=== PATIENT | male | born 1965 | race American Indian/Alaskan Native ===

== ENCOUNTER 2018-05-23 12:03 | Emergency (ER) | payer SELFPAY ==
[2018-05-23] MEDS ORDERED: ZOFRAN IV ONE (12:31)
[2018-05-23] MEDS ORDERED: NACL 0.9% 1000 ML 1,000 ML IV ONE ×2 (12:31→15:29)
--- NOTE | 2018-05-23 12:35 | Emergency Department Report ---
ED N/V/D HPI - General Chief complaint: Hyperglycemia Stated complaint: HIGH BLOOD SUGAR Time Seen by Provider: 05/23/18 12:21 Source: patient, EMS Mode of arrival: Stretcher Limitations: No Limitations - History of Present Illness Initial comments: 52-year-old male with history of diabetes presents to ED with complaint of nausea and vomiting 3 days. Patient reports onset of cough, headache, body aches approximately 1 week ago. Patient lives with his brother and sister, states they have all been sick with the same symptoms. Patient denies fever and chills. Denies diarrhea. Patient reports generalized weakness this morning, so decided to come to the ER. He states he is unable to keep anything down. Patient does report that he did receive the flu shot this season. PCP: none complaint: nausea, vomiting -: days(s) (3) Description of Vomiting: food contents, watery Associated Abdominal Pain: No Severity: moderate Consistency: constant Improves with: none Worsens with: eating Context: sick contacts Associated Symptoms: myalgias, cough, headaches, nausea/vomiting, shortness of breath, weakness. denies: chest pain, fever/chills - Related Data Previous Rx's Medication Instructions Recorded Last Taken Type Benzonatate [Tessalon Perles] 100 mg PO Q8HR PRN #20 capsule 05/23/18 Unknown Rx Ondansetron [Zofran Odt] 4 mg PO Q8HR PRN #20 tab.rapdis 05/23/18 Unknown Rx Allergies Allergy/AdvReac Type Severity Reaction Status Date / Time No Known Allergies Allergy Unverified 05/23/18 12:18 ED Review of Systems ROS: Stated complaint: HIGH BLOOD SUGAR Other details as noted in HPI Comment: All other systems reviewed and negative Constitutional: weakness. denies: chills, fever Respiratory: cough, shortness of breath Cardiovascular: denies: chest pain Gastrointestinal: nausea, vomiting. denies: abdominal pain, diarrhea, consti pation Neurological: headache ED Past Medical Hx - Past Medical History Additional medical history: hyperglycemia - Surgical History Past Surgical History?: No - Social History Smoking Status: Current Every Day Smoker Substance Use Type: None - Medications Home Medications: Home Medications Medication Instructions Recorded Confirmed Last Taken Type Benzonatate [Tessalon Perles] 100 mg PO Q8HR PRN #20 capsule 03/28/19 Unknown Rx Ondansetron [Zofran Odt] 4 mg PO Q8HR PRN #20 tab.rapdis 05/23/18 Unknown Rx ED Physical Exam - General Limitations: No Limitations ED Course Vital Signs 05/23/18 05/23/18 05/23/18 12:13 12:18 12:39 Temperature 97.6 F Pulse Rate 100 H 106 H Respiratory 20 15 15 Rate Blood Pressure 118/72 118/70 [Left] O2 Sat by Pulse 98 99 99 Oximetry ED Medical Decision Making - Lab Data Result diagrams: 05/23/18 12:43 05/23/18 12:43 - Radiology Data Radiology results: report reviewed, image reviewed - Medical Decision Making 52-year-old female with likely viral illness contracted from his roommates. Reports URI symptoms 1 week, nausea, vomiting, generalized weakness 3 days, no abdominal pain, no diarrhea. Glucose is initially elevated at 488, however no signs of DKA. Patient had 2 L of fluid and 8 units of insulin with improvement of his glucose to 281 (accucheck results not crossing over into [employer]). Patient feeling much better this time. Return precautions. Patient Follow-Up Advised. Prescriptions Given for Zofran. - Differential Diagnosis hyperglycemia, DKA, viral illness, pneumonia Critical care attestation.: If time is entered above; I have spent that time in minutes in the direct care of this critically ill patient, excluding procedure time. ED Disposition Clinical Impression: Viral illness, Nausea & vomiting, URI (upper respiratory infection), Hyperglycemia Disposition: DC-01 TO HOME OR SELFCARE Is pt being admited?: No Condition: Stable Instructions: Upper Respiratory Infection (ED), Acute Nausea and Vomiting (ED) Prescriptions: Benzonatate [Tessalon Perles] 100 mg PO Q8HR PRN #20 capsule PRN Reason: Cough Ondansetron [Zofran Odt] 4 mg PO Q8HR PRN #20 tab.rapdis PRN Reason: Vomiting Referrals: MILA REILLY MD [Primary Care Provider] - 3-5 Days Time of Disposition: 16:34
[2018-05-23 12:39] VITALS: BP 118/70
[2018-05-23 13:48] LABS: Hematocrit 34.1 % (35.5-45.6); Hemoglobin 11.5 gm/dl (11.8-15.2); Mean Corpuscular HGB Conc 34 % (32-34); Mean Corpuscular Volume 84 fl (84-94); Platelet Count 578 K/mm3 (140-440); Red Blood Count 4.07 M/mm3 (3.65-5.03); Red Cell Distribution Width 12.8 % (13.2-15.2)
[2018-05-23 13:49] LABS: Albumin 3.5 g/dL (3.9-5); Calcium 9.6 mg/dL (8.4-10.2)
[2018-05-23 13:52] LABS: Bilirubin,Urine NEG (Negative); Blood,Urine NEG (Negative); Color,Urine Straw (Yellow); Mucus,Urine FEW /HPF; Protein,Urine <15 mg/dL mg/dL (Negative); Urobilinogen,Urine < 2.0 mg/dL (<2.0); WBC,Urine < 1.0 /HPF (0.0-6.0)
[2018-05-23] MEDS ORDERED: HumuLIN R IV ONE (13:52)
--- NOTE | 2018-05-23 14:02 | XRay Report ---
AP CHEST: HISTORY: Cough AP view of the chest demonstrates a normal mediastinal and cardiac contour with clear lungs and normal bony and soft tissue structures. IMPRESSION: Unremarkable AP chest.
[2018-05-23 15:52] LABS: Band Neutrophils # (Manual) 0.6 K/mm3; Basophils % (Manual) 0 % (0.0-1.8); Eosinophils % (Manual) 0 % (0.0-4.3); Total Cells Counted 100
[2018-05-23 15:53] LABS: Anisocytosis 1+; Platelet Estimate Appears Increased
== END 2018-05-23 16:57 | disposition home or self-care (01) ==
LOC: ED 12:03
DX: J06.9 Acute upper respiratory infection, unspecified (principal); F17.200 Nicotine dependence, unspecified, uncomplicated; E11.65 Type 2 diabetes mellitus with hyperglycemia; B34.9 Viral infection, unspecified
CPT/HCPCS: 36415; 71045; 80053; 81001; 82962; 83690; 85007; 85025; 96361; 96374; 96375; 99284; J2405; J7030; J1815

== ENCOUNTER 2018-09-03 14:54 | Inpatient (IN) | payer OTHER ==
[2018-09-03] MEDS ORDERED: HEPARIN IV ONE (14:58)
[2018-09-03] MEDS ORDERED: NACL 0.9% 1000 ML 1,000 ML IV ONE (14:58)
[2018-09-03] MEDS ORDERED: HEPARIN 10,000 UNITS/10 ML ONE ×2 (15:02→15:06)
[2018-09-03] MEDS ORDERED: HEPARIN/NS 5000 UNIT/500ML(CATH LAB) 1,000 ML IR ONE (15:02)
[2018-09-03] MEDS ORDERED: CALAN ONE (15:03)
[2018-09-03] MEDS ORDERED: XYLOCAINE 2% INFILTRATI ONE (15:03)
[2018-09-03] MEDS ORDERED: NITROGLYCERIN SYRINGE 0 ML ONE (15:03)
[2018-09-03] MEDS ORDERED: NACL 0.9% 1000 ML 0 ML ONE (15:04)
[2018-09-03] MEDS ORDERED: ADRENALIN ONE (15:04)
[2018-09-03] MEDS ORDERED: XYLOCAINE CARDIAC IV ONE ×2 (15:04→17:37)
[2018-09-03] MEDS ORDERED: ATROPINE 0.1% (CARDIAC) ONE (15:05)
--- NOTE | 2018-09-03 15:16 | Consultation ---
History of Present Illness Consult date: 09/03/18 Requesting physician: JONI MOSELEY Consult reason: other (stemi) History of present illness: Pt is a 53 YO male with a past medical history of DM. Pt is lethargic and nonverbal on evaluation and thus HPI is obtained per EMS. Per EMS, pt called EMS with c/o nausea, vomiting and SOB. Upon EMS arrival, pt was alert and oriented. Pt reported to EMS that he recently moved to [place] from [place] and ran out of his insulin and has not had any insulin in about 4 months. Initial BG >500, DKA suspected. While en route to ED, pt's mental status declined. EMS ECG with ST elevations in anterior leads, code STEMI activated, pt taken to cath lab nurse for emergent LHC per STEMI protocol. Past History Past Medical History: diabetes Medications and Allergies Allergies Allergy/AdvReac Type Severity Reaction Status Date / Time No Known Allergies Allergy Unverified 05/23/18 12:18 Home Medications Medication Instructions Recorded Confirmed Last Taken Type Benzonatate [Tessalon Perles] 100 mg PO Q8HR PRN #20 capsule 05/23/18 Unknown Rx Ondansetron [Zofran Odt] 4 mg PO Q8HR PRN #20 tab.rapdis 05/23/18 Unknown Rx Active Meds: Active Medications Heparin Sodium (Porcine) (Heparin) 4,000 unit IV ONCE ONE Stop: 09/03/18 14:59 Last Admin: 09/03/18 15:07 Dose: 4,000 unit Documented by: Sodium Chloride (Nacl 0.9% 1000 Ml) 1,000 mls @ 42 mls/hr IV ONCE ONE Stop: 09/04/18 14:46 Review of Systems ROS unobtainable: due to mental status Physical Examination Vital Signs Pulse Resp BP Pulse Ox 86 12 50/32 93 09/03/18 15:01 09/03/18 15:01 09/03/18 15:01 09/03/18 15:01 General appearance: other (lethargic, nonverbal) HEENT: Positive: PERRL Cardiac: Positive: Reg Rate and Rhythm, S1/S2 Lungs: Positive: Decreased Breath Sounds Neuro: Positive: Other (lethargic, nonverbal) Skin: Negative: Mottled Extremities: Absent: edema Results 09/03/18 15:01 09/03/18 15:01 - Imaging and Cardiology Echo: pending Cardiac cath: pending EKG: report reviewed, image reviewed EKG interpretations - Telemetry EKG Rhythm: Sinus Rhythm - EKG Sinus rhythms and dysrhythmias: sinus rhythm Myocardial infarction: anterior [place] (acute or rec Assessment and Plan Pt s/p LHC which showed normal coronaries and normal LV function. F/u echo. Initiated on vasopressors. To be tx to CCU for further management of multiple co-morbidities. D/w Dr. Clements. Overall guarded prognosis. The patient has been seen in conjunction with Dr. Joe Mark who agrees with the assessment and plan of care. - Patient Problems (1) DKA (diabetic ketoacidoses) Current Visit: Yes Status: Acute (2) Abnormal ECG Current Visit: Yes Status: Acute (3) Hypotension Current Visit: Yes Status: Acute (4) Hyperkalemia Current Visit: Yes Status: Acute (5) Hyponatremia Current Visit: Yes Status: Acute (6) Acute renal failure Current Visit: Yes Status: Acute (7) Thrombocytopenia Current Visit: Yes Status: Acute (8) Acute respiratory failure Current Visit: Yes Status: Acute (9) Altered mental status Current Visit: Yes Status: Acute (10) Leukocytosis Current Visit: Yes Status: Acute
[2018-09-03] MEDS: NEO SYNEPHRINE/NS Syringe(OR USE) IV ONE ×2 (15:18→15:26)
--- NOTE | 2018-09-03 15:18 | Emergency Department Report ---
HPI - General Chief Complaint: Chest Pain Time Seen by Provider: 09/03/18 14:58 - HPI HPI: 53-year-old -Iranian male presents to the emergency department via EMS from home with the original complaint of nausea, vomiting and shortness of breath and hypoglycemia. Apparently the patient was just recently diagnosed with diabetes within the last 6 months or so. He was conversive with EMS but by the time he got to the emergency department he is awake but nonverbal. A 12- lead EKG was sent by EMS that showed some ST elevation to the anterior leads and concern for STEMI so a code STEMI was called. The Accu-Chek showed a critical high blood sugar and route, meaning greater than 500. ED Past Medical Hx - Past Medical History Previous Medical History?: Yes Hx Diabetes: Yes Additional medical history: hyperglycemia - Social History Smoking Status: Unknown if ever smoked - Medications Home Medications: Home Medications Medication Instructions Recorded Confirmed Last Taken Type Benzonatate [Tessalon Perles] 100 mg PO Q8HR PRN #20 capsule 05/23/18 Unknown Rx Ondansetron [Zofran Odt] 4 mg PO Q8HR PRN #20 tab.rapdis 05/23/18 Unknown Rx ED Review of Systems ROS: Stated complaint: STEMI Other details as noted in HPI Comment: Unobtainable due to pts medical conditions Physical Exam - Physical Exam Vital Signs: Vital Signs 09/03/18 15:01 Pulse Rate 86 Respiratory 12 Rate Blood Pressure 50/32 O2 Sat by Pulse 93 Oximetry Physical Exam: GENERAL: Patient is ill-appearing. HENT: Normocephalic. Atraumatic. Patient has moist mucous membranes. EYES: Pupils equal reactive to light bilaterally. NECK: Supple. Trachea is midline. CHEST/LUNGS: Clear to auscultation. No accessory muscle use. Normal respiratory rate but shallow breaths. HEART/CARDIOVASCULAR: Regular. There is no tachycardia. There is no murmur. ABDOMEN: Abdomen is soft, nontender. Patient has normal bowel sounds. There is no abdominal distention. SKIN: Skin is warm and dry. NEURO: The patient has his eyes open but otherwise is non-verbal and not follo wing commands. MUSCULOSKELETAL: There is no obvious deformity. There is no evidence of acute injury. ED Course Vital Signs 09/03/18 15:01 Pulse Rate 86 Respiratory 12 Rate Blood Pressure 50/32 O2 Sat by Pulse 93 Oximetry - Consultations Consultation #1: The initial EMS 12-lead EKG was sent to the training systems officer, Dr. Mark, who agrees to proceed with laborer mine activation. He was made aware of the preceding history, including the critical high hyperglycemia. The patient was seen in the emergency department by the nurse practitioner, Milady Li. 09/03/18 15:16 - ABG Interpretation Ph: 7.020 PCO2: 17 PO2: 139 Bicarbonate: 5 Interpretation: respiratory alkalosis, metabolic acidosis ED Medical Decision Making - Lab Data Result diagrams: 09/03/18 15:01 09/03/18 15:01 Laboratory Results - last 24 hr 09/03/18 09/03/18 09/03/18 15:01 15:01 15:01 WBC 17.4 H RBC 3.84 Hgb 10.6 L Hct 42.7 MCV 111 H MCH 28 MCHC 25 L RDW 16.5 H Plt Count 16 L* PT 17.5 H INR 1.47 H APTT 29.0 POC ABG pH POC ABG pO2 POC ABG HCO3 POC ABG Total CO2 POC ABG O2 Sat POC ABG Base Excess VBG pH FiO2 Chloride 61.0 L BUN 77 H Creatinine 4.3 H Estimated GFR 18 BUN/Creatinine Ratio 18 Calcium 7.3 L Total Creatine Kinase 203 H CK-MB (CK-2) 8.9 H CK-MB (CK-2) Rel Index 4.3 H Troponin T 0.058 H 09/03/18 09/03/18 15:01 15:16 WBC RBC Hgb Hct MCV MCH MCHC RDW Plt Count PT INR APTT POC ABG pH 7.020 L POC ABG pO2 139 H POC ABG HCO3 5.4 POC ABG Total CO2 6 POC ABG O2 Sat 98 POC ABG Base Excess -26 VBG pH 7.049 L* FiO2 21 Chloride BUN Creatinine Estimated GFR BUN/Creatinine Ratio Calcium Total Creatine Kinase CK-MB (CK-2) CK-MB (CK-2) Rel Index Troponin T - EKG Data -: EKG Interpreted by Nc EKG shows normal: sinus rhythm, axis (left axis deviation), intervals (prolonged QTc), QRS complexes (intraventricular conduction delay), ST-T waves (st elevation to the septal leads with some inferior lateral depression) Rate: normal - EKG Data When compared to previous EKG there are: previous EKG unavailable Interpretation: acute OH - Radiology Data Radiology results: image reviewed Chest x-ray does not show any acute process. There are no pleural effusions, obvious pneumonia and there is no pneumothorax. - Medical Decision Making Before the patient even arrived to the emergency department, an EKG was sent by EMS that appeared concerning for a septal/anterior ST elevation OH and a code STEMI was called. Based on the patient's presentation and the fact that he has a history of diabetes with a critical high Accu-Chek done, the concern initially was also that the patient could be in diabetic ketoacidosis with severe hyperkalemia. EKG was sent to the regroover and the patient was seen in the emergency department by the cardiology nurse practitioner, and the decision was made to proceed with laborer mine activation. Prior to going to the Family Preservation Officer, a repeat EKG was done that once again shows concern for acute ST elevation OH. Patient was given a bolus of heparin. ABG was done that shows metabolic acidosi s which once again appears consistent with the suspicion for DKA. Labs were drawn and the patient was sent over to the Family Preservation Officer. Ultimately it does not appear that the patient had any coronary lesions or obstruction. The patient's labs began coming back and appears consistent with severe diabetic ketoacidosis with severe hyperkalemia. His blood sugar was almost 2000 and the potassium was 7.5. Since the patient had a Family Preservation Officer procedure done with arterial cannulation, we were unable to bring him back to the emergency department for further resuscitation here as the ED is not certified to deal with laborer mine patients post-op. However, the admitting hospitalist placed admission orders and orders to begin treatment for DKA and hyperkalemia including insulin gtt. Anesthesia was contacted by the laborer mine for respiratory assessment and intubation if necessary. - Differential Diagnosis DKA, Hyperkalemia, STEMI, Sepsis Critical Care Time: Yes Critical care time in (mins) excluding proc time.: 45 Critical care attestation.: If time is entered above; I have spent that time in minutes in the direct care of this critically ill patient, excluding procedure time. Critical care time was spent on this patient and during his initial evaluation, multiple re- evaluations, ordering an interpretation of labs, discussion with the regroover. Critical Care Time: 45 minutes ED Disposition Clinical Impression: Thrombocytopenia, Abnormal ECG, Hyperkalemia, Hyponatremia Acute renal failure Qualifiers: Acute renal failure type: unspecified Qualified Code(s): N17.9 - Acute kidney failure, unspecified DKA (diabetic ketoacidoses) Qualifiers: Diabetes mellitus type: type 1 Diabetes mellitus complication detail: with coma Qualified Code(s): E10.11 - Type 1 diabetes mellitus with ketoacidosis with coma Hypotension Qualifiers: Hypotension type: unspecified hypotension type Qualified Code(s): I95.9 - Hypotension, unspecified Altered mental status Qualifiers: Altered mental status type: unspecified Qualified Code(s): R41.82 - Altered mental status, unspecified Acute respiratory failure Qualifiers: Respiratory failure complication: unspecified whether with hypoxia or hypercapnia Qualified Code(s): J96.00 - Acute respiratory failure, unspecified whether with hypoxia or hypercapnia Disposition: DC-09 OP ADMIT IP TO THIS HOSP Is pt being admited?: Yes Condition: Critical Time of Disposition: 18:26
[2018-09-03 15:22] LABS: INR 1.47 (0.87-1.13)
[2018-09-03] MEDS ORDERED: INTROPIN DRIP 800 MG/D5W 250 ML 800 MG/250 ML BAG IV ONE (15:22)
[2018-09-03] MEDS ORDERED: CORDARONE IV ONE (15:27)
[2018-09-03] MEDS ORDERED: NACL 0.9% 50 ML ONE (15:27)
[2018-09-03 15:28] LABS: Creatine Kinase MB 8.9 ng/mL (0.0-4.0)
[2018-09-03 15:29] LABS: Calcium 7.3 mg/dL (8.4-10.2); Mean Corpuscular HGB Conc 25 % (32-34); Red Blood Count 3.84 M/mm3 (3.65-5.03); Red Cell Distribution Width 16.5 % (13.2-15.2)
[2018-09-03 15:30] LABS: Hematocrit 42.7 % (35.5-45.6); Hemoglobin 10.6 gm/dl (11.8-15.2); Mean Corpuscular Volume 111 fl (84-94)
[2018-09-03] MEDS ORDERED: NACL 0.9% 250ML 250 ML ONE (15:30)
[2018-09-03] MEDS ORDERED: LEVOPHED IV ONE (15:30)
[2018-09-03 15:33] LABS: Platelet Count 16 K/mm3 (140-440)
--- NOTE | 2018-09-03 15:53 | History and Physical Report ---
History of Present Illness Chief complaint: Unresponsive History of present illness: 53 YO Male with DM presents to ED for evaluation. Pt is lethargic and unable to provide history at time of my exam. Pt history taken from EMS, and ED staff. As per staff, EMS was notified for Nausea, Vomiting, and shortness of breath. Upon arrival the patient was found to be in distress with an elevated blood glucose above 500, and EKG changes. A code STEMI was called and the patient was transported to [facility]. Pt seen and evaluated in ED and was taken urgently to labels molder as per cardiology team. Pt subsequently found to have DKA, Acidosis, Acute Respiratory Failure, Acute Renal Failure, Thrombocytopenia, as well as Sepsis. Pt admitted to ICU and initiated on sepsis protocol as well as DKA Protocol. Pt also intubated and placed on vent support by the Anesthesia service. No further history obtainable. Pulmonary team consulted in ED, Hematology team consulted in ED. No prior admission for review. No medication listed at time of admission for reconciliation. Extra 60 minutes critical care time spent conducting bedside management, and coordination of care. Pt has extremely poor prognosis. Past History Past Medical History: diabetes Past Surgical History: No surgical history, Other (UTO) Social history: single, other (UTO) Family history: no significant family history, other (UTO) Medications and Allergies Allergies Allergy/AdvReac Type Severity Reaction Status Date / Time No Known Allergies Allergy Unverified 05/23/18 12:18 Home Medications Medication Instructions Recorded Confirmed Last Taken Type Benzonatate [Tessalon Perles] 100 mg PO Q8HR PRN #20 capsule 05/23/18 Unknown Rx Ondansetron [Zofran Odt] 4 mg PO Q8HR PRN #20 tab.rapdis 05/23/18 Unknown Rx Active Meds: Active Medications Sodium Chloride (Nacl 0.9% 1000 Ml) 1,000 mls @ 42 mls/hr IV ONCE ONE Stop: 09/04/18 14:46 Review of Systems ROS unobtainable: due to endotracheal tube Exam - Constitutional Vitals: Temp Pulse Resp BP Pulse Ox 78 12 86/37 96 09/03/18 15:05 09/03/18 15:05 09/03/18 15:05 09/03/18 15:05 General appearance: Present: severe distress - EENT Eyes: Present: miosis - Neck Neck: Present: supple, normal ROM - Respiratory Respiratory effort: labored Respiratory: bilateral: diminished, rhonchi - Cardiovascular Rhythm: other (tachycardia) Heart Sounds: Present: S1 & S2. Absent: rub, click - Extremities Extremities: pulses symmetrical, No edema Peripheral Pulses: abnormal (capillary refill greater than 3.5 seconds) - Abdominal General gastrointestinal: Present: soft, non-tender, non-distended, normal bowel sounds Male genitourinary: Present: normal - Integumentary Integumentary: Present: clear, dry, clammy, decreased turgor - Musculoskeletal Musculoskeletal: generalized weakness - Psychiatric Psychiatric: no appropriate mood/affect, no intact judgment & insight, no memory intact - Neurologic Neurologic: CNII-XII intact, no focal deficits, no gait normal Results - Labs CBC & Chem 7: 09/03/18 15:01 09/04/18 02:20 Labs: Abnormal lab results 09/03/18 09/03/18 09/03/18 Range/Units 15:01 15:01 15:01 WBC 17.4 H (4.5-11.0) K/mm3 Hgb 10.6 L (11.8-15.2) gm/dl MCV 111 H (84-94) fl MCHC 25 L (32-34) % RDW 16.5 H (13.2-15.2) % Plt Count 16 L* (140-440) K/mm3 PT 17.5 H (12.2-14.9) Sec. INR 1.47 H (0.87-1.13) POC ABG pH (7.35-7.45) POC ABG pO2 (80-105) VBG pH (7.320-7.420) Chloride 61.0 L (98-107) mmol/L BUN 77 H (9-20) mg/dL Creatinine 4.3 H (0.8-1.5) mg/dL Calcium 7.3 L (8.4-10.2) mg/dL Total Creatine Kinase 203 H (55-170) units/L CK-MB (CK-2) 8.9 H (0.0-4.0) ng/mL CK-MB (CK-2) Rel Index 4.3 H (0-4) Troponin T 0.058 H (0.00-0.029) ng/mL 09/03/18 09/03/18 Range/Units 15:01 15:16 WBC (4.5-11.0) K/mm3 Hgb (11.8-15.2) gm/dl MCV (84-94) fl MCHC (32-34) % RDW (13.2-15.2) % Plt Count (140-440) K/mm3 PT (12.2-14.9) Sec. INR (0.87-1.13) POC ABG pH 7.020 L (7.35-7.45) POC ABG pO2 139 H (80-105) VBG pH 7.049 L* (7.320-7.420) Chloride (98-107) mmol/L BUN (9-20) mg/dL Creatinine (0.8-1.5) mg/dL Calcium (8.4-10.2) mg/dL Total Creatine Kinase (55-170) units/L CK-MB (CK-2) (0.0-4.0) ng/mL CK-MB (CK-2) Rel Index (0-4) Troponin T (0.00-0.029) ng/mL Assessment and Plan - Patient Problems (1) Sepsis Current Visit: Yes Status: Acute Qualifiers: Sepsis type: sepsis due to unspecified organism Qualified Code(s): A41.9 - Sepsis, unspecified organism Plan to address problem: Admit to ICU. Initiated sepsis protocol in ED: IVF resuscitation therapy, monitor uop q shift, blood cultures, chest x ray, urinalysis, IV antibiotic therapy, IV pressor support to maintain MAP greater than 60. The high probability of a clinically significant, sudden or life threatening det erioration of the [cardiac, neuro, renal, respiratory] system(s) required my full and direct attention, intervention and personal management. The aggregate critical care time was [65] minutes. This time is in addition to time spent performing reported procedures but includes the following: [x] Data Review and interpretation [x] Patient assessment and monitoring of vital signs [x] Documentation [x] Medication orders and management (2) Encephalopathy Current Visit: Yes Status: Acute Plan to address problem: CT head, neuro checks, treat sepsis. CT pending at time of admission. (3) Acute renal failure Current Visit: Yes Status: Acute Qualifiers: Acute renal failure type: with acute tubular necrosis Qualified Code(s): N17.0 - Acute kidney failure with tubular necrosis Plan to address problem: IVF resuscitation therapy, urine electrolytes, monitor uop q shift, monitor serum creatnine (4) Acute respiratory failure Current Visit: Yes Status: Acute Qualifiers: Respiratory failure complication: unspecified whether with hypoxia or hyper capnia Qualified Code(s): J96.00 - Acute respiratory failure, unspecified whether with hypoxia or hypercapnia Plan to address problem: Wean vent as tolerated, daily ABG, sedation holiday, pulmonary team consulted in ED, daily SBT, Chest x ray, CT chest pending at time of admission. (5) DKA (diabetic ketoacidoses) Current Visit: Yes Status: Acute Qualifiers: Diabetes mellitus type: type 1 Diabetes mellitus complication detail: with coma Qualified Code(s): E10.11 - Type 1 diabetes mellitus with ketoacidosis with coma Plan to address problem: DKA protocol: Insulin drip, IVF resuscitation therapy, monitor anion gap, serial bmp, supportive care. (6) STEMI (ST elevation myocardial infarction) Current Visit: Yes Status: Suspected Plan to address problem: Cardiology consulted in ED, Pt taken urgently to labels molder, and underwent cardiac cath. (7) Thrombocytopenia Current Visit: Yes Status: Acute Plan to address problem: Platelet pheresis, bed rest, hematology consulted. (8) Hyponatremia syndrome Current Visit: Yes Status: Acute Plan to address problem: Hypertonic saline infusion. Administer 50cc hypertonic saline over 2 hour period then stop. Wait 2 hours, then recheck bmp. If serum sodium less than 117 infuse additional 50cc hypertonic saline. do not transfuse more than 100cc hypertonic saline during 24 hour period. (9) DVT prophylaxis Current Visit: Yes Status: Acute Plan to address problem: SCD to ble while in bed, hold anticoagulation at this time secondary to bleeding risk.
[2018-09-03] MEDS ORDERED: SODIUM CHLORIDE FLUSH SYRINGE 10 ML IV PRN (15:58)
[2018-09-03] MEDS ORDERED: PROVENTIL IH PRN (15:58)
[2018-09-03] MEDS ORDERED: HumuLIN R ONE (16:02)
[2018-09-03] MEDS ORDERED: D50W (25GM) Syringe IV PRN (16:07)
[2018-09-03 16:10] LABS: Chol/HDL Ratio 2.34 %
[2018-09-03] MEDS ORDERED: VANCOMYCIN 1,500 MG in NACL 0.9% 500 ML 500 ML IV ONE (16:12)
[2018-09-03 16:29] LABS: Basophils % (Manual) 0 % (0.0-1.8); Eosinophils % (Manual) 0 % (0.0-4.3); Myelocytes # (Manual) 0.3 K/mm3; Total Cells Counted 100
[2018-09-03 16:30] LABS: Anisocytosis 2+; Platelet Estimate Appears Decreased
[2018-09-03] MEDS ORDERED: VANCOMYCIN PHARMACY TO DOSE IV SCH (17:00)
[2018-09-03] MEDS ORDERED: NACL 0.9% 1000 ML IV ONE (17:12)
[2018-09-03] MEDS ORDERED: NACL 0.9% 500 ML 500 ML IV ONE (17:12)
[2018-09-03] MEDS ORDERED: AMIDATE IV ONE (17:37)
[2018-09-03] MEDS ORDERED: ZEMURON IV ONE (17:37)
[2018-09-03] MEDS ORDERED: DIPRIVAN 10 MG/ML IV ONE ×2 (17:38→19:00)
--- NOTE | 2018-09-03 17:48 | Event Note ---
Date: 09/03/18 (INTUBATION) Called to intubate patient. K > 7 1735 Meds: Etomidate 20mg + Lidocaine 100mg with no effect 1738 Rocuronium 30mg + Propofol 100mg DL X 1 7.5 OETT @ 23cm +BBS/+CO2 VSS Requested to place C-Line. Plt 16k and pt received heparin bolus earlier so advised to start PIV for now
[2018-09-03] MEDS ORDERED: SUBLIMAZE IV PRN (17:54)
[2018-09-03] MEDS ORDERED: VANCOMYCIN 1,250 MG in NACL 0.9% 250ML 250 ML IV SCH (18:00)
[2018-09-03] MEDS ORDERED: CORDARONE 900 MG in D5W 482 ML IV SCH (18:00)
[2018-09-03] MEDS ORDERED: D5W/0.45% NACL/KCL 20 MEQ 20 MEQ/1,000 ML BAG IV SCH (18:00)
[2018-09-03] MEDS ORDERED: HumuLIN R 100 UNITS in NACL 0.9% 99 ML IV SCH (18:00)
[2018-09-03] MEDS: HumuLIN R 100 UNITS in NACL 0.9% 99 ML IV SCH (18:05)
[2018-09-03] MEDS: fentaNYL DRIP Premix 2,000 MCG/100 ML BAG IV SCH (18:06)
[2018-09-03] MEDS: LEVOPHED DRIP 4 MG/NS 250 ML 4 MG/250 ML BAG IV SCH ×2 (18:21→23:04)
[2018-09-03] MEDS ORDERED: LEVOPHED DRIP 4 MG/NS 250 ML 4 MG/250 ML BAG IV ONE (18:22)
[2018-09-03 18:45] LABS: Calcium 6.8 mg/dL (8.4-10.2); Creatine Kinase MB 13.4 ng/mL (0.0-4.0)
[2018-09-03 18:47] LABS: Alanine Aminotransferase 26 units/L (7-56); Albumin 3.2 g/dL (3.9-5)
[2018-09-03 18:54] LABS: Bilirubin,Direct < 0.2 mg/dL (0-0.2)
[2018-09-03] MEDS: DIPRIVAN 10 MG/ML 1,000 MG/100 ML BOTTLE IV SCH (19:35)
--- NOTE | 2018-09-03 20:01 | Cardiac Catherization Report ---
URGENT HEART CATH FOR STEMI PROTOCOL INDICATION FOR PROCEDURE: The patient is a 53-year-old -[place] gentleman who was brought to the Emergency Room, found to have VT, chest pain, anterior ST elevation, also DKA, uncontrolled sugar, has been out of insulin for several months. STEMI protocol initiated admitted by the wax pumper team evaluated by ER team. STEMI protocol initiated. Greater than 30 minutes of critical care time was spent prior to the patient coming to the medical lab specialist due to the patient's VT and overall level of illness. The patient was brought to the [facility] in an urgent fashion, prepped and draped in sterile fashion, 8 mL of 2% lidocaine used to anesthetize the right groin. A standard 6-Gibraltarian sheath used to cannulate the right common femoral artery via modified Seldinger technique. A standard 5-Gibraltarian sheath used to cannulate the right femoral vein via modified Seldinger technique. JR4 catheter used to engage the left main. No dampening or ventricularization. Cineangiography performed in all projections. JR4 catheter was used to cross the aortic valve under fluoroscopic guidance. Left ventriculography performed in 30 MERIDA and 30 [place] projections via hand injections, catheter flushed. Manual pullback performed with continuous pressure monitoring. Catheter used to engage the right coronary. No dampening or ventricularization. Cineangiography performed in all projections. I directly supervised administration of moderate sedation from 3:20 to 3:50 p.m. with fentanyl and Versed. DATA: Aortic pressure initially is in the 50s and 60s. With pressors, aortic pressure evie to 90, diastolic of 50, LV pressure of 90. EDP of 15. It should be noted the patient was markedly hypotensive throughout the case, is on dopamine and Levophed drips. Patient remained in normal sinus rhythm throughout the procedure. I started receiving lab results during the case. Creatinine is markedly elevated at 4, also platelets are noted to be 19,000 and unknown if this platelet clumping. No further heparin was given. RESULTS: Left main without significant disease, bifurcates left anterior descending and left circumflex. LAD is a moderate sized vessel, courses anterior intergroove, wraps around the apex, no significant disease. Left circumflex, moderate sized vessel, courses AV groove. No significant disease. Right coronary is a moderate sized vessel, courses the AV groove, distally bifurcates in the posterior, then posterolateral branches. No significant disease. Left ventriculography reveals normal systolic performance. Estimated ejection fraction of 55-60%. No evidence of aortic stenosis. CORONARY ANATOMY: This is a right dominant system. We watched the patient on the table for some 30 minutes, I did not place an intraaortic balloon pump due to significant thrombocytopenia. Blood pressure on multiple pressors continues to improve. Fluids are wide open. A venous line is provided, we will maintain the femoral arterial line given hypotension for monitoring purposes. The patient's ____ has been in the room the entire time on BiPAP, appears to be adequately aerating and oxygenating. CONCLUSIONS: 1. No angiographic evidence of significant epicardial coronary disease in this right dominant system. 2. Preserved left ventricular systolic performance, estimated ejection fraction of 55-60%. 3. No evidence of aortic stenosis. 4. Marked hypotension/shock on multiple pressors, intra-aortic balloon pump was not placed due to lack of a cardiac etiology and presence of severe thrombocytopenia. The patient is critically ill. Labs continue to return, will be admitted to ICU. Director Personal team need to correct his electrolytes. Will need a Nephrology consultation and DKA control. Bed rest, need to watch his right groin. Discontinue arterial line once his blood pressure is more stable. Results of procedure explained in length to the patient and family. All questions and concerns were addressed. JOB# [id number] KEELY/MINE
[2018-09-03] MEDS ORDERED: NACL 0.9% 1000 ML 2,000 ML IV ONE (20:11)
--- NOTE | 2018-09-03 20:39 | XRay Report ---
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 COMPARISON: 05/23/2018 FINDINGS: SUPPORT DEVICES: Tip of endotracheal tube is positioned approximately 6 cm above the kp. HEART / MEDIASTINUM: No significant abnormality. LUNGS / PLEURA: No significant pulmonary or pleural abnormality.. No pneumothorax. ADDITIONAL FINDINGS: No significant additional findings. IMPRESSION: 1. No acute findings. Signer Name: Hoang Roberts MD Signed: 09/03/2018 8:35 PM Workstation Name: [id number]
[2018-09-03] MEDS ORDERED: NACL 0.9% 1000 ML 3,000 ML IV ONE (20:45)
[2018-09-03] MEDS ORDERED: NACL 3% 500 ML IV ONE (21:01)
[2018-09-03 21:14] LABS: Calcium 6.4 mg/dL (8.4-10.2)
[2018-09-03] MEDS ORDERED: NACL 0.9% 500 ML 500 ML ONE (21:48)
[2018-09-03] MEDS: ROCEPHIN/NS 2 GM/100 ML 2 GM/100 ML BAG IV SCH (22:37)
[2018-09-03 22:54] LABS: Bilirubin,Urine NEG (Negative); Blood,Urine NEG (Negative); Color,Urine Yellow (Yellow); Mucus,Urine FEW /HPF; Protein,Urine <15 mg/dL mg/dL (Negative); RBC,Urine < 1.0 /HPF (0.0-6.0); Urobilinogen,Urine < 2.0 mg/dL (<2.0)
[2018-09-04] MEDS: fentaNYL DRIP Premix 2,000 MCG/100 ML BAG IV SCH ×2 (00:04→16:41)
[2018-09-04] MEDS: LEVOPHED DRIP 4 MG/NS 250 ML 4 MG/250 ML BAG IV SCH ×6 (00:05→21:40)
[2018-09-04] MEDS: SODIUM CHLORIDE FLUSH SYRINGE 10 ML IV SCH ×2 (00:06→21:45)
[2018-09-04 01:23] LABS: Calcium 5.8 mg/dL (8.4-10.2)
[2018-09-04] MEDS ORDERED: CALCIUM GLUCONATE 1,000 MG in NACL 0.9% 100 ML IV ONE (02:07)
[2018-09-04 02:55] LABS: Calcium 6.1 mg/dL (8.4-10.2)
[2018-09-04] MEDS: HumuLIN R 100 UNITS in NACL 0.9% 99 ML IV SCH ×2 (03:42→13:00)
[2018-09-04 07:04] LABS: Calcium 6.6 mg/dL (8.4-10.2)
--- NOTE | 2018-09-04 07:34 | Consultation ---
History of Present Illness Consult date: 09/04/18 Reason for consult: other (DKA, Acute metabolic encephaloapthy, severe sepsis, KYLE, acute hypoxemic respiratory failure) History of present illness: 53 YO Male with DM presents to ED for evaluation. Pt is lethargic and unable to provide history at time of my exam. Pt history taken from EMS, and ED staff. As per staff, EMS was notified for Nausea, Vomiting, and shortness of breath. Upon arrival the patient was found to be in distress with an elevated blood glucose above 500, and EKG changes. A code STEMI was called and the patient was trans ported to [facility]. 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 Pt subsequently found to have DKA, Acidosis, Acute Respiratory Failure, Acute Renal Failure, Thrombocytopenia, as well as Sepsis. Pt admitted to ICU and initiated on sepsis protocol as well as DKA Protocol. Pt also intubated and placed on vent support by the Anesthesia service. No further history obtainable. I have been consulted for critical care management. Patient was managed remotely overnight. Seen and examined. Vitals, labs, medications, chart and imaging reviewed. Remains orally intubated, vasopressor support and unresponsive. Brother at the bedside. Discussed with RT and RN Past History Past Medical History: diabetes Past Surgical History: No surgical history, Other (UTO) Social history: single, other (UTO) Family history: no significant family history, other (UTO) Medications and Allergies Allergies Allergy/AdvReac Type Severity Reaction Status Date / Time No Known Allergies Allergy Unverified 05/23/18 12:18 Home Medications Medication Instructions Recorded Confirmed Last Taken Type No Known Home Medications [No 09/05/18 09/05/18 Unknown History Reported Home Medications] Active Meds: Active Medications Albuterol (Proventil) 2.5 mg IH Q3HRT PRN PRN Reason: Shortness Of Breath Dextrose (D50w (25gm) Syringe) 0 ml IV PRN PRN PRN Reason: Hypoglycemia Fentanyl (Sublimaze) 50 mcg IV Q10MIN PRN PRN Reason: ANALGESIA Insulin Human Regular 100 (units/ Sodium Chloride) 100 mls @ 1 mls/hr IV TITR NANY; Protocol Last Admin: 09/04/18 03:42 Dose: 11 units/hr, 11 mls/hr Documented by: Ceftriaxone Sodium (Rocephin/Ns 2 Gm/100 Ml) 2 gm in 100 mls @ 200 mls/hr IV Q24H NANY; Protocol Last Infusion: 09/03/18 23:06 Dose: Infused Documented by: Vancomycin HCl 1,250 mg/ (Sodium Chloride) 275 mls @ 166.667 mls/hr IV Q48H NANY Last Infusion: 09/04/18 05:02 Dose: Infused Documented by: Amiodarone HCl 900 mg/ (Dextrose) 500 mls @ 33.333 mls/hr IV DIRECT NANY; Protocol Fentanyl Citrate (Fentanyl Drip Premix) 2,000 mcg in 100 mls @ 3.595 mls/hr IV TITR NANY; Protocol Last Admin: 09/04/18 00:04 Dose: 2 mcg/kg/hr, 7.19 mls/hr Documented by: Potassium Chloride/Dextrose/Sod Cl (D5w/0.45% Nacl/Kcl 20 Meq) 20 meq in 1,000 mls @ 125 mls/hr IV DIRECT NANY Norepinephrine (Levophed Drip 4 Mg/Ns 250 Ml) 4 mg in 250 mls @ 7.5 mls/hr IV TITR NANY; Protocol Last Titration: 09/04/18 06:30 Dose: 16 mcg/min, 60 mls/hr Documented by: Propofol (Diprivan 10 Mg/Ml) 1,000 mg in 100 mls @ 2.157 mls/hr IV TITR NANY; Protocol Last Titration: 09/04/18 06:30 Dose: 10 mcg/kg/min, 4.314 mls/hr Documented by: Sodium Chloride (Nacl 3%) 500 mls @ 25 mls/hr IV DIRECT ONE Stop: 09/04/18 17:00 Last Admin: 09/03/18 22:39 Dose: 25 mls/hr Documented by: Sodium Chloride (Sodium Chloride Flush Syringe 10 Ml) 10 ml IV BID NANY Last Admin: 09/04/18 00:06 Dose: 10 ml Documented by: Sodium Chloride (Sodium Chloride Flush Syringe 10 Ml) 10 ml IV PRN PRN PRN Reason: LINE FLUSH Review of Systems ROS unobtainable: due to endotracheal tube, due to mental status Physical Examination Vital signs: Vital Signs Pulse Resp BP Pulse Ox 86 12 50/32 93 09/03/18 15:01 09/03/18 15:01 09/03/18 15:01 09/03/18 15:01 Constitutional: appears uncomfortable, other (middle aged AAM, normocephalic and atraumatic with mildly increased respiratory effort at rest) Eyes: non-icteric ENT: oropharynx moist, other (ETT 24 cm DEJON) Neck: supple, no JVD, other (no thyromegaly) Effort: mildly labored Ascultation: Bilateral: rales Percussion: Bilateral: not dull Cardiovascular: regular rate and rhythm Gastrointestinal: normoactive bowel sounds, soft, non-tender, non-distended Integumentary: normal Extremities: no cyanosis, no edema, pulses normal, no ischemia or petechiae Neurologic: pupils equal and round,unable to assess Psychiatric: other (unable to assess) Results - Laboratory Findings CBC and BMP: 09/07/18 04:20 09/09/18 05:52 ABG POC ABG pH 7.389 (7.35-7.45) 09/04/18 05:25 POC ABG pO2 160 (80-105) H 09/04/18 05:25 POC ABG HCO3 15.1 (22-26 mml/L) 09/04/18 05:25 POC ABG Total CO2 16 (23-27mmol/L) 09/04/18 05:25 POC ABG O2 Sat 99 09/04/18 05:25 PT/INR, D-dimer PT 17.5 Sec. (12.2-14.9) H 09/03/18 15:01 INR 1.47 (0.87-1.13) H 09/03/18 15:01 Abnormal lab findings: Abnormal Labs 09/03/18 09/03/18 09/03/18 02:20 15:01 15:01 WBC 17.4 H Hgb 10.6 L MCV 111 H MCHC 25 L RDW 16.5 H Plt Count 16 L* Seg Neuts % (Manual) 84.0 H Lymphocytes % (Manual) 8.0 L Seg Neutrophils # Man 14.6 H Monocytes # (Manual) 1.0 H PT 17.5 H INR 1.47 H POC ABG pH POC ABG pO2 VBG pH Sodium Potassium Chloride Carbon Dioxide BUN Creatinine Glucose POC Glucose Lactic Acid 5.90 H* Calcium Phosphorus Magnesium AST Alkaline Phosphatase Total Creatine Kinase CK-MB (CK-2) CK-MB (CK-2) Rel Index Troponin T Total Protein Albumin 09/03/18 09/03/18 09/03/18 15:01 15:01 15:16 WBC Hgb MCV MCHC RDW Plt Count Seg Neuts % (Manual) Lymphocytes % (Manual) Seg Neutrophils # Man Monocytes # (Manual) PT INR POC ABG pH 7.020 L POC ABG pO2 139 H VBG pH 7.049 L* Sodium 110 L* Potassium 7.5 H* Chloride 61.0 L Carbon Dioxide 6 L* BUN 77 H Creatinine 4.3 H Glucose 1968 H* POC Glucose Lactic Acid Calcium 7.3 L Phosphorus Magnesium AST Alkaline Phosphatase Total Creatine Kinase 203 H CK-MB (CK-2) 8.9 H CK-MB (CK-2) Rel Index 4.3 H Troponin T 0.058 H Total Protein Albumin 09/03/18 09/03/18 09/03/18 18:10 18:10 18:10 WBC Hgb MCV MCHC RDW Plt Count Seg Neuts % (Manual) Lymphocytes % (Manual) Seg Neutrophils # Man Monocytes # (Manual) PT INR POC ABG pH POC ABG pO2 VBG pH Sodium Potassium Chloride Carbon Dioxide BUN Creatinine Glucose POC Glucose Lactic Acid Calcium Phosphorus 8.80 H Magnesium 2.90 H AST 64 H Alkaline Phosphatase 205 H Total Creatine Kinase 289 H CK-MB (CK-2) 13.4 H CK-MB (CK-2) Rel Index 4.6 H Troponin T 0.142 H* D Total Protein 5.6 L Albumin 3.2 L 09/03/18 09/03/18 09/03/18 18:10 18:33 20:15 WBC Hgb MCV MCHC RDW Plt Count Seg Neuts % (Manual) Lymphocytes % (Manual) Seg Neutrophils # Man Monocytes # (Manual) PT INR POC ABG pH 7.047 L POC ABG pO2 VBG pH Sodium 113 L* Potassium Chloride 70.1 L Carbon Dioxide 8 L* BUN 76 H Creatinine 4.3 H Glucose 1844 H* POC Glucose Lactic Acid Calcium 6.8 L Phosphorus Magnesium AST Alkaline Phosphatase Total Creatine Kinase 293 H CK-MB (CK-2) 13.0 H CK-MB (CK-2) Rel Index 4.4 H Troponin T 0.126 H* Total Protein Albumin 09/03/18 09/03/18 09/03/18 20:15 20:15 20:15 WBC Hgb MCV MCHC RDW Plt Count Seg Neuts % (Manual) Lymphocytes % (Manual) Seg Neutrophils # Man Monocytes # (Manual) PT INR POC ABG pH POC ABG pO2 VBG pH Sodium 116 L* Potassium Chloride 74.3 L Carbon Dioxide 11 L BUN 76 H Creatinine 4.4 H Glucose 1786 H* POC Glucose Lactic Acid 4.10 H* Calcium 6.4 L Phosphorus 9.00 H Magnesium 2.80 H AST Alkaline Phosphatase Total Creatine Kinase CK-MB (CK-2) CK-MB (CK-2) Rel Index Troponin T Total Protein Albumin 09/03/18 09/03/18 09/03/18 20:18 22:00 22:54 WBC Hgb MCV MCHC RDW Plt Count Seg Neuts % (Manual) Lymphocytes % (Manual) Seg Neutrophils # Man Monocytes # (Manual) PT INR POC ABG pH POC ABG pO2 VBG pH Sodium 120 L Potassium Chloride 82.7 L Carbon Dioxide 11 L BUN 74 H Creatinine 4.3 H Glucose 1144 H* POC Glucose > 500 H Lactic Acid 5.00 H* Calcium 6.0 L Phosphorus Magnesium AST Alkaline Phosphatase Total Creatine Kinase CK-MB (CK-2) CK-MB (CK-2) Rel Index Troponin T Total Protein Albumin 09/03/18 09/03/18 09/04/18 23:18 23:47 00:20 WBC Hgb MCV MCHC RDW Plt Count Seg Neuts % (Manual) Lymphocytes % (Manual) Seg Neutrophils # Man Monocytes # (Manual) PT INR POC ABG pH 7.279 L POC ABG pO2 230 H VBG pH Sodium 124 L Potassium Chloride 88.7 L Carbon Dioxide 13 L BUN 70 H Creatinine 4.3 H Glucose 1295 H* POC Glucose > 500 H Lactic Acid Calcium 5.8 L* Phosphorus Magnesium AST Alkaline Phosphatase Total Creatine Kinase CK-MB (CK-2) CK-MB (CK-2) Rel Index Troponin T Total Protein Albumin 09/04/18 09/04/18 09/04/18 01:06 02:20 02:28 WBC Hgb MCV MCHC RDW Plt Count Seg Neuts % (Manual) Lymphocytes % (Manual) Seg Neutrophils # Man Monocytes # (Manual) PT INR POC ABG pH POC ABG pO2 VBG pH Sodium 127 L Potassium Chloride 91.1 L Carbon Dioxide 15 L BUN 72 H Creatinine 4.4 H Glucose 1156 H* POC Glucose > 500 H > 500 H Lactic Acid Calcium 6.1 L Phosphorus Magnesium AST Alkaline Phosphatase Total Creatine Kinase CK-MB (CK-2) CK-MB (CK-2) Rel Index Troponin T Total Protein Albumin 09/04/18 09/04/18 09/04/18 04:35 05:25 06:15 WBC Hgb MCV MCHC RDW Plt Count Seg Neuts % (Manual) Lymphocytes % (Manual) Seg Neutrophils # Man Monocytes # (Manual) PT INR POC ABG pH POC ABG pO2 160 H VBG pH Sodium Potassium Chloride Carbon Dioxide 17 L BUN 67 H Creatinine 4.4 H Glucose POC Glucose > 500 H Lactic Acid Calcium 6.6 L Phosphorus Magnesium AST Alkaline Phosphatase Total Creatine Kinase CK-MB (CK-2) CK-MB (CK-2) Rel Index Troponin T Total Protein Albumin Assessment and Plan Acute hypoxemic respiratory failure on MVS Shock- multifactorial, secondary to hypovolemia, sepsis DKA Pneumonia Acute metabolic encephaloapthy Severe Sepsis (Unspecified) KYLE NSTEMI type 2 Thrombocytopenia Hyponatremia (due to hyperglycemia) -VAP bundle addressed -Fluid resuscitation, base excess >-15 -Empiric antibiotics, de-escalate once cultures are resulted. Adjust for ELIZA and ID/sensitivities -NSTEMI per cardiology -Wean vasopressor support for target MAP > 65 mmHg -Supplemental oxygen as needed to keep O2 sat's > 90% -Bronchodilators with pulmonary hygiene per RT - Lung protective strategies -Accuchecks with glycemic control per SSI for target blood glucose <180mg/dL, DKA protocol -Prevention of delirium, maintenance of sleep-wake cycle -Avoid nephrotoxic agents, adjust all antibiotics and medications for CrCL and GFR -Stress ulcer prophylaxis -SCDs for VTE prophylaxis, patient is thrombocytopenic -Daily assessment for readiness to liberate from mechanical ventilatory support -Nutrition consult, once gap is closed initiate tube feedings per protocol -Hold off on any imaging for now, he is clinically unstable for any tr ansportation to the Radiology department. Suspect his encephalopathy is related to the metabolic derangement. CONDITION: CRITICAL PROGNOSIS: GRAVE to GUARDED CODE STATUS: FULL CODE The high probability of a clinically significant, sudden or life-threatening deterioration of the [respiratory, cardiac and neurologic] system(s) required my full and direct attention, intervention and personal management. The aggregate critical care time was [75] minutes without overlap. Time includes spent on; [x] Data Review and interpretation [x] Patient assessment and monitoring of vital signs [x] Documentation [x] Medication orders and management Extensive discussions at the bedside with the patient's brother. He states that this happened a few months ago, as his brother was unable to get his med ications, as he has no health insurance. Answered all his questions at the bedside. Updated him
[2018-09-04] MEDS ORDERED: NACL 0.9% 1000 ML 1,000 ML IV SCH (09:00)
[2018-09-04 09:30] LABS: Hemoglobin 9.8 gm/dl (11.8-15.2); Mean Corpuscular HGB Conc 33 % (32-34); Mean Corpuscular Volume 82 fl (84-94); Platelet Count 280 K/mm3 (140-440); Red Blood Count 3.68 M/mm3 (3.65-5.03); Red Cell Distribution Width 14.1 % (13.2-15.2)
[2018-09-04] MEDS: PEPCID IV SCH (09:51)
[2018-09-04 09:53] LABS: Calcium 6.4 mg/dL (8.4-10.2)
[2018-09-04] MEDS: DIPRIVAN 10 MG/ML 1,000 MG/100 ML BOTTLE IV SCH ×2 (11:00→22:05)
--- NOTE | 2018-09-04 11:25 | Progress Note ---
Assessment and Plan Pt s/p LHC yesterday which showed normal coronaries and normal LV function. He was intubated overnight and remains intubated and sedated. F/u echo and ECG. Cont supportive management. The patient has been seen in conjunction with Dr. Corrales who agrees with the assessment and plan of care. - Patient Problems (1) DKA (diabetic ketoacidoses) Current Visit: Yes Status: Acute Qualifiers: Diabetes mellitus type: type 1 Diabetes mellitus complication detail: with coma Qualified Code(s): E10.11 - Type 1 diabetes mellitus with ketoacidosis with coma (2) Abnormal ECG Current Visit: Yes Status: Acute (3) Hypotension Current Visit: Yes Status: Acute Qualifiers: Hypotension type: unspecified hypotension type Qualified Code(s): I95.9 - Hypotension, unspecified (4) Hyperkalemia Current Visit: Yes Status: Acute (5) Hyponatremia Current Visit: Yes Status: Acute (6) Acute renal failure Current Visit: Yes Status: Acute Qualifiers: Acute renal failure type: with acute tubular necrosis Qualified Code(s): N17.0 - Acute kidney failure with tubular necrosis (7) Thrombocytopenia Current Visit: Yes Status: Acute (8) Acute respiratory failure Current Visit: Yes Status: Acute Qualifiers: Respiratory failure complication: unspecified whether with hypoxia or hypercapnia Qualified Code(s): J96.00 - Acute respiratory failure, unspecified whether with hypoxia or hypercapnia (9) Altered mental status Current Visit: Yes Status: Acute Qualifiers: Altered mental status type: unspecified Qualified Code(s): R41.82 - Altered mental status, unspecified (10) Leukocytosis Current Visit: Yes Status: Acute (11) Anemia Current Visit: Yes Status: Acute (12) Elevated troponin Current Visit: Yes Status: Acute Subjective Date of service: 09/04/18 Principal diagnosis: DKA Interval history: pt intubated, sedated, on levophed and insulin and amio gtt. no family at bedside.in SR. Objective Last Vital Signs Temp 98.7 F 09/04/18 08:00 Pulse 74 09/04/18 10:10 Resp 30 H 09/04/18 10:10 BP 85/50 09/04/18 10:10 Pulse Ox 100 09/04/18 10:10 - Physical Examination General: Other (intubated, sedated ) Cardiac: Positive: Reg Rate and Rhythm, S1/S2 Lungs: Positive: Decreased Breath Sounds Neuro: Positive: Other (intubated, sedated) Skin: Negative: Mottled Extremities: Absent: edema - Labs and Meds Cardiac Enzymes 09/03/18 09/03/18 09/03/18 Range/Units 15:01 18:10 18:10 AST 64 H (5-40) units/L CK-MB (CK-2) 8.9 H 13.4 H (0.0-4.0) ng/mL 09/03/18 Range/Units 20:15 AST (5-40) units/L CK-MB (CK-2) 13.0 H (0.0-4.0) ng/mL Coagulation 09/03/18 Range/Units 15:01 PT 17.5 H (12.2-14.9) Sec. INR 1.47 H (0.87-1.13) APTT 29.0 (24.2-36.6) Sec. Lipids 09/03/18 Range/Units 15:01 Triglycerides 128 (2-149) mg/dL Cholesterol 117 (50-199) mg/dL HDL Cholesterol 50 (40-59) mg/dL Cholesterol/HDL Ratio 2.34 % CBC 09/03/18 09/04/18 Range/Units 15:01 09:15 WBC 17.4 H 13.1 H (4.5-11.0) K/mm3 RBC 3.84 3.68 (3.65-5.03) M/mm3 Hgb 10.6 L 9.8 L (11.8-15.2) gm/dl Hct 42.7 30.0 L D (35.5-45.6) % Plt Count 16 L* 280 D (140-440) K/mm3 Comprehensive Metabolic Panel 09/03/18 09/03/18 09/03/18 Range/Units 15:01 18:10 18:10 Sodium 110 L* 113 L* (137-145) mmol/L Potassium 7.5 H* 5.0 D (3.6-5.0) mmol/L Chloride 61.0 L 70.1 L (98-107) mmol/L Carbon Dioxide 6 L* 8 L* (22-30) mmol/L BUN 77 H 76 H (9-20) mg/dL Creatinine 4.3 H 4.3 H (0.8-1.5) mg/dL Glucose 1968 H* 1844 H* (75-100) mg/dL Calcium 7.3 L 6.8 L (8.4-10.2) mg/dL Direct Bilirubin < 0.2 (0-0.2) mg/dL Indirect Bilirubin 0.0 mg/dL AST 64 H (5-40) units/L ALT 26 (7-56) units/L Alkaline Phosphatase 205 H (35-129) units/L Total Protein 5.6 L (6.3-8.2) g/dL Albumin 3.2 L (3.9-5) g/dL 09/03/18 09/03/18 09/04/18 Range/Units 20:15 22:00 00:20 Sodium 116 L* 120 L 124 L (137-145) mmol/L Potassium 4.8 4.2 4.2 (3.6-5.0) mmol/L Chloride 74.3 L 82.7 L 88.7 L (98-107) mmol/L Carbon Dioxide 11 L 11 L 13 L (22-30) mmol/L BUN 76 H 74 H 70 H (9-20) mg/dL Creatinine 4.4 H 4.3 H 4.3 H (0.8-1.5) mg/dL Glucose 1786 H* 1144 H* 1295 H* (75-100) mg/dL Calcium 6.4 L 6.0 L 5.8 L* (8.4-10.2) mg/dL Direct Bilirubin (0-0.2) mg/dL Indirect Bilirubin mg/dL AST (5-40) units/L ALT (7-56) units/L Alkaline Phosphatase (35-129) units/L Total Protein (6.3-8.2) g/dL Albumin (3.9-5) g/dL 09/04/18 09/04/18 09/04/18 Range/Units 02:20 06:15 09:15 Sodium 127 L 134 L D 138 (137-145) mmol/L Potassium 4.0 4.0 3.9 (3.6-5.0) mmol/L Chloride 91.1 L 99.5 104.3 (98-107) mmol/L Carbon Dioxide 15 L 17 L 17 L (22-30) mmol/L BUN 72 H 67 H 63 H (9-20) mg/dL Creatinine 4.4 H 4.4 H 4.1 H (0.8-1.5) mg/dL Glucose 1156 H* 871 H* 668 H* (75-100) mg/dL Calcium 6.1 L 6.6 L 6.4 L (8.4-10.2) mg/dL Direct Bilirubin (0-0.2) mg/dL Indirect Bilirubin mg/dL AST (5-40) units/L ALT (7-56) units/L Alkaline Phosphatase (35-129) units/L Total Protein (6.3-8.2) g/dL Albumin (3.9-5) g/dL - Imaging and Cardiology EKG: report reviewed, image reviewed Echo: pending Cardiac cath: report reviewed (normal coronaries, normal EF) - Telemetry EKG Rhythm: Sinus Rhythm - EKG Sinus rhythms and dysrhythmias: sinus rhythm Myocardial infarction: anterior OK (acute or rec
[2018-09-04 13:40] LABS: Calcium 6.7 mg/dL (8.4-10.2)
--- NOTE | 2018-09-04 15:26 | Progress Note ---
Assessment and Plan / Acute hypoxic respiratory failure Wean vent as tolerated, daily ABG, sedation holiday, pulmonary team consulted in ED, daily SBT, daily Chest x ray, CT chest pending . / HHNKS BG was 1968 on admission cont Insulin drip, IVF resuscitation therapy, monitor anion gap, serial bmp, supportive care. / SIRS Admitted to ICU. Initiated sepsis protocol in ED: IVF resuscitation therapy, monitor uop q shift, blood cultures, chest x ray, urinalysis, IV antibiotic therapy, IV pressor support to maintain MAP greater than 60. /hypovolumic shock, likely - pressor support and iv fluid as needed /Acute metabolic Encephalopathy due to severe hyperglycemia CT head ordered, cont neuro checks, supportive care, continue to treat hyperglycemia / Acute renal failure need to r/o CKD, renal US IVF resuscitation therapy, urine electrolytes, monitor uop q shift, monitor serum creatnine /NSTEMI type 2 suspected acute stemi on admission Cardiology consulted in ED, Pt taken urgently to cardiac catheterization technologist, and underwent cardiac cath showed normal coronaries. / Thrombocytopenia, transfused platelets, resolved / Hyponatremia due to hyperglycemia cont NS IV / DVT prophylaxis SCD to ble while in bed, hold anticoagulation at this time secondary to bleeding risk. The high probability of a clinically significant, sudden or life threatening deterioration of the [cardiac, neuro, renal, respiratory] system(s) required my full and direct attention, intervention and personal management. The aggregate critical care time was [65] minutes. This time is in addition to time spent performing reported procedures but includes the following: [x] Data Review and interpretation [x] Patient assessment and monitoring of vital signs [x] Documentation [x] Medication orders and management Hospitalist physical: General appearance: Present: Intubated and sedated - EENT Eyes: Present: miosis - Neck Neck: Present: No JVD - Respiratory Respiratory effort: On mechanical ventilation Respiratory: bilateral: diminished, rhonchi - Cardiovascular Rhythm: other (tachycardia) Heart Sounds: Present: S1 & S2. Absent: rub, click - Extremities Extremities: pulses symmetrical, No edema Peripheral Pulses: abnormal (capillary refill greater than 3.5 seconds) - Abdominal General gastrointestinal: Present: soft, non-tender, non-distended, normal bowel sounds Male genitourinary: Present: normal - Integumentary Integumentary: Present: clear, dry, clammy, decreased turgor - Musculoskeletal Musculoskeletal: No joint swelling - Psychiatric Psychiatric: no appropriate mood/affect, no intact judgment & insight, no memory intact - Neurologic Neurologic: Unable to assess, patient is sedated Subjective Date of service: 09/04/18 Principal diagnosis: DKA Interval history: Patient seen and examined. Medical records and medication list reviewed. No acute event overnight noted by the RN. Patient will remain intubated and sedated Discussed plan of care at bedside with patient's RN, no family noted at the bedside. Objective - Constitutional Vitals: Vital Signs - 12hr 09/04/18 09/04/18 09/04/18 03:30 03:40 03:50 Temperature Pulse Rate 70 70 69 Respiratory 22 31 H 24 Rate Blood Pressure 115/70 115/70 103/69 O2 Sat by Pulse 100 100 100 Oximetry 09/04/18 09/04/18 09/04/18 04:00 04:10 04:20 Temperature 98.5 F Pulse Rate 69 70 68 Respiratory 30 H 24 28 H Rate Blood Pressure 95/67 95/67 103/70 O2 Sat by Pulse 100 100 100 Oximetry 09/04/18 09/04/18 09/04/18 04:30 04:40 04:46 Temperature Pulse Rate 69 68 69 Respiratory 30 H 30 H Rate Blood Pressure 105/68 105/68 107/51 O2 Sat by Pulse 100 100 Oximetry 09/04/18 09/04/18 09/04/18 04:51 05:00 05:11 Temperature Pulse Rate 68 68 68 Respiratory 30 H 30 H 30 H Rate Blood Pressure 107/64 101/64 101/64 O2 Sat by Pulse 100 100 100 Oximetry 09/04/18 09/04/18 09/04/18 05:21 05:30 05:41 Temperature Pulse Rate 68 68 69 Respiratory 27 H 30 H 30 H Rate Blood Pressure 91/58 98/61 98/61 O2 Sat by Pulse 100 100 Oximetry 09/04/18 09/04/18 09/04/18 05:51 06:00 06:11 Temperature Pulse Rate 68 68 68 Respiratory 30 H 30 H 30 H Rate Blood Pressure 92/57 92/58 92/58 O2 Sat by Pulse 100 100 100 Oximetry 09/04/18 09/04/18 09/04/18 06:21 06:30 06:40 Temperature Pulse Rate 69 69 70 Respiratory 30 H 30 H 30 H Rate Blood Pressure 100/62 100/61 100/61 O2 Sat by Pulse 100 100 100 Oximetry 09/04/18 09/04/18 09/04/18 06:50 07:00 07:10 Temperature Pulse Rate 71 71 73 Respiratory 30 H 30 H 22 Rate Blood Pressure 101/60 99/63 100/62 O2 Sat by Pulse 100 100 Oximetry 09/04/18 09/04/18 09/04/18 07:20 07:30 07:40 Temperature Pulse Rate 69 71 72 Respiratory 30 H 30 H 30 H Rate Blood Pressure 99/55 94/57 94/57 O2 Sat by Pulse 100 100 100 Oximetry 09/04/18 09/04/18 09/04/18 07:50 08:00 08:10 Temperature 98.7 F Pulse Rate 72 72 72 Respiratory 30 H 21 30 H Rate Blood Pressure 103/61 101/60 101/60 O2 Sat by Pulse 100 100 100 Oximetry 09/04/18 09/04/18 09/04/18 08:20 08:30 08:40 Temperature Pulse Rate 72 72 72 Respiratory 30 H 30 H 31 H Rate Blood Pressure 94/58 102/58 102/58 O2 Sat by Pulse 100 100 100 Oximetry 09/04/18 09/04/18 09/04/18 08:50 09:00 09:10 Temperature Pulse Rate 74 73 73 Respiratory 30 H 30 H 30 H Rate Blood Pressure 109/69 102/60 116/63 O2 Sat by Pulse 100 100 100 Oximetry 09/04/18 09/04/18 09/04/18 09:20 09:30 09:40 Temperature Pulse Rate 73 76 77 Respiratory 30 H 30 H 30 H Rate Blood Pressure 114/65 114/65 114/65 O2 Sat by Pulse 100 100 100 Oximetry 09/04/18 09/04/18 09/04/18 09:50 10:00 10:10 Temperature Pulse Rate 74 73 74 Respiratory 30 H 30 H 30 H Rate Blood Pressure 117/67 112/66 85/50 O2 Sat by Pulse 100 100 100 Oximetry 09/04/18 09/04/18 09/04/18 10:20 10:30 10:40 Temperature Pulse Rate 74 75 74 Respiratory 30 H 30 H 30 H Rate Blood Pressure 109/69 105/62 112/66 O2 Sat by Pulse 100 100 100 Oximetry 09/04/18 09/04/18 09/04/18 10:50 11:00 11:10 Temperature Pulse Rate 77 74 74 Respiratory 30 H 23 30 H Rate Blood Pressure 97/53 93/54 93/54 O2 Sat by Pulse 100 100 100 Oximetry 09/04/18 09/04/18 09/04/18 11:20 11:30 11:40 Temperature Pulse Rate 74 73 74 Respiratory 26 H 30 H 30 H Rate Blood Pressure 92/55 84/54 93/54 O2 Sat by Pulse 100 100 Oximetry 09/04/18 09/04/18 09/04/18 11:50 11:53 12:00 Temperature 98.0 F Pulse Rate 75 73 Respiratory 30 H 30 H Rate Blood Pressure 93/54 103/59 O2 Sat by Pulse 100 100 Oximetry 09/04/18 09/04/18 09/04/18 12:10 12:20 12:30 Temperature Pulse Rate 72 73 73 Respiratory 30 H 30 H 30 H Rate Blood Pressure 103/59 104/66 109/65 O2 Sat by Pulse 100 100 Oximetry 09/04/18 09/04/18 09/04/18 12:40 12:50 13:00 Temperature Pulse Rate 73 73 74 Respiratory 30 H 30 H 30 H Rate Blood Pressure 109/65 105/66 107/66 O2 Sat by Pulse 100 100 Oximetry 09/04/18 09/04/18 09/04/18 13:10 13:20 13:30 Temperature Pulse Rate 72 73 73 Respiratory 30 H 30 H 30 H Rate Blood Pressure 107/66 96/61 103/65 O2 Sat by Pulse 100 100 Oximetry 09/04/18 09/04/18 09/04/18 13:40 13:50 13:56 Temperature Pulse Rate 72 72 73 Respiratory 30 H 30 H Rate Blood Pressure 103/65 99/63 114/60 O2 Sat by Pulse 100 100 100 Oximetry 09/04/18 09/04/18 09/04/18 14:00 14:11 14:21 Temperature Pulse Rate 73 73 73 Respiratory 30 H 30 H 30 H Rate Blood Pressure 103/63 99/63 99/63 O2 Sat by Pulse 100 100 Oximetry - Labs CBC & Chem 7: 09/05/18 04:30 09/05/18 04:30 Labs: Abnormal lab results 09/03/18 09/03/18 09/03/18 Range/Units 02:20 15:01 15:01 WBC 17.4 H (4.5-11.0) K/mm3 Hgb 10.6 L (11.8-15.2) gm/dl Hct (35.5-45.6) % MCV 111 H (84-94) fl MCH (28-32) pg MCHC 25 L (32-34) % RDW 16.5 H (13.2-15.2) % Plt Count 16 L* (140-440) K/mm3 Seg Neuts % (Manual) 84.0 H (40.0-70.0) % Lymphocytes % (Manual) 8.0 L (13.4-35.0) % Seg Neutrophils # Man 14.6 H (1.8-7.7) K/mm3 Monocytes # (Manual) 1.0 H (0.0-0.8) K/mm3 PT 17.5 H (12.2-14.9) Sec. INR 1.47 H (0.87-1.13) POC ABG pH (7.35-7.45) POC ABG pCO2 (35-45) POC ABG pO2 (80-105) VBG pH (7.320-7.420) Sodium (137-145) mmol/L Potassium (3.6-5.0) mmol/L Chloride (98-107) mmol/L Carbon Dioxide (22-30) mmol/L BUN (9-20) mg/dL Creatinine (0.8-1.5) mg/dL Glucose (75-100) mg/dL POC Glucose (70-105) Lactic Acid 5.90 H* (0.7-2.0) mmol/L Calcium (8.4-10.2) mg/dL Phosphorus (2.5-4.5) mg/dL Magnesium (1.7-2.3) mg/dL AST (5-40) units/L Alkaline Phosphatase (35-129) units/L Total Creatine Kinase (55-170) units/L CK-MB (CK-2) (0.0-4.0) ng/mL CK-MB (CK-2) Rel Index (0-4) Troponin T (0.00-0.029) ng/mL Total Protein (6.3-8.2) g/dL Albumin (3.9-5) g/dL 09/03/18 09/03/18 09/03/18 Range/Units 15:01 15:01 15:16 WBC (4.5-11.0) K/mm3 Hgb (11.8-15.2) gm/dl Hct (35.5-45.6) % MCV (84-94) fl MCH (28-32) pg MCHC (32-34) % RDW (13.2-15.2) % Plt Count (140-440) K/mm3 Seg Neuts % (Manual) (40.0-70.0) % Lymphocytes % (Manual) (13.4-35.0) % Seg Neutrophils # Man (1.8-7.7) K/mm3 Monocytes # (Manual) (0.0-0.8) K/mm3 PT (12.2-14.9) Sec. INR (0.87-1.13) POC ABG pH 7.020 L (7.35-7.45) POC ABG pCO2 < 30 L (35-45) POC ABG pO2 139 H (80-105) VBG pH 7.049 L* (7.320-7.420) Sodium 110 L* (137-145) mmol/L Potassium 7.5 H* (3.6-5.0) mmol/L Chloride 61.0 L (98-107) mmol/L Carbon Dioxide 6 L* (22-30) mmol/L BUN 77 H (9-20) mg/dL Creatinine 4.3 H (0.8-1.5) mg/dL Glucose 1968 H* (75-100) mg/dL POC Glucose (70-105) Lactic Acid (0.7-2.0) mmol/L Calcium 7.3 L (8.4-10.2) mg/dL Phosphorus (2.5-4.5) mg/dL Magnesium (1.7-2.3) mg/dL AST (5-40) units/L Alkaline Phosphatase (35-129) units/L Total Creatine Kinase 203 H (55-170) units/L CK-MB (CK-2) 8.9 H (0.0-4.0) ng/mL CK-MB (CK-2) Rel Index 4.3 H (0-4) Troponin T 0.058 H (0.00-0.029) ng/mL Total Protein (6.3-8.2) g/dL Albumin (3.9-5) g/dL 09/03/18 09/03/18 09/03/18 Range/Units 18:10 18:10 18:10 WBC (4.5-11.0) K/mm3 Hgb (11.8-15.2) gm/dl Hct (35.5-45.6) % MCV (84-94) fl MCH (28-32) pg MCHC (32-34) % RDW (13.2-15.2) % Plt Count (140-440) K/mm3 Seg Neuts % (Manual) (40.0-70.0) % Lymphocytes % (Manual) (13.4-35.0) % Seg Neutrophils # Man (1.8-7.7) K/mm3 Monocytes # (Manual) (0.0-0.8) K/mm3 PT (12.2-14.9) Sec. INR (0.87-1.13) POC ABG pH (7.35-7.45) POC ABG pCO2 (35-45) POC ABG pO2 (80-105) VBG pH (7.320-7.420) Sodium (137-145) mmol/L Potassium (3.6-5.0) mmol/L Chloride (98-107) mmol/L Carbon Dioxide (22-30) mmol/L BUN (9-20) mg/dL Creatinine (0.8-1.5) mg/dL Glucose (75-100) mg/dL POC Glucose (70-105) Lactic Acid (0.7-2.0) mmol/L Calcium (8.4-10.2) mg/dL Phosphorus 8.80 H (2.5-4.5) mg/dL Magnesium 2.90 H (1.7-2.3) mg/dL AST 64 H (5-40) units/L Alkaline Phosphatase 205 H (35-129) units/L Total Creatine Kinase 289 H (55-170) units/L CK-MB (CK-2) 13.4 H (0.0-4.0) ng/mL CK-MB (CK-2) Rel Index 4.6 H (0-4) Troponin T 0.142 H* D (0.00-0.029) ng/mL Total Protein 5.6 L (6.3-8.2) g/dL Albumin 3.2 L (3.9-5) g/dL 09/03/18 09/03/18 09/03/18 Range/Units 18:10 18:33 20:15 WBC (4.5-11.0) K/mm3 Hgb (11.8-15.2) gm/dl Hct (35.5-45.6) % MCV (84-94) fl MCH (28-32) pg MCHC (32-34) % RDW (13.2-15.2) % Plt Count (140-440) K/mm3 Seg Neuts % (Manual) (40.0-70.0) % Lymphocytes % (Manual) (13.4-35.0) % Seg Neutrophils # Man (1.8-7.7) K/mm3 Monocytes # (Manual) (0.0-0.8) K/mm3 PT (12.2-14.9) Sec. INR (0.87-1.13) POC ABG pH 7.047 L (7.35-7.45) POC ABG pCO2 (35-45) POC ABG pO2 (80-105) VBG pH (7.320-7.420) Sodium 113 L* (137-145) mmol/L Potassium (3.6-5.0) mmol/L Chloride 70.1 L (98-107) mmol/L Carbon Dioxide 8 L* (22-30) mmol/L BUN 76 H (9-20) mg/dL Creatinine 4.3 H (0.8-1.5) mg/dL Glucose 1844 H* (75-100) mg/dL POC Glucose (70-105) Lactic Acid (0.7-2.0) mmol/L Calcium 6.8 L (8.4-10.2) mg/dL Phosphorus (2.5-4.5) mg/dL Magnesium (1.7-2.3) mg/dL AST (5-40) units/L Alkaline Phosphatase (35-129) units/L Total Creatine Kinase 293 H (55-170) units/L CK-MB (CK-2) 13.0 H (0.0-4.0) ng/mL CK-MB (CK-2) Rel Index 4.4 H (0-4) Troponin T 0.126 H* (0.00-0.029) ng/mL Total Protein (6.3-8.2) g/dL Albumin (3.9-5) g/dL 09/03/18 09/03/18 09/03/18 Range/Units 20:15 20:15 20:15 WBC (4.5-11.0) K/mm3 Hgb (11.8-15.2) gm/dl Hct (35.5-45.6) % MCV (84-94) fl MCH (28-32) pg MCHC (32-34) % RDW (13.2-15.2) % Plt Count (140-440) K/mm3 Seg Neuts % (Manual) (40.0-70.0) % Lymphocytes % (Manual) (13.4-35.0) % Seg Neutrophils # Man (1.8-7.7) K/mm3 Monocytes # (Manual) (0.0-0.8) K/mm3 PT (12.2-14.9) Sec. INR (0.87-1.13) POC ABG pH (7.35-7.45) POC ABG pCO2 (35-45) POC ABG pO2 (80-105) VBG pH (7.320-7.420) Sodium 116 L* (137-145) mmol/L Potassium (3.6-5.0) mmol/L Chloride 74.3 L (98-107) mmol/L Carbon Dioxide 11 L (22-30) mmol/L BUN 76 H (9-20) mg/dL Creatinine 4.4 H (0.8-1.5) mg/dL Glucose 1786 H* (75-100) mg/dL POC Glucose (70-105) Lactic Acid 4.10 H* (0.7-2.0) mmol/L Calcium 6.4 L (8.4-10.2) mg/dL Phosphorus 9.00 H (2.5-4.5) mg/dL Magnesium 2.80 H (1.7-2.3) mg/dL AST (5-40) units/L Alkaline Phosphatase (35-129) units/L Total Creatine Kinase (55-170) units/L CK-MB (CK-2) (0.0-4.0) ng/mL CK-MB (CK-2) Rel Index (0-4) Troponin T (0.00-0.029) ng/mL Total Protein (6.3-8.2) g/dL Albumin (3.9-5) g/dL 09/03/18 09/03/18 09/03/18 Range/Units 20:18 22:00 22:54 WBC (4.5-11.0) K/mm3 Hgb (11.8-15.2) gm/dl Hct (35.5-45.6) % MCV (84-94) fl MCH (28-32) pg MCHC (32-34) % RDW (13.2-15.2) % Plt Count (140-440) K/mm3 Seg Neuts % (Manual) (40.0-70.0) % Lymphocytes % (Manual) (13.4-35.0) % Seg Neutrophils # Man (1.8-7.7) K/mm3 Monocytes # (Manual) (0.0-0.8) K/mm3 PT (12.2-14.9) Sec. INR (0.87-1.13) POC ABG pH (7.35-7.45) POC ABG pCO2 (35-45) POC ABG pO2 (80-105) VBG pH (7.320-7.420) Sodium 120 L (137-145) mmol/L Potassium (3.6-5.0) mmol/L Chloride 82.7 L (98-107) mmol/L Carbon Dioxide 11 L (22-30) mmol/L BUN 74 H (9-20) mg/dL Creatinine 4.3 H (0.8-1.5) mg/dL Glucose 1144 H* (75-100) mg/dL POC Glucose > 500 H (70-105) Lactic Acid 5.00 H* (0.7-2.0) mmol/L Calcium 6.0 L (8.4-10.2) mg/dL Phosphorus (2.5-4.5) mg/dL Magnesium (1.7-2.3) mg/dL AST (5-40) units/L Alkaline Phosphatase (35-129) units/L Total Creatine Kinase (55-170) units/L CK-MB (CK-2) (0.0-4.0) ng/mL CK-MB (CK-2) Rel Index (0-4) Troponin T (0.00-0.029) ng/mL Total Protein (6.3-8.2) g/dL Albumin (3.9-5) g/dL 09/03/18 09/03/18 09/04/18 Range/Units 23:18 23:47 00:20 WBC (4.5-11.0) K/mm3 Hgb (11.8-15.2) gm/dl Hct (35.5-45.6) % MCV (84-94) fl MCH (28-32) pg MCHC (32-34) % RDW (13.2-15.2) % Plt Count (140-440) K/mm3 Seg Neuts % (Manual) (40.0-70.0) % Lymphocytes % (Manual) (13.4-35.0) % Seg Neutrophils # Man (1.8-7.7) K/mm3 Monocytes # (Manual) (0.0-0.8) K/mm3 PT (12.2-14.9) Sec. INR (0.87-1.13) POC ABG pH 7.279 L (7.35-7.45) POC ABG pCO2 (35-45) POC ABG pO2 230 H (80-105) VBG pH (7.320-7.420) Sodium 124 L (137-145) mmol/L Potassium (3.6-5.0) mmol/L Chloride 88.7 L (98-107) mmol/L Carbon Dioxide 13 L (22-30) mmol/L BUN 70 H (9-20) mg/dL Creatinine 4.3 H (0.8-1.5) mg/dL Glucose 1295 H* (75-100) mg/dL POC Glucose > 500 H (70-105) Lactic Acid (0.7-2.0) mmol/L Calcium 5.8 L* (8.4-10.2) mg/dL Phosphorus (2.5-4.5) mg/dL Magnesium (1.7-2.3) mg/dL AST (5-40) units/L Alkaline Phosphatase (35-129) units/L Total Creatine Kinase (55-170) units/L CK-MB (CK-2) (0.0-4.0) ng/mL CK-MB (CK-2) Rel Index (0-4) Troponin T (0.00-0.029) ng/mL Total Protein (6.3-8.2) g/dL Albumin (3.9-5) g/dL 09/04/18 09/04/18 09/04/18 Range/Units 01:06 02:20 02:28 WBC (4.5-11.0) K/mm3 Hgb (11.8-15.2) gm/dl Hct (35.5-45.6) % MCV (84-94) fl MCH (28-32) pg MCHC (32-34) % RDW (13.2-15.2) % Plt Count (140-440) K/mm3 Seg Neuts % (Manual) (40.0-70.0) % Lymphocytes % (Manual) (13.4-35.0) % Seg Neutrophils # Man (1.8-7.7) K/mm3 Monocytes # (Manual) (0.0-0.8) K/mm3 PT (12.2-14.9) Sec. INR (0.87-1.13) POC ABG pH (7.35-7.45) POC ABG pCO2 (35-45) POC ABG pO2 (80-105) VBG pH (7.320-7.420) Sodium 127 L (137-145) mmol/L Potassium (3.6-5.0) mmol/L Chloride 91.1 L (98-107) mmol/L Carbon Dioxide 15 L (22-30) mmol/L BUN 72 H (9-20) mg/dL Creatinine 4.4 H (0.8-1.5) mg/dL Glucose 1156 H* (75-100) mg/dL POC Glucose > 500 H > 500 H (70-105) Lactic Acid (0.7-2.0) mmol/L Calcium 6.1 L (8.4-10.2) mg/dL Phosphorus (2.5-4.5) mg/dL Magnesium (1.7-2.3) mg/dL AST (5-40) units/L Alkaline Phosphatase (35-129) units/L Total Creatine Kinase (55-170) units/L CK-MB (CK-2) (0.0-4.0) ng/mL CK-MB (CK-2) Rel Index (0-4) Troponin T (0.00-0.029) ng/mL Total Protein (6.3-8.2) g/dL Albumin (3.9-5) g/dL 09/04/18 09/04/18 09/04/18 Range/Units 04:35 05:25 06:15 WBC (4.5-11.0) K/mm3 Hgb (11.8-15.2) gm/dl Hct (35.5-45.6) % MCV (84-94) fl MCH (28-32) pg MCHC (32-34) % RDW (13.2-15.2) % Plt Count (140-440) K/mm3 Seg Neuts % (Manual) (40.0-70.0) % Lymphocytes % (Manual) (13.4-35.0) % Seg Neutrophils # Man (1.8-7.7) K/mm3 Monocytes # (Manual) (0.0-0.8) K/mm3 PT (12.2-14.9) Sec. INR (0.87-1.13) POC ABG pH (7.35-7.45) POC ABG pCO2 (35-45) POC ABG pO2 160 H (80-105) VBG pH (7.320-7.420) Sodium 134 L D (137-145) mmol/L Potassium (3.6-5.0) mmol/L Chloride (98-107) mmol/L Carbon Dioxide 17 L (22-30) mmol/L BUN 67 H (9-20) mg/dL Creatinine 4.4 H (0.8-1.5) mg/dL Glucose 871 H* (75-100) mg/dL POC Glucose > 500 H (70-105) Lactic Acid (0.7-2.0) mmol/L Calcium 6.6 L (8.4-10.2) mg/dL Phosphorus (2.5-4.5) mg/dL Magnesium (1.7-2.3) mg/dL AST (5-40) units/L Alkaline Phosphatase (35-129) units/L Total Creatine Kinase (55-170) units/L CK-MB (CK-2) (0.0-4.0) ng/mL CK-MB (CK-2) Rel Index (0-4) Troponin T (0.00-0.029) ng/mL Total Protein (6.3-8.2) g/dL Albumin (3.9-5) g/dL 09/04/18 09/04/18 09/04/18 Range/Units 09:04 09:15 09:15 WBC 13.1 H (4.5-11.0) K/mm3 Hgb 9.8 L (11.8-15.2) gm/dl Hct 30.0 L D (35.5-45.6) % MCV 82 L (84-94) fl MCH 27 L (28-32) pg MCHC (32-34) % RDW (13.2-15.2) % Plt Count (140-440) K/mm3 Seg Neuts % (Manual) (40.0-70.0) % Lymphocytes % (Manual) (13.4-35.0) % Seg Neutrophils # Man (1.8-7.7) K/mm3 Monocytes # (Manual) (0.0-0.8) K/mm3 PT (12.2-14.9) Sec. INR (0.87-1.13) POC ABG pH (7.35-7.45) POC ABG pCO2 (35-45) POC ABG pO2 (80-105) VBG pH (7.320-7.420) Sodium (137-145) mmol/L Potassium (3.6-5.0) mmol/L Chloride (98-107) mmol/L Carbon Dioxide 17 L (22-30) mmol/L BUN 63 H (9-20) mg/dL Creatinine 4.1 H (0.8-1.5) mg/dL Glucose 668 H* (75-100) mg/dL POC Glucose > 500 H (70-105) Lactic Acid (0.7-2.0) mmol/L Calcium 6.4 L (8.4-10.2) mg/dL Phosphorus (2.5-4.5) mg/dL Magnesium (1.7-2.3) mg/dL AST (5-40) units/L Alkaline Phosphatase (35-129) units/L Total Creatine Kinase (55-170) units/L CK-MB (CK-2) (0.0-4.0) ng/mL CK-MB (CK-2) Rel Index (0-4) Troponin T (0.00-0.029) ng/mL Total Protein (6.3-8.2) g/dL Albumin (3.9-5) g/dL 09/04/18 09/04/18 09/04/18 Range/Units 11:26 11:53 13:44 WBC (4.5-11.0) K/mm3 Hgb (11.8-15.2) gm/dl Hct (35.5-45.6) % MCV (84-94) fl MCH (28-32) pg MCHC (32-34) % RDW (13.2-15.2) % Plt Count (140-440) K/mm3 Seg Neuts % (Manual) (40.0-70.0) % Lymphocytes % (Manual) (13.4-35.0) % Seg Neutrophils # Man (1.8-7.7) K/mm3 Monocytes # (Manual) (0.0-0.8) K/mm3 PT (12.2-14.9) Sec. INR (0.87-1.13) POC ABG pH (7.35-7.45) POC ABG pCO2 (35-45) POC ABG pO2 (80-105) VBG pH (7.320-7.420) Sodium (137-145) mmol/L Potassium (3.6-5.0) mmol/L Chloride (98-107) mmol/L Carbon Dioxide 20 L (22-30) mmol/L BUN 61 H (9-20) mg/dL Creatinine 3.9 H (0.8-1.5) mg/dL Glucose 472 H (75-100) mg/dL POC Glucose > 500 H 354 H (70-105) Lactic Acid (0.7-2.0) mmol/L Calcium 6.7 L (8.4-10.2) mg/dL Phosphorus (2.5-4.5) mg/dL Magnesium (1.7-2.3) mg/dL AST (5-40) units/L Alkaline Phosphatase (35-129) units/L Total Creatine Kinase (55-170) units/L CK-MB (CK-2) (0.0-4.0) ng/mL CK-MB (CK-2) Rel Index (0-4) Troponin T (0.00-0.029) ng/mL Total Protein (6.3-8.2) g/dL Albumin (3.9-5) g/dL
[2018-09-04 17:09] LABS: Calcium 6.8 mg/dL (8.4-10.2)
[2018-09-04] MEDS ORDERED: KCL 10 MEQ in D5NS 1,000 ML IV SCH (18:00)
[2018-09-04] MEDS: ROCEPHIN/NS 2 GM/100 ML 2 GM/100 ML BAG IV SCH (18:15)
[2018-09-04 22:24] LABS: Calcium 6.7 mg/dL (8.4-10.2)
[2018-09-05] MEDS: HumuLIN R SUB-Q SCH ×5 (00:08→08:30)
[2018-09-05] MEDS: D5/0.45NS 1,000 ML IV SCH ×3 (00:12→17:55)
[2018-09-05] MEDS: fentaNYL DRIP Premix 2,000 MCG/100 ML BAG IV SCH ×2 (04:16→17:32)
[2018-09-05] MEDS: LEVOPHED DRIP 4 MG/NS 250 ML 4 MG/250 ML BAG IV SCH ×2 (04:20→12:30)
[2018-09-05 04:53] LABS: Hematocrit 29.2 % (35.5-45.6); Hemoglobin 9.9 gm/dl (11.8-15.2); Mean Corpuscular HGB Conc 34 % (32-34); Mean Corpuscular Volume 81 fl (84-94); Platelet Count 251 K/mm3 (140-440); Red Blood Count 3.59 M/mm3 (3.65-5.03); Red Cell Distribution Width 14.4 % (13.2-15.2)
[2018-09-05 05:16] LABS: Alanine Aminotransferase 33 units/L (7-56); Albumin 2.6 g/dL (3.9-5); BUN/Creatinine Ratio 16; Blood Urea Nitrogen 44 mg/dL (9-20); Hemolysis Index 4
[2018-09-05 05:57] LABS: Bilirubin,Direct < 0.2 mg/dL (0-0.2)
[2018-09-05] MEDS: DIPRIVAN 10 MG/ML 1,000 MG/100 ML BOTTLE IV SCH (06:36)
--- NOTE | 2018-09-05 09:38 | Progress Note ---
Assessment and Plan DKA Pneumonia Acute metabolic encephaloapthy Severe Sepsis (Unspecified) KYLE Acute hypoxemic respiratory failure NSTEMI type 2 Thrombocytopenia Hyponatremia (due to hyperglycemia) (Following commands; non focal exam; will hold on CT brain now till more stable overall) - discontinue bautista catheter - nutrition consult and begin tube feeds - replace phosphorus and magnesium (KPhos 45 mmols) - change SSI to q6h once off IV insulin (target BG 140 - 180 mg/dl) - get CRP & lactate levels to aid clinical decision making - continue Rocephin for pneumonia - NSTEMI per cardiology - continue to wean vasopressors for target MAP > 65 mmHg - continue supplemental oxygen as needed to keep O2 sat's > 90% - reduce set rate to 12/min and get ABG thereafter - continue bronchodilators with pulmonary hygiene per RT - continue lung protective strategies - daily CXR and ABG in short term - VAP bundle addressed - continue accuchecks with glycemic control per SSI for target blood glucose <180mg/dL - Agitation management - Titrate sedation to RASS 0 to -1 - Prevention of delirium, maintenance of sleep-wake cycle - Avoid nephrotoxic agents, adjust all antibiotics and medications for CrCL and GFR - VTE and Stress ulcer prophylaxis CONDITION: CRITICAL PROGNOSIS: GRAVE to GUARDED CODE STATUS: FULL CODE The high probability of a clinically significant, sudden or life-threatening deterioration of the [respiratory, cardiac and neurologic] system(s) required my full and direct attention, intervention and personal management. The aggregate critical care time was [35] minutes without overlap. Time includes spent on; [x] Data Review and interpretation [x] Patient assessment and monitoring of vital signs [x] Documentation [x] Medication orders and management Subjective Date of service: 09/05/18 Principal diagnosis: DKA; Ac. hypoxemic resp failure; severe sepsis; YKLE Interval history: Patient is seen today for: DKA; Acute metabolic encephaloapthy; severe sepsis; KYLE; acute hypoxemic respiratory failure Seen and examined at bedside; 24hour events reviewed; nursing and respiratory care staff consulted; no adverse overnight events reported to me; resting in bed; intermittently agitated but follows commands appropriately and moves all extremities; mother and sister in law visiting; there is a remote h/o EtOH and substance abuse but family states he has been clean for at least a year and deny a h/o DT's Objective Vital Signs - 12hr 09/04/18 09/04/18 09/04/18 21:45 22:00 22:15 Temperature Pulse Rate 73 74 73 Respiratory 26 H 26 H 26 H Rate Blood Pressure 102/68 114/73 108/71 O2 Sat by Pulse 100 100 100 Oximetry 09/04/18 09/04/18 09/04/18 22:30 22:45 22:53 Temperature Pulse Rate 77 74 72 Respiratory 26 H 26 H 26 H Rate Blood Pressure 103/64 107/68 107/68 O2 Sat by Pulse 100 100 100 Oximetry 09/04/18 09/04/18 09/04/18 23:00 23:15 23:30 Temperature Pulse Rate 74 77 74 Respiratory 26 H 17 26 H Rate Blood Pressure 108/67 119/55 114/70 O2 Sat by Pulse 100 100 100 Oximetry 09/04/18 09/05/18 09/05/18 23:45 00:00 00:02 Temperature 97.9 F Pulse Rate 78 74 76 Respiratory 26 H 24 Rate Blood Pressure 103/61 102/63 104/54 O2 Sat by Pulse 100 100 100 Oximetry 09/05/18 09/05/18 09/05/18 00:15 00:30 00:45 Temperature Pulse Rate 75 74 75 Respiratory 24 24 24 Rate Blood Pressure 103/66 106/66 106/67 O2 Sat by Pulse 100 100 100 Oximetry 09/05/18 09/05/18 09/05/18 01:00 01:15 01:30 Temperature Pulse Rate 76 76 76 Respiratory 24 24 24 Rate Blood Pressure 111/74 111/69 107/68 O2 Sat by Pulse 100 100 100 Oximetry 09/05/18 09/05/18 09/05/18 01:45 02:00 02:15 Temperature Pulse Rate 79 74 73 Respiratory 24 24 24 Rate Blood Pressure 105/60 98/62 96/63 O2 Sat by Pulse 100 100 100 Oximetry 09/05/18 09/05/18 09/05/18 02:30 02:45 03:00 Temperature Pulse Rate 73 74 74 Respiratory 24 24 24 Rate Blood Pressure 95/63 98/66 94/65 O2 Sat by Pulse 100 100 100 Oximetry 09/05/18 09/05/18 09/05/18 03:15 03:30 03:45 Temperature Pulse Rate 73 74 72 Respiratory 25 H 24 24 Rate Blood Pressure 100/67 107/71 101/67 O2 Sat by Pulse 100 100 100 Oximetry 09/05/18 09/05/18 09/05/18 04:00 04:15 04:30 Temperature 98 F Pulse Rate 72 72 72 Respiratory 24 24 24 Rate Blood Pressure 100/66 99/63 95/62 O2 Sat by Pulse 100 100 100 Oximetry 09/05/18 09/05/18 09/05/18 04:45 04:48 05:00 Temperature Pulse Rate 73 74 72 Respiratory 24 25 H Rate Blood Pressure 99/63 104/60 102/67 O2 Sat by Pulse 100 100 100 Oximetry 09/05/18 09/05/18 09/05/18 05:15 05:30 05:45 Temperature Pulse Rate 73 71 72 Respiratory 24 24 24 Rate Blood Pressure 85/51 96/63 96/63 O2 Sat by Pulse 100 100 100 Oximetry 09/05/18 09/05/18 09/05/18 06:00 06:15 06:30 Temperature Pulse Rate 73 73 78 Respiratory 24 24 24 Rate Blood Pressure 95/63 99/68 116/83 O2 Sat by Pulse 100 100 100 Oximetry 09/05/18 09/05/18 09/05/18 06:45 07:00 07:15 Temperature Pulse Rate 74 75 75 Respiratory 24 24 24 Rate Blood Pressure 88/57 88/59 90/60 O2 Sat by Pulse 100 100 100 Oximetry 09/05/18 09/05/18 09/05/18 07:28 07:30 07:45 Temperature Pulse Rate 76 75 79 Respiratory 24 25 H Rate Blood Pressure 94/57 94/57 91/59 O2 Sat by Pulse 100 100 98 Oximetry 09/05/18 09/05/18 08:00 08:15 Temperature Pulse Rate 78 75 Respiratory 24 24 Rate Blood Pressure 92/58 84/53 O2 Sat by Pulse 100 100 Oximetry Constitutional: appears uncomfortable, other (middle aged AAM, normocephalic and atraumatic with mildly increased respiratory effort at rest) Eyes: non-icteric ENT: oropharynx moist, other (ETT 24 cm DEJON) Neck: supple, no JVD, other (no thyromegaly) Effort: mildly labored Ascultation: Bilateral: rales Percussion: Bilateral: not dull Cardiovascular: regular rate and rhythm Gastrointestinal: normoactive bowel sounds, soft, non-tender, non-distended Integumentary: normal Extremities: no cyanosis, no edema, pulses normal, no ischemia or petechiae Neurologic: non-focal exam (grossly), pupils equal and round, CN II-XII normal, motor strength normal and Psychiatric: anxious, other (unable to assess) CBC and BMP: 09/05/18 04:30 09/06/18 05:00 ABG, PT/INR, D-dimer: ABG POC ABG pH 7.408 (7.35-7.45) 09/05/18 04:22 POC ABG pO2 133 (80-105) H 09/05/18 04:22 POC ABG HCO3 16.8 (22-26 mml/L) 09/05/18 04:22 POC ABG Total CO2 18 (23-27mmol/L) 09/05/18 04:22 POC ABG O2 Sat 99 09/05/18 04:22 PT/INR, D-dimer PT 17.5 Sec. (12.2-14.9) H 09/03/18 15:01 INR 1.47 (0.87-1.13) H 09/03/18 15:01 Abnormal lab findings: Abnormal Labs 09/03/18 09/03/18 09/03/18 02:20 15:01 15:01 WBC 17.4 H RBC Hgb 10.6 L Hct MCV 111 H MCH MCHC 25 L RDW 16.5 H Plt Count 16 L* Seg Neuts % (Manual) 84.0 H Lymphocytes % (Manual) 8.0 L Seg Neutrophils # Man 14.6 H Monocytes # (Manual) 1.0 H PT 17.5 H INR 1.47 H POC ABG pH POC ABG pCO2 POC ABG pO2 VBG pH Sodium Potassium Chloride Carbon Dioxide BUN Creatinine Glucose POC Glucose Lactic Acid 5.90 H* Calcium Phosphorus Magnesium AST Alkaline Phosphatase Total Creatine Kinase CK-MB (CK-2) CK-MB (CK-2) Rel Index Troponin T Total Protein Albumin 09/03/18 09/03/18 09/03/18 15:01 15:01 15:16 WBC RBC Hgb Hct MCV MCH MCHC RDW Plt Count Seg Neuts % (Manual) Lymphocytes % (Manual) Seg Neutrophils # Man Monocytes # (Manual) PT INR POC ABG pH 7.020 L POC ABG pCO2 < 30 L POC ABG pO2 139 H VBG pH 7.049 L* Sodium 110 L* Potassium 7.5 H* Chloride 61.0 L Carbon Dioxide 6 L* BUN 77 H Creatinine 4.3 H Glucose 1968 H* POC Glucose Lactic Acid Calcium 7.3 L Phosphorus Magnesium AST Alkaline Phosphatase Total Creatine Kinase 203 H CK-MB (CK-2) 8.9 H CK-MB (CK-2) Rel Index 4.3 H Troponin T 0.058 H Total Protein Albumin 09/03/18 09/03/18 09/03/18 18:10 18:10 18:10 WBC RBC Hgb Hct MCV MCH MCHC RDW Plt Count Seg Neuts % (Manual) Lymphocytes % (Manual) Seg Neutrophils # Man Monocytes # (Manual) PT INR POC ABG pH POC ABG pCO2 POC ABG pO2 VBG pH Sodium Potassium Chloride Carbon Dioxide BUN Creatinine Glucose POC Glucose Lactic Acid Calcium Phosphorus 8.80 H Magnesium 2.90 H AST 64 H Alkaline Phosphatase 205 H Total Creatine Kinase 289 H CK-MB (CK-2) 13.4 H CK-MB (CK-2) Rel Index 4.6 H Troponin T 0.142 H* D Total Protein 5.6 L Albumin 3.2 L 09/03/18 09/03/18 09/03/18 18:10 18:33 20:15 WBC RBC Hgb Hct MCV MCH MCHC RDW Plt Count Seg Neuts % (Manual) Lymphocytes % (Manual) Seg Neutrophils # Man Monocytes # (Manual) PT INR POC ABG pH 7.047 L POC ABG pCO2 POC ABG pO2 VBG pH Sodium 113 L* Potassium Chloride 70.1 L Carbon Dioxide 8 L* BUN 76 H Creatinine 4.3 H Glucose 1844 H* POC Glucose Lactic Acid Calcium 6.8 L Phosphorus Magnesium AST Alkaline Phosphatase Total Creatine Kinase 293 H CK-MB (CK-2) 13.0 H CK-MB (CK-2) Rel Index 4.4 H Troponin T 0.126 H* Total Protein Albumin 09/03/18 09/03/18 09/03/18 20:15 20:15 20:15 WBC RBC Hgb Hct MCV MCH MCHC RDW Plt Count Seg Neuts % (Manual) Lymphocytes % (Manual) Seg Neutrophils # Man Monocytes # (Manual) PT INR POC ABG pH POC ABG pCO2 POC ABG pO2 VBG pH Sodium 116 L* Potassium Chloride 74.3 L Carbon Dioxide 11 L BUN 76 H Creatinine 4.4 H Glucose 1786 H* POC Glucose Lactic Acid 4.10 H* Calcium 6.4 L Phosphorus 9.00 H Magnesium 2.80 H AST Alkaline Phosphatase Total Creatine Kinase CK-MB (CK-2) CK-MB (CK-2) Rel Index Troponin T Total Protein Albumin 09/03/18 09/03/18 09/03/18 20:18 22:00 22:54 WBC RBC Hgb Hct MCV MCH MCHC RDW Plt Count Seg Neuts % (Manual) Lymphocytes % (Manual) Seg Neutrophils # Man Monocytes # (Manual) PT INR POC ABG pH POC ABG pCO2 POC ABG pO2 VBG pH Sodium 120 L Potassium Chloride 82.7 L Carbon Dioxide 11 L BUN 74 H Creatinine 4.3 H Glucose 1144 H* POC Glucose > 500 H Lactic Acid 5.00 H* Calcium 6.0 L Phosphorus Magnesium AST Alkaline Phosphatase Total Creatine Kinase CK-MB (CK-2) CK-MB (CK-2) Rel Index Troponin T Total Protein Albumin 09/03/18 09/03/18 09/04/18 23:18 23:47 00:20 WBC RBC Hgb Hct MCV MCH MCHC RDW Plt Count Seg Neuts % (Manual) Lymphocytes % (Manual) Seg Neutrophils # Man Monocytes # (Manual) PT INR POC ABG pH 7.279 L POC ABG pCO2 POC ABG pO2 230 H VBG pH Sodium 124 L Potassium Chloride 88.7 L Carbon Dioxide 13 L BUN 70 H Creatinine 4.3 H Glucose 1295 H* POC Glucose > 500 H Lactic Acid Calcium 5.8 L* Phosphorus Magnesium AST Alkaline Phosphatase Total Creatine Kinase CK-MB (CK-2) CK-MB (CK-2) Rel Index Troponin T Total Protein Albumin 09/04/18 09/04/18 09/04/18 01:06 02:20 02:28 WBC RBC Hgb Hct MCV MCH MCHC RDW Plt Count Seg Neuts % (Manual) Lymphocytes % (Manual) Seg Neutrophils # Man Monocytes # (Manual) PT INR POC ABG pH POC ABG pCO2 POC ABG pO2 VBG pH Sodium 127 L Potassium Chloride 91.1 L Carbon Dioxide 15 L BUN 72 H Creatinine 4.4 H Glucose 1156 H* POC Glucose > 500 H > 500 H Lactic Acid Calcium 6.1 L Phosphorus Magnesium AST Alkaline Phosphatase Total Creatine Kinase CK-MB (CK-2) CK-MB (CK-2) Rel Index Troponin T Total Protein Albumin 09/04/18 09/04/18 09/04/18 04:35 05:25 06:15 WBC RBC Hgb Hct MCV MCH MCHC RDW Plt Count Seg Neuts % (Manual) Lymphocytes % (Manual) Seg Neutrophils # Man Monocytes # (Manual) PT INR POC ABG pH POC ABG pCO2 POC ABG pO2 160 H VBG pH Sodium 134 L D Potassium Chloride Carbon Dioxide 17 L BUN 67 H Creatinine 4.4 H Glucose 871 H* POC Glucose > 500 H Lactic Acid Calcium 6.6 L Phosphorus Magnesium AST Alkaline Phosphatase Total Creatine Kinase CK-MB (CK-2) CK-MB (CK-2) Rel Index Troponin T Total Protein Albumin 09/04/18 09/04/18 09/04/18 09:04 09:15 09:15 WBC 13.1 H RBC Hgb 9.8 L Hct 30.0 L D MCV 82 L MCH 27 L MCHC RDW Plt Count Seg Neuts % (Manual) Lymphocytes % (Manual) Seg Neutrophils # Man Monocytes # (Manual) PT INR POC ABG pH POC ABG pCO2 POC ABG pO2 VBG pH Sodium Potassium Chloride Carbon Dioxide 17 L BUN 63 H Creatinine 4.1 H Glucose 668 H* POC Glucose > 500 H Lactic Acid Calcium 6.4 L Phosphorus Magnesium AST Alkaline Phosphatase Total Creatine Kinase CK-MB (CK-2) CK-MB (CK-2) Rel Index Troponin T Total Protein Albumin 09/04/18 09/04/18 09/04/18 11:26 11:53 13:44 WBC RBC Hgb Hct MCV MCH MCHC RDW Plt Count Seg Neuts % (Manual) Lymphocytes % (Manual) Seg Neutrophils # Man Monocytes # (Manual) PT INR POC ABG pH POC ABG pCO2 POC ABG pO2 VBG pH Sodium Potassium Chloride Carbon Dioxide 20 L BUN 61 H Creatinine 3.9 H Glucose 472 H POC Glucose > 500 H 354 H Lactic Acid Calcium 6.7 L Phosphorus Magnesium AST Alkaline Phosphatase Total Creatine Kinase CK-MB (CK-2) CK-MB (CK-2) Rel Index Troponin T Total Protein Albumin 09/04/18 09/04/18 09/04/18 14:18 15:29 16:10 WBC RBC Hgb Hct MCV MCH MCHC RDW Plt Count Seg Neuts % (Manual) Lymphocytes % (Manual) Seg Neutrophils # Man Monocytes # (Manual) PT INR POC ABG pH POC ABG pCO2 30.2 L POC ABG pO2 145 H VBG pH Sodium Potassium Chloride 113.1 H Carbon Dioxide 19 L BUN 57 H Creatinine 3.3 H Glucose 113 H POC Glucose 299 H Lactic Acid Calcium 6.8 L Phosphorus Magnesium AST Alkaline Phosphatase Total Creatine Kinase CK-MB (CK-2) CK-MB (CK-2) Rel Index Troponin T Total Protein Albumin 09/04/18 09/04/18 09/04/18 17:19 21:55 21:58 WBC RBC Hgb Hct MCV MCH MCHC RDW Plt Count Seg Neuts % (Manual) Lymphocytes % (Manual) Seg Neutrophils # Man Monocytes # (Manual) PT INR POC ABG pH POC ABG pCO2 POC ABG pO2 VBG pH Sodium Potassium Chloride 114.0 H Carbon Dioxide 18 L BUN 52 H Creatinine 3.0 H Glucose 161 H POC Glucose 147 H 159 H Lactic Acid Calcium 6.7 L Phosphorus Magnesium AST Alkaline Phosphatase Total Creatine Kinase CK-MB (CK-2) CK-MB (CK-2) Rel Index Troponin T Total Protein Albumin 09/05/18 09/05/18 09/05/18 00:08 01:44 04:13 WBC RBC Hgb Hct MCV MCH MCHC RDW Plt Count Seg Neuts % (Manual) Lymphocytes % (Manual) Seg Neutrophils # Man Monocytes # (Manual) PT INR POC ABG pH POC ABG pCO2 POC ABG pO2 VBG pH Sodium Potassium Chloride Carbon Dioxide BUN Creatinine Glucose POC Glucose 235 H 224 H 253 H Lactic Acid Calcium Phosphorus Magnesium AST Alkaline Phosphatase Total Creatine Kinase CK-MB (CK-2) CK-MB (CK-2) Rel Index Troponin T Total Protein Albumin 09/05/18 09/05/18 09/05/18 04:22 04:30 04:30 WBC 11.5 H RBC 3.59 L Hgb 9.9 L Hct 29.2 L MCV 81 L MCH MCHC RDW Plt Count Seg Neuts % (Manual) Lymphocytes % (Manual) Seg Neutrophils # Man Monocytes # (Manual) PT INR POC ABG pH POC ABG pCO2 POC ABG pO2 133 H VBG pH Sodium Potassium Chloride 114.0 H Carbon Dioxide 18 L BUN 44 H Creatinine 2.7 H Glucose 235 H POC Glucose Lactic Acid Calcium 7.0 L Phosphorus 1.10 L D Magnesium AST 85 H Alkaline Phosphatase 139 H Total Creatine Kinase CK-MB (CK-2) CK-MB (CK-2) Rel Index Troponin T Total Protein 4.6 L Albumin 2.6 L 09/05/18 05:59 WBC RBC Hgb Hct MCV MCH MCHC RDW Plt Count Seg Neuts % (Manual) Lymphocytes % (Manual) Seg Neutrophils # Man Monocytes # (Manual) PT INR POC ABG pH POC ABG pCO2 POC ABG pO2 VBG pH Sodium Potassium Chloride Carbon Dioxide BUN Creatinine Glucose POC Glucose 243 H Lactic Acid Calcium Phosphorus Magnesium AST Alkaline Phosphatase Total Creatine Kinase CK-MB (CK-2) CK-MB (CK-2) Rel Index Troponin T Total Protein Albumin Chest x-ray: image reviewed (possible small right pleural effusion vs atelectasis; ETT in good position;), other (PICC in good position) Allied health notes reviewed: nursing
[2018-09-05] MEDS: PEPCID IV SCH (09:40)
[2018-09-05] MEDS: ZITHROMAX 500 MG in NACL 0.9% 250ML 250 ML IV SCH (09:41)
[2018-09-05] MEDS ORDERED: SODIUM BICARBONATE FEEDTUBE PRN (10:50)
[2018-09-05] MEDS ORDERED: PANCREAZE DR 10,500 UNIT FEEDTUBE PRN (10:50)
[2018-09-05] MEDS ORDERED: SIMPLE SYRUP FEEDTUBE PRN ×2 (10:50)
[2018-09-05] MEDS ORDERED: MAGNESIUM SULFATE 2GM/50ML 2 GM/50 ML BAG IV ONE (13:00)
[2018-09-05] MEDS ORDERED: KPHOS 45 MMOL in NACL 0.9% 500 ML 500 ML IV ONE (13:00)
--- NOTE | 2018-09-05 13:03 | Progress Note ---
Assessment and Plan F/u echo. Wean vasopressors as tolerated. Cont supportive management. The patient has been seen in conjunction with Dr. Corrales who agrees with the assessment and plan of care. - Patient Problems (1) DKA (diabetic ketoacidoses) Current Visit: Yes Status: Acute Qualifiers: Diabetes mellitus type: type 1 Diabetes mellitus complication detail: with coma Qualified Code(s): E10.11 - Type 1 diabetes mellitus with ketoacidosis with coma (2) Abnormal ECG Current Visit: Yes Status: Acute (3) Hypotension Current Visit: Yes Status: Acute Qualifiers: Hypotension type: unspecified hypotension type Qualified Code(s): I95.9 - Hypotension, unspecified (4) Hyperkalemia Current Visit: Yes Status: Acute (5) Hyponatremia Current Visit: Yes Status: Acute (6) Acute renal failure Current Visit: Yes Status: Acute Qualifiers: Acute renal failure type: with acute tubular necrosis Qualified Code(s): N17.0 - Acute kidney failure with tubular necrosis (7) Thrombocytopenia Current Visit: Yes Status: Acute (8) Acute respiratory failure Current Visit: Yes Status: Acute Qualifiers: Respiratory failure complication: unspecified whether with hypoxia or hype rcapnia Qualified Code(s): J96.00 - Acute respiratory failure, unspecified whether with hypoxia or hypercapnia (9) Altered mental status Current Visit: Yes Status: Acute Qualifiers: Altered mental status type: unspecified Qualified Code(s): R41.82 - Altered mental status, unspecified (10) Leukocytosis Current Visit: Yes Status: Acute (11) Anemia Current Visit: Yes Status: Acute (12) Elevated troponin Current Visit: Yes Status: Acute Subjective Date of service: 09/05/18 Principal diagnosis: DKA; Ac. hypoxemic resp failure; severe sepsis; KYLE Interval history: pt intubated, sedated, on levophed gtt. Objective Last Vital Signs Temp 98 F 09/05/18 04:00 Pulse 80 09/05/18 11:36 Resp 23 09/05/18 10:15 BP 94/62 09/05/18 11:36 Pulse Ox 100 09/05/18 11:36 - Physical Examination General: Other (intubated, sedated ) Cardiac: Positive: Reg Rate and Rhythm, S1/S2 Lungs: Positive: Oxygen, Ventilated Respirations Neuro: Positive: Other (intubated, sedated) Skin: Negative: Mottled Extremities: Absent: edema - Labs and Meds Cardiac Enzymes 09/05/18 Range/Units 04:30 AST 85 H (5-40) units/L CBC 09/05/18 Range/Units 04:30 WBC 11.5 H (4.5-11.0) K/mm3 RBC 3.59 L (3.65-5.03) M/mm3 Hgb 9.9 L (11.8-15.2) gm/dl Hct 29.2 L (35.5-45.6) % Plt Count 251 (140-440) K/mm3 Comprehensive Metabolic Panel 09/04/18 09/04/18 09/04/18 Range/Units 11:53 16:10 21:55 Sodium 140 145 144 (137-145) mmol/L Potassium 3.7 3.6 4.3 (3.6-5.0) mmol/L Chloride 106.9 113.1 H 114.0 H (98-107) mmol/L Carbon Dioxide 20 L 19 L 18 L (22-30) mmol/L BUN 61 H 57 H 52 H (9-20) mg/dL Creatinine 3.9 H 3.3 H 3.0 H (0.8-1.5) mg/dL Glucose 472 H 113 H 161 H (75-100) mg/dL Calcium 6.7 L 6.8 L 6.7 L (8.4-10.2) mg/dL Direct Bilirubin (0-0.2) mg/dL Indirect Bilirubin mg/dL AST (5-40) units/L ALT (7-56) units/L Alkaline Phosphatase (35-129) units/L Total Protein (6.3-8.2) g/dL Albumin (3.9-5) g/dL 09/05/18 Range/Units 04:30 Sodium 143 (137-145) mmol/L Potassium 3.9 (3.6-5.0) mmol/L Chloride 114.0 H (98-107) mmol/L Carbon Dioxide 18 L (22-30) mmol/L BUN 44 H (9-20) mg/dL Creatinine 2.7 H (0.8-1.5) mg/dL Glucose 235 H (75-100) mg/dL Calcium 7.0 L (8.4-10.2) mg/dL Direct Bilirubin < 0.2 (0-0.2) mg/dL Indirect Bilirubin 0.0 mg/dL AST 85 H (5-40) units/L ALT 33 (7-56) units/L Alkaline Phosphatase 139 H (35-129) units/L Total Protein 4.6 L (6.3-8.2) g/dL Albumin 2.6 L (3.9-5) g/dL - Imaging and Cardiology EKG: report reviewed, image reviewed Echo: pending Cardiac cath: report reviewed (normal coronaries, normal EF) - EKG Sinus rhythms and dysrhythmias: sinus rhythm Myocardial infarction: anterior MT (acute or rec
[2018-09-05] MEDS ORDERED: ARTIFICIAL TEARS OPHTH OINT OU PRN (14:55)
[2018-09-05] MEDS ORDERED: VASELINE LIP THERAPY TP PRN (14:55)
--- NOTE | 2018-09-05 15:15 | Ultrasound Report ---
ULTRASOUND RENAL INDICATION / CLINICAL INFORMATION: Chronic kidney disease. COMPARISON: None available. FINDINGS: RIGHT KIDNEY: Length = 11.0 cm. [normal > 9 cm] - Parenchymal Thickness = 1.2 cm. [normal > 1.5 cm] - Echogenicity: Normal. - Hydronephrosis: None. - Cyst or mass: No significant abnormality. - Stones: None seen. LEFT KIDNEY: Length = 11.9 cm. [normal > 9 cm] - Parenchymal Thickness = 1.8 cm. [normal > 1.5 cm] - Echogenicity: Normal. - Hydronephrosis: None. - Cyst or mass: No significant abnormality. - Stones: None seen. URINARY BLADDER: Decompressed by a Mckeon catheter. FREE FLUID: None. ADDITIONAL FINDINGS: None. IMPRESSION: Unremarkable kidneys. The bladder is empty. Signer Name: Ceferino Bronson Jr, MD Signed: 09/05/2018 3:11 PM Workstation Name: [id number]
[2018-09-05] MEDS: D50W (25GM) Syringe IV PRN (16:00)
--- NOTE | 2018-09-05 16:16 | Progress Note ---
Assessment and Plan / Acute hypoxic respiratory failure Wean vent as tolerated, daily ABG, sedation holiday, pulmonary team consulted, daily SBT, daily Chest x ray, CT chest pending . / HHNKS BG was 1968 on admission s/p Insulin drip, cont IVF resuscitation therapy, start on TF as BG <250, place on SSI for now / SIRS Admitted to ICU. Initiated sepsis protocol in ED: negative blood cx in 24h. WBC trending down cont abx till all cx negative /hypovolumic shock, likely - s/p pressor support and cont iv fluid as needed - 2d echo ordered /Acute metabolic Encephalopathy due to severe hyperglycemia CT head ordered -pending, cont neuro checks, supportive care, continue to treat hyperglycemia / Acute renal failure likely vasomotor nephropathy need to r/o CKD, ordered renal US cont IVF, monitor uop q shift, monitor serum creatnine Cr trending down /NSTEMI type 2 suspected acute stemi on admission Cardiology consulted in ED, Pt taken urgently to oil laboratory analyst, and underwent cardiac cath showed normal coronaries. / Thrombocytopenia, transfused platelets, resolved / Hyponatremia due to hyperglycemia, cont IV fluid / DVT prophylaxis SCD to ble while in bed, hold anticoagulation at this time secondary to bleeding risk. The high probability of a clinically significant, sudden or life threatening deterioration of the [cardiac, neuro, renal, respiratory] system(s) required my full and direct attention, intervention and personal management. The aggregate critical care time was [65] minutes. This time is in addition to time spent performing reported procedures but includes the following: [x] Data Review and interpretation [x] Patient assessment and monitoring of vital signs [x] Documentation [x] Medication orders and management Hospitalist physical: General appearance: Present: Intubated and sedated - EENT Eyes: Present: miosis - Neck Neck: Present: No JVD - Respiratory Respiratory effort: On mechanical ventilation Respiratory: bilateral: diminished, rhonchi - Cardiovascular Rhythm: other (tachycardia) Heart Sounds: Present: S1 & S2. Absent: rub, click - Extremities Extremities: pulses symmetrical, No edema Peripheral Pulses: abnormal (capillary refill greater than 3.5 seconds) - Abdominal General gastrointestinal: Present: soft, non-tender, non-distended, normal bowel sounds Male genitourinary: Present: normal - Integumentary Integumentary: Present: clear, dry, clammy, decreased turgor - Musculoskeletal Musculoskeletal: No joint swelling - Psychiatric Psychiatric: no appropriate mood/affect, no intact judgment & insight, no memory intact - Neurologic Neurologic: Unable to assess, patient is sedated Subjective Date of service: 09/05/18 Principal diagnosis: DKA Interval history: Patient seen and examined. Medical records and medication list reviewed. No acute event overnight noted by the RN. Patient intubated and sedated BG much improved, iv fluid changed to D5NS as BG was <250 Discussed plan of care at bedside with patient's RN, no family noted at the bedside. Objective - Constitutional Vitals: Vital Signs - 12hr 09/05/18 09/05/18 09/05/18 04:30 04:45 04:48 Pulse Rate 72 73 74 Respiratory 24 24 Rate Blood Pressure 95/62 99/63 104/60 O2 Sat by Pulse 100 100 100 Oximetry 09/05/18 09/05/18 09/05/18 05:00 05:15 05:30 Pulse Rate 72 73 71 Respiratory 25 H 24 24 Rate Blood Pressure 102/67 85/51 96/63 O2 Sat by Pulse 100 100 100 Oximetry 09/05/18 09/05/18 09/05/18 05:45 06:00 06:15 Pulse Rate 72 73 73 Respiratory 24 24 24 Rate Blood Pressure 96/63 95/63 99/68 O2 Sat by Pulse 100 100 100 Oximetry 09/05/18 09/05/18 09/05/18 06:30 06:45 07:00 Pulse Rate 78 74 75 Respiratory 24 24 24 Rate Blood Pressure 116/83 88/57 88/59 O2 Sat by Pulse 100 100 100 Oximetry 09/05/18 09/05/18 09/05/18 07:15 07:28 07:30 Pulse Rate 75 76 75 Respiratory 24 24 Rate Blood Pressure 90/60 94/57 94/57 O2 Sat by Pulse 100 100 100 Oximetry 09/05/18 09/05/18 09/05/18 07:45 08:00 08:15 Pulse Rate 79 78 75 Respiratory 25 H 24 24 Rate Blood Pressure 91/59 92/58 84/53 O2 Sat by Pulse 98 100 100 Oximetry 09/05/18 09/05/18 09/05/18 08:30 08:45 09:00 Pulse Rate 76 75 75 Respiratory 24 24 24 Rate Blood Pressure 90/56 86/56 88/56 O2 Sat by Pulse 100 100 100 Oximetry 09/05/18 09/05/18 09/05/18 09:15 09:30 09:45 Pulse Rate 75 75 76 Respiratory 24 24 24 Rate Blood Pressure 87/55 104/74 90/59 O2 Sat by Pulse 100 100 100 Oximetry 09/05/18 09/05/18 09/05/18 10:00 10:15 10:30 Pulse Rate 76 80 79 Respiratory 24 23 24 Rate Blood Pressure 84/55 94/62 97/59 O2 Sat by Pulse 100 100 100 Oximetry 09/05/18 09/05/18 09/05/18 10:45 11:00 11:15 Pulse Rate 79 78 77 Respiratory 20 21 22 Rate Blood Pressure 88/58 90/58 86/59 O2 Sat by Pulse 100 100 59 L Oximetry 09/05/18 09/05/18 09/05/18 11:30 11:36 11:45 Pulse Rate 78 80 77 Respiratory 24 23 Rate Blood Pressure 93/60 94/62 90/61 O2 Sat by Pulse 100 100 Oximetry 09/05/18 09/05/18 09/05/18 12:00 12:15 12:30 Pulse Rate 79 78 78 Respiratory 22 18 18 Rate Blood Pressure 97/62 90/63 101/68 O2 Sat by Pulse 100 100 Oximetry 09/05/18 09/05/18 09/05/18 12:45 13:00 13:15 Pulse Rate 83 82 80 Respiratory 22 19 24 Rate Blood Pressure 100/66 116/75 112/67 O2 Sat by Pulse 99 100 Oximetry 09/05/18 09/05/18 09/05/18 13:30 13:45 14:00 Pulse Rate 81 79 80 Respiratory 24 23 17 Rate Blood Pressure 99/65 99/62 87/53 O2 Sat by Pulse 99 100 100 Oximetry 09/05/18 09/05/18 09/05/18 14:15 14:19 14:30 Pulse Rate 82 78 76 Respiratory 24 24 Rate Blood Pressure 88/53 88/56 97/62 O2 Sat by Pulse 99 100 67 L Oximetry 09/05/18 09/05/18 09/05/18 14:45 15:00 15:15 Pulse Rate 78 82 78 Respiratory 24 22 22 Rate Blood Pressure 100/63 98/64 95/62 O2 Sat by Pulse 100 100 100 Oximetry 09/05/18 16:00 Pulse Rate 83 Respiratory Rate Blood Pressure 99/62 O2 Sat by Pulse 99 Oximetry - Labs CBC & Chem 7: 09/05/18 04:30 09/06/18 05:00 Labs: Abnormal lab results 09/04/18 09/04/18 09/04/18 Range/Units 16:10 17:19 21:55 WBC (4.5-11.0) K/mm3 RBC (3.65-5.03) M/mm3 Hgb (11.8-15.2) gm/dl Hct (35.5-45.6) % MCV (84-94) fl POC ABG pO2 (80-105) Chloride 113.1 H 114.0 H (98-107) mmol/L Carbon Dioxide 19 L 18 L (22-30) mmol/L BUN 57 H 52 H (9-20) mg/dL Creatinine 3.3 H 3.0 H (0.8-1.5) mg/dL Glucose 113 H 161 H (75-100) mg/dL POC Glucose 147 H (70-105) Calcium 6.8 L 6.7 L (8.4-10.2) mg/dL Phosphorus (2.5-4.5) mg/dL AST (5-40) units/L Alkaline Phosphatase (35-129) units/L C-Reactive Protein (0.00-1.30) mg/dL Total Protein (6.3-8.2) g/dL Albumin (3.9-5) g/dL 09/04/18 09/05/18 09/05/18 Range/Units 21:58 00:08 01:44 WBC (4.5-11.0) K/mm3 RBC (3.65-5.03) M/mm3 Hgb (11.8-15.2) gm/dl Hct (35.5-45.6) % MCV (84-94) fl POC ABG pO2 (80-105) Chloride (98-107) mmol/L Carbon Dioxide (22-30) mmol/L BUN (9-20) mg/dL Creatinine (0.8-1.5) mg/dL Glucose (75-100) mg/dL POC Glucose 159 H 235 H 224 H (70-105) Calcium (8.4-10.2) mg/dL Phosphorus (2.5-4.5) mg/dL AST (5-40) units/L Alkaline Phosphatase (35-129) units/L C-Reactive Protein (0.00-1.30) mg/dL Total Protein (6.3-8.2) g/dL Albumin (3.9-5) g/dL 09/05/18 09/05/18 09/05/18 Range/Units 04:13 04:22 04:30 WBC 11.5 H (4.5-11.0) K/mm3 RBC 3.59 L (3.65-5.03) M/mm3 Hgb 9.9 L (11.8-15.2) gm/dl Hct 29.2 L (35.5-45.6) % MCV 81 L (84-94) fl POC ABG pO2 133 H (80-105) Chloride (98-107) mmol/L Carbon Dioxide (22-30) mmol/L BUN (9-20) mg/dL Creatinine (0.8-1.5) mg/dL Glucose (75-100) mg/dL POC Glucose 253 H (70-105) Calcium (8.4-10.2) mg/dL Phosphorus (2.5-4.5) mg/dL AST (5-40) units/L Alkaline Phosphatase (35-129) units/L C-Reactive Protein (0.00-1.30) mg/dL Total Protein (6.3-8.2) g/dL Albumin (3.9-5) g/dL 09/05/18 09/05/18 09/05/18 Range/Units 04:30 05:59 08:09 WBC (4.5-11.0) K/mm3 RBC (3.65-5.03) M/mm3 Hgb (11.8-15.2) gm/dl Hct (35.5-45.6) % MCV (84-94) fl POC ABG pO2 (80-105) Chloride 114.0 H (98-107) mmol/L Carbon Dioxide 18 L (22-30) mmol/L BUN 44 H (9-20) mg/dL Creatinine 2.7 H (0.8-1.5) mg/dL Glucose 235 H (75-100) mg/dL POC Glucose 243 H 187 H (70-105) Calcium 7.0 L (8.4-10.2) mg/dL Phosphorus 1.10 L D (2.5-4.5) mg/dL AST 85 H (5-40) units/L Alkaline Phosphatase 139 H (35-129) units/L C-Reactive Protein (0.00-1.30) mg/dL Total Protein 4.6 L (6.3-8.2) g/dL Albumin 2.6 L (3.9-5) g/dL 09/05/18 09/05/18 09/05/18 Range/Units 10:02 12:22 12:24 WBC (4.5-11.0) K/mm3 RBC (3.65-5.03) M/mm3 Hgb (11.8-15.2) gm/dl Hct (35.5-45.6) % MCV (84-94) fl POC ABG pO2 (80-105) Chloride (98-107) mmol/L Carbon Dioxide (22-30) mmol/L BUN (9-20) mg/dL Creatinine (0.8-1.5) mg/dL Glucose (75-100) mg/dL POC Glucose 139 H 52 L 63 L (70-105) Calcium (8.4-10.2) mg/dL Phosphorus (2.5-4.5) mg/dL AST (5-40) units/L Alkaline Phosphatase (35-129) units/L C-Reactive Protein (0.00-1.30) mg/dL Total Protein (6.3-8.2) g/dL Albumin (3.9-5) g/dL 09/05/18 Range/Units 12:30 WBC (4.5-11.0) K/mm3 RBC (3.65-5.03) M/mm3 Hgb (11.8-15.2) gm/dl Hct (35.5-45.6) % MCV (84-94) fl POC ABG pO2 (80-105) Chloride (98-107) mmol/L Carbon Dioxide (22-30) mmol/L BUN (9-20) mg/dL Creatinine (0.8-1.5) mg/dL Glucose (75-100) mg/dL POC Glucose (70-105) Calcium (8.4-10.2) mg/dL Phosphorus (2.5-4.5) mg/dL AST (5-40) units/L Alkaline Phosphatase (35-129) units/L C-Reactive Protein 6.30 H (0.00-1.30) mg/dL Total Protein (6.3-8.2) g/dL Albumin (3.9-5) g/dL
--- NOTE | 2018-09-05 16:42 | XRay Report ---
CHEST 1 VIEW 09/05/2018 4:20 PM INDICATION / CLINICAL INFORMATION: ETT placement. COMPARISON: Chest x-ray on 09/03/2018 FINDINGS: SUPPORT DEVICES: The tip of ET tube is in good position projecting about 4 cm above the kp. NG tu be is seen exam of the diaphragm. Left upper extremity PICC has been placed with the tip projecting o alex the superior cavoatrial junction in good position. HEART / MEDIASTINUM: No significant abnormality. LUNGS / PLEURA: Mild bibasilar subsegmental atelectasis has developed. No pneumothorax. ADDITIONAL FINDINGS: No significant additional findings. IMPRESSION: 1. Left upper extremity PICC tip projecting in good position at the level of the superior cavoatrial junction. ET tube appears good position. Signer Name: Linwood Aragon MD Signed: 09/05/2018 4:38 PM Workstation Name: [id number]
--- NOTE | 2018-09-05 16:43 | XRay Report ---
XR abdomen 1V ap INDICATION: verify gastric tube placement. COMPARISON: None available. FINDINGS: The tip of the gastric tube is in good position projecting over the body of the stomach. There are no dilated loops of small or large bowel. Signer Name: Linwood Aragon MD Signed: 09/05/2018 4:39 PM Workstation Name: [id number]
[2018-09-05] MEDS: ROCEPHIN/NS 2 GM/100 ML 2 GM/100 ML BAG IV SCH (18:10)
[2018-09-05] MEDS: SODIUM CHLORIDE FLUSH SYRINGE 10 ML IV SCH ×3 (20:51→21:03)
[2018-09-05] MEDS: NACL 0.9% 1000 ML 1,000 ML IV SCH (21:03)
[2018-09-05 21:43] LABS: Calcium 7.6 mg/dL (8.4-10.2)
[2018-09-06] MEDS: fentaNYL DRIP Premix 2,000 MCG/100 ML BAG IV SCH (02:39)
--- NOTE | 2018-09-06 02:59 | XRay Report ---
CHEST 1 VIEW INDICATION: follow up respiratory failure. COMPARISON: One day prior. FINDINGS: Support devices: Unchanged. Heart: Stable. Lungs/Pleura: There are patchy right mid to lower lung opacities, these could be atelectatic but are nonspecific. Lungs are otherwise clear. No pleural abnormality. IMPRESSION: 1. Interval patchy right mid to lower lung opacities are nonspecific. Signer Name: Michael Martinez MD Signed: 09/06/2018 2:55 AM Workstation Name: [employer]
[2018-09-06 05:48] LABS: Calcium 7.7 mg/dL (8.4-10.2)
[2018-09-06] MEDS: HumuLIN R SUB-Q SCH ×5 (06:18→18:32)
[2018-09-06] MEDS: NACL 0.9% 1000 ML 1,000 ML IV SCH (08:00)
--- NOTE | 2018-09-06 08:40 | Consultation ---
History of Present Illness - Reason for Consult Consult date: 09/06/18 acute renal failure - History of Present Illness The patient is a 53 YO male with history significant for DM who presented to [facility] ED for evaluation of nausea, vomiting, and shortness of breath. Patient is not able to provide any history at this time as he is lethargic and there was no family member at the bedside. Pt reported to EMS that he recently moved to [place] from [place] and ran out of his insulin. He has not taken any insulin in about 4 months. Initial BG >500. En route to ED, pt's mental status declined. EMS ECG with ST elevations in anterior leads, code STEMI activated, pt taken to earthmoving labourer for emergent LHC, which showed normal coronaries and normal LV function. In the ER his blood sugar was about 2000. He was admitted to ICU for treatment of DKA, Acute Respiratory Failure, Acute kidney injury and Sepsis. Pt self extubated this morning. He had multiple metabolic abnormalities along with KYLE. Nephrology was consulted for treatment of KYLE. Past History Past Medical History: diabetes Past Surgical History: No surgical history, Other (UTO) Social history: single, other (UTO) Family history: no significant family history, other (UTO) Medications and Allergies Allergies Allergy/AdvReac Type Severity Reaction Status Date / Time No Known Allergies Allergy Unverified 05/23/18 12:18 Home Medications Medication Instructions Recorded Confirmed Last Taken Type No Known Home Medications [No 09/05/18 09/05/18 Unknown History Reported Home Medications] Active Meds: Active Medications Albuterol (Proventil) 2.5 mg IH Q3HRT PRN PRN Reason: Shortness Of Breath Lipase/Protease/Amylase (Evelyn Simmons 10,500 Unit) 1 each FEEDTUBE PRN PRN PRN Reason: For Clogged Feeding Tube Dextrose (D50w (25gm) Syringe) 0 ml IV PRN PRN PRN Reason: Hypoglycemia Last Admin: 09/05/18 16:00 Dose: 20 ml Documented by: Famotidine (Pepcid) 20 mg IV DAILY NANY Last Admin: 09/05/18 09:40 Dose: 20 mg Documented by: Fentanyl (Sublimaze) 50 mcg IV Q10MIN PRN PRN Reason: ANALGESIA Hydrophilic Ointment (Vaseline Lip Therapy) 1 applic TP Q2HR PRN PRN Reason: Dry Lips Ceftriaxone Sodium (Rocephin/Ns 2 Gm/100 Ml) 2 gm in 100 mls @ 200 mls/hr IV Q24H NANY; Protocol Last Admin: 09/05/18 18:10 Dose: 200 mls/hr Documented by: Fentanyl Citrate (Fentanyl Drip Premix) 2,000 mcg in 100 mls @ 3.595 mls/hr IV TITR NANY; Protocol Last Titration: 09/06/18 08:29 Dose: 0 mcg/kg/hr, 0 mls/hr Documented by: Norepinephrine (Levophed Drip 4 Mg/Ns 250 Ml) 4 mg in 250 mls @ 7.5 mls/hr IV TITR NANY; Protocol Last Titration: 09/05/18 17:57 Dose: 0 mcg/min, 0 mls/hr Documented by: Propofol (Diprivan 10 Mg/Ml) 1,000 mg in 100 mls @ 2.157 mls/hr IV TITR NANY; Protocol Last Titration: 09/06/18 08:29 Dose: Infused Documented by: Azithromycin 500 mg/ Sodium (Chloride) 250 mls @ 250 mls/hr IV Q24HR NANY Stop: 09/09/18 10:59 Last Admin: 09/05/18 09:41 Dose: 250 mls/hr Documented by: Sodium Chloride (Nacl 0.9% 1000 Ml) 1,000 mls @ 100 mls/hr IV DIRECT NANY Last Admin: 09/06/18 08:00 Dose: 100 mls/hr Documented by: Insulin Glargine (Lantus) 10 units SUB-Q QHS NANY Insulin Human Regular (Humulin R) 0 units SUB-Q Q6HR NANY; Protocol Last Admin: 09/06/18 06:18 Dose: 8 units Documented by: Multi-Ingred Cream/Lotion/Oil/Oint (Artificial Tears Ophth Oint) 1 applic OU Q4HR PRN PRN Reason: Dry Eye(s) Simple Syrup (Simple Syrup) 15 ml FEEDTUBE PRN PRN PRN Reason: Hypoglycemia Simple Syrup (Simple Syrup) 30 ml FEEDTUBE PRN PRN PRN Reason: Hypoglycemia Sodium Bicarbonate (Sodium Bicarbonate) 325 mg FEEDTUBE PRN PRN PRN Reason: For Clogged Feeding Tube Sodium Chloride (Sodium Chloride Flush Syringe 10 Ml) 10 ml IV BID NANY Last Admin: 09/05/18 21:03 Dose: 10 ml Documented by: Sodium Chloride (Sodium Chloride Flush Syringe 10 Ml) 10 ml IV PRN PRN PRN Reason: LINE FLUSH Review of Systems ROS unobtainable: due to mental status Exam - Vital Signs Vital signs: Vital Signs Pulse Resp BP Pulse Ox 86 12 50/32 93 09/03/18 15:01 09/03/18 15:01 09/03/18 15:01 09/03/18 15:01 - General Appearance General appearance: well-developed, well-nourished, appears stated age, other (no distress, on restrains) EENT: ATNC, PERRL, hearing intact, vision intact Neck: Present: neck supple, trachea midline Respiratory: Clear to Ascultation Heart: regular, S1S2, no murmurs Gastrointestinal: Present: normoactive bowel sounds. Absent: tenderness, di stended Integumentary: no rash, warm and dry Neurologic: no focal deficit, confused, disoriented Musculoskeletal: Present: other (no edema) Results - Lab Results 09/07/18 04:20 09/07/18 04:20 Most recent lab results Calcium 7.7 mg/dL (8.4-10.2) L 09/06/18 05:00 Phosphorus 2.60 mg/dL (2.5-4.5) D 09/06/18 05:00 Magnesium 1.80 mg/dL (1.7-2.3) 09/06/18 05:00 - Image Kidney/bladder ultrasound: pending Assessment and Plan 1. Acute kidney injury: Vasomotor / hemodynamic KYLE in the setting of DKA. Renal US was negative for hydro. Renal function is improving. Continue IV fluids. Monitor renal function. Renal function prognosis is guarded. Avoid nephrotoxic agents. Meds dosage based on GFR. 2. FEN: Metabolic acidosis, improving. Monitor lytes. 3. DKA: Was on IV Insulin. Monitor. 4. Respiratory failure: s/p extubated. 5. Septic shock: Was on pressors. BP is better. 6. Systolic CHF. 7. Anemia: POA.
[2018-09-06] MEDS ORDERED: VANCOMYCIN 1,250 MG in NACL 0.9% 250ML 250 ML IV ONE (10:00)
--- NOTE | 2018-09-06 10:14 | Progress Note ---
Assessment and Plan / Acute hypoxic respiratory failure Intubated following admission Pulmonary is following self extubated today during SBT cont nebs, aspiration precaution / HHNKS BG was 1968 on admission s/p Insulin drip, off TF now will start on consistent carb diet if passed swallow eval cont SSI, start on long acting insulin when starts PO diet / Sepsis likely from strep group B PNA, POA Admitted to ICU. Initiated sepsis protocol in ED: negative blood cx in 48h. WBC trending down cont rocephin for now /Septic shock, POA - s/p pressor support and cont iv fluid as needed /Acute CHF with reduced EF 20-25% - monitor ins/os, cardiology following - s/p cardiac cath on admission showed no CAD - likely nonischemic cardiomyopathy /Acute metabolic Encephalopathy, resolved due to severe hyperglycemia CT head ordered -pending, cont neuro checks, supportive care, continue to treat hyperglycemia / Acute renal failure likely vasomotor nephropathy need to r/o CKD, ordered renal US cont IVF, monitor uop q shift, monitor serum creatnine Cr trending down /NSTEMI type 2 suspected acute stemi on admission Cardiology consulted in ED, Pt taken urgently to cath lab nurse, and underwent cardiac cath showed normal coronaries. / Thrombocytopenia, transfused platelets, resolved / Hyponatremia due to hyperglycemia, cont IV fluid / DVT prophylaxis SCD to ble while in bed, Possible transfer to tele if clinically stable Hospitalist physical: General appearance: Present: NAD, on N/C - EENT Eyes: reactive b/l - Neck Neck: Present: No JVD - Respiratory Respiratory effort: On o/c Respiratory: bilateral: diminished, rhonchi - Cardiovascular Rhythm: other (tachycardia) Heart Sounds: Present: S1 & S2. Absent: rub, click - Extremities Extremities: pulses symmetrical, No edema Peripheral Pulses: present - Abdominal General gastrointestinal: Present: soft, non-tender, non-distended, normal bowel sounds Male genitourinary: Present: normal - Integumentary Integumentary: Present: clear, dry, - Musculoskeletal Musculoskeletal: No joint swelling - Psychiatric Psychiatric: appropriate mood/affect, intact judgment & insight, - Neurologic Neurologic: moves all extremities Subjective Date of service: 09/06/18 Principal diagnosis: DKA Interval history: Patient seen and examined. Medical records and medication list reviewed. No acute event overnight noted by the RN. Patient self extubated during SBT, doing well on N/c now plan discussed with patient Objective - Constitutional Vitals: Vital Signs - 12hr 09/05/18 09/05/18 09/05/18 22:15 22:30 22:45 Temperature Pulse Rate 89 90 89 Respiratory 12 12 11 L Rate Blood Pressure 97/55 100/58 101/57 O2 Sat by Pulse 96 98 98 Oximetry 09/05/18 09/05/18 09/05/18 23:00 23:15 23:16 Temperature 97.8 F Pulse Rate 90 89 Respiratory 11 L 12 Rate Blood Pressure 96/58 103/61 O2 Sat by Pulse 98 98 Oximetry 09/05/18 09/05/18 09/05/18 23:30 23:45 23:59 Temperature Pulse Rate 92 H 95 H 94 H Respiratory 12 16 Rate Blood Pressure 107/67 114/60 132/65 O2 Sat by Pulse 91 87 98 Oximetry 09/06/18 09/06/18 09/06/18 00:00 00:15 00:30 Temperature Pulse Rate 94 H 97 H 94 H Respiratory 11 L 13 11 L Rate Blood Pressure 113/65 119/62 103/57 O2 Sat by Pulse 100 96 Oximetry 09/06/18 09/06/18 09/06/18 00:45 01:00 01:15 Temperature Pulse Rate 92 H 93 H 93 H Respiratory 12 12 12 Rate Blood Pressure 107/66 107/66 107/62 O2 Sat by Pulse 98 Oximetry 09/06/18 09/06/18 09/06/18 01:30 01:45 02:00 Temperature Pulse Rate 92 H 93 H 92 H Respiratory 12 14 12 Rate Blood Pressure 107/60 111/60 106/59 O2 Sat by Pulse 96 Oximetry 09/06/18 09/06/18 09/06/18 02:15 02:30 02:45 Temperature Pulse Rate 90 90 91 H Respiratory 11 L 11 L 12 Rate Blood Pressure 104/62 107/60 105/56 O2 Sat by Pulse 98 95 98 Oximetry 09/06/18 09/06/18 09/06/18 03:00 03:10 03:15 Temperature 98.9 F Pulse Rate 89 89 Respiratory 12 13 Rate Blood Pressure 101/57 104/58 O2 Sat by Pulse 85 99 Oximetry 09/06/18 09/06/18 09/06/18 03:30 03:45 04:00 Temperature Pulse Rate 89 91 H 92 H Respiratory 14 12 11 L Rate Blood Pressure 103/60 109/68 102/56 O2 Sat by Pulse 99 98 97 Oximetry 09/06/18 09/06/18 09/06/18 04:15 04:19 04:30 Temperature Pulse Rate 90 89 88 Respiratory 17 12 Rate Blood Pressure 98/59 105/57 97/54 O2 Sat by Pulse 98 Oximetry 09/06/18 09/06/18 09/06/18 04:45 05:00 05:15 Temperature Pulse Rate 88 87 104 H Respiratory 10 L 15 29 H Rate Blood Pressure 106/59 96/61 96/61 O2 Sat by Pulse 98 99 91 Oximetry 09/06/18 09/06/18 09/06/18 05:30 05:45 06:00 Temperature Pulse Rate 92 H 91 H 91 H Respiratory 16 17 12 Rate Blood Pressure 97/70 110/68 112/64 O2 Sat by Pulse 99 100 Oximetry 09/06/18 09/06/18 09/06/18 06:15 06:30 06:45 Temperature Pulse Rate 86 87 90 Respiratory 11 L 11 L 11 L Rate Blood Pressure 100/57 109/60 117/68 O2 Sat by Pulse 97 98 Oximetry 09/06/18 09/06/18 09/06/18 07:00 07:15 07:30 Temperature Pulse Rate 89 88 89 Respiratory 13 13 12 Rate Blood Pressure 113/68 111/68 113/69 O2 Sat by Pulse 94 Oximetry 09/06/18 09/06/18 09/06/18 07:45 07:57 08:00 Temperature 97.8 F Pulse Rate 95 H 88 Respiratory 14 10 L 12 Rate Blood Pressure 117/46 113/62 103/58 O2 Sat by Pulse 98 97 97 Oximetry 09/06/18 09/06/18 09/06/18 08:15 08:30 08:36 Temperature Pulse Rate 88 93 H 93 H Respiratory 13 18 16 Rate Blood Pressure 100/54 93/63 130/65 O2 Sat by Pulse 97 96 100 Oximetry 09/06/18 09/06/18 09/06/18 08:45 09:00 09:15 Temperature Pulse Rate 94 H 106 H 105 H Respiratory 15 17 20 Rate Blood Pressure 100/64 100/64 136/75 O2 Sat by Pulse 98 96 93 Oximetry 09/06/18 09/06/18 09/06/18 09:30 09:45 10:00 Temperature Pulse Rate 103 H 102 H 100 H Respiratory 20 19 16 Rate Blood Pressure 130/77 121/66 122/64 O2 Sat by Pulse 98 92 92 Oximetry - Labs CBC & Chem 7: 09/07/18 04:20 09/07/18 04:20 Labs: Abnormal lab results 09/05/18 09/05/18 09/05/18 Range/Units 08:09 10:02 12:22 POC ABG pH (7.35-7.45) Chloride (98-107) mmol/L Carbon Dioxide (22-30) mmol/L BUN (9-20) mg/dL Creatinine (0.8-1.5) mg/dL Glucose (75-100) mg/dL POC Glucose 187 H 139 H 52 L (70-105) Hemoglobin A1c (4-6) % Calcium (8.4-10.2) mg/dL C-Reactive Protein (0.00-1.30) mg/dL 09/05/18 09/05/18 09/05/18 Range/Units 12:24 12:30 16:02 POC ABG pH (7.35-7.45) Chloride (98-107) mmol/L Carbon Dioxide (22-30) mmol/L BUN (9-20) mg/dL Creatinine (0.8-1.5) mg/dL Glucose (75-100) mg/dL POC Glucose 63 L 55 L (70-105) Hemoglobin A1c (4-6) % Calcium (8.4-10.2) mg/dL C-Reactive Protein 6.30 H (0.00-1.30) mg/dL 09/05/18 09/06/18 09/06/18 Range/Units Unknown 00:06 04:27 POC ABG pH 7.280 L (7.35-7.45) Chloride 112.3 H (98-107) mmol/L Carbon Dioxide 20 L (22-30) mmol/L BUN 30 H (9-20) mg/dL Creatinine 2.0 H (0.8-1.5) mg/dL Glucose 183 H (75-100) mg/dL POC Glucose 218 H (70-105) Hemoglobin A1c (4-6) % Calcium 7.6 L (8.4-10.2) mg/dL C-Reactive Protein (0.00-1.30) mg/dL 09/06/18 09/06/18 09/06/18 Range/Units 04:30 05:00 05:23 POC ABG pH (7.35-7.45) Chloride 111.4 H (98-107) mmol/L Carbon Dioxide 20 L (22-30) mmol/L BUN 27 H (9-20) mg/dL Creatinine 1.9 H (0.8-1.5) mg/dL Glucose 256 H (75-100) mg/dL POC Glucose 308 H (70-105) Hemoglobin A1c 14.6 H (4-6) % Calcium 7.7 L (8.4-10.2) mg/dL C-Reactive Protein (0.00-1.30) mg/dL
[2018-09-06] MEDS: PEPCID IV SCH (10:16)
[2018-09-06] MEDS: ZITHROMAX 500 MG in NACL 0.9% 250ML 250 ML IV SCH (10:17)
[2018-09-06] MEDS: SODIUM CHLORIDE FLUSH SYRINGE 10 ML IV SCH ×2 (10:18→21:53)
--- NOTE | 2018-09-06 10:51 | XRay Report ---
CHEST 1 VIEW INDICATION: Patient self extubated. COMPARISON: 09/06/2018 at 0225 hours FINDINGS: Support devices: The endotracheal tube and nasogastric tube have been removed. The left arm PICC susanna ins in good position. Heart: Within normal limits. Lungs/Pleura: There is poor inspiration. Hazy bibasilar opacities are identified which probably repre sent atelectatic changes. Infiltrates or aspiration could be considered but are thought less likely. The upper lung zones are clear. No significant pleural effusion or pneumothorax. Additional findings: None. IMPRESSION: The endotracheal tube and nasogastric tube have been removed. Bibasilar opacities probably represent ing mild atelectatic changes. Signer Name: Ceferino Bronson Jr, MD Signed: 09/06/2018 10:47 AM Workstation Name: [id number]
--- NOTE | 2018-09-06 12:43 | Progress Note ---
Assessment and Plan DKA Pneumonia Acute metabolic encephaloapthy Severe Sepsis (Unspecified) KYLE Acute hypoxemic respiratory failure NSTEMI type 2 Thrombocytopenia Hyponatremia (due to hyperglycemia) (Following commands; non focal exam; will hold on CT brain now till more stable overall) - watch closely in ICU for now - prn BIPAP - reduce IVF rate re: developing pulmonary edema picture - ST evaluation and advance diet - PO4 & Mag now WNL - change SSI to qac and qhs (target BG 140 - 180 mg/dl) - get CRP & lactate levels noted; no change in AB's therapy and will follow clinically - continue Rocephin for pneumonia X 5 days - NSTEMI per cardiology - prn vasopressors for target MAP > 65 mmHg - continue supplemental oxygen as needed to keep O2 sat's > 90% - continue bronchodilators with pulmonary hygiene per RT - prn CXR and ABG in short term - Agitation management - Prevention of delirium, maintenance of sleep-wake cycle - Avoid nephrotoxic agents, adjust all antibiotics and medications for CrCL and GFR - VTE and Stress ulcer prophylaxis CONDITION: CRITICAL PROGNOSIS: GRAVE to GUARDED CODE STATUS: FULL CODE The high probability of a clinically significant, sudden or life-threatening deterioration of the [respiratory, cardiac and neurologic] system(s) required my full and direct attention, intervention and personal management. The aggregate critical care time was [31] minutes without overlap. Time includes spent on; [x] Data Review and interpretation [x] Patient assessment and monitoring of vital signs [x] Documentation [x] Medication orders and management Subjective Date of service: 09/06/18 Principal diagnosis: DKA; Ac. hypoxemic resp failure; severe sepsis; KYLE Interval history: Patient is seen today for: DKA; Acute metabolic encephaloapthy; severe sepsis; KYLE; acute hypoxemic respiratory failure Seen and examined at bedside; 24hour events reviewed; nursing and respiratory care staff consulted; no adverse overnight events reported to me; resting in bed; making good urine; self extubated earlier today but doing good so far; NO N/V/F/C; denies sore throat, acute chest pains or palpitations Objective Vital Signs - 12hr 09/06/18 09/06/18 09/06/18 00:45 01:00 01:15 Temperature Pulse Rate 92 H 93 H 93 H Respiratory 12 12 12 Rate Blood Pressure 107/66 107/66 107/62 O2 Sat by Pulse 98 Oximetry 09/06/18 09/06/18 09/06/18 01:30 01:45 02:00 Temperature Pulse Rate 92 H 93 H 92 H Respiratory 12 14 12 Rate Blood Pressure 107/60 111/60 106/59 O2 Sat by Pulse 96 Oximetry 09/06/18 09/06/18 09/06/18 02:15 02:30 02:45 Temperature Pulse Rate 90 90 91 H Respiratory 11 L 11 L 12 Rate Blood Pressure 104/62 107/60 105/56 O2 Sat by Pulse 98 95 98 Oximetry 09/06/18 09/06/18 09/06/18 03:00 03:10 03:15 Temperature 98.9 F Pulse Rate 89 89 Respiratory 12 13 Rate Blood Pressure 101/57 104/58 O2 Sat by Pulse 85 99 Oximetry 09/06/18 09/06/18 09/06/18 03:30 03:45 04:00 Temperature Pulse Rate 89 91 H 92 H Respiratory 14 12 11 L Rate Blood Pressure 103/60 109/68 102/56 O2 Sat by Pulse 99 98 97 Oximetry 09/06/18 09/06/18 09/06/18 04:15 04:19 04:30 Temperature Pulse Rate 90 89 88 Respiratory 17 12 Rate Blood Pressure 98/59 105/57 97/54 O2 Sat by Pulse 98 Oximetry 09/06/18 09/06/18 09/06/18 04:45 05:00 05:15 Temperature Pulse Rate 88 87 104 H Respiratory 10 L 15 29 H Rate Blood Pressure 106/59 96/61 96/61 O2 Sat by Pulse 98 99 91 Oximetry 09/06/18 09/06/18 09/06/18 05:30 05:45 06:00 Temperature Pulse Rate 92 H 91 H 91 H Respiratory 16 17 12 Rate Blood Pressure 97/70 110/68 112/64 O2 Sat by Pulse 99 100 Oximetry 09/06/18 09/06/18 09/06/18 06:15 06:30 06:45 Temperature Pulse Rate 86 87 90 Respiratory 11 L 11 L 11 L Rate Blood Pressure 100/57 109/60 117/68 O2 Sat by Pulse 97 98 Oximetry 09/06/18 09/06/18 09/06/18 07:00 07:15 07:30 Temperature Pulse Rate 89 88 89 Respiratory 13 13 12 Rate Blood Pressure 113/68 111/68 113/69 O2 Sat by Pulse 94 Oximetry 09/06/18 09/06/18 09/06/18 07:45 07:57 08:00 Temperature 97.8 F Pulse Rate 95 H 88 Respiratory 14 10 L 12 Rate Blood Pressure 117/46 113/62 103/58 O2 Sat by Pulse 98 97 97 Oximetry 09/06/18 09/06/18 09/06/18 08:15 08:30 08:36 Temperature Pulse Rate 88 93 H 93 H Respiratory 13 18 16 Rate Blood Pressure 100/54 93/63 130/65 O2 Sat by Pulse 97 96 100 Oximetry 09/06/18 09/06/18 09/06/18 08:45 09:00 09:15 Temperature Pulse Rate 94 H 106 H 105 H Respiratory 15 17 20 Rate Blood Pressure 100/64 100/64 136/75 O2 Sat by Pulse 98 96 93 Oximetry 09/06/18 09/06/18 09/06/18 09:30 09:45 10:00 Temperature Pulse Rate 103 H 102 H 100 H Respiratory 20 19 16 Rate Blood Pressure 130/77 121/66 122/64 O2 Sat by Pulse 98 92 92 Oximetry 09/06/18 09/06/18 09/06/18 10:15 10:30 10:45 Temperature Pulse Rate 99 H 104 H 103 H Respiratory 16 19 16 Rate Blood Pressure 110/61 123/67 127/69 O2 Sat by Pulse 94 96 94 Oximetry 09/06/18 09/06/18 09/06/18 11:00 11:15 11:30 Temperature Pulse Rate 99 H 99 H 97 H Respiratory 13 15 16 Rate Blood Pressure 121/66 109/64 112/63 O2 Sat by Pulse 99 98 98 Oximetry 09/06/18 09/06/18 09/06/18 11:45 12:00 12:15 Temperature Pulse Rate 95 H 95 H 95 H Respiratory 16 17 18 Rate Blood Pressure 107/65 116/70 117/68 O2 Sat by Pulse 97 Oximetry Constitutional: no acute distress, other (middle aged AAM, normocephalic and atraumatic with mildly increased respiratory effort at rest) Eyes: non-icteric ENT: oropharynx moist, other (extubated) Neck: supple, no JVD, other (no thyromegaly) Effort: mildly labored Ascultation: Bilateral: rales (scant RLL) Percussion: Bilateral: not dull Cardiovascular: regular rate and rhythm, other (No R/M) Gastrointestinal: normoactive bowel sounds, soft, non-tender, non-distended Integumentary: normal Extremities: no cyanosis, no edema, pulses normal, no ischemia or petechiae Neurologic: non-focal exam (grossly), pupils equal and round, CN II-XII normal, motor strength normal and Psychiatric: mood appropriate, affect normal, other (?? mild cognitive d ysfunction clinically) CBC and BMP: 09/05/18 04:30 09/06/18 05:00 ABG, PT/INR, D-dimer: ABG POC ABG pH 7.388 (7.35-7.45) 09/06/18 10:58 POC ABG pCO2 31.7 (35-45) L 09/06/18 10:58 POC ABG pO2 60 (80-105) L 09/06/18 10:58 POC ABG HCO3 19.1 (22-26 mml/L) 09/06/18 10:58 POC ABG Total CO2 20 (23-27mmol/L) 09/06/18 10:58 POC ABG O2 Sat 91 09/06/18 10:58 PT/INR, D-dimer PT 17.5 Sec. (12.2-14.9) H 09/03/18 15:01 INR 1.47 (0.87-1.13) H 09/03/18 15:01 Abnormal lab findings: Abnormal Labs 09/03/18 09/03/18 09/03/18 02:20 15:01 15:01 WBC 17.4 H RBC Hgb 10.6 L Hct MCV 111 H MCH MCHC 25 L RDW 16.5 H Plt Count 16 L* Seg Neuts % (Manual) 84.0 H Lymphocytes % (Manual) 8.0 L Seg Neutrophils # Man 14.6 H Monocytes # (Manual) 1.0 H PT 17.5 H INR 1.47 H POC ABG pH POC ABG pCO2 POC ABG pO2 VBG pH Sodium Potassium Chloride Carbon Dioxide BUN Creatinine Glucose POC Glucose Hemoglobin A1c Lactic Acid 5.90 H* Calcium Phosphorus Magnesium AST Alkaline Phosphatase Total Creatine Kinase CK-MB (CK-2) CK-MB (CK-2) Rel Index Troponin T C-Reactive Protein Total Protein Albumin 09/03/18 09/03/18 09/03/18 15:01 15:01 15:16 WBC RBC Hgb Hct MCV MCH MCHC RDW Plt Count Seg Neuts % (Manual) Lymphocytes % (Manual) Seg Neutrophils # Man Monocytes # (Manual) PT INR POC ABG pH 7.020 L POC ABG pCO2 < 30 L POC ABG pO2 139 H VBG pH 7.049 L* Sodium 110 L* Potassium 7.5 H* Chloride 61.0 L Carbon Dioxide 6 L* BUN 77 H Creatinine 4.3 H Glucose 1968 H* POC Glucose Hemoglobin A1c Lactic Acid Calcium 7.3 L Phosphorus Magnesium AST Alkaline Phosphatase Total Creatine Kinase 203 H CK-MB (CK-2) 8.9 H CK-MB (CK-2) Rel Index 4.3 H Troponin T 0.058 H C-Reactive Protein Total Protein Albumin 09/03/18 09/03/18 09/03/18 18:10 18:10 18:10 WBC RBC Hgb Hct MCV MCH MCHC RDW Plt Count Seg Neuts % (Manual) Lymphocytes % (Manual) Seg Neutrophils # Man Monocytes # (Manual) PT INR POC ABG pH POC ABG pCO2 POC ABG pO2 VBG pH Sodium Potassium Chloride Carbon Dioxide BUN Creatinine Glucose POC Glucose Hemoglobin A1c Lactic Acid Calcium Phosphorus 8.80 H Magnesium 2.90 H AST 64 H Alkaline Phosphatase 205 H Total Creatine Kinase 289 H CK-MB (CK-2) 13.4 H CK-MB (CK-2) Rel Index 4.6 H Troponin T 0.142 H* D C-Reactive Protein Total Protein 5.6 L Albumin 3.2 L 09/03/18 09/03/18 09/03/18 18:10 18:33 20:15 WBC RBC Hgb Hct MCV MCH MCHC RDW Plt Count Seg Neuts % (Manual) Lymphocytes % (Manual) Seg Neutrophils # Man Monocytes # (Manual) PT INR POC ABG pH 7.047 L POC ABG pCO2 POC ABG pO2 VBG pH Sodium 113 L* Potassium Chloride 70.1 L Carbon Dioxide 8 L* BUN 76 H Creatinine 4.3 H Glucose 1844 H* POC Glucose Hemoglobin A1c Lactic Acid Calcium 6.8 L Phosphorus Magnesium AST Alkaline Phosphatase Total Creatine Kinase 293 H CK-MB (CK-2) 13.0 H CK-MB (CK-2) Rel Index 4.4 H Troponin T 0.126 H* C-Reactive Protein Total Protein Albumin 09/03/18 09/03/18 09/03/18 20:15 20:15 20:15 WBC RBC Hgb Hct MCV MCH MCHC RDW Plt Count Seg Neuts % (Manual) Lymphocytes % (Manual) Seg Neutrophils # Man Monocytes # (Manual) PT INR POC ABG pH POC ABG pCO2 POC ABG pO2 VBG pH Sodium 116 L* Potassium Chloride 74.3 L Carbon Dioxide 11 L BUN 76 H Creatinine 4.4 H Glucose 1786 H* POC Glucose Hemoglobin A1c Lactic Acid 4.10 H* Calcium 6.4 L Phosphorus 9.00 H Magnesium 2.80 H AST Alkaline Phosphatase Total Creatine Kinase CK-MB (CK-2) CK-MB (CK-2) Rel Index Troponin T C-Reactive Protein Total Protein Albumin 09/03/18 09/03/18 09/03/18 20:18 22:00 22:54 WBC RBC Hgb Hct MCV MCH MCHC RDW Plt Count Seg Neuts % (Manual) Lymphocytes % (Manual) Seg Neutrophils # Man Monocytes # (Manual) PT INR POC ABG pH POC ABG pCO2 POC ABG pO2 VBG pH Sodium 120 L Potassium Chloride 82.7 L Carbon Dioxide 11 L BUN 74 H Creatinine 4.3 H Glucose 1144 H* POC Glucose > 500 H Hemoglobin A1c Lactic Acid 5.00 H* Calcium 6.0 L Phosphorus Magnesium AST Alkaline Phosphatase Total Creatine Kinase CK-MB (CK-2) CK-MB (CK-2) Rel Index Troponin T C-Reactive Protein Total Protein Albumin 09/03/18 09/03/18 09/04/18 23:18 23:47 00:20 WBC RBC Hgb Hct MCV MCH MCHC RDW Plt Count Seg Neuts % (Manual) Lymphocytes % (Manual) Seg Neutrophils # Man Monocytes # (Manual) PT INR POC ABG pH 7.279 L POC ABG pCO2 POC ABG pO2 230 H VBG pH Sodium 124 L Potassium Chloride 88.7 L Carbon Dioxide 13 L BUN 70 H Creatinine 4.3 H Glucose 1295 H* POC Glucose > 500 H Hemoglobin A1c Lactic Acid Calcium 5.8 L* Phosphorus Magnesium AST Alkaline Phosphatase Total Creatine Kinase CK-MB (CK-2) CK-MB (CK-2) Rel Index Troponin T C-Reactive Protein Total Protein Albumin 09/04/18 09/04/18 09/04/18 01:06 02:20 02:28 WBC RBC Hgb Hct MCV MCH MCHC RDW Plt Count Seg Neuts % (Manual) Lymphocytes % (Manual) Seg Neutrophils # Man Monocytes # (Manual) PT INR POC ABG pH POC ABG pCO2 POC ABG pO2 VBG pH Sodium 127 L Potassium Chloride 91.1 L Carbon Dioxide 15 L BUN 72 H Creatinine 4.4 H Glucose 1156 H* POC Glucose > 500 H > 500 H Hemoglobin A1c Lactic Acid Calcium 6.1 L Phosphorus Magnesium AST Alkaline Phosphatase Total Creatine Kinase CK-MB (CK-2) CK-MB (CK-2) Rel Index Troponin T C-Reactive Protein Total Protein Albumin 09/04/18 09/04/18 09/04/18 04:35 05:25 06:15 WBC RBC Hgb Hct MCV MCH MCHC RDW Plt Count Seg Neuts % (Manual) Lymphocytes % (Manual) Seg Neutrophils # Man Monocytes # (Manual) PT INR POC ABG pH POC ABG pCO2 POC ABG pO2 160 H VBG pH Sodium 134 L D Potassium Chloride Carbon Dioxide 17 L BUN 67 H Creatinine 4.4 H Glucose 871 H* POC Glucose > 500 H Hemoglobin A1c Lactic Acid Calcium 6.6 L Phosphorus Magnesium AST Alkaline Phosphatase Total Creatine Kinase CK-MB (CK-2) CK-MB (CK-2) Rel Index Troponin T C-Reactive Protein Total Protein Albumin 09/04/18 09/04/18 09/04/18 09:04 09:15 09:15 WBC 13.1 H RBC Hgb 9.8 L Hct 30.0 L D MCV 82 L MCH 27 L MCHC RDW Plt Count Seg Neuts % (Manual) Lymphocytes % (Manual) Seg Neutrophils # Man Monocytes # (Manual) PT INR POC ABG pH POC ABG pCO2 POC ABG pO2 VBG pH Sodium Potassium Chloride Carbon Dioxide 17 L BUN 63 H Creatinine 4.1 H Glucose 668 H* POC Glucose > 500 H Hemoglobin A1c Lactic Acid Calcium 6.4 L Phosphorus Magnesium AST Alkaline Phosphatase Total Creatine Kinase CK-MB (CK-2) CK-MB (CK-2) Rel Index Troponin T C-Reactive Protein Total Protein Albumin 09/04/18 09/04/18 09/04/18 11:26 11:53 13:44 WBC RBC Hgb Hct MCV MCH MCHC RDW Plt Count Seg Neuts % (Manual) Lymphocytes % (Manual) Seg Neutrophils # Man Monocytes # (Manual) PT INR POC ABG pH POC ABG pCO2 POC ABG pO2 VBG pH Sodium Potassium Chloride Carbon Dioxide 20 L BUN 61 H Creatinine 3.9 H Glucose 472 H POC Glucose > 500 H 354 H Hemoglobin A1c Lactic Acid Calcium 6.7 L Phosphorus Magnesium AST Alkaline Phosphatase Total Creatine Kinase CK-MB (CK-2) CK-MB (CK-2) Rel Index Troponin T C-Reactive Protein Total Protein Albumin 09/04/18 09/04/18 09/04/18 14:18 15:29 16:10 WBC RBC Hgb Hct MCV MCH MCHC RDW Plt Count Seg Neuts % (Manual) Lymphocytes % (Manual) Seg Neutrophils # Man Monocytes # (Manual) PT INR POC ABG pH POC ABG pCO2 30.2 L POC ABG pO2 145 H VBG pH Sodium Potassium Chloride 113.1 H Carbon Dioxide 19 L BUN 57 H Creatinine 3.3 H Glucose 113 H POC Glucose 299 H Hemoglobin A1c Lactic Acid Calcium 6.8 L Phosphorus Magnesium AST Alkaline Phosphatase Total Creatine Kinase CK-MB (CK-2) CK-MB (CK-2) Rel Index Troponin T C-Reactive Protein Total Protein Albumin 09/04/18 09/04/18 09/04/18 17:19 21:55 21:58 WBC RBC Hgb Hct MCV MCH MCHC RDW Plt Count Seg Neuts % (Manual) Lymphocytes % (Manual) Seg Neutrophils # Man Monocytes # (Manual) PT INR POC ABG pH POC ABG pCO2 POC ABG pO2 VBG pH Sodium Potassium Chloride 114.0 H Carbon Dioxide 18 L BUN 52 H Creatinine 3.0 H Glucose 161 H POC Glucose 147 H 159 H Hemoglobin A1c Lactic Acid Calcium 6.7 L Phosphorus Magnesium AST Alkaline Phosphatase Total Creatine Kinase CK-MB (CK-2) CK-MB (CK-2) Rel Index Troponin T C-Reactive Protein Total Protein Albumin 09/05/18 09/05/18 09/05/18 00:08 01:44 04:13 WBC RBC Hgb Hct MCV MCH MCHC RDW Plt Count Seg Neuts % (Manual) Lymphocytes % (Manual) Seg Neutrophils # Man Monocytes # (Manual) PT INR POC ABG pH POC ABG pCO2 POC ABG pO2 VBG pH Sodium Potassium Chloride Carbon Dioxide BUN Creatinine Glucose POC Glucose 235 H 224 H 253 H Hemoglobin A1c Lactic Acid Calcium Phosphorus Magnesium AST Alkaline Phosphatase Total Creatine Kinase CK-MB (CK-2) CK-MB (CK-2) Rel Index Troponin T C-Reactive Protein Total Protein Albumin 09/05/18 09/05/18 09/05/18 04:22 04:30 04:30 WBC 11.5 H RBC 3.59 L Hgb 9.9 L Hct 29.2 L MCV 81 L MCH MCHC RDW Plt Count Seg Neuts % (Manual) Lymphocytes % (Manual) Seg Neutrophils # Man Monocytes # (Manual) PT INR POC ABG pH POC ABG pCO2 POC ABG pO2 133 H VBG pH Sodium Potassium Chloride 114.0 H Carbon Dioxide 18 L BUN 44 H Creatinine 2.7 H Glucose 235 H POC Glucose Hemoglobin A1c Lactic Acid Calcium 7.0 L Phosphorus 1.10 L D Magnesium AST 85 H Alkaline Phosphatase 139 H Total Creatine Kinase CK-MB (CK-2) CK-MB (CK-2) Rel Index Troponin T C-Reactive Protein Total Protein 4.6 L Albumin 2.6 L 09/05/18 09/05/18 09/05/18 05:59 08:09 10:02 WBC RBC Hgb Hct MCV MCH MCHC RDW Plt Count Seg Neuts % (Manual) Lymphocytes % (Manual) Seg Neutrophils # Man Monocytes # (Manual) PT INR POC ABG pH POC ABG pCO2 POC ABG pO2 VBG pH Sodium Potassium Chloride Carbon Dioxide BUN Creatinine Glucose POC Glucose 243 H 187 H 139 H Hemoglobin A1c Lactic Acid Calcium Phosphorus Magnesium AST Alkaline Phosphatase Total Creatine Kinase CK-MB (CK-2) CK-MB (CK-2) Rel Index Troponin T C-Reactive Protein Total Protein Albumin 09/05/18 09/05/18 09/05/18 12:22 12:24 12:30 WBC RBC Hgb Hct MCV MCH MCHC RDW Plt Count Seg Neuts % (Manual) Lymphocytes % (Manual) Seg Neutrophils # Man Monocytes # (Manual) PT INR POC ABG pH POC ABG pCO2 POC ABG pO2 VBG pH Sodium Potassium Chloride Carbon Dioxide BUN Creatinine Glucose POC Glucose 52 L 63 L Hemoglobin A1c Lactic Acid Calcium Phosphorus Magnesium AST Alkaline Phosphatase Total Creatine Kinase CK-MB (CK-2) CK-MB (CK-2) Rel Index Troponin T C-Reactive Protein 6.30 H Total Protein Albumin 09/05/18 09/05/18 09/06/18 16:02 Unknown 00:06 WBC RBC Hgb Hct MCV MCH MCHC RDW Plt Count Seg Neuts % (Manual) Lymphocytes % (Manual) Seg Neutrophils # Man Monocytes # (Manual) PT INR POC ABG pH POC ABG pCO2 POC ABG pO2 VBG pH Sodium Potassium Chloride 112.3 H Carbon Dioxide 20 L BUN 30 H Creatinine 2.0 H Glucose 183 H POC Glucose 55 L 218 H Hemoglobin A1c Lactic Acid Calcium 7.6 L Phosphorus Magnesium AST Alkaline Phosphatase Total Creatine Kinase CK-MB (CK-2) CK-MB (CK-2) Rel Index Troponin T C-Reactive Protein Total Protein Albumin 09/06/18 09/06/18 09/06/18 04:27 04:30 05:00 WBC RBC Hgb Hct MCV MCH MCHC RDW Plt Count Seg Neuts % (Manual) Lymphocytes % (Manual) Seg Neutrophils # Man Monocytes # (Manual) PT INR POC ABG pH 7.280 L POC ABG pCO2 POC ABG pO2 VBG pH Sodium Potassium Chloride 111.4 H Carbon Dioxide 20 L BUN 27 H Creatinine 1.9 H Glucose 256 H POC Glucose Hemoglobin A1c 14.6 H Lactic Acid Calcium 7.7 L Phosphorus Magnesium AST Alkaline Phosphatase Total Creatine Kinase CK-MB (CK-2) CK-MB (CK-2) Rel Index Troponin T C-Reactive Protein Total Protein Albumin 09/06/18 09/06/18 09/06/18 05:23 10:58 12:17 WBC RBC Hgb Hct MCV MCH MCHC RDW Plt Count Seg Neuts % (Manual) Lymphocytes % (Manual) Seg Neutrophils # Man Monocytes # (Manual) PT INR POC ABG pH POC ABG pCO2 31.7 L POC ABG pO2 60 L VBG pH Sodium Potassium Chloride Carbon Dioxide BUN Creatinine Glucose POC Glucose 308 H 214 H Hemoglobin A1c Lactic Acid Calcium Phosphorus Magnesium AST Alkaline Phosphatase Total Creatine Kinase CK-MB (CK-2) CK-MB (CK-2) Rel Index Troponin T C-Reactive Protein Total Protein Albumin Chest x-ray: image reviewed (bibasilar R>L infiltrate + small right pleural effusion) Allied health notes reviewed: nursing
--- NOTE | 2018-09-06 14:43 | Progress Note ---
Assessment and Plan Echo reviewed - EF 20-25%, posterior wall hypertrophy, mild TR. S/p [facility] 09/03/2018 which showed normal coronaries and normal LV function. No current clinical evidence of acute heart failure. Initiate coreg in setting of CMP now that pt is weaned off vasopressors. NO ACEI/ARB at this time in setting of renal insufficiency. The patient has been seen in conjunction with Dr. Corrales who agrees with the assessment and plan of care. - Patient Problems (1) DKA (diabetic ketoacidoses) Current Visit: Yes Status: Acute Qualifiers: Diabetes mellitus type: type 1 Diabetes mellitus complication detail: with coma Qualified Code(s): E10.11 - Type 1 diabetes mellitus with ketoacidosis with coma (2) Abnormal ECG Current Visit: Yes Status: Acute (3) Hypotension Current Visit: Yes Status: Acute Qualifiers: Hypotension type: unspecified hypotension type Qualified Code(s): I95.9 - Hypotension, unspecified (4) Hyperkalemia Current Visit: Yes Status: Acute (5) Hyponatremia Current Visit: Yes Status: Acute (6) Acute renal failure Current Visit: Yes Status: Acute Qualifiers: Acute renal failure type: with acute tubular necrosis Qualified Code(s): N17.0 - Acute kidney failure with tubular necrosis (7) Acute respiratory failure Current Visit: Yes Status: Acute Qualifiers: Respiratory failure complication: unspecified whether with hypoxia or hypercapnia Qualified Code(s): J96.00 - Acute respiratory failure, unspecified whether with hypoxia or hypercapnia (8) Altered mental status Current Visit: Yes Status: Acute Qualifiers: Altered mental status type: unspecified Qualified Code(s): R41.82 - Altered mental status, unspecified (9) Leukocytosis Current Visit: Yes Status: Acute (10) Anemia Current Visit: Yes Status: Acute (11) Elevated troponin Current Visit: Yes Status: Acute (12) Cardiomyopathy Current Visit: Yes Status: Chronic (13) Normal coronary arteries Current Visit: Yes Status: Chronic Subjective Date of service: 09/06/18 Principal diagnosis: DKA; Ac. hypoxemic resp failure; severe sepsis; KYLE Interval history: pt self extubated this morning, alert, confused. Objective Last Vital Signs Temp 99.8 F H 09/06/18 12:00 Pulse 98 H 09/06/18 13:15 Resp 16 09/06/18 13:15 BP 131/76 09/06/18 13:15 Pulse Ox 98 09/06/18 13:15 - Physical Examination General: Other (confused) HEENT: Positive: PERRL Neck: Positive: neck supple, trachea midline Cardiac: Positive: Reg Rate and Rhythm, S1/S2 Lungs: Positive: Decreased Breath Sounds Neuro: Positive: Other (confused) Skin: Negative: Mottled Extremities: Absent: edema - Labs and Meds Comprehensive Metabolic Panel 09/05/18 09/06/18 Range/Units Unknown 05:00 Sodium 143 142 (137-145) mmol/L Potassium 4.5 4.4 (3.6-5.0) mmol/L Chloride 112.3 H 111.4 H (98-107) mmol/L Carbon Dioxide 20 L 20 L (22-30) mmol/L BUN 30 H 27 H (9-20) mg/dL Creatinine 2.0 H 1.9 H (0.8-1.5) mg/dL Glucose 183 H 256 H (75-100) mg/dL Calcium 7.6 L 7.7 L (8.4-10.2) mg/dL - Imaging and Cardiology EKG: report reviewed, image reviewed Echo: report reviewed Cardiac cath: report reviewed (normal coronaries, normal EF) - Telemetry EKG Rhythm: Sinus Rhythm - EKG Sinus rhythms and dysrhythmias: sinus rhythm Myocardial infarction: anterior NC (acute or rec - Allied health notes Allied health notes reviewed: nursing
[2018-09-06] MEDS: ROCEPHIN/NS 2 GM/100 ML 2 GM/100 ML BAG IV SCH (18:33)
[2018-09-06] MEDS: COREG PO SCH (21:51)
[2018-09-06] MEDS: LANTUS SUB-Q SCH (21:53)
[2018-09-07] MEDS ORDERED: VITAMIN B-1 100 MG, FOLVITE 1 MG, INFUVITE 10 ML in NACL 0.9% 1000 ML 1,000 ML IV ONE (03:17)
[2018-09-07] MEDS: ATIVAN IV PRN ×2 (03:39→03:40)
[2018-09-07] MEDS ORDERED: ATIVAN IV PRN ×2 (03:40)
[2018-09-07] MEDS ORDERED: HALDOL IV PRN (03:40)
[2018-09-07] MEDS ORDERED: 1: FOLVITE 1 MG, INFUVITE 10 ML, VITAMIN B-1 100 MG in NACL 0.9% 1000 ML 988.8 ML 2: NA IV SCH (04:00)
[2018-09-07 04:46] LABS: Basophils % (Auto) 0.3 % (0.0-1.8); Eosinophils # (Auto) 0.1 K/mm3 (0.0-0.4); Eosinophils % (Auto) 0.9 % (0.0-4.3); Hematocrit 27.8 % (35.5-45.6); Hemoglobin 9.2 gm/dl (11.8-15.2); Lymphocytes # (Auto) 0.5 K/mm3 (1.2-5.4); Lymphocytes % (Auto) 5.1 % (13.4-35.0); Mean Corpuscular HGB Conc 33 % (32-34); Mean Corpuscular Volume 83 fl (84-94); Monocytes # (Auto) 0.7 K/mm3 (0.0-0.8); Monocytes % (Auto) 6.7 % (0.0-7.3); Platelet Count 161 K/mm3 (140-440); Red Blood Count 3.36 M/mm3 (3.65-5.03)
[2018-09-07 05:08] LABS: BUN/Creatinine Ratio 11; Blood Urea Nitrogen 15 mg/dL (9-20); Hemolysis Index 3
[2018-09-07] MEDS: HumuLIN R SUB-Q SCH ×4 (06:04→17:39)
--- NOTE | 2018-09-07 06:52 | Progress Note ---
Assessment and Plan DKA Pneumonia Acute metabolic encephaloapthy Severe Sepsis (Unspecified) KYLE Acute hypoxemic respiratory failure NSTEMI type 2 Thrombocytopenia Hyponatremia (due to hyperglycemia) - replace phosphorus and magnesium (KPhos 45 mmols) - change SSI to q6h once off IV insulin (target BG 140 - 180 mg/dl) -complete antibiotics -aspiration precautions - continue supplemental oxygen as needed to keep O2 sat's > 90% - continue bronchodilators with pulmonary hygiene per RT - continue accuchecks with glycemic control per SSI for target blood glucose <180mg/dL - Prevention of delirium, maintenance of sleep-wake cycle - Avoid nephrotoxic agents, adjust all antibiotics and medications for CrCL and GFR - VTE and Stress ulcer prophylaxis Suspect there is an element of ICU pyschosis . PT/OT to evaluate and treat OK to transfer to telemetry floor Subjective Date of service: 09/07/18 Principal diagnosis: DKA; Ac. hypoxemic resp failure; severe sepsis; KYLE Interval history: Patient is seen today for: DKA; Acute metabolic encephaloapthy; severe sepsis; KYLE; acute hypoxemic respiratory failure Seen and examined at bedside; 24hour events reviewed; nursing and respiratory care staff consulted; no adverse overnight events reported to me; resting in bed; making good urine; NO N/V/F/C; denies sore throat, acute chest pains or palpitations Some agitation over night, required lorazepam per CIWA protocol. No fevers, no nausea or vomiting, no diarrhea, denies any chest pain or shortness of breath Objective Vital Signs - 12hr 09/06/18 09/06/18 09/06/18 19:00 19:15 19:30 Temperature Pulse Rate 102 H 103 H 108 H Respiratory 29 H 19 21 Rate Blood Pressure 128/64 128/64 122/70 O2 Sat by Pulse 91 98 94 Oximetry 09/06/18 09/06/18 09/06/18 19:45 20:00 20:15 Temperature 99.1 F Pulse Rate 108 H 103 H 107 H Respiratory 17 22 14 Rate Blood Pressure 131/66 129/64 126/66 O2 Sat by Pulse 92 94 93 Oximetry 09/06/18 09/06/18 09/06/18 20:30 20:45 21:00 Temperature Pulse Rate 104 H 103 H 102 H Respiratory 18 20 23 Rate Blood Pressure 125/67 111/58 131/62 O2 Sat by Pulse 94 92 91 Oximetry 09/06/18 09/06/18 09/06/18 21:14 21:15 21:16 Temperature Pulse Rate 99 H 99 H 99 H Respiratory 25 H 24 24 Rate Blood Pressure 125/67 118/63 131/62 O2 Sat by Pulse 94 94 94 Oximetry 09/06/18 09/06/18 09/06/18 21:30 21:34 21:45 Temperature Pulse Rate 104 H Respiratory 20 Rate Blood Pressure 127/62 118/63 128/71 O2 Sat by Pulse 93 92 Oximetry 09/06/18 09/06/18 09/06/18 21:47 21:51 22:01 Temperature Pulse Rate 108 H 106 H 112 H Respiratory 16 25 H Rate Blood Pressure 128/71 128/71 126/61 O2 Sat by Pulse Oximetry 09/06/18 09/06/18 09/06/18 22:15 22:17 22:30 Temperature Pulse Rate 109 H 107 H 100 H Respiratory 22 21 30 H Rate Blood Pressure 121/73 121/73 128/55 O2 Sat by Pulse 94 92 95 Oximetry 09/06/18 09/06/18 09/06/18 22:45 23:00 23:09 Temperature 100.2 F H Pulse Rate 101 H 104 H Respiratory 22 26 H Rate Blood Pressure 133/52 130/68 O2 Sat by Pulse 95 Oximetry 09/06/18 09/06/18 09/06/18 23:15 23:30 23:45 Temperature Pulse Rate 102 H 102 H 101 H Respiratory 20 15 29 H Rate Blood Pressure 127/70 129/69 124/68 O2 Sat by Pulse 96 93 96 Oximetry 09/07/18 09/07/18 09/07/18 00:00 00:15 00:30 Temperature Pulse Rate 100 H 100 H 101 H Respiratory 30 H 28 H 17 Rate Blood Pressure 121/67 119/65 118/58 O2 Sat by Pulse 100 96 94 Oximetry 09/07/18 09/07/18 09/07/18 00:45 01:00 01:15 Temperature Pulse Rate 98 H 98 H 97 H Respiratory 29 H 29 H 26 H Rate Blood Pressure 113/65 113/65 116/66 O2 Sat by Pulse 95 97 97 Oximetry 09/07/18 09/07/18 09/07/18 01:30 01:45 02:00 Temperature Pulse Rate 99 H 97 H 97 H Respiratory 27 H 29 H 17 Rate Blood Pressure 109/61 119/67 123/72 O2 Sat by Pulse 97 Oximetry 09/07/18 09/07/18 09/07/18 02:15 02:30 02:45 Temperature Pulse Rate 97 H 100 H 99 H Respiratory 21 28 H 17 Rate Blood Pressure 119/70 121/77 131/71 O2 Sat by Pulse 93 90 Oximetry 09/07/18 09/07/18 09/07/18 03:00 03:05 03:15 Temperature 98.9 F Pulse Rate 100 H 98 H Respiratory 19 30 H Rate Blood Pressure 125/68 125/67 O2 Sat by Pulse 90 Oximetry 09/07/18 09/07/18 09/07/18 03:30 03:45 04:00 Temperature Pulse Rate 99 H 98 H 97 H Respiratory 29 H 31 H 26 H Rate Blood Pressure 133/73 125/66 114/63 O2 Sat by Pulse 94 93 Oximetry 09/07/18 09/07/18 09/07/18 04:15 04:30 04:45 Temperature Pulse Rate 96 H 89 90 Respiratory 27 H 29 H 28 H Rate Blood Pressure 109/60 110/60 106/59 O2 Sat by Pulse 95 95 96 Oximetry 09/07/18 09/07/18 09/07/18 05:00 05:15 05:30 Temperature Pulse Rate 90 92 H 88 Respiratory 29 H 27 H 27 H Rate Blood Pressure 109/64 102/70 112/68 O2 Sat by Pulse 95 94 91 Oximetry 09/07/18 09/07/18 05:45 06:00 Temperature Pulse Rate 87 69 Respiratory 33 H 28 H Rate Blood Pressure 108/67 88/60 O2 Sat by Pulse 92 93 Oximetry Constitutional: no acute distress, other (middle aged AAM, normocephalic and atraumatic with mildly increased respiratory effort at rest) Eyes: non-icteric ENT: oropharynx moist, other (extubated) Neck: supple, no JVD, other (no thyromegaly) Effort: mildly labored Ascultation: Bilateral: rales (scant RLL) Percussion: Bilateral: not dull Cardiovascular: regular rate and rhythm, other (No R/M) Gastrointestinal: normoactive bowel sounds, soft, non-tender, non-distended Integumentary: normal Extremities: no cyanosis, no edema, pulses normal, no ischemia or petechiae Neurologic: non-focal exam (grossly), pupils equal and round, other (agitated) Psychiatric: other (?? mild cognitive dysfunction clinically) CBC and BMP: 09/07/18 04:20 09/09/18 05:52 ABG, PT/INR, D-dimer: ABG POC ABG pH 7.388 (7.35-7.45) 09/06/18 10:58 POC ABG pCO2 31.7 (35-45) L 09/06/18 10:58 POC ABG pO2 60 (80-105) L 09/06/18 10:58 POC ABG HCO3 19.1 (22-26 mml/L) 09/06/18 10:58 POC ABG Total CO2 20 (23-27mmol/L) 09/06/18 10:58 POC ABG O2 Sat 91 09/06/18 10:58 PT/INR, D-dimer PT 17.5 Sec. (12.2-14.9) H 09/03/18 15:01 INR 1.47 (0.87-1.13) H 09/03/18 15:01 Abnormal lab findings: Abnormal Labs 09/03/18 09/03/18 09/03/18 02:20 15:01 15:01 WBC 17.4 H RBC Hgb 10.6 L Hct MCV 111 H MCH MCHC 25 L RDW 16.5 H Plt Count 16 L* Lymph % (Auto) Lymph # Seg Neutrophils % Seg Neuts % (Manual) 84.0 H Lymphocytes % (Manual) 8.0 L Seg Neutrophils # Seg Neutrophils # Man 14.6 H Monocytes # (Manual) 1.0 H PT 17.5 H INR 1.47 H POC ABG pH POC ABG pCO2 POC ABG pO2 VBG pH Sodium Potassium Chloride Carbon Dioxide BUN Creatinine Glucose POC Glucose Hemoglobin A1c Lactic Acid 5.90 H* Calcium Phosphorus Magnesium AST Alkaline Phosphatase Total Creatine Kinase CK-MB (CK-2) CK-MB (CK-2) Rel Index Troponin T C-Reactive Protein Total Protein Albumin 09/03/18 09/03/18 09/03/18 15:01 15:01 15:16 WBC RBC Hgb Hct MCV MCH MCHC RDW Plt Count Lymph % (Auto) Lymph # Seg Neutrophils % Seg Neuts % (Manual) Lymphocytes % (Manual) Seg Neutrophils # Seg Neutrophils # Man Monocytes # (Manual) PT INR POC ABG pH 7.020 L POC ABG pCO2 < 30 L POC ABG pO2 139 H VBG pH 7.049 L* Sodium 110 L* Potassium 7.5 H* Chloride 61.0 L Carbon Dioxide 6 L* BUN 77 H Creatinine 4.3 H Glucose 1968 H* POC Glucose Hemoglobin A1c Lactic Acid Calcium 7.3 L Phosphorus Magnesium AST Alkaline Phosphatase Total Creatine Kinase 203 H CK-MB (CK-2) 8.9 H CK-MB (CK-2) Rel Index 4.3 H Troponin T 0.058 H C-Reactive Protein Total Protein Albumin 09/03/18 09/03/18 09/03/18 18:10 18:10 18:10 WBC RBC Hgb Hct MCV MCH MCHC RDW Plt Count Lymph % (Auto) Lymph # Seg Neutrophils % Seg Neuts % (Manual) Lymphocytes % (Manual) Seg Neutrophils # Seg Neutrophils # Man Monocytes # (Manual) PT INR POC ABG pH POC ABG pCO2 POC ABG pO2 VBG pH Sodium Potassium Chloride Carbon Dioxide BUN Creatinine Glucose POC Glucose Hemoglobin A1c Lactic Acid Calcium Phosphorus 8.80 H Magnesium 2.90 H AST 64 H Alkaline Phosphatase 205 H Total Creatine Kinase 289 H CK-MB (CK-2) 13.4 H CK-MB (CK-2) Rel Index 4.6 H Troponin T 0.142 H* D C-Reactive Protein Total Protein 5.6 L Albumin 3.2 L 09/03/18 09/03/18 09/03/18 18:10 18:33 20:15 WBC RBC Hgb Hct MCV MCH MCHC RDW Plt Count Lymph % (Auto) Lymph # Seg Neutrophils % Seg Neuts % (Manual) Lymphocytes % (Manual) Seg Neutrophils # Seg Neutrophils # Man Monocytes # (Manual) PT INR POC ABG pH 7.047 L POC ABG pCO2 POC ABG pO2 VBG pH Sodium 113 L* Potassium Chloride 70.1 L Carbon Dioxide 8 L* BUN 76 H Creatinine 4.3 H Glucose 1844 H* POC Glucose Hemoglobin A1c Lactic Acid Calcium 6.8 L Phosphorus Magnesium AST Alkaline Phosphatase Total Creatine Kinase 293 H CK-MB (CK-2) 13.0 H CK-MB (CK-2) Rel Index 4.4 H Troponin T 0.126 H* C-Reactive Protein Total Protein Albumin 09/03/18 09/03/18 09/03/18 20:15 20:15 20:15 WBC RBC Hgb Hct MCV MCH MCHC RDW Plt Count Lymph % (Auto) Lymph # Seg Neutrophils % Seg Neuts % (Manual) Lymphocytes % (Manual) Seg Neutrophils # Seg Neutrophils # Man Monocytes # (Manual) PT INR POC ABG pH POC ABG pCO2 POC ABG pO2 VBG pH Sodium 116 L* Potassium Chloride 74.3 L Carbon Dioxide 11 L BUN 76 H Creatinine 4.4 H Glucose 1786 H* POC Glucose Hemoglobin A1c Lactic Acid 4.10 H* Calcium 6.4 L Phosphorus 9.00 H Magnesium 2.80 H AST Alkaline Phosphatase Total Creatine Kinase CK-MB (CK-2) CK-MB (CK-2) Rel Index Troponin T C-Reactive Protein Total Protein Albumin 09/03/18 09/03/18 09/03/18 20:18 22:00 22:54 WBC RBC Hgb Hct MCV MCH MCHC RDW Plt Count Lymph % (Auto) Lymph # Seg Neutrophils % Seg Neuts % (Manual) Lymphocytes % (Manual) Seg Neutrophils # Seg Neutrophils # Man Monocytes # (Manual) PT INR POC ABG pH POC ABG pCO2 POC ABG pO2 VBG pH Sodium 120 L Potassium Chloride 82.7 L Carbon Dioxide 11 L BUN 74 H Creatinine 4.3 H Glucose 1144 H* POC Glucose > 500 H Hemoglobin A1c Lactic Acid 5.00 H* Calcium 6.0 L Phosphorus Magnesium AST Alkaline Phosphatase Total Creatine Kinase CK-MB (CK-2) CK-MB (CK-2) Rel Index Troponin T C-Reactive Protein Total Protein Albumin 09/03/18 09/03/18 09/04/18 23:18 23:47 00:20 WBC RBC Hgb Hct MCV MCH MCHC RDW Plt Count Lymph % (Auto) Lymph # Seg Neutrophils % Seg Neuts % (Manual) Lymphocytes % (Manual) Seg Neutrophils # Seg Neutrophils # Man Monocytes # (Manual) PT INR POC ABG pH 7.279 L POC ABG pCO2 POC ABG pO2 230 H VBG pH Sodium 124 L Potassium Chloride 88.7 L Carbon Dioxide 13 L BUN 70 H Creatinine 4.3 H Glucose 1295 H* POC Glucose > 500 H Hemoglobin A1c Lactic Acid Calcium 5.8 L* Phosphorus Magnesium AST Alkaline Phosphatase Total Creatine Kinase CK-MB (CK-2) CK-MB (CK-2) Rel Index Troponin T C-Reactive Protein Total Protein Albumin 09/04/18 09/04/18 09/04/18 01:06 02:20 02:28 WBC RBC Hgb Hct MCV MCH MCHC RDW Plt Count Lymph % (Auto) Lymph # Seg Neutrophils % Seg Neuts % (Manual) Lymphocytes % (Manual) Seg Neutrophils # Seg Neutrophils # Man Monocytes # (Manual) PT INR POC ABG pH POC ABG pCO2 POC ABG pO2 VBG pH Sodium 127 L Potassium Chloride 91.1 L Carbon Dioxide 15 L BUN 72 H Creatinine 4.4 H Glucose 1156 H* POC Glucose > 500 H > 500 H Hemoglobin A1c Lactic Acid Calcium 6.1 L Phosphorus Magnesium AST Alkaline Phosphatase Total Creatine Kinase CK-MB (CK-2) CK-MB (CK-2) Rel Index Troponin T C-Reactive Protein Total Protein Albumin 09/04/18 09/04/18 09/04/18 04:35 05:25 06:15 WBC RBC Hgb Hct MCV MCH MCHC RDW Plt Count Lymph % (Auto) Lymph # Seg Neutrophils % Seg Neuts % (Manual) Lymphocytes % (Manual) Seg Neutrophils # Seg Neutrophils # Man Monocytes # (Manual) PT INR POC ABG pH POC ABG pCO2 POC ABG pO2 160 H VBG pH Sodium 134 L D Potassium Chloride Carbon Dioxide 17 L BUN 67 H Creatinine 4.4 H Glucose 871 H* POC Glucose > 500 H Hemoglobin A1c Lactic Acid Calcium 6.6 L Phosphorus Magnesium AST Alkaline Phosphatase Total Creatine Kinase CK-MB (CK-2) CK-MB (CK-2) Rel Index Troponin T C-Reactive Protein Total Protein Albumin 09/04/18 09/04/18 09/04/18 09:04 09:15 09:15 WBC 13.1 H RBC Hgb 9.8 L Hct 30.0 L D MCV 82 L MCH 27 L MCHC RDW Plt Count Lymph % (Auto) Lymph # Seg Neutrophils % Seg Neuts % (Manual) Lymphocytes % (Manual) Seg Neutrophils # Seg Neutrophils # Man Monocytes # (Manual) PT INR POC ABG pH POC ABG pCO2 POC ABG pO2 VBG pH Sodium Potassium Chloride Carbon Dioxide 17 L BUN 63 H Creatinine 4.1 H Glucose 668 H* POC Glucose > 500 H Hemoglobin A1c Lactic Acid Calcium 6.4 L Phosphorus Magnesium AST Alkaline Phosphatase Total Creatine Kinase CK-MB (CK-2) CK-MB (CK-2) Rel Index Troponin T C-Reactive Protein Total Protein Albumin 09/04/18 09/04/18 09/04/18 11:26 11:53 13:44 WBC RBC Hgb Hct MCV MCH MCHC RDW Plt Count Lymph % (Auto) Lymph # Seg Neutrophils % Seg Neuts % (Manual) Lymphocytes % (Manual) Seg Neutrophils # Seg Neutrophils # Man Monocytes # (Manual) PT INR POC ABG pH POC ABG pCO2 POC ABG pO2 VBG pH Sodium Potassium Chloride Carbon Dioxide 20 L BUN 61 H Creatinine 3.9 H Glucose 472 H POC Glucose > 500 H 354 H Hemoglobin A1c Lactic Acid Calcium 6.7 L Phosphorus Magnesium AST Alkaline Phosphatase Total Creatine Kinase CK-MB (CK-2) CK-MB (CK-2) Rel Index Troponin T C-Reactive Protein Total Protein Albumin 09/04/18 09/04/18 09/04/18 14:18 15:29 16:10 WBC RBC Hgb Hct MCV MCH MCHC RDW Plt Count Lymph % (Auto) Lymph # Seg Neutrophils % Seg Neuts % (Manual) Lymphocytes % (Manual) Seg Neutrophils # Seg Neutrophils # Man Monocytes # (Manual) PT INR POC ABG pH POC ABG pCO2 30.2 L POC ABG pO2 145 H VBG pH Sodium Potassium Chloride 113.1 H Carbon Dioxide 19 L BUN 57 H Creatinine 3.3 H Glucose 113 H POC Glucose 299 H Hemoglobin A1c Lactic Acid Calcium 6.8 L Phosphorus Magnesium AST Alkaline Phosphatase Total Creatine Kinase CK-MB (CK-2) CK-MB (CK-2) Rel Index Troponin T C-Reactive Protein Total Protein Albumin 09/04/18 09/04/18 09/04/18 17:19 21:55 21:58 WBC RBC Hgb Hct MCV MCH MCHC RDW Plt Count Lymph % (Auto) Lymph # Seg Neutrophils % Seg Neuts % (Manual) Lymphocytes % (Manual) Seg Neutrophils # Seg Neutrophils # Man Monocytes # (Manual) PT INR POC ABG pH POC ABG pCO2 POC ABG pO2 VBG pH Sodium Potassium Chloride 114.0 H Carbon Dioxide 18 L BUN 52 H Creatinine 3.0 H Glucose 161 H POC Glucose 147 H 159 H Hemoglobin A1c Lactic Acid Calcium 6.7 L Phosphorus Magnesium AST Alkaline Phosphatase Total Creatine Kinase CK-MB (CK-2) CK-MB (CK-2) Rel Index Troponin T C-Reactive Protein Total Protein Albumin 09/05/18 09/05/18 09/05/18 00:08 01:44 04:13 WBC RBC Hgb Hct MCV MCH MCHC RDW Plt Count Lymph % (Auto) Lymph # Seg Neutrophils % Seg Neuts % (Manual) Lymphocytes % (Manual) Seg Neutrophils # Seg Neutrophils # Man Monocytes # (Manual) PT INR POC ABG pH POC ABG pCO2 POC ABG pO2 VBG pH Sodium Potassium Chloride Carbon Dioxide BUN Creatinine Glucose POC Glucose 235 H 224 H 253 H Hemoglobin A1c Lactic Acid Calcium Phosphorus Magnesium AST Alkaline Phosphatase Total Creatine Kinase CK-MB (CK-2) CK-MB (CK-2) Rel Index Troponin T C-Reactive Protein Total Protein Albumin 09/05/18 09/05/18 09/05/18 04:22 04:30 04:30 WBC 11.5 H RBC 3.59 L Hgb 9.9 L Hct 29.2 L MCV 81 L MCH MCHC RDW Plt Count Lymph % (Auto) Lymph # Seg Neutrophils % Seg Neuts % (Manual) Lymphocytes % (Manual) Seg Neutrophils # Seg Neutrophils # Man Monocytes # (Manual) PT INR POC ABG pH POC ABG pCO2 POC ABG pO2 133 H VBG pH Sodium Potassium Chloride 114.0 H Carbon Dioxide 18 L BUN 44 H Creatinine 2.7 H Glucose 235 H POC Glucose Hemoglobin A1c Lactic Acid Calcium 7.0 L Phosphorus 1.10 L D Magnesium AST 85 H Alkaline Phosphatase 139 H Total Creatine Kinase CK-MB (CK-2) CK-MB (CK-2) Rel Index Troponin T C-Reactive Protein Total Protein 4.6 L Albumin 2.6 L 09/05/18 09/05/18 09/05/18 05:59 08:09 10:02 WBC RBC Hgb Hct MCV MCH MCHC RDW Plt Count Lymph % (Auto) Lymph # Seg Neutrophils % Seg Neuts % (Manual) Lymphocytes % (Manual) Seg Neutrophils # Seg Neutrophils # Man Monocytes # (Manual) PT INR POC ABG pH POC ABG pCO2 POC ABG pO2 VBG pH Sodium Potassium Chloride Carbon Dioxide BUN Creatinine Glucose POC Glucose 243 H 187 H 139 H Hemoglobin A1c Lactic Acid Calcium Phosphorus Magnesium AST Alkaline Phosphatase Total Creatine Kinase CK-MB (CK-2) CK-MB (CK-2) Rel Index Troponin T C-Reactive Protein Total Protein Albumin 09/05/18 09/05/18 09/05/18 12:22 12:24 12:30 WBC RBC Hgb Hct MCV MCH MCHC RDW Plt Count Lymph % (Auto) Lymph # Seg Neutrophils % Seg Neuts % (Manual) Lymphocytes % (Manual) Seg Neutrophils # Seg Neutrophils # Man Monocytes # (Manual) PT INR POC ABG pH POC ABG pCO2 POC ABG pO2 VBG pH Sodium Potassium Chloride Carbon Dioxide BUN Creatinine Glucose POC Glucose 52 L 63 L Hemoglobin A1c Lactic Acid Calcium Phosphorus Magnesium AST Alkaline Phosphatase Total Creatine Kinase CK-MB (CK-2) CK-MB (CK-2) Rel Index Troponin T C-Reactive Protein 6.30 H Total Protein Albumin 09/05/18 09/05/18 09/06/18 16:02 Unknown 00:06 WBC RBC Hgb Hct MCV MCH MCHC RDW Plt Count Lymph % (Auto) Lymph # Seg Neutrophils % Seg Neuts % (Manual) Lymphocytes % (Manual) Seg Neutrophils # Seg Neutrophils # Man Monocytes # (Manual) PT INR POC ABG pH POC ABG pCO2 POC ABG pO2 VBG pH Sodium Potassium Chloride 112.3 H Carbon Dioxide 20 L BUN 30 H Creatinine 2.0 H Glucose 183 H POC Glucose 55 L 218 H Hemoglobin A1c Lactic Acid Calcium 7.6 L Phosphorus Magnesium AST Alkaline Phosphatase Total Creatine Kinase CK-MB (CK-2) CK-MB (CK-2) Rel Index Troponin T C-Reactive Protein Total Protein Albumin 09/06/18 09/06/18 09/06/18 04:27 04:30 05:00 WBC RBC Hgb Hct MCV MCH MCHC RDW Plt Count Lymph % (Auto) Lymph # Seg Neutrophils % Seg Neuts % (Manual) Lymphocytes % (Manual) Seg Neutrophils # Seg Neutrophils # Man Monocytes # (Manual) PT INR POC ABG pH 7.280 L POC ABG pCO2 POC ABG pO2 VBG pH Sodium Potassium Chloride 111.4 H Carbon Dioxide 20 L BUN 27 H Creatinine 1.9 H Glucose 256 H POC Glucose Hemoglobin A1c 14.6 H Lactic Acid Calcium 7.7 L Phosphorus Magnesium AST Alkaline Phosphatase Total Creatine Kinase CK-MB (CK-2) CK-MB (CK-2) Rel Index Troponin T C-Reactive Protein Total Protein Albumin 09/06/18 09/06/18 09/06/18 05:23 10:58 12:17 WBC RBC Hgb Hct MCV MCH MCHC RDW Plt Count Lymph % (Auto) Lymph # Seg Neutrophils % Seg Neuts % (Manual) Lymphocytes % (Manual) Seg Neutrophils # Seg Neutrophils # Man Monocytes # (Manual) PT INR POC ABG pH POC ABG pCO2 31.7 L POC ABG pO2 60 L VBG pH Sodium Potassium Chloride Carbon Dioxide BUN Creatinine Glucose POC Glucose 308 H 214 H Hemoglobin A1c Lactic Acid Calcium Phosphorus Magnesium AST Alkaline Phosphatase Total Creatine Kinase CK-MB (CK-2) CK-MB (CK-2) Rel Index Troponin T C-Reactive Protein Total Protein Albumin 09/06/18 09/06/18 09/06/18 18:25 21:58 23:42 WBC RBC Hgb Hct MCV MCH MCHC RDW Plt Count Lymph % (Auto) Lymph # Seg Neutrophils % Seg Neuts % (Manual) Lymphocytes % (Manual) Seg Neutrophils # Seg Neutrophils # Man Monocytes # (Manual) PT INR POC ABG pH POC ABG pCO2 POC ABG pO2 VBG pH Sodium Potassium Chloride Carbon Dioxide BUN Creatinine Glucose POC Glucose 183 H 136 H 169 H Hemoglobin A1c Lactic Acid Calcium Phosphorus Magnesium AST Alkaline Phosphatase Total Creatine Kinase CK-MB (CK-2) CK-MB (CK-2) Rel Index Troponin T C-Reactive Protein Total Protein Albumin 09/07/18 09/07/18 09/07/18 04:20 04:20 05:19 WBC RBC 3.36 L Hgb 9.2 L Hct 27.8 L MCV 83 L MCH 27 L MCHC RDW Plt Count Lymph % (Auto) 5.1 L Lymph # 0.5 L Seg Neutrophils % 87.0 H Seg Neuts % (Manual) Lymphocytes % (Manual) Seg Neutrophils # 8.5 H Seg Neutrophils # Man Monocytes # (Manual) PT INR POC ABG pH POC ABG pCO2 POC ABG pO2 VBG pH Sodium Potassium Chloride 112.3 H Carbon Dioxide BUN Creatinine Glucose 200 H POC Glucose 177 H Hemoglobin A1c Lactic Acid Calcium 8.0 L Phosphorus Magnesium AST Alkaline Phosphatase Total Creatine Kinase CK-MB (CK-2) CK-MB (CK-2) Rel Index Troponin T C-Reactive Protein Total Protein Albumin Chest x-ray: image reviewed Allied health notes reviewed: nursing
--- NOTE | 2018-09-07 10:50 | Progress Note ---
Assessment and Plan / Acute hypoxic respiratory failure Intubated following admission Pulmonary is following self extubated during SBT on 09/06/18 cont nebs, aspiration precaution / HHNKS BG was 1968 on admission, a1c 14.6 s/p Insulin drip, off TF now on consistent carb diet cont SSI, adjust long acting insulin dose as needed / Sepsis likely from strep group B PNA, POA Admitted to ICU. Initiated sepsis protocol in ED: negative blood cx in 48h. WBC trending down cont rocephin for now /Septic shock, POA - s/p pressor support and cont iv fluid as needed /Acute CHF with reduced EF 20-25% - monitor ins/os, cardiology following - s/p cardiac cath on admission showed no CAD - likely nonischemic cardiomyopathy /Acute metabolic Encephalopathy, resolved due to severe hyperglycemia CT head ordered -but not done yet, cont neuro checks, supportive care, continue to treat hyperglycemia / Acute renal failure likely vasomotor nephropathy renal US showed no hydronephrosis cont IVF, monitor uop q shift, monitor serum creatnine Cr trending down /NSTEMI type 2 suspected acute stemi on admission Cardiology consulted in ED, 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 / Thrombocytopenia, transfused platelets, resolved / Hyponatremia due to hyperglycemia, cont IV fluid / DVT prophylaxis SCD to ble while in bed, Disposition: Ordered PT evaluation. Possible discharge in 1-2 days if clears by PT considering blood glucose and renal function stable Hospitalist physical: General appearance: Present: NAD, on N/C - EENT Eyes: reactive b/l - Neck Neck: Present: No JVD - Respiratory Respiratory effort: On o/c Respiratory: bilateral: diminished, rhonchi - Cardiovascular Rhythm: other (tachycardia) Heart Sounds: Present: S1 & S2. Absent: rub, click - Extremities Extremities: pulses symmetrical, No edema Peripheral Pulses: present - Abdominal General gastrointestinal: Present: soft, non-tender, non-distended, normal bowel sounds Male genitourinary: Present: normal - Integumentary Integumentary: Present: clear, dry, - Musculoskeletal Musculoskeletal: No joint swelling - Psychiatric Psychiatric: appropriate mood/affect, intact judgment & insight, - Neurologic Neurologic: moves all extremities Subjective Date of service: 09/07/18 Principal diagnosis: DKA Interval history: Patient seen and examined. Medical records and medication list reviewed. No acute event overnight noted by the RN. Patient doing well on N/c now plan discussed with patient, ordered PT eval Objective - Constitutional Vitals: Vital Signs - 12hr 09/06/18 09/06/18 09/06/18 23:00 23:09 23:15 Temperature 100.2 F H Pulse Rate 104 H 102 H Respiratory 26 H 20 Rate Blood Pressure 130/68 127/70 O2 Sat by Pulse 96 Oximetry 09/06/18 09/06/18 09/07/18 23:30 23:45 00:00 Temperature Pulse Rate 102 H 101 H 100 H Respiratory 15 29 H 30 H Rate Blood Pressure 129/69 124/68 121/67 O2 Sat by Pulse 93 96 100 Oximetry 09/07/18 09/07/18 09/07/18 00:15 00:30 00:45 Temperature Pulse Rate 100 H 101 H 98 H Respiratory 28 H 17 29 H Rate Blood Pressure 119/65 118/58 113/65 O2 Sat by Pulse 96 94 95 Oximetry 09/07/18 09/07/18 09/07/18 01:00 01:15 01:30 Temperature Pulse Rate 98 H 97 H 99 H Respiratory 29 H 26 H 27 H Rate Blood Pressure 113/65 116/66 109/61 O2 Sat by Pulse 97 97 97 Oximetry 09/07/18 09/07/18 09/07/18 01:45 02:00 02:15 Temperature Pulse Rate 97 H 97 H 97 H Respiratory 29 H 17 21 Rate Blood Pressure 119/67 123/72 119/70 O2 Sat by Pulse Oximetry 09/07/18 09/07/18 09/07/18 02:30 02:45 03:00 Temperature Pulse Rate 100 H 99 H 100 H Respiratory 28 H 17 19 Rate Blood Pressure 121/77 131/71 125/68 O2 Sat by Pulse 93 90 90 Oximetry 09/07/18 09/07/18 09/07/18 03:05 03:15 03:30 Temperature 98.9 F Pulse Rate 98 H 99 H Respiratory 30 H 29 H Rate Blood Pressure 125/67 133/73 O2 Sat by Pulse Oximetry 09/07/18 09/07/18 09/07/18 03:45 04:00 04:15 Temperature Pulse Rate 98 H 97 H 96 H Respiratory 31 H 26 H 27 H Rate Blood Pressure 125/66 114/63 109/60 O2 Sat by Pulse 94 93 95 Oximetry 09/07/18 09/07/18 09/07/18 04:30 04:45 05:00 Temperature Pulse Rate 89 90 90 Respiratory 29 H 28 H 29 H Rate Blood Pressure 110/60 106/59 109/64 O2 Sat by Pulse 95 96 95 Oximetry 09/07/18 09/07/18 09/07/18 05:15 05:30 05:45 Temperature Pulse Rate 92 H 88 87 Respiratory 27 H 27 H 33 H Rate Blood Pressure 102/70 112/68 108/67 O2 Sat by Pulse 94 91 92 Oximetry 09/07/18 09/07/18 09/07/18 06:00 06:15 06:30 Temperature Pulse Rate 69 90 88 Respiratory 28 H 21 22 Rate Blood Pressure 88/60 94/67 109/56 O2 Sat by Pulse 93 89 Oximetry 09/07/18 09/07/18 09/07/18 06:45 07:00 07:15 Temperature Pulse Rate 90 98 H 93 H Respiratory 23 29 H 29 H Rate Blood Pressure 103/54 119/68 127/73 O2 Sat by Pulse 90 90 93 Oximetry 09/07/18 09/07/18 09/07/18 07:30 07:45 07:51 Temperature Pulse Rate 91 H 91 H Respiratory 24 23 Rate Blood Pressure 112/65 110/61 O2 Sat by Pulse 96 94 95 Oximetry 09/07/18 09/07/18 09/07/18 08:00 08:15 08:31 Temperature 98.2 F Pulse Rate 90 91 H 98 H Respiratory 25 H 22 27 H Rate Blood Pressure 123/71 125/74 120/66 O2 Sat by Pulse 95 94 90 Oximetry 09/07/18 09/07/18 09/07/18 08:45 09:00 09:15 Temperature Pulse Rate 92 H 97 H 95 H Respiratory 27 H 19 22 Rate Blood Pressure 126/77 131/70 125/74 O2 Sat by Pulse 92 93 Oximetry 09/07/18 09/07/18 09/07/18 09:30 09:45 10:00 Temperature Pulse Rate 100 H 95 H 100 H Respiratory 24 27 H 22 Rate Blood Pressure 131/74 132/73 117/56 O2 Sat by Pulse 93 96 96 Oximetry - Labs CBC & Chem 7: 09/07/18 04:20 09/08/18 06:15 Labs: Abnormal lab results 09/06/18 09/06/18 09/06/18 Range/Units 10:58 12:17 18:25 RBC (3.65-5.03) M/mm3 Hgb (11.8-15.2) gm/dl Hct (35.5-45.6) % MCV (84-94) fl MCH (28-32) pg Lymph % (Auto) (13.4-35.0) % Lymph # (1.2-5.4) K/mm3 Seg Neutrophils % (40.0-70.0) % Seg Neutrophils # (1.8-7.7) K/mm3 POC ABG pCO2 31.7 L (35-45) POC ABG pO2 60 L (80-105) Chloride (98-107) mmol/L Glucose (75-100) mg/dL POC Glucose 214 H 183 H (70-105) Calcium (8.4-10.2) mg/dL 09/06/18 09/06/18 09/07/18 Range/Units 21:58 23:42 04:20 RBC 3.36 L (3.65-5.03) M/mm3 Hgb 9.2 L (11.8-15.2) gm/dl Hct 27.8 L (35.5-45.6) % MCV 83 L (84-94) fl MCH 27 L (28-32) pg Lymph % (Auto) 5.1 L (13.4-35.0) % Lymph # 0.5 L (1.2-5.4) K/mm3 Seg Neutrophils % 87.0 H (40.0-70.0) % Seg Neutrophils # 8.5 H (1.8-7.7) K/mm3 POC ABG pCO2 (35-45) POC ABG pO2 (80-105) Chloride (98-107) mmol/L Glucose (75-100) mg/dL POC Glucose 136 H 169 H (70-105) Calcium (8.4-10.2) mg/dL 09/07/18 09/07/18 Range/Units 04:20 05:19 RBC (3.65-5.03) M/mm3 Hgb (11.8-15.2) gm/dl Hct (35.5-45.6) % MCV (84-94) fl MCH (28-32) pg Lymph % (Auto) (13.4-35.0) % Lymph # (1.2-5.4) K/mm3 Seg Neutrophils % (40.0-70.0) % Seg Neutrophils # (1.8-7.7) K/mm3 POC ABG pCO2 (35-45) POC ABG pO2 (80-105) Chloride 112.3 H (98-107) mmol/L Glucose 200 H (75-100) mg/dL POC Glucose 177 H (70-105) Calcium 8.0 L (8.4-10.2) mg/dL
[2018-09-07] MEDS: COREG PO SCH ×2 (11:05→21:48)
[2018-09-07] MEDS: ZITHROMAX 500 MG in NACL 0.9% 250ML 250 ML IV SCH (11:05)
[2018-09-07] MEDS: SODIUM CHLORIDE FLUSH SYRINGE 10 ML IV SCH ×2 (11:06→23:41)
[2018-09-07] MEDS: PEPCID IV SCH ×2 (11:06→21:48)
--- NOTE | 2018-09-07 12:47 | Progress Note ---
Assessment and Plan 1. Acute kidney injury: Vasomotor / hemodynamic KYLE in the setting of DKA. Renal US was negative for hydro. Renal function is improving. Continue IV fluids. Monitor renal function. Avoid nephrotoxic agents. Meds dosage based on GFR. 2. FEN: Metabolic acidosis, improved. Replete K. Monitor lytes. 3. DKA: Was on IV Insulin. Monitor. 4. Respiratory failure: S/p extubated. 5. Septic shock: Was on pressors. BP is better. 6. Systolic CHF. 7. Anemia: POA. Subjective Date of service: 09/07/18 Principal diagnosis: DKA Interval history: Patient was seen and examined at the bedside. Moved to floor. Objective - Vital Signs Vital signs: Vital Signs - 12hr 09/07/18 09/07/18 09/07/18 01:00 01:15 01:30 Temperature Pulse Rate 98 H 97 H 99 H Respiratory 29 H 26 H 27 H Rate Blood Pressure 113/65 116/66 109/61 O2 Sat by Pulse 97 97 97 Oximetry 09/07/18 09/07/18 09/07/18 01:45 02:00 02:15 Temperature Pulse Rate 97 H 97 H 97 H Respiratory 29 H 17 21 Rate Blood Pressure 119/67 123/72 119/70 O2 Sat by Pulse Oximetry 09/07/18 09/07/18 09/07/18 02:30 02:45 03:00 Temperature Pulse Rate 100 H 99 H 100 H Respiratory 28 H 17 19 Rate Blood Pressure 121/77 131/71 125/68 O2 Sat by Pulse 93 90 90 Oximetry 09/07/18 09/07/18 09/07/18 03:05 03:15 03:30 Temperature 98.9 F Pulse Rate 98 H 99 H Respiratory 30 H 29 H Rate Blood Pressure 125/67 133/73 O2 Sat by Pulse Oximetry 09/07/18 09/07/18 09/07/18 03:45 04:00 04:15 Temperature Pulse Rate 98 H 97 H 96 H Respiratory 31 H 26 H 27 H Rate Blood Pressure 125/66 114/63 109/60 O2 Sat by Pulse 94 93 95 Oximetry 09/07/18 09/07/18 09/07/18 04:30 04:45 05:00 Temperature Pulse Rate 89 90 90 Respiratory 29 H 28 H 29 H Rate Blood Pressure 110/60 106/59 109/64 O2 Sat by Pulse 95 96 95 Oximetry 09/07/18 09/07/18 09/07/18 05:15 05:30 05:45 Temperature Pulse Rate 92 H 88 87 Respiratory 27 H 27 H 33 H Rate Blood Pressure 102/70 112/68 108/67 O2 Sat by Pulse 94 91 92 Oximetry 09/07/18 09/07/18 09/07/18 06:00 06:15 06:30 Temperature Pulse Rate 69 90 88 Respiratory 28 H 21 22 Rate Blood Pressure 88/60 94/67 109/56 O2 Sat by Pulse 93 89 Oximetry 09/07/18 09/07/18 09/07/18 06:45 07:00 07:15 Temperature Pulse Rate 90 98 H 93 H Respiratory 23 29 H 29 H Rate Blood Pressure 103/54 119/68 127/73 O2 Sat by Pulse 90 90 93 Oximetry 09/07/18 09/07/18 09/07/18 07:30 07:45 07:51 Temperature Pulse Rate 91 H 91 H Respiratory 24 23 Rate Blood Pressure 112/65 110/61 O2 Sat by Pulse 96 94 95 Oximetry 09/07/18 09/07/18 09/07/18 08:00 08:15 08:31 Temperature 98.2 F Pulse Rate 90 91 H 98 H Respiratory 30 H 22 27 H Rate Blood Pressure 123/71 125/74 120/66 O2 Sat by Pulse 91 94 90 Oximetry 09/07/18 09/07/18 09/07/18 08:45 09:00 09:15 Temperature Pulse Rate 92 H 97 H 95 H Respiratory 27 H 19 22 Rate Blood Pressure 126/77 131/70 125/74 O2 Sat by Pulse 92 93 Oximetry 09/07/18 09/07/18 09/07/18 09:30 09:45 10:00 Temperature Pulse Rate 100 H 95 H 100 H Respiratory 24 27 H 22 Rate Blood Pressure 131/74 132/73 117/56 O2 Sat by Pulse 93 96 96 Oximetry 09/07/18 09/07/18 09/07/18 10:15 10:31 10:45 Temperature Pulse Rate 100 H 93 H 94 H Respiratory 24 29 H 33 H Rate Blood Pressure 132/66 123/61 117/63 O2 Sat by Pulse 95 Oximetry 09/07/18 09/07/18 09/07/18 11:00 11:05 11:15 Temperature Pulse Rate 95 H 91 H 93 H Respiratory 23 25 H Rate Blood Pressure 120/69 120/69 123/69 O2 Sat by Pulse 100 98 Oximetry - General Appearance General appearance: well-developed, well-nourished, appears stated age, other (no distress) EENT: ATNC, PERRL Neck: supple Respiratory: Present: Clear to Ascultation Cardiology: regular, S1S2 Gastrointestinal: normoactive bowel sounds, no tenderness, no distended Integumentary: no rash, warm and dry Neurologic: other (barely able to follow any command, lethargic) Musculoskeletal: other (no edema) - Lab 09/07/18 04:20 09/07/18 04:20 Most recent lab results Calcium 8.0 mg/dL (8.4-10.2) L 09/07/18 04:20 Phosphorus 2.60 mg/dL (2.5-4.5) D 09/06/18 05:00 Magnesium 1.80 mg/dL (1.7-2.3) 09/06/18 05:00 Medications & Allergies - Medications Allergies/Adverse Reactions: Allergies No Known Allergies Allergy (Unverified 05/23/18 12:18) Home Medications: Home Medications Medication Instructions Recorded Confirmed Last Taken Type No Known Home Medications [No 09/05/18 09/05/18 Unknown History Reported Home Medications] Active Medications: Generic Name Dose Route Start Last Admin Trade Name Freq PRN Reason Stop Dose Admin Albuterol 2.5 mg 09/03/18 15:58 Proventil IH Q3HRT PRN Shortness Of Breath Lipase/Protease/Amylase 1 each 09/05/18 10:50 Pancresheridan Simmons 10,500 Unit FEEDTUBE PRN PRN For Clogged Feeding Tube Carvedilol 3.125 mg 09/06/18 22:00 09/07/18 11:05 Coreg PO 3.125 mg BID NANY Administration Dextrose 0 ml 09/03/18 17:55 09/05/18 16:00 D50w (25gm) Syringe IV 20 ml PRN PRN Administration Hypoglycemia Famotidine 20 mg 09/07/18 10:00 09/07/18 11:06 Pepcid IV 20 mg BID NANY Administration Fentanyl 50 mcg 09/03/18 17:54 Sublimaze IV Q10MIN PRN ANALGESIA Haloperidol Lactate 5 mg 09/07/18 03:40 Haldol IV Q1H PRN Unrespon. to mult. doses BZD's Hydrophilic Ointment 1 applic 09/05/18 14:55 Vaseline Lip Therapy TP Q2HR PRN Dry Lips Ceftriaxone Sodium 2 gm in 100 mls @ 200 mls/hr 09/03/18 18:00 09/06/18 18:33 Rocephin/Ns 2 Gm/100 Ml IV 200 mls/hr Q24H NANY Administration Protocol Fentanyl Citrate 2,000 mcg in 100 mls @ 3.595 mls/hr 09/03/18 18:00 09/06/18 08:29 Fentanyl Drip Premix IV 0 mcg/kg/hr TITR NANY 0 mls/hr Titration Protocol 1 MCG/KG/HR Norepinephrine 4 mg in 250 mls @ 7.5 mls/hr 09/03/18 19:00 09/05/18 17:57 Levophed Drip 4 Mg/Ns 250 Ml IV 0 mcg/min TITR NANY 0 mls/hr Titration Protocol 2 MCG/MIN Propofol 1,000 mg in 100 mls @ 2.157 mls/hr 09/03/18 20:00 09/06/18 08:29 Diprivan 10 Mg/Ml IV Infused TITR NANY Titration Protocol 5 MCG/KG/MIN Azithromycin 500 mg/ Sodium 250 mls @ 250 mls/hr 09/05/18 10:00 09/07/18 11:05 Chloride IV 09/09/18 10:59 250 mls/hr Q24HR NANY Administration Sodium Chloride 1,000 mls @ 125 mls/hr 09/07/18 08:00 Nacl 0.9% 1000 Ml IV DIRECT NANY Multivitamins/Minerals 10 ml/ 1,011.2 mls @ 125 mls/hr 09/07/18 22:00 Thiamine HCl 100 mg/ Folic IV Acid 1 mg/ Sodium Chloride Q24H NANY Insulin Glargine 10 units 09/06/18 22:00 09/06/18 21:53 Lantus SUB-Q 10 units QHS NANY Administration Insulin Human Regular 0 units 09/05/18 18:00 09/07/18 11:47 Humulin R SUB-Q Not Given Q6HR NANY Protocol Lorazepam 2 mg 09/07/18 03:15 09/07/18 03:40 Ativan IV 2 mg Q1H PRN Administration CIWA-Ar 8-15 Lorazepam 4 mg 09/07/18 03:40 Ativan IV Q15MIN PRN CIWA-Ar >25 Lorazepam 4 mg 09/07/18 03:40 Ativan IV Q1H PRN CIWA-Ar 16-25 Multi-Ingred Cream/Lotion/Oil/Oint 1 applic 09/05/18 14:55 Artificial Tears Ophth Oint OU Q4HR PRN Dry Eye(s) Simple Syrup 15 ml 09/05/18 10:50 Simple Syrup FEEDTUBE PRN PRN Hypoglycemia Simple Syrup 30 ml 09/05/18 10:50 Simple Syrup FEEDTUBE PRN PRN Hypoglycemia Sodium Bicarbonate 325 mg 09/05/18 10:50 Sodium Bicarbonate FEEDTUBE PRN PRN For Clogged Feeding Tube Sodium Chloride 10 ml 09/03/18 22:00 09/07/18 11:06 Sodium Chloride Flush Syringe 10 Ml IV 10 ml BID NANY Administration Sodium Chloride 10 ml 09/03/18 15:58 Sodium Chloride Flush Syringe 10 Ml IV PRN PRN LINE FLUSH
[2018-09-07] MEDS: NACL 0.9% 1000 ML 1,000 ML IV SCH (13:08)
[2018-09-07] MEDS ORDERED: K-DUR PO ONE (14:00)
[2018-09-07] MEDS: ROCEPHIN/NS 2 GM/100 ML 2 GM/100 ML BAG IV SCH (17:41)
[2018-09-07] MEDS: NACL 0.9% IV SCH (22:52)
[2018-09-07] MEDS: VITAMIN B1 IV SCH (22:52)
[2018-09-07] MEDS: FOLVITE IV SCH (22:52)
[2018-09-07] MEDS: INFUVITE IV SCH (22:52)
[2018-09-07] MEDS: LANTUS SUB-Q SCH (23:10)
[2018-09-08] MEDS: HumuLIN R SUB-Q SCH ×4 (00:43→17:59)
[2018-09-08 06:52] LABS: BUN/Creatinine Ratio 9; Blood Urea Nitrogen 11 mg/dL (9-20); Hemolysis Index 3
[2018-09-08] MEDS: NACL 0.9% 1000 ML 1,000 ML IV SCH (07:19)
[2018-09-08] MEDS: ZITHROMAX 500 MG in NACL 0.9% 250ML 250 ML IV SCH (12:47)
[2018-09-08] MEDS: COREG PO SCH (12:50)
[2018-09-08] MEDS: PEPCID IV SCH ×2 (12:50→22:08)
[2018-09-08] MEDS: SODIUM CHLORIDE FLUSH SYRINGE 10 ML IV SCH ×2 (12:50→22:08)
--- NOTE | 2018-09-08 13:11 | Progress Note ---
Assessment and Plan / Acute hypoxic respiratory failure Intubated following admission Pulmonary is following self extubated during SBT on 09/06/18 cont nebs, aspiration precaution / HHNKS BG was 1968 on admission, a1c 14.6 s/p Insulin drip, off TF now on consistent carb diet cont SSI, adjust long acting insulin dose as needed / Sepsis likely from strep group B PNA, POA Admitted to ICU. Initiated sepsis protocol in ED: negative blood cx in 48h. WBC trending down cont rocephin for now for one week /Septic shock, POA - s/p pressor support and cont iv fluid as needed /Acute CHF with reduced EF 20-25% - monitor ins/os, cardiology following - s/p cardiac cath on admission showed no CAD - likely nonischemic cardiomyopathy /Acute metabolic Encephalopathy, resolved due to severe hyperglycemia CT head ordered -but not done yet, cont neuro checks, supportive care, continue to treat hyperglycemia / Acute renal failure likely vasomotor nephropathy renal US showed no hydronephrosis cont IVF, monitor uop q shift, monitor serum creatnine Cr trending down /NSTEMI type 2 suspected acute stemi on admission Cardiology consulted in ED, 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 / Thrombocytopenia, transfused platelets, resolved / Hyponatremia due to hyperglycemia, cont IV fluid /h/o tobacco abuse, counselled for cessation /H/o alcohol abuse, watch for withdrawal, placed on CIWa protocol, counselled for cessation /Possible aspiration risk - repeat speech eval pending / DVT prophylaxis SCD to ble while in bed, Disposition: Possible in 1-2 days if clinically stable and clears by PT Brief history; 53 YO Male with DM presents to ED with lethargy by EMS. As per staff, EMS was notified for Nausea, Vomiting, and shortness of breath. Upon arrival the patient was found to be in distress with an elevated blood glucose of 1968, and EKG changes. A code STEMI was called and the patient was transported to [facility]. Pt seen and evaluated in ED and was taken urgently to clinical laboratory manager as per cardiology team and found normal coronaries. Pt subsequently found to have HHNKS, Acute Respiratory Failure, Acute Renal Failure, Thrombocytopenia, as well as Sepsis with PNA. Pt admitted to ICU and initiated on sepsis protocol as well as Insulin drip. Pt decompensated and eventually intubated in the ICU and placed on vent support by the Anesthesia service. He self extubated during SBT on 09/06/18, off insulin drip now. getting treated for PNA. c/o cough with meal, repeat speech ev al and PT eval pending Hospitalist physical: General appearance: Present: NAD, on N/C - EENT Eyes: reactive b/l - Neck Neck: Present: No JVD - Respiratory Respiratory effort: On o/c Respiratory: bilateral: diminished, rhonchi - Cardiovascular Rhythm: other (tachycardia) Heart Sounds: Present: S1 & S2. Absent: rub, click - Extremities Extremities: pulses symmetrical, No edema Peripheral Pulses: present - Abdominal General gastrointestinal: Present: soft, non-tender, non-distended, normal bowel sounds Male genitourinary: Present: normal - Integumentary Integumentary: Present: clear, dry, - Musculoskeletal Musculoskeletal: No joint swelling - Psychiatric Psychiatric: appropriate mood/affect, intact judgment & insight, - Neurologic Neurologic: moves all extremities Subjective Date of service: 09/08/18 Principal diagnosis: DKA Interval history: Patient seen and examined. Medical records and medication list reviewed. No acute event overnight noted by the RN. Patient doing well on N/c now plan discussed with patient, c/o generalized weakness -ordered PT eval RN reports cough during meal, need repeat ST eval Objective - Constitutional Vitals: Vital Signs - 12hr 09/08/18 09/08/18 09/08/18 04:00 05:09 11:35 Temperature 97.7 F 98.7 F Pulse Rate 87 84 Respiratory 24 16 22 Rate Blood Pressure 112/70 125/76 O2 Sat by Pulse 91 95 98 Oximetry - Labs CBC & Chem 7: 09/07/18 04:20 09/09/18 05:52 Labs: Abnormal lab results 09/07/18 09/07/18 09/07/18 Range/Units 11:49 17:23 17:41 Sodium (137-145) mmol/L Chloride (98-107) mmol/L Glucose (75-100) mg/dL POC Glucose 120 H 224 H 227 H (70-105) Calcium (8.4-10.2) mg/dL 09/07/18 09/08/18 09/08/18 Range/Units 23:11 06:15 07:13 Sodium 146 H (137-145) mmol/L Chloride 112.9 H (98-107) mmol/L Glucose 117 H (75-100) mg/dL POC Glucose 156 H 128 H (70-105) Calcium 8.0 L (8.4-10.2) mg/dL 09/08/18 Range/Units 11:42 Sodium (137-145) mmol/L Chloride (98-107) mmol/L Glucose (75-100) mg/dL POC Glucose 128 H (70-105) Calcium (8.4-10.2) mg/dL
[2018-09-08] MEDS: VANCOMYCIN/NS 1 GM/250 ML 1 GM/250 ML BAG IV SCH ×2 (14:28→23:52)
--- NOTE | 2018-09-08 15:06 | Progress Note ---
Assessment and Plan Patient awake. Resting on 3 litres O2. O2 saturation 98%. Complaining non productive cough. No acute respiratory distress. Patient has history of smoking. Still smoking before admitted to the hospital. Counselled to stop smoking. Chest xray bibasilar infiltrates, pneumonia vs Atelectasis. - Patient Problems (1) DKA (diabetic ketoacidoses) Current Visit: Yes Status: Acute Qualifiers: Diabetes mellitus type: type 1 Diabetes mellitus complication detail: with coma Qualified Code(s): E10.11 - Type 1 diabetes mellitus with ketoacidosis with coma Plan to address problem: Management as per primary care. (2) Acute renal failure Current Visit: Yes Status: Acute Qualifiers: Acute renal failure type: with acute tubular necrosis Qualified Code(s): N17.0 - Acute kidney failure with tubular necrosis Plan to address problem: Management as per nephrology. (3) Tobacco use disorder Current Visit: Yes Status: Acute Plan to address problem: Counselled to stop smoking. PFTs as out patient. Albuterol/atrovent aerosol treatments q 6 hours. (4) Encephalopathy Current Visit: Yes Status: Acute Plan to address problem: Management as per primary care. (5) Bilateral pulmonary infiltrates on chest x-ray Current Visit: Yes Status: Acute Plan to address problem: Patient is on ceftrioxone and Zithromax. Subjective Date of service: 09/08/18 Principal diagnosis: DKA Interval history: Patient awake. Resting on 3 litres O2. O2 saturation 98%. Complaining non productive cough. No acute respiratory distress. Patient has history of smoking. Still smoking before admitted to the hospital. Counselled to stop smoking. Chest xray bibasilar infiltrates, pneumonia vs Atelectasis. Objective Vital Signs - 12hr 09/08/18 09/08/18 09/08/18 04:00 05:09 11:35 Temperature 97.7 F 98.7 F Pulse Rate 87 84 Respiratory 24 16 22 Rate Blood Pressure 112/70 125/76 O2 Sat by Pulse 91 95 98 Oximetry Constitutional: no acute distress, other (middle aged AAM, normocephalic and atraumatic with mildly increased respiratory effort at rest) Eyes: non-icteric ENT: oropharynx moist, other (extubated) Neck: supple, no JVD, other (no thyromegaly) Effort: mildly labored Ascultation: Bilateral: rales (scant RLL) Percussion: Bilateral: not dull Cardiovascular: regular rate and rhythm, other (No R/M) Gastrointestinal: normoactive bowel sounds, soft, non-tender, non-distended Integumentary: normal Extremities: no cyanosis, no edema, pulses normal, no ischemia or petechiae Neurologic: non-focal exam (grossly), pupils equal and round, CN II-XII normal, motor strength normal and Psychiatric: mood appropriate, affect normal, other (?? mild cognitive dysfunction clinically) CBC and BMP: 09/07/18 04:20 09/08/18 06:15 ABG, PT/INR, D-dimer: ABG POC ABG pH 7.388 (7.35-7.45) 09/06/18 10:58 POC ABG pCO2 31.7 (35-45) L 09/06/18 10:58 POC ABG pO2 60 (80-105) L 09/06/18 10:58 POC ABG HCO3 19.1 (22-26 mml/L) 09/06/18 10:58 POC ABG Total CO2 20 (23-27mmol/L) 09/06/18 10:58 POC ABG O2 Sat 91 09/06/18 10:58 PT/INR, D-dimer PT 17.5 Sec. (12.2-14.9) H 09/03/18 15:01 INR 1.47 (0.87-1.13) H 09/03/18 15:01 Abnormal lab findings: Abnormal Labs 09/03/18 09/03/18 09/03/18 02:20 15:01 15:01 WBC 17.4 H RBC Hgb 10.6 L Hct MCV 111 H MCH MCHC 25 L RDW 16.5 H Plt Count 16 L* Lymph % (Auto) Lymph # Seg Neutrophils % Seg Neuts % (Manual) 84.0 H Lymphocytes % (Manual) 8.0 L Seg Neutrophils # Seg Neutrophils # Man 14.6 H Monocytes # (Manual) 1.0 H PT 17.5 H INR 1.47 H POC ABG pH POC ABG pCO2 POC ABG pO2 VBG pH Sodium Potassium Chloride Carbon Dioxide BUN Creatinine Glucose POC Glucose Hemoglobin A1c Lactic Acid 5.90 H* Calcium Phosphorus Magnesium AST Alkaline Phosphatase Total Creatine Kinase CK-MB (CK-2) CK-MB (CK-2) Rel Index Troponin T C-Reactive Protein Total Protein Albumin 09/03/18 09/03/18 09/03/18 15:01 15:01 15:16 WBC RBC Hgb Hct MCV MCH MCHC RDW Plt Count Lymph % (Auto) Lymph # Seg Neutrophils % Seg Neuts % (Manual) Lymphocytes % (Manual) Seg Neutrophils # Seg Neutrophils # Man Monocytes # (Manual) PT INR POC ABG pH 7.020 L POC ABG pCO2 < 30 L POC ABG pO2 139 H VBG pH 7.049 L* Sodium 110 L* Potassium 7.5 H* Chloride 61.0 L Carbon Dioxide 6 L* BUN 77 H Creatinine 4.3 H Glucose 1968 H* POC Glucose Hemoglobin A1c Lactic Acid Calcium 7.3 L Phosphorus Magnesium AST Alkaline Phosphatase Total Creatine Kinase 203 H CK-MB (CK-2) 8.9 H CK-MB (CK-2) Rel Index 4.3 H Troponin T 0.058 H C-Reactive Protein Total Protein Albumin 09/03/18 09/03/18 09/03/18 18:10 18:10 18:10 WBC RBC Hgb Hct MCV MCH MCHC RDW Plt Count Lymph % (Auto) Lymph # Seg Neutrophils % Seg Neuts % (Manual) Lymphocytes % (Manual) Seg Neutrophils # Seg Neutrophils # Man Monocytes # (Manual) PT INR POC ABG pH POC ABG pCO2 POC ABG pO2 VBG pH Sodium Potassium Chloride Carbon Dioxide BUN Creatinine Glucose POC Glucose Hemoglobin A1c Lactic Acid Calcium Phosphorus 8.80 H Magnesium 2.90 H AST 64 H Alkaline Phosphatase 205 H Total Creatine Kinase 289 H CK-MB (CK-2) 13.4 H CK-MB (CK-2) Rel Index 4.6 H Troponin T 0.142 H* D C-Reactive Protein Total Protein 5.6 L Albumin 3.2 L 09/03/18 09/03/18 09/03/18 18:10 18:33 20:15 WBC RBC Hgb Hct MCV MCH MCHC RDW Plt Count Lymph % (Auto) Lymph # Seg Neutrophils % Seg Neuts % (Manual) Lymphocytes % (Manual) Seg Neutrophils # Seg Neutrophils # Man Monocytes # (Manual) PT INR POC ABG pH 7.047 L POC ABG pCO2 POC ABG pO2 VBG pH Sodium 113 L* Potassium Chloride 70.1 L Carbon Dioxide 8 L* BUN 76 H Creatinine 4.3 H Glucose 1844 H* POC Glucose Hemoglobin A1c Lactic Acid Calcium 6.8 L Phosphorus Magnesium AST Alkaline Phosphatase Total Creatine Kinase 293 H CK-MB (CK-2) 13.0 H CK-MB (CK-2) Rel Index 4.4 H Troponin T 0.126 H* C-Reactive Protein Total Protein Albumin 09/03/18 09/03/18 09/03/18 20:15 20:15 20:15 WBC RBC Hgb Hct MCV MCH MCHC RDW Plt Count Lymph % (Auto) Lymph # Seg Neutrophils % Seg Neuts % (Manual) Lymphocytes % (Manual) Seg Neutrophils # Seg Neutrophils # Man Monocytes # (Manual) PT INR POC ABG pH POC ABG pCO2 POC ABG pO2 VBG pH Sodium 116 L* Potassium Chloride 74.3 L Carbon Dioxide 11 L BUN 76 H Creatinine 4.4 H Glucose 1786 H* POC Glucose Hemoglobin A1c Lactic Acid 4.10 H* Calcium 6.4 L Phosphorus 9.00 H Magnesium 2.80 H AST Alkaline Phosphatase Total Creatine Kinase CK-MB (CK-2) CK-MB (CK-2) Rel Index Troponin T C-Reactive Protein Total Protein Albumin 09/03/18 09/03/18 09/03/18 20:18 22:00 22:54 WBC RBC Hgb Hct MCV MCH MCHC RDW Plt Count Lymph % (Auto) Lymph # Seg Neutrophils % Seg Neuts % (Manual) Lymphocytes % (Manual) Seg Neutrophils # Seg Neutrophils # Man Monocytes # (Manual) PT INR POC ABG pH POC ABG pCO2 POC ABG pO2 VBG pH Sodium 120 L Potassium Chloride 82.7 L Carbon Dioxide 11 L BUN 74 H Creatinine 4.3 H Glucose 1144 H* POC Glucose > 500 H Hemoglobin A1c Lactic Acid 5.00 H* Calcium 6.0 L Phosphorus Magnesium AST Alkaline Phosphatase Total Creatine Kinase CK-MB (CK-2) CK-MB (CK-2) Rel Index Troponin T C-Reactive Protein Total Protein Albumin 09/03/18 09/03/18 09/04/18 23:18 23:47 00:20 WBC RBC Hgb Hct MCV MCH MCHC RDW Plt Count Lymph % (Auto) Lymph # Seg Neutrophils % Seg Neuts % (Manual) Lymphocytes % (Manual) Seg Neutrophils # Seg Neutrophils # Man Monocytes # (Manual) PT INR POC ABG pH 7.279 L POC ABG pCO2 POC ABG pO2 230 H VBG pH Sodium 124 L Potassium Chloride 88.7 L Carbon Dioxide 13 L BUN 70 H Creatinine 4.3 H Glucose 1295 H* POC Glucose > 500 H Hemoglobin A1c Lactic Acid Calcium 5.8 L* Phosphorus Magnesium AST Alkaline Phosphatase Total Creatine Kinase CK-MB (CK-2) CK-MB (CK-2) Rel Index Troponin T C-Reactive Protein Total Protein Albumin 09/04/18 09/04/18 09/04/18 01:06 02:20 02:28 WBC RBC Hgb Hct MCV MCH MCHC RDW Plt Count Lymph % (Auto) Lymph # Seg Neutrophils % Seg Neuts % (Manual) Lymphocytes % (Manual) Seg Neutrophils # Seg Neutrophils # Man Monocytes # (Manual) PT INR POC ABG pH POC ABG pCO2 POC ABG pO2 VBG pH Sodium 127 L Potassium Chloride 91.1 L Carbon Dioxide 15 L BUN 72 H Creatinine 4.4 H Glucose 1156 H* POC Glucose > 500 H > 500 H Hemoglobin A1c Lactic Acid Calcium 6.1 L Phosphorus Magnesium AST Alkaline Phosphatase Total Creatine Kinase CK-MB (CK-2) CK-MB (CK-2) Rel Index Troponin T C-Reactive Protein Total Protein Albumin 09/04/18 09/04/18 09/04/18 04:35 05:25 06:15 WBC RBC Hgb Hct MCV MCH MCHC RDW Plt Count Lymph % (Auto) Lymph # Seg Neutrophils % Seg Neuts % (Manual) Lymphocytes % (Manual) Seg Neutrophils # Seg Neutrophils # Man Monocytes # (Manual) PT INR POC ABG pH POC ABG pCO2 POC ABG pO2 160 H VBG pH Sodium 134 L D Potassium Chloride Carbon Dioxide 17 L BUN 67 H Creatinine 4.4 H Glucose 871 H* POC Glucose > 500 H Hemoglobin A1c Lactic Acid Calcium 6.6 L Phosphorus Magnesium AST Alkaline Phosphatase Total Creatine Kinase CK-MB (CK-2) CK-MB (CK-2) Rel Index Troponin T C-Reactive Protein Total Protein Albumin 09/04/18 09/04/18 09/04/18 09:04 09:15 09:15 WBC 13.1 H RBC Hgb 9.8 L Hct 30.0 L D MCV 82 L MCH 27 L MCHC RDW Plt Count Lymph % (Auto) Lymph # Seg Neutrophils % Seg Neuts % (Manual) Lymphocytes % (Manual) Seg Neutrophils # Seg Neutrophils # Man Monocytes # (Manual) PT INR POC ABG pH POC ABG pCO2 POC ABG pO2 VBG pH Sodium Potassium Chloride Carbon Dioxide 17 L BUN 63 H Creatinine 4.1 H Glucose 668 H* POC Glucose > 500 H Hemoglobin A1c Lactic Acid Calcium 6.4 L Phosphorus Magnesium AST Alkaline Phosphatase Total Creatine Kinase CK-MB (CK-2) CK-MB (CK-2) Rel Index Troponin T C-Reactive Protein Total Protein Albumin 09/04/18 09/04/18 09/04/18 11:26 11:53 13:44 WBC RBC Hgb Hct MCV MCH MCHC RDW Plt Count Lymph % (Auto) Lymph # Seg Neutrophils % Seg Neuts % (Manual) Lymphocytes % (Manual) Seg Neutrophils # Seg Neutrophils # Man Monocytes # (Manual) PT INR POC ABG pH POC ABG pCO2 POC ABG pO2 VBG pH Sodium Potassium Chloride Carbon Dioxide 20 L BUN 61 H Creatinine 3.9 H Glucose 472 H POC Glucose > 500 H 354 H Hemoglobin A1c Lactic Acid Calcium 6.7 L Phosphorus Magnesium AST Alkaline Phosphatase Total Creatine Kinase CK-MB (CK-2) CK-MB (CK-2) Rel Index Troponin T C-Reactive Protein Total Protein Albumin 09/04/18 09/04/18 09/04/18 14:18 15:29 16:10 WBC RBC Hgb Hct MCV MCH MCHC RDW Plt Count Lymph % (Auto) Lymph # Seg Neutrophils % Seg Neuts % (Manual) Lymphocytes % (Manual) Seg Neutrophils # Seg Neutrophils # Man Monocytes # (Manual) PT INR POC ABG pH POC ABG pCO2 30.2 L POC ABG pO2 145 H VBG pH Sodium Potassium Chloride 113.1 H Carbon Dioxide 19 L BUN 57 H Creatinine 3.3 H Glucose 113 H POC Glucose 299 H Hemoglobin A1c Lactic Acid Calcium 6.8 L Phosphorus Magnesium AST Alkaline Phosphatase Total Creatine Kinase CK-MB (CK-2) CK-MB (CK-2) Rel Index Troponin T C-Reactive Protein Total Protein Albumin 09/04/18 09/04/18 09/04/18 17:19 21:55 21:58 WBC RBC Hgb Hct MCV MCH MCHC RDW Plt Count Lymph % (Auto) Lymph # Seg Neutrophils % Seg Neuts % (Manual) Lymphocytes % (Manual) Seg Neutrophils # Seg Neutrophils # Man Monocytes # (Manual) PT INR POC ABG pH POC ABG pCO2 POC ABG pO2 VBG pH Sodium Potassium Chloride 114.0 H Carbon Dioxide 18 L BUN 52 H Creatinine 3.0 H Glucose 161 H POC Glucose 147 H 159 H Hemoglobin A1c Lactic Acid Calcium 6.7 L Phosphorus Magnesium AST Alkaline Phosphatase Total Creatine Kinase CK-MB (CK-2) CK-MB (CK-2) Rel Index Troponin T C-Reactive Protein Total Protein Albumin 09/05/18 09/05/18 09/05/18 00:08 01:44 04:13 WBC RBC Hgb Hct MCV MCH MCHC RDW Plt Count Lymph % (Auto) Lymph # Seg Neutrophils % Seg Neuts % (Manual) Lymphocytes % (Manual) Seg Neutrophils # Seg Neutrophils # Man Monocytes # (Manual) PT INR POC ABG pH POC ABG pCO2 POC ABG pO2 VBG pH Sodium Potassium Chloride Carbon Dioxide BUN Creatinine Glucose POC Glucose 235 H 224 H 253 H Hemoglobin A1c Lactic Acid Calcium Phosphorus Magnesium AST Alkaline Phosphatase Total Creatine Kinase CK-MB (CK-2) CK-MB (CK-2) Rel Index Troponin T C-Reactive Protein Total Protein Albumin 09/05/18 09/05/18 09/05/18 04:22 04:30 04:30 WBC 11.5 H RBC 3.59 L Hgb 9.9 L Hct 29.2 L MCV 81 L MCH MCHC RDW Plt Count Lymph % (Auto) Lymph # Seg Neutrophils % Seg Neuts % (Manual) Lymphocytes % (Manual) Seg Neutrophils # Seg Neutrophils # Man Monocytes # (Manual) PT INR POC ABG pH POC ABG pCO2 POC ABG pO2 133 H VBG pH Sodium Potassium Chloride 114.0 H Carbon Dioxide 18 L BUN 44 H Creatinine 2.7 H Glucose 235 H POC Glucose Hemoglobin A1c Lactic Acid Calcium 7.0 L Phosphorus 1.10 L D Magnesium AST 85 H Alkaline Phosphatase 139 H Total Creatine Kinase CK-MB (CK-2) CK-MB (CK-2) Rel Index Troponin T C-Reactive Protein Total Protein 4.6 L Albumin 2.6 L 09/05/18 09/05/18 09/05/18 05:59 08:09 10:02 WBC RBC Hgb Hct MCV MCH MCHC RDW Plt Count Lymph % (Auto) Lymph # Seg Neutrophils % Seg Neuts % (Manual) Lymphocytes % (Manual) Seg Neutrophils # Seg Neutrophils # Man Monocytes # (Manual) PT INR POC ABG pH POC ABG pCO2 POC ABG pO2 VBG pH Sodium Potassium Chloride Carbon Dioxide BUN Creatinine Glucose POC Glucose 243 H 187 H 139 H Hemoglobin A1c Lactic Acid Calcium Phosphorus Magnesium AST Alkaline Phosphatase Total Creatine Kinase CK-MB (CK-2) CK-MB (CK-2) Rel Index Troponin T C-Reactive Protein Total Protein Albumin 09/05/18 09/05/18 09/05/18 12:22 12:24 12:30 WBC RBC Hgb Hct MCV MCH MCHC RDW Plt Count Lymph % (Auto) Lymph # Seg Neutrophils % Seg Neuts % (Manual) Lymphocytes % (Manual) Seg Neutrophils # Seg Neutrophils # Man Monocytes # (Manual) PT INR POC ABG pH POC ABG pCO2 POC ABG pO2 VBG pH Sodium Potassium Chloride Carbon Dioxide BUN Creatinine Glucose POC Glucose 52 L 63 L Hemoglobin A1c Lactic Acid Calcium Phosphorus Magnesium AST Alkaline Phosphatase Total Creatine Kinase CK-MB (CK-2) CK-MB (CK-2) Rel Index Troponin T C-Reactive Protein 6.30 H Total Protein Albumin 09/05/18 09/05/18 09/06/18 16:02 Unknown 00:06 WBC RBC Hgb Hct MCV MCH MCHC RDW Plt Count Lymph % (Auto) Lymph # Seg Neutrophils % Seg Neuts % (Manual) Lymphocytes % (Manual) Seg Neutrophils # Seg Neutrophils # Man Monocytes # (Manual) PT INR POC ABG pH POC ABG pCO2 POC ABG pO2 VBG pH Sodium Potassium Chloride 112.3 H Carbon Dioxide 20 L BUN 30 H Creatinine 2.0 H Glucose 183 H POC Glucose 55 L 218 H Hemoglobin A1c Lactic Acid Calcium 7.6 L Phosphorus Magnesium AST Alkaline Phosphatase Total Creatine Kinase CK-MB (CK-2) CK-MB (CK-2) Rel Index Troponin T C-Reactive Protein Total Protein Albumin 09/06/18 09/06/18 09/06/18 04:27 04:30 05:00 WBC RBC Hgb Hct MCV MCH MCHC RDW Plt Count Lymph % (Auto) Lymph # Seg Neutrophils % Seg Neuts % (Manual) Lymphocytes % (Manual) Seg Neutrophils # Seg Neutrophils # Man Monocytes # (Manual) PT INR POC ABG pH 7.280 L POC ABG pCO2 POC ABG pO2 VBG pH Sodium Potassium Chloride 111.4 H Carbon Dioxide 20 L BUN 27 H Creatinine 1.9 H Glucose 256 H POC Glucose Hemoglobin A1c 14.6 H Lactic Acid Calcium 7.7 L Phosphorus Magnesium AST Alkaline Phosphatase Total Creatine Kinase CK-MB (CK-2) CK-MB (CK-2) Rel Index Troponin T C-Reactive Protein Total Protein Albumin 09/06/18 09/06/18 09/06/18 05:23 10:58 12:17 WBC RBC Hgb Hct MCV MCH MCHC RDW Plt Count Lymph % (Auto) Lymph # Seg Neutrophils % Seg Neuts % (Manual) Lymphocytes % (Manual) Seg Neutrophils # Seg Neutrophils # Man Monocytes # (Manual) PT INR POC ABG pH POC ABG pCO2 31.7 L POC ABG pO2 60 L VBG pH Sodium Potassium Chloride Carbon Dioxide BUN Creatinine Glucose POC Glucose 308 H 214 H Hemoglobin A1c Lactic Acid Calcium Phosphorus Magnesium AST Alkaline Phosphatase Total Creatine Kinase CK-MB (CK-2) CK-MB (CK-2) Rel Index Troponin T C-Reactive Protein Total Protein Albumin 09/06/18 09/06/18 09/06/18 18:25 21:58 23:42 WBC RBC Hgb Hct MCV MCH MCHC RDW Plt Count Lymph % (Auto) Lymph # Seg Neutrophils % Seg Neuts % (Manual) Lymphocytes % (Manual) Seg Neutrophils # Seg Neutrophils # Man Monocytes # (Manual) PT INR POC ABG pH POC ABG pCO2 POC ABG pO2 VBG pH Sodium Potassium Chloride Carbon Dioxide BUN Creatinine Glucose POC Glucose 183 H 136 H 169 H Hemoglobin A1c Lactic Acid Calcium Phosphorus Magnesium AST Alkaline Phosphatase Total Creatine Kinase CK-MB (CK-2) CK-MB (CK-2) Rel Index Troponin T C-Reactive Protein Total Protein Albumin 09/07/18 09/07/18 09/07/18 04:20 04:20 05:19 WBC RBC 3.36 L Hgb 9.2 L Hct 27.8 L MCV 83 L MCH 27 L MCHC RDW Plt Count Lymph % (Auto) 5.1 L Lymph # 0.5 L Seg Neutrophils % 87.0 H Seg Neuts % (Manual) Lymphocytes % (Manual) Seg Neutrophils # 8.5 H Seg Neutrophils # Man Monocytes # (Manual) PT INR POC ABG pH POC ABG pCO2 POC ABG pO2 VBG pH Sodium Potassium Chloride 112.3 H Carbon Dioxide BUN Creatinine Glucose 200 H POC Glucose 177 H Hemoglobin A1c Lactic Acid Calcium 8.0 L Phosphorus Magnesium AST Alkaline Phosphatase Total Creatine Kinase CK-MB (CK-2) CK-MB (CK-2) Rel Index Troponin T C-Reactive Protein Total Protein Albumin 09/07/18 09/07/18 09/07/18 11:49 17:23 17:41 WBC RBC Hgb Hct MCV MCH MCHC RDW Plt Count Lymph % (Auto) Lymph # Seg Neutrophils % Seg Neuts % (Manual) Lymphocytes % (Manual) Seg Neutrophils # Seg Neutrophils # Man Monocytes # (Manual) PT INR POC ABG pH POC ABG pCO2 POC ABG pO2 VBG pH Sodium Potassium Chloride Carbon Dioxide BUN Creatinine Glucose POC Glucose 120 H 224 H 227 H Hemoglobin A1c Lactic Acid Calcium Phosphorus Magnesium AST Alkaline Phosphatase Total Creatine Kinase CK-MB (CK-2) CK-MB (CK-2) Rel Index Troponin T C-Reactive Protein Total Protein Albumin 09/07/18 09/08/18 09/08/18 23:11 06:15 07:13 WBC RBC Hgb Hct MCV MCH MCHC RDW Plt Count Lymph % (Auto) Lymph # Seg Neutrophils % Seg Neuts % (Manual) Lymphocytes % (Manual) Seg Neutrophils # Seg Neutrophils # Man Monocytes # (Manual) PT INR POC ABG pH POC ABG pCO2 POC ABG pO2 VBG pH Sodium 146 H Potassium Chloride 112.9 H Carbon Dioxide BUN Creatinine Glucose 117 H POC Glucose 156 H 128 H Hemoglobin A1c Lactic Acid Calcium 8.0 L Phosphorus Magnesium AST Alkaline Phosphatase Total Creatine Kinase CK-MB (CK-2) CK-MB (CK-2) Rel Index Troponin T C-Reactive Protein Total Protein Albumin 09/08/18 11:42 WBC RBC Hgb Hct MCV MCH MCHC RDW Plt Count Lymph % (Auto) Lymph # Seg Neutrophils % Seg Neuts % (Manual) Lymphocytes % (Manual) Seg Neutrophils # Seg Neutrophils # Man Monocytes # (Manual) PT INR POC ABG pH POC ABG pCO2 POC ABG pO2 VBG pH Sodium Potassium Chloride Carbon Dioxide BUN Creatinine Glucose POC Glucose 128 H Hemoglobin A1c Lactic Acid Calcium Phosphorus Magnesium AST Alkaline Phosphatase Total Creatine Kinase CK-MB (CK-2) CK-MB (CK-2) Rel Index Troponin T C-Reactive Protein Total Protein Albumin Chest x-ray: report reviewed (Bibasilar infiltrates.), image reviewed Allied health notes reviewed: nursing
[2018-09-08] MEDS ORDERED: COMPAZINE PO PRN (17:42)
[2018-09-08] MEDS: ROCEPHIN/NS 2 GM/100 ML 2 GM/100 ML BAG IV SCH (17:46)
[2018-09-08] MEDS: LOVENOX SUB-Q SCH (22:08)
[2018-09-08] MEDS: LANTUS SUB-Q SCH (22:57)
[2018-09-08] MEDS: FOLVITE IV SCH (23:32)
[2018-09-08] MEDS: NACL 0.9% IV SCH (23:32)
[2018-09-08] MEDS: INFUVITE IV SCH (23:32)
[2018-09-08] MEDS: VITAMIN B1 IV SCH (23:32)
[2018-09-09] MEDS: COREG PO SCH ×3 (00:50→21:48)
[2018-09-09] MEDS: HumuLIN R SUB-Q SCH ×4 (00:50→17:51)
[2018-09-09 06:38] LABS: BUN/Creatinine Ratio 9; Blood Urea Nitrogen 11 mg/dL (9-20); Calcium 7.9 mg/dL (8.4-10.2); Hemolysis Index 4
--- NOTE | 2018-09-09 09:10 | Progress Note ---
Assessment and Plan 1. Acute kidney injury: Vasomotor / hemodynamic KYLE in the setting of DKA. Renal US was negative for hydro. Renal function is better and stable. Encouraged PO fluids. Monitor renal function. Avoid nephrotoxic agents. Meds dosage based on GFR. 2. FEN: Metabolic acidosis, improved. Replete K and Phos. Monitor lytes. 3. DKA: Improved. Was on IV Insulin. Monitor. 4. Respiratory failure: S/p extubated. 5. Septic shock: Was on pressors. BP is better. 6. Systolic CHF. 7. Anemia: POA. Will sign off. Please call with any questions. Subjective Date of service: 09/09/18 Principal diagnosis: DKA Interval history: Patient was seen and examined at the bedside. Doing ok. Objective - Vital Signs Vital signs: Vital Signs - 12hr 09/08/18 09/09/18 09/09/18 23:36 00:00 00:50 Temperature 97.0 F L Pulse Rate 87 87 Respiratory 18 22 Rate Blood Pressure 110/65 110/65 O2 Sat by Pulse 95 Oximetry 09/09/18 09/09/18 05:33 08:53 Temperature 97.7 F Pulse Rate 90 Respiratory 16 16 Rate Blood Pressure 112/54 O2 Sat by Pulse 93 Oximetry - General Appearance General appearance: well-developed, well-nourished, appears stated age, other (no distress) EENT: ATNC, PERRL, mucous membranes moist, hearing intact, vision intact Neck: supple Respiratory: Present: Clear to Ascultation Cardiology: regular, S1S2, no murmurs Gastrointestinal: normoactive bowel sounds, no tenderness, no distended Integumentary: no rash, warm and dry Neurologic: no focal deficit, no asterixis, disoriented, other (MS is improving) Musculoskeletal: other (no edema) - Lab 09/07/18 04:20 09/09/18 05:52 Most recent lab results Calcium 7.9 mg/dL (8.4-10.2) L 09/09/18 05:52 Phosphorus 2.30 mg/dL (2.5-4.5) L 09/09/18 05:52 Magnesium 1.70 mg/dL (1.7-2.3) 09/09/18 05:52 Medications & Allergies - Medications Allergies/Adverse Reactions: Allergies No Known Allergies Allergy (Unverified 05/23/18 12:18) Home Medications: Home Medications Medication Instructions Recorded Confirmed Last Taken Type No Known Home Medications [No 09/05/18 09/05/18 Unknown History Reported Home Medications] Active Medications: Generic Name Dose Route Start Last Admin Trade Name Freq PRN Reason Stop Dose Admin Albuterol 2.5 mg 09/03/18 15:58 Proventil IH Q3HRT PRN Shortness Of Breath Lipase/Protease/Amylase 1 each 09/05/18 10:50 Pancreaze 10,500 Unit FEEDTUBE PRN PRN For Clogged Feeding Tube Carvedilol 3.125 mg 09/06/18 22:00 09/09/18 00:50 Coreg PO 3.125 mg BID NANY Administration Dextrose 0 ml 09/03/18 17:55 09/05/18 16:00 D50w (25gm) Syringe IV 20 ml PRN PRN Administration Hypoglycemia Enoxaparin Sodium 40 mg 09/08/18 22:00 09/08/18 22:08 Lovenox SUB-Q 40 mg QDAY@2200 NANY Administration Famotidine 20 mg 09/07/18 10:00 09/08/18 22:08 Pepcid IV 20 mg BID NANY Administration Folic Acid 1 mg 09/09/18 10:00 Folvite PO DAILY [facility] Haloperidol Lactate 5 mg 09/07/18 03:40 Haldol IV Q1H PRN Unrespon. to mult. doses BZD's Hydrophilic Ointment 1 applic 09/05/18 14:55 Vaseline Lip Therapy TP Q2HR PRN Dry Lips Ceftriaxone Sodium 2 gm in 100 mls @ 200 mls/hr 09/03/18 18:00 09/08/18 17:46 Rocephin/Ns 2 Gm/100 Ml IV 200 mls/hr Q24H NANY Administration Protocol Azithromycin 500 mg/ Sodium 250 mls @ 250 mls/hr 09/05/18 10:00 09/08/18 12 :47 Chloride IV 09/09/18 10:59 250 mls/hr Q24HR NANY Administration Vancomycin HCl 1 gm in 250 mls @ 166.667 mls/hr 09/08/18 10:00 09/08/18 23:52 Vancomycin/Ns 1 Gm/250 Ml IV 166.667 mls/hr Q12HR NANY Administration Insulin Glargine 10 units 09/06/18 22:00 09/08/18 22:57 Lantus SUB-Q 10 units QHS NANY Administration Insulin Human Regular 0 units 09/05/18 18:00 09/09/18 07:03 Humulin R SUB-Q Not Given Q6HR [facility] Protocol Lorazepam 2 mg 09/07/18 03:15 09/07/18 03:40 Ativan IV 2 mg Q1H PRN Administration CIWA-Ar 8-15 Lorazepam 4 mg 09/07/18 03:40 Ativan IV Q15MIN PRN CIWA-Ar >25 Lorazepam 4 mg 09/07/18 03:40 Ativan IV Q1H PRN CIWA-Ar 16-25 Multi-Ingred Cream/Lotion/Oil/Oint 1 applic 09/05/18 14:55 Artificial Tears Ophth Oint OU Q4HR PRN Dry Eye(s) Multivitamins 1 each 09/09/18 10:00 Theragran Tab PO DAILY [facility] Prochlorperazine Maleate 10 mg 09/08/18 17:42 Compazine PO Q6H PRN Hiccups Simple Syrup 15 ml 09/05/18 10:50 Simple Syrup FEEDTUBE PRN PRN Hypoglycemia Simple Syrup 30 ml 09/05/18 10:50 Simple Syrup FEEDTUBE PRN PRN Hypoglycemia Sodium Bicarbonate 325 mg 09/05/18 10:50 Sodium Bicarbonate FEEDTUBE PRN PRN For Clogged Feeding Tube Sodium Chloride 10 ml 09/03/18 22:00 09/08/18 22:08 Sodium Chloride Flush Syringe 10 Ml IV 10 ml BID NANY Administration Sodium Chloride 10 ml 09/03/18 15:58 Sodium Chloride Flush Syringe 10 Ml IV PRN PRN LINE FLUSH Thiamine HCl 100 mg 09/09/18 10:00 Vitamin B-1 PO QDAY NANY
[2018-09-09] MEDS: VITAMIN B-1 PO SCH (09:38)
[2018-09-09] MEDS: PEPCID IV SCH ×2 (09:38→21:49)
[2018-09-09] MEDS: THERAGRAN Tab PO SCH (09:38)
[2018-09-09] MEDS: FOLVITE PO SCH (09:38)
[2018-09-09] MEDS: SODIUM CHLORIDE FLUSH SYRINGE 10 ML IV SCH ×2 (09:39→21:49)
[2018-09-09] MEDS ORDERED: KPHOS 40 MMOL in NACL 0.9% 500 ML 500 ML IV ONE (10:00)
[2018-09-09] MEDS: ZITHROMAX 500 MG in NACL 0.9% 250ML 250 ML IV SCH (10:15)
[2018-09-09] MEDS: VANCOMYCIN/NS 1 GM/250 ML 1 GM/250 ML BAG IV SCH ×2 (11:41→21:48)
[2018-09-09] MEDS: MUCINEX ER PO SCH ×2 (11:44→21:49)
--- NOTE | 2018-09-09 13:33 | Progress Note ---
Assessment and Plan Stable cardiac status. Continue current management. - Patient Problems (1) DKA (diabetic ketoacidoses) Current Visit: Yes Status: Resolved Qualifiers: Diabetes mellitus type: type 1 Diabetes mellitus complication detail: with coma Qualified Code(s): E10.11 - Type 1 diabetes mellitus with ketoacidosis with coma (2) Acute respiratory failure Current Visit: Yes Status: Resolved Qualifiers: Respiratory failure complication: hypoxia Qualified Code(s): J96.01 - Acute respiratory failure with hypoxia (3) Non-STEMI (non-ST elevated myocardial infarction) Current Visit: Yes Status: Resolved (4) Nonischemic cardiomyopathy Current Visit: Yes Status: Acute (5) KYLE (acute kidney injury) Current Visit: Yes Status: Resolved (6) Elevated troponin Current Visit: Yes Status: Acute (7) Encephalopathy Current Visit: Yes Status: Resolved (8) Sepsis Current Visit: Yes Status: Resolved Qualifiers: Sepsis type: sepsis due to unspecified organism Qualified Code(s): A41.9 - Sepsis, unspecified organism (9) Normal coronary arteries Current Visit: Yes Status: Chronic Subjective Date of service: 09/09/18 Principal diagnosis: DKA, Sepsis, Acute resp failure, KYLE, NICMP Interval history: No complaint. Objective Vital Signs Temp Pulse Resp BP Pulse Ox 09/09/18 12:13 97.9 F 86 18 123/67 94 09/09/18 10:37 88 144/71 09/09/18 10:00 95 09/09/18 08:53 16 09/09/18 05:33 97.7 F 90 16 112/54 93 09/09/18 00:50 87 110/65 09/09/18 00:00 22 09/08/18 23:36 97.0 F L 87 18 110/65 95 09/08/18 17:25 99.2 F 83 22 130/78 97 - Physical Examination General: No Apparent Distress HEENT: Positive: EOMI, Normocephaly, Mucus Membranes Moist Neck: Positive: neck supple, trachea midline Cardiac: Positive: Reg Rate and Rhythm, S1/S2 Lungs: Positive: clear to auscultation Neuro: Positive: Grossly Intact Abdomen: Positive: Soft, Active Bowel Sounds. Negative: Tender Skin: Positive: Clear. Negative: Rash Musculoskeletal: Normal Range of Motion Extremities: Present: edema (trace pitting bilateral leg edema) - Labs and Meds Comprehensive Metabolic Panel 09/09/18 Range/Units 05:52 Sodium 143 (137-145) mmol/L Potassium 3.4 L (3.6-5.0) mmol/L Chloride 108.8 H (98-107) mmol/L Carbon Dioxide 27 (22-30) mmol/L BUN 11 (9-20) mg/dL Creatinine 1.2 (0.8-1.5) mg/dL Glucose 116 H (75-100) mg/dL Calcium 7.9 L (8.4-10.2) mg/dL - Imaging and Cardiology Cardiac cath: report reviewed (normal coronaries, normal EF) - EKG Sinus rhythms and dysrhythmias: sinus rhythm Myocardial infarction: anterior PR (acute or rec - Allied health notes Allied health notes reviewed: nursing
--- NOTE | 2018-09-09 13:46 | Progress Note ---
Assessment and Plan / Acute hypoxic respiratory failure Intubated following admission Pulmonary is following self extubated during SBT on 09/06/18 cont nebs, aspiration precaution / HHNKS BG was 1968 on admission, a1c 14.6 s/p Insulin drip, off TF now on consistent carb diet cont SSI, adjust long acting insulin dose as needed / Sepsis likely from strep group B PNA, POA Admitted to ICU. Initiated sepsis protocol in ED: negative blood cx in 48h. WBC trending down cont rocephin for now for one week /Septic shock, POA - s/p pressor support and cont iv fluid as needed /Acute CHF with reduced EF 20-25% - monitor ins/os, cardiology following - s/p cardiac cath on admission showed no CAD - likely nonischemic cardiomyopathy /Acute metabolic Encephalopathy, resolved due to severe hyperglycemia CT head ordered -but not done yet, cont neuro checks, supportive care, continue to treat hyperglycemia / Acute renal failure likely vasomotor nephropathy renal US showed no hydronephrosis cont IVF, monitor uop q shift, monitor serum creatnine Cr trending down /NSTEMI type 2 suspected acute stemi on admission Cardiology consulted in ED, 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 / Thrombocytopenia, transfused platelets, resolved / Hyponatremia due to hyperglycemia, cont IV fluid /h/o tobacco abuse, counselled for cessation /H/o alcohol abuse, s/p CIWa protocol, counselled for cessation /Possible aspiration risk - speech recommended barium swallow study / DVT prophylaxis SCD to ble while in bed, Disposition: Possible in the am after barium study - if normal Brief history; 53 YO Male with DM presents to ED with lethargy by EMS. As per staff, EMS was notified for Nausea, Vomiting, and shortness of breath. Upon arrival the patient was found to be in distress with an elevated blood glucose of 1968, and EKG changes. A code STEMI was called and the patient was transported to [facility]. Pt seen and evaluated in ED and was taken urgently to laborer driver as per cardiology team and found normal coronaries. Pt subsequently found to have HHNKS, Acute Respiratory Failure, Acute Renal Failure, Thrombocytopenia, as well as Sepsis with PNA. Pt admitted to ICU and initiated on sepsis protocol as well as Insulin drip. Pt decompensated and eventually intubated in the ICU and placed on vent support by the Anesthesia service. He self extubated during SBT on 09/06/18, off insulin drip now. getting treated for PNA. c/o cough with meal, repeat speech eval suggested barium swallow eval. did not get CT head when presented to hospital as CT scaner was broken for ~ 2 days, then the order dropped off. reorder CT head today. 2d echo showed Ef 20-25%, medical Mx. Hospitalist physical: General appearance: Present: NAD, on N/C - EENT Eyes: reactive b/l - Neck Neck: Present: No JVD - Respiratory Respiratory effort: On o/c Respiratory: bilateral: diminished, rhonchi - Cardiovascular Rhythm: other (tachycardia) Heart Sounds: Present: S1 & S2. Absent: rub, click - Extremities Extremities: pulses symmetrical, No edema Peripheral Pulses: present - Abdominal General gastrointestinal: Present: soft, non-tender, non-distended, normal bowel sounds Male genitourinary: Present: normal - Integumentary Integumentary: Present: clear, dry, - Musculoskeletal Musculoskeletal: No joint swelling - Psychiatric Psychiatric: appropriate mood/affect, intact judgment & insight, - Neurologic Neurologic: moves all extremities Subjective Date of service: 09/09/18 Principal diagnosis: DKA Interval history: Patient seen and examined. Medical records and medication list reviewed. No acute event overnight noted by the RN. Patient doing well on N/c now plan discussed with patient, still coughing with meal Objective - Constitutional Vitals: Vital Signs - 12hr 09/09/18 09/09/18 09/09/18 05:33 08:53 10:00 Temperature 97.7 F Pulse Rate 90 Respiratory 16 16 Rate Blood Pressure 112/54 O2 Sat by Pulse 93 95 Oximetry 09/09/18 09/09/18 10:37 12:13 Temperature 97.9 F Pulse Rate 88 86 Respiratory 18 Rate Blood Pressure 144/71 123/67 O2 Sat by Pulse 94 Oximetry - Labs CBC & Chem 7: 09/07/18 04:20 09/09/18 05:52 Labs: Abnormal lab results 09/08/18 09/08/18 09/09/18 Range/Units 23:03 23:43 05:44 Potassium (3.6-5.0) mmol/L Chloride (98-107) mmol/L Glucose (75-100) mg/dL POC Glucose 172 H 188 H 112 H (70-105) Calcium (8.4-10.2) mg/dL Phosphorus (2.5-4.5) mg/dL 09/09/18 09/09/18 Range/Units 05:52 11:24 Potassium 3.4 L (3.6-5.0) mmol/L Chloride 108.8 H (98-107) mmol/L Glucose 116 H (75-100) mg/dL POC Glucose 257 H (70-105) Calcium 7.9 L (8.4-10.2) mg/dL Phosphorus 2.30 L (2.5-4.5) mg/dL
--- NOTE | 2018-09-09 16:19 | Progress Note ---
Assessment and Plan Patient awake and resting on room air. O2 saturation 94%. Patient is suppose to use 2 L O2. Patient is not using oxygen as recommended. Patient complaining non productive cough. No acute respiratory distress. Patient has history of smoking. Still smoking before admitted to the hospital. Counselled to stop smoking. Patient is afebrile. No leukocytosis. Chest xray bibasilar infiltrates, pneumonia vs Atelectasis. Patient is on ceftriaxone and vancomycin. - Patient Problems (1) DKA (diabetic ketoacidoses) Current Visit: Yes Status: Resolved Qualifiers: Diabetes mellitus type: type 1 Diabetes mellitus complication detail: with coma Qualified Code(s): E10.11 - Type 1 diabetes mellitus with ketoacidosis with coma Plan to address problem: Management as per primary care. (2) Acute renal failure Current Visit: Yes Status: Acute Qualifiers: Acute renal failure type: with acute tubular necrosis Qualified Code(s): N17.0 - Acute kidney failure with tubular necrosis Plan to address problem: Management as per nephrology. (3) Tobacco use disorder Current Visit: Yes Status: Acute Plan to address problem: Counselled to stop smoking. PFTs as out patient. Albuterol/atrovent aerosol treatments q 6 hours. (4) Encephalopathy Current Visit: Yes Status: Resolved Plan to address problem: Management as per primary care. (5) Bilateral pulmonary infiltrates on chest x-ray Current Visit: Yes Status: Acute Plan to address problem: Patient is on ceftriaxone and vancomycin Subjective Date of service: 09/09/18 Principal diagnosis: DKA Interval history: Patient awake and resting on room air. O2 saturation 94%. Patient is suppose to use 2 L O2. Patient is not using oxygen as recommended. Patient complaining non productive cough. No acute respiratory distress. Patient has history of smoking. Still smoking before admitted to the hospital. Counselled to stop smoking. Patient is afebrile. No leukocytosis. Chest xray bibasilar infiltrates, pneumonia vs Atelectasis. Patient is on ceftriaxone and vancomycin. Objective Vital Signs - 12hr 09/09/18 09/09/18 09/09/18 05:33 08:53 10:00 Temperature 97.7 F Pulse Rate 90 Respiratory 16 16 Rate Blood Pressure 112/54 O2 Sat by Pulse 93 95 Oximetry 09/09/18 09/09/18 10:37 12:13 Temperature 97.9 F Pulse Rate 88 86 Respiratory 18 Rate Blood Pressure 144/71 123/67 O2 Sat by Pulse 94 Oximetry Constitutional: no acute distress, other (middle aged AAM, normocephalic and atraumatic with mildly increased respiratory effort at rest) Eyes: non-icteric ENT: oropharynx moist, other (extubated) Neck: supple, no JVD, other (no thyromegaly) Effort: mildly labored Ascultation: Bilateral: rales (scant RLL) Percussion: Bilateral: not dull Cardiovascular: regular rate and rhythm, other (No R/M) Gastrointestinal: normoactive bowel sounds, soft, non-tender, non-distended Integumentary: normal Extremities: no cyanosis, no edema, pulses normal, no ischemia or petechiae Neurologic: non-focal exam (grossly), pupils equal and round, other (agitated) Psychiatric: other (?? mild cognitive dysfunction clinically) CBC and BMP: 09/07/18 04:20 09/09/18 05:52 ABG, PT/INR, D-dimer: ABG POC ABG pH 7.388 (7.35-7.45) 09/06/18 10:58 POC ABG pCO2 31.7 (35-45) L 09/06/18 10:58 POC ABG pO2 60 (80-105) L 09/06/18 10:58 POC ABG HCO3 19.1 (22-26 mml/L) 09/06/18 10:58 POC ABG Total CO2 20 (23-27mmol/L) 09/06/18 10:58 POC ABG O2 Sat 91 09/06/18 10:58 PT/INR, D-dimer PT 17.5 Sec. (12.2-14.9) H 09/03/18 15:01 INR 1.47 (0.87-1.13) H 09/03/18 15:01 Abnormal lab findings: Abnormal Labs 09/03/18 09/03/18 09/03/18 02:20 15:01 15:01 WBC 17.4 H RBC Hgb 10.6 L Hct MCV 111 H MCH MCHC 25 L RDW 16.5 H Plt Count 16 L* Lymph % (Auto) Lymph # Seg Neutrophils % Seg Neuts % (Manual) 84.0 H Lymphocytes % (Manual) 8.0 L Seg Neutrophils # Seg Neutrophils # Man 14.6 H Monocytes # (Manual) 1.0 H PT 17.5 H INR 1.47 H POC ABG pH POC ABG pCO2 POC ABG pO2 VBG pH Sodium Potassium Chloride Carbon Dioxide BUN Creatinine Glucose POC Glucose Hemoglobin A1c Lactic Acid 5.90 H* Calcium Phosphorus Magnesium AST Alkaline Phosphatase Total Creatine Kinase CK-MB (CK-2) CK-MB (CK-2) Rel Index Troponin T C-Reactive Protein Total Protein Albumin 09/03/18 09/03/18 09/03/18 15:01 15:01 15:16 WBC RBC Hgb Hct MCV MCH MCHC RDW Plt Count Lymph % (Auto) Lymph # Seg Neutrophils % Seg Neuts % (Manual) Lymphocytes % (Manual) Seg Neutrophils # Seg Neutrophils # Man Monocytes # (Manual) PT INR POC ABG pH 7.020 L POC ABG pCO2 < 30 L POC ABG pO2 139 H VBG pH 7.049 L* Sodium 110 L* Potassium 7.5 H* Chloride 61.0 L Carbon Dioxide 6 L* BUN 77 H Creatinine 4.3 H Glucose 1968 H* POC Glucose Hemoglobin A1c Lactic Acid Calcium 7.3 L Phosphorus Magnesium AST Alkaline Phosphatase Total Creatine Kinase 203 H CK-MB (CK-2) 8.9 H CK-MB (CK-2) Rel Index 4.3 H Troponin T 0.058 H C-Reactive Protein Total Protein Albumin 09/03/18 09/03/18 09/03/18 18:10 18:10 18:10 WBC RBC Hgb Hct MCV MCH MCHC RDW Plt Count Lymph % (Auto) Lymph # Seg Neutrophils % Seg Neuts % (Manual) Lymphocytes % (Manual) Seg Neutrophils # Seg Neutrophils # Man Monocytes # (Manual) PT INR POC ABG pH POC ABG pCO2 POC ABG pO2 VBG pH Sodium Potassium Chloride Carbon Dioxide BUN Creatinine Glucose POC Glucose Hemoglobin A1c Lactic Acid Calcium Phosphorus 8.80 H Magnesium 2.90 H AST 64 H Alkaline Phosphatase 205 H Total Creatine Kinase 289 H CK-MB (CK-2) 13.4 H CK-MB (CK-2) Rel Index 4.6 H Troponin T 0.142 H* D C-Reactive Protein Total Protein 5.6 L Albumin 3.2 L 09/03/18 09/03/18 09/03/18 18:10 18:33 20:15 WBC RBC Hgb Hct MCV MCH MCHC RDW Plt Count Lymph % (Auto) Lymph # Seg Neutrophils % Seg Neuts % (Manual) Lymphocytes % (Manual) Seg Neutrophils # Seg Neutrophils # Man Monocytes # (Manual) PT INR POC ABG pH 7.047 L POC ABG pCO2 POC ABG pO2 VBG pH Sodium 113 L* Potassium Chloride 70.1 L Carbon Dioxide 8 L* BUN 76 H Creatinine 4.3 H Glucose 1844 H* POC Glucose Hemoglobin A1c Lactic Acid Calcium 6.8 L Phosphorus Magnesium AST Alkaline Phosphatase Total Creatine Kinase 293 H CK-MB (CK-2) 13.0 H CK-MB (CK-2) Rel Index 4.4 H Troponin T 0.126 H* C-Reactive Protein Total Protein Albumin 09/03/18 09/03/18 09/03/18 20:15 20:15 20:15 WBC RBC Hgb Hct MCV MCH MCHC RDW Plt Count Lymph % (Auto) Lymph # Seg Neutrophils % Seg Neuts % (Manual) Lymphocytes % (Manual) Seg Neutrophils # Seg Neutrophils # Man Monocytes # (Manual) PT INR POC ABG pH POC ABG pCO2 POC ABG pO2 VBG pH Sodium 116 L* Potassium Chloride 74.3 L Carbon Dioxide 11 L BUN 76 H Creatinine 4.4 H Glucose 1786 H* POC Glucose Hemoglobin A1c Lactic Acid 4.10 H* Calcium 6.4 L Phosphorus 9.00 H Magnesium 2.80 H AST Alkaline Phosphatase Total Creatine Kinase CK-MB (CK-2) CK-MB (CK-2) Rel Index Troponin T C-Reactive Protein Total Protein Albumin 09/03/18 09/03/18 09/03/18 20:18 22:00 22:54 WBC RBC Hgb Hct MCV MCH MCHC RDW Plt Count Lymph % (Auto) Lymph # Seg Neutrophils % Seg Neuts % (Manual) Lymphocytes % (Manual) Seg Neutrophils # Seg Neutrophils # Man Monocytes # (Manual) PT INR POC ABG pH POC ABG pCO2 POC ABG pO2 VBG pH Sodium 120 L Potassium Chloride 82.7 L Carbon Dioxide 11 L BUN 74 H Creatinine 4.3 H Glucose 1144 H* POC Glucose > 500 H Hemoglobin A1c Lactic Acid 5.00 H* Calcium 6.0 L Phosphorus Magnesium AST Alkaline Phosphatase Total Creatine Kinase CK-MB (CK-2) CK-MB (CK-2) Rel Index Troponin T C-Reactive Protein Total Protein Albumin 0709/03/18 09/04/18 23:18 23:47 00:20 WBC RBC Hgb Hct MCV MCH MCHC RDW Plt Count Lymph % (Auto) Lymph # Seg Neutrophils % Seg Neuts % (Manual) Lymphocytes % (Manual) Seg Neutrophils # Seg Neutrophils # Man Monocytes # (Manual) PT INR POC ABG pH 7.279 L POC ABG pCO2 POC ABG pO2 230 H VBG pH Sodium 124 L Potassium Chloride 88.7 L Carbon Dioxide 13 L BUN 70 H Creatinine 4.3 H Glucose 1295 H* POC Glucose > 500 H Hemoglobin A1c Lactic Acid Calcium 5.8 L* Phosphorus Magnesium AST Alkaline Phosphatase Total Creatine Kinase CK-MB (CK-2) CK-MB (CK-2) Rel Index Troponin T C-Reactive Protein Total Protein Albumin 09/04/18 09/04/18 09/04/18 01:06 02:20 02:28 WBC RBC Hgb Hct MCV MCH MCHC RDW Plt Count Lymph % (Auto) Lymph # Seg Neutrophils % Seg Neuts % (Manual) Lymphocytes % (Manual) Seg Neutrophils # Seg Neutrophils # Man Monocytes # (Manual) PT INR POC ABG pH POC ABG pCO2 POC ABG pO2 VBG pH Sodium 127 L Potassium Chloride 91.1 L Carbon Dioxide 15 L BUN 72 H Creatinine 4.4 H Glucose 1156 H* POC Glucose > 500 H > 500 H Hemoglobin A1c Lactic Acid Calcium 6.1 L Phosphorus Magnesium AST Alkaline Phosphatase Total Creatine Kinase CK-MB (CK-2) CK-MB (CK-2) Rel Index Troponin T C-Reactive Protein Total Protein Albumin 09/04/18 09/04/18 09/04/18 04:35 05:25 06:15 WBC RBC Hgb Hct MCV MCH MCHC RDW Plt Count Lymph % (Auto) Lymph # Seg Neutrophils % Seg Neuts % (Manual) Lymphocytes % (Manual) Seg Neutrophils # Seg Neutrophils # Man Monocytes # (Manual) PT INR POC ABG pH POC ABG pCO2 POC ABG pO2 160 H VBG pH Sodium 134 L D Potassium Chloride Carbon Dioxide 17 L BUN 67 H Creatinine 4.4 H Glucose 871 H* POC Glucose > 500 H Hemoglobin A1c Lactic Acid Calcium 6.6 L Phosphorus Magnesium AST Alkaline Phosphatase Total Creatine Kinase CK-MB (CK-2) CK-MB (CK-2) Rel Index Troponin T C-Reactive Protein Total Protein Albumin 09/04/18 09/04/1809/04/19 09:04 09:15 09:15 WBC 13.1 H RBC Hgb 9.8 L Hct 30.0 L D MCV 82 L MCH 27 L MCHC RDW Plt Count Lymph % (Auto) Lymph # Seg Neutrophils % Seg Neuts % (Manual) Lymphocytes % (Manual) Seg Neutrophils # Seg Neutrophils # Man Monocytes # (Manual) PT INR POC ABG pH POC ABG pCO2 POC ABG pO2 VBG pH Sodium Potassium Chloride Carbon Dioxide 17 L BUN 63 H Creatinine 4.1 H Glucose 668 H* POC Glucose > 500 H Hemoglobin A1c Lactic Acid Calcium 6.4 L Phosphorus Magnesium AST Alkaline Phosphatase Total Creatine Kinase CK-MB (CK-2) CK-MB (CK-2) Rel Index Troponin T C-Reactive Protein Total Protein Albumin 09/04/18 09/04/18 09/04/18 11:26 11:53 13:44 WBC RBC Hgb Hct MCV MCH MCHC RDW Plt Count Lymph % (Auto) Lymph # Seg Neutrophils % Seg Neuts % (Manual) Lymphocytes % (Manual) Seg Neutrophils # Seg Neutrophils # Man Monocytes # (Manual) PT INR POC ABG pH POC ABG pCO2 POC ABG pO2 VBG pH Sodium Potassium Chloride Carbon Dioxide 20 L BUN 61 H Creatinine 3.9 H Glucose 472 H POC Glucose > 500 H 354 H Hemoglobin A1c Lactic Acid Calcium 6.7 L Phosphorus Magnesium AST Alkaline Phosphatase Total Creatine Kinase CK-MB (CK-2) CK-MB (CK-2) Rel Index Troponin T C-Reactive Protein Total Protein Albumin 09/04/18 09/04/18 09/04/18 14:18 15:29 16:10 WBC RBC Hgb Hct MCV MCH MCHC RDW Plt Count Lymph % (Auto) Lymph # Seg Neutrophils % Seg Neuts % (Manual) Lymphocytes % (Manual) Seg Neutrophils # Seg Neutrophils # Man Monocytes # (Manual) PT INR POC ABG pH POC ABG pCO2 30.2 L POC ABG pO2 145 H VBG pH Sodium Potassium Chloride 113.1 H Carbon Dioxide 19 L BUN 57 H Creatinine 3.3 H Glucose 113 H POC Glucose 299 H Hemoglobin A1c Lactic Acid Calcium 6.8 L Phosphorus Magnesium AST Alkaline Phosphatase Total Creatine Kinase CK-MB (CK-2) CK-MB (CK-2) Rel Index Troponin T C-Reactive Protein Total Protein Albumin 09/04/18 09/04/18 09/04/18 17:19 21:55 21:58 WBC RBC Hgb Hct MCV MCH MCHC RDW Plt Count Lymph % (Auto) Lymph # Seg Neutrophils % Seg Neuts % (Manual) Lymphocytes % (Manual) Seg Neutrophils # Seg Neutrophils # Man Monocytes # (Manual) PT INR POC ABG pH POC ABG pCO2 POC ABG pO2 VBG pH Sodium Potassium Chloride 114.0 H Carbon Dioxide 18 L BUN 52 H Creatinine 3.0 H Glucose 161 H POC Glucose 147 H 159 H Hemoglobin A1c Lactic Acid Calcium 6.7 L Phosphorus Magnesium AST Alkaline Phosphatase Total Creatine Kinase CK-MB (CK-2) CK-MB (CK-2) Rel Index Troponin T C-Reactive Protein Total Protein Albumin 09/05/18 09/05/18 09/05/18 00:08 01:44 04:13 WBC RBC Hgb Hct MCV MCH MCHC RDW Plt Count Lymph % (Auto) Lymph # Seg Neutrophils % Seg Neuts % (Manual) Lymphocytes % (Manual) Seg Neutrophils # Seg Neutrophils # Man Monocytes # (Manual) PT INR POC ABG pH POC ABG pCO2 POC ABG pO2 VBG pH Sodium Potassium Chloride Carbon Dioxide BUN Creatinine Glucose POC Glucose 235 H 224 H 253 H Hemoglobin A1c Lactic Acid Calcium Phosphorus Magnesium AST Alkaline Phosphatase Total Creatine Kinase CK-MB (CK-2) CK-MB (CK-2) Rel Index Troponin T C-Reactive Protein Total Protein Albumin 09/05/18 09/05/18 09/05/18 04:22 04:30 04:30 WBC 11.5 H RBC 3.59 L Hgb 9.9 L Hct 29.2 L MCV 81 L MCH MCHC RDW Plt Count Lymph % (Auto) Lymph # Seg Neutrophils % Seg Neuts % (Manual) Lymphocytes % (Manual) Seg Neutrophils # Seg Neutrophils # Man Monocytes # (Manual) PT INR POC ABG pH POC ABG pCO2 POC ABG pO2 133 H VBG pH Sodium Potassium Chloride 114.0 H Carbon Dioxide 18 L BUN 44 H Creatinine 2.7 H Glucose 235 H POC Glucose Hemoglobin A1c Lactic Acid Calcium 7.0 L Phosphorus 1.10 L D Magnesium AST 85 H Alkaline Phosphatase 139 H Total Creatine Kinase CK-MB (CK-2) CK-MB (CK-2) Rel Index Troponin T C-Reactive Protein Total Protein 4.6 L Albumin 2.6 L 09/05/18 09/05/18 09/05/18 05:59 08:09 10:02 WBC RBC Hgb Hct MCV MCH MCHC RDW Plt Count Lymph % (Auto) Lymph # Seg Neutrophils % Seg Neuts % (Manual) Lymphocytes % (Manual) Seg Neutrophils # Seg Neutrophils # Man Monocytes # (Manual) PT INR POC ABG pH POC ABG pCO2 POC ABG pO2 VBG pH Sodium Potassium Chloride Carbon Dioxide BUN Creatinine Glucose POC Glucose 243 H 187 H 139 H Hemoglobin A1c Lactic Acid Calcium Phosphorus Magnesium AST Alkaline Phosphatase Total Creatine Kinase CK-MB (CK-2) CK-MB (CK-2) Rel Index Troponin T C-Reactive Protein Total Protein Albumin 09/05/18 09/05/18 09/05/18 12:22 12:24 12:30 WBC RBC Hgb Hct MCV MCH MCHC RDW Plt Count Lymph % (Auto) Lymph # Seg Neutrophils % Seg Neuts % (Manual) Lymphocytes % (Manual) Seg Neutrophils # Seg Neutrophils # Man Monocytes # (Manual) PT INR POC ABG pH POC ABG pCO2 POC ABG pO2 VBG pH Sodium Potassium Chloride Carbon Dioxide BUN Creatinine Glucose POC Glucose 52 L 63 L Hemoglobin A1c Lactic Acid Calcium Phosphorus Magnesium AST Alkaline Phosphatase Total Creatine Kinase CK-MB (CK-2) CK-MB (CK-2) Rel Index Troponin T C-Reactive Protein 6.30 H Total Protein Albumin 09/05/18 09/05/18 09/06/18 16:02 Unknown 00:06 WBC RBC Hgb Hct MCV MCH MCHC RDW Plt Count Lymph % (Auto) Lymph # Seg Neutrophils % Seg Neuts % (Manual) Lymphocytes % (Manual) Seg Neutrophils # Seg Neutrophils # Man Monocytes # (Manual) PT INR POC ABG pH POC ABG pCO2 POC ABG pO2 VBG pH Sodium Potassium Chloride 112.3 H Carbon Dioxide 20 L BUN 30 H Creatinine 2.0 H Glucose 183 H POC Glucose 55 L 218 H Hemoglobin A1c Lactic Acid Calcium 7.6 L Phosphorus Magnesium AST Alkaline Phosphatase Total Creatine Kinase CK-MB (CK-2) CK-MB (CK-2) Rel Index Troponin T C-Reactive Protein Total Protein Albumin 09/06/18 09/06/18 09/06/18 04:27 04:30 05:00 WBC RBC Hgb Hct MCV MCH MCHC RDW Plt Count Lymph % (Auto) Lymph # Seg Neutrophils % Seg Neuts % (Manual) Lymphocytes % (Manual) Seg Neutrophils # Seg Neutrophils # Man Monocytes # (Manual) PT INR POC ABG pH 7.280 L POC ABG pCO2 POC ABG pO2 VBG pH Sodium Potassium Chloride 111.4 H Carbon Dioxide 20 L BUN 27 H Creatinine 1.9 H Glucose 256 H POC Glucose Hemoglobin A1c 14.6 H Lactic Acid Calcium 7.7 L Phosphorus Magnesium AST Alkaline Phosphatase Total Creatine Kinase CK-MB (CK-2) CK-MB (CK-2) Rel Index Troponin T C-Reactive Protein Total Protein Albumin 09/06/18 09/06/18 09/06/18 05:23 10:58 12:17 WBC RBC Hgb Hct MCV MCH MCHC RDW Plt Count Lymph % (Auto) Lymph # Seg Neutrophils % Seg Neuts % (Manual) Lymphocytes % (Manual) Seg Neutrophils # Seg Neutrophils # Man Monocytes # (Manual) PT INR POC ABG pH POC ABG pCO2 31.7 L POC ABG pO2 60 L VBG pH Sodium Potassium Chloride Carbon Dioxide BUN Creatinine Glucose POC Glucose 308 H 214 H Hemoglobin A1c Lactic Acid Calcium Phosphorus Magnesium AST Alkaline Phosphatase Total Creatine Kinase CK-MB (CK-2) CK-MB (CK-2) Rel Index Troponin T C-Reactive Protein Total Protein Albumin 09/06/18 09/06/18 09/06/18 18:25 21:58 23:42 WBC RBC Hgb Hct MCV MCH MCHC RDW Plt Count Lymph % (Auto) Lymph # Seg Neutrophils % Seg Neuts % (Manual) Lymphocytes % (Manual) Seg Neutrophils # Seg Neutrophils # Man Monocytes # (Manual) PT INR POC ABG pH POC ABG pCO2 POC ABG pO2 VBG pH Sodium Potassium Chloride Carbon Dioxide BUN Creatinine Glucose POC Glucose 183 H 136 H 169 H Hemoglobin A1c Lactic Acid Calcium Phosphorus Magnesium AST Alkaline Phosphatase Total Creatine Kinase CK-MB (CK-2) CK-MB (CK-2) Rel Index Troponin T C-Reactive Protein Total Protein Albumin 09/07/18 09/07/18 09/07/18 04:20 04:20 05:19 WBC RBC 3.36 L Hgb 9.2 L Hct 27.8 L MCV 83 L MCH 27 L MCHC RDW Plt Count Lymph % (Auto) 5.1 L Lymph # 0.5 L Seg Neutrophils % 87.0 H Seg Neuts % (Manual) Lymphocytes % (Manual) Seg Neutrophils # 8.5 H Seg Neutrophils # Man Monocytes # (Manual) PT INR POC ABG pH POC ABG pCO2 POC ABG pO2 VBG pH Sodium Potassium Chloride 112.3 H Carbon Dioxide BUN Creatinine Glucose 200 H POC Glucose 177 H Hemoglobin A1c Lactic Acid Calcium 8.0 L Phosphorus Magnesium AST Alkaline Phosphatase Total Creatine Kinase CK-MB (CK-2) CK-MB (CK-2) Rel Index Troponin T C-Reactive Protein Total Protein Albumin 09/07/18 09/07/18 09/07/18 11:49 17:23 17:41 WBC RBC Hgb Hct MCV MCH MCHC RDW Plt Count Lymph % (Auto) Lymph # Seg Neutrophils % Seg Neuts % (Manual) Lymphocytes % (Manual) Seg Neutrophils # Seg Neutrophils # Man Monocytes # (Manual) PT INR POC ABG pH POC ABG pCO2 POC ABG pO2 VBG pH Sodium Potassium Chloride Carbon Dioxide BUN Creatinine Glucose POC Glucose 120 H 224 H 227 H Hemoglobin A1c Lactic Acid Calcium Phosphorus Magnesium AST Alkaline Phosphatase Total Creatine Kinase CK-MB (CK-2) CK-MB (CK-2) Rel Index Troponin T C-Reactive Protein Total Protein Albumin 09/07/18 09/08/18 09/08/18 23:11 06:15 07:13 WBC RBC Hgb Hct MCV MCH MCHC RDW Plt Count Lymph % (Auto) Lymph # Seg Neutrophils % Seg Neuts % (Manual) Lymphocytes % (Manual) Seg Neutrophils # Seg Neutrophils # Man Monocytes # (Manual) PT INR POC ABG pH POC ABG pCO2 POC ABG pO2 VBG pH Sodium 146 H Potassium Chloride 112.9 H Carbon Dioxide BUN Creatinine Glucose 117 H POC Glucose 156 H 128 H Hemoglobin A1c Lactic Acid Calcium 8.0 L Phosphorus Magnesium AST Alkaline Phosphatase Total Creatine Kinase CK-MB (CK-2) CK-MB (CK-2) Rel Index Troponin T C-Reactive Protein Total Protein Albumin 09/08/18 09/08/18 09/08/18 11:42 23:03 23:43 WBC RBC Hgb Hct MCV MCH MCHC RDW Plt Count Lymph % (Auto) Lymph # Seg Neutrophils % Seg Neuts % (Manual) Lymphocytes % (Manual) Seg Neutrophils # Seg Neutrophils # Man Monocytes # (Manual) PT INR POC ABG pH POC ABG pCO2 POC ABG pO2 VBG pH Sodium Potassium Chloride Carbon Dioxide BUN Creatinine Glucose POC Glucose 128 H 172 H 188 H Hemoglobin A1c Lactic Acid Calcium Phosphorus Magnesium AST Alkaline Phosphatase Total Creatine Kinase CK-MB (CK-2) CK-MB (CK-2) Rel Index Troponin T C-Reactive Protein Total Protein Albumin 09/09/18 09/09/18 09/09/18 05:44 05:52 11:24 WBC RBC Hgb Hct MCV MCH MCHC RDW Plt Count Lymph % (Auto) Lymph # Seg Neutrophils % Seg Neuts % (Manual) Lymphocytes % (Manual) Seg Neutrophils # Seg Neutrophils # Man Monocytes # (Manual) PT INR POC ABG pH POC ABG pCO2 POC ABG pO2 VBG pH Sodium Potassium 3.4 L Chloride 108.8 H Carbon Dioxide BUN Creatinine Glucose 116 H POC Glucose 112 H 257 H Hemoglobin A1c Lactic Acid Calcium 7.9 L Phosphorus 2.30 L Magnesium AST Alkaline Phosphatase Total Creatine Kinase CK-MB (CK-2) CK-MB (CK-2) Rel Index Troponin T C-Reactive Protein Total Protein Albumin Allied health notes reviewed: nursing
[2018-09-09] MEDS: ROCEPHIN/NS 2 GM/100 ML 2 GM/100 ML BAG IV SCH (17:56)
[2018-09-09] MEDS: LOVENOX SUB-Q SCH (21:48)
[2018-09-09] MEDS: LANTUS SUB-Q SCH (21:52)
[2018-09-10 02:28] LABS: BUN/Creatinine Ratio 9; Blood Urea Nitrogen 9 mg/dL (9-20); Calcium 7.6 mg/dL (8.4-10.2); Hemolysis Index 7
[2018-09-10] MEDS: HumuLIN R SUB-Q SCH ×4 (06:46→17:52)
--- NOTE | 2018-09-10 09:28 | Cat Scan Report ---
CT HEAD WITHOUT CONTRAST INDICATION : Altered mental status. Headache and dizziness for 3 days TECHNIQUE: Axial imaging performed from the skull apex through the skull base without the use of con trast. All CT scans at this location are performed using CT dose reduction for ALARA by means of aut omated exposure control. COMPARISON: None FINDINGS: Parenchyma: No acute intracranial hemorrhage or parenchymal abnormality. Ventricles: Ventricles are normal in size and appear symmetric. Soft tissues: Soft tissues including the orbits appear normal. Bones: No acute osseous abnormality. Sinuses: Mild mucosal thickening is identified in the visualized maxillary, sphenoid and ethmoid sin uses. There is moderate fluid within the ethmoid sinuses as well. The mastoid air cells are well-aera chula. IMPRESSION: Unremarkable CT brain. Mild to moderate sinus disease as described. Correlate for ethmoid sinusitis. Signer Name: Ceferino Bronson Jr, MD Signed: 09/10/2018 9:24 AM Workstation Name: [id number]
[2018-09-10] MEDS: FOLVITE PO SCH (10:10)
[2018-09-10] MEDS: COREG PO SCH ×2 (10:10→22:07)
[2018-09-10] MEDS: VITAMIN B-1 PO SCH (10:10)
[2018-09-10] MEDS: THERAGRAN Tab PO SCH (10:10)
[2018-09-10] MEDS: MUCINEX ER PO SCH ×2 (10:10→22:07)
[2018-09-10] MEDS: PEPCID IV SCH ×2 (10:11→22:07)
--- NOTE | 2018-09-10 11:31 | Progress Note ---
Assessment and Plan Stable cardiac status. We'll sign off and see PRN. He may follow-up at our office in a couple of weeks. - Patient Problems (1) DKA (diabetic ketoacidoses) Current Visit: Yes Status: Resolved Qualifiers: Diabetes mellitus type: type 1 Diabetes mellitus complication detail: with coma Qualified Code(s): E10.11 - Type 1 diabetes mellitus with ketoacidosis with coma (2) Acute respiratory failure Current Visit: Yes Status: Resolved Qualifiers: Respiratory failure complication: hypoxia Qualified Code(s): J96.01 - Acute respiratory failure with hypoxia (3) Non-STEMI (non-ST elevated myocardial infarction) Current Visit: Yes Status: Resolved (4) Nonischemic cardiomyopathy Current Visit: Yes Status: Acute (5) KYLE (acute kidney injury) Current Visit: Yes Status: Resolved (6) Elevated troponin Current Visit: Yes Status: Acute (7) Encephalopathy Current Visit: Yes Status: Resolved (8) Sepsis Current Visit: Yes Status: Resolved Qualifiers: Sepsis type: sepsis due to unspecified organism Qualified Code(s): A41.9 - Sepsis, unspecified organism (9) Normal coronary arteries Current Visit: Yes Status: Chronic Subjective Date of service: 09/10/18 Principal diagnosis: DKA, Acute resp failure, NSTEMI, NICMP, KYLE, Sepsis Interval history: No complaint. Objective Vital Signs Temp Pulse Resp BP Pulse Ox 09/10/18 10:10 85 135/76 09/10/18 09:08 97 09/10/18 07:39 16 09/10/18 06:28 99.2 F 96 H 18 122/65 94 09/10/18 00:23 98.4 F 93 H 18 124/67 92 09/09/18 22:41 94 09/09/18 21:45 99.3 F 90 18 134/69 94 09/09/18 18:20 94 09/09/18 17:37 98.0 F 88 16 118/40 90 09/09/18 16:14 86 09/09/18 12:13 97.9 F 86 18 123/67 94 - Physical Examination General: No Apparent Distress HEENT: Positive: EOMI, Normocephaly, Mucus Membranes Moist Neck: Positive: neck supple, trachea midline Cardiac: Positive: Reg Rate and Rhythm, S1/S2 Lungs: Positive: clear to auscultation Neuro: Positive: Grossly Intact Abdomen: Positive: Soft, Active Bowel Sounds. Negative: Tender Skin: Positive: Clear. Negative: Rash Musculoskeletal: Normal Range of Motion Extremities: Present: edema (trace pitting bilateral leg edema) - Labs and Meds Comprehensive Metabolic Panel 09/09/18 09/09/18 Range/Units 01:30 05:52 Sodium 141 143 (137-145) mmol/L Potassium 3.5 L 3.4 L (3.6-5.0) mmol/L Chloride 107.2 H 108.8 H (98-107) mmol/L Carbon Dioxide 26 27 (22-30) mmol/L BUN 9 11 (9-20) mg/dL Creatinine 1.0 1.2 (0.8-1.5) mg/dL Glucose 128 H 116 H (75-100) mg/dL Calcium 7.6 L 7.9 L (8.4-10.2) mg/dL - Imaging and Cardiology Cardiac cath: report reviewed (normal coronaries, normal EF) - EKG Sinus rhythms and dysrhythmias: sinus rhythm Myocardial infarction: anterior KS (acute or rec - Allied health notes Allied health notes reviewed: nursing
[2018-09-10] MEDS: VANCOMYCIN/NS 1 GM/250 ML 1 GM/250 ML BAG IV SCH ×2 (11:35→22:07)
[2018-09-10] MEDS: SODIUM CHLORIDE FLUSH SYRINGE 10 ML IV SCH ×2 (11:36→22:07)
--- NOTE | 2018-09-10 16:46 | Progress Note ---
Assessment and Plan Patient sleeping on 2 L O2 and O2 saturation 96%. Patient complaining non productive cough. No acute respiratory distress. Patient has history of smoking. Still smoking before admitted to the hospital. Counselled to stop smoking. Patient is afebrile. No leukocytosis. Chest xray bibasilar infiltrates, pneumonia vs Atelectasis. Patient is on ceftriaxone and vancomycin. Repeat CXR PA and lateral tomorrow. - Patient Problems (1) DKA (diabetic ketoacidoses) Current Visit: Yes Status: Resolved Qualifiers: Diabetes mellitus type: type 1 Diabetes mellitus complication detail: with coma Qualified Code(s): E10.11 - Type 1 diabetes mellitus with ketoacidosis with coma Plan to address problem: Management as per primary care. (2) Acute renal failure Current Visit: Yes Status: Acute Qualifiers: Acute renal failure type: with acute tubular necrosis Qualified Code(s): N17.0 - Acute kidney failure with tubular necrosis Plan to address problem: Management as per nephrology. (3) Tobacco use disorder Current Visit: Yes Status: Acute Plan to address problem: Counselled to stop smoking. PFTs as out patient. Albuterol/atrovent aerosol treatments q 6 hours. (4) Encephalopathy Current Visit: Yes Status: Resolved Plan to address problem: Management as per primary care. (5) Bilateral pulmonary infiltrates on chest x-ray Current Visit: Yes Status: Acute Plan to address problem: Patient is on ceftriaxone and vancomycin Repeat CXR PA and lateral tomorrow. Subjective Date of service: 09/10/18 Principal diagnosis: DKA, Acute resp failure, NSTEMI, NICMP, KYLE, Sepsis Interval history: Patient sleeping on 2 L O2 and O2 saturation 96%. Patient complaining non productive cough. No acute respiratory distress. Patient has history of smoking. Still smoking before admitted to the hospital. Counselled to stop smoking. Patient is afebrile. No leukocytosis. Chest xray bibasilar infiltrates, pneumonia vs Atelectasis. Patient is on ceftriaxone and vancomycin. Repeat CXR PA and lateral tomorrow. Objective Vital Signs - 12hr 09/10/18 09/10/18 09/10/18 06:28 07:39 09:08 Temperature 99.2 F Pulse Rate 96 H Respiratory 18 16 Rate Blood Pressure 122/65 O2 Sat by Pulse 94 97 Oximetry 09/10/18 09/10/18 09/10/18 10:08 10:10 11:43 Temperature 98.6 F Pulse Rate 85 85 Respiratory 18 Rate Blood Pressure 135/76 135/76 133/85 O2 Sat by Pulse 96 Oximetry Constitutional: no acute distress, other (middle aged AAM, normocephalic and atraumatic with mildly increased respiratory effort at rest) Eyes: non-icteric ENT: oropharynx moist, other (extubated) Neck: supple, no JVD, other (no thyromegaly) Effort: mildly labored Ascultation: Bilateral: rales (scant RLL) Percussion: Bilateral: not dull Cardiovascular: regular rate and rhythm, other (No R/M) Gastrointestinal: normoactive bowel sounds, soft, non-tender, non-distended Integumentary: normal Extremities: no cyanosis, no edema, pulses normal, no ischemia or petechiae Neurologic: non-focal exam (grossly), pupils equal and round, other (agitated) Psychiatric: other (?? mild cognitive dysfunction clinically) CBC and BMP: 09/07/18 04:20 09/09/18 05:52 ABG, PT/INR, D-dimer: ABG POC ABG pH 7.388 (7.35-7.45) 09/06/18 10:58 POC ABG pCO2 31.7 (35-45) L 09/06/18 10:58 POC ABG pO2 60 (80-105) L 09/06/18 10:58 POC ABG HCO3 19.1 (22-26 mml/L) 09/06/18 10:58 POC ABG Total CO2 20 (23-27mmol/L) 09/06/18 10:58 POC ABG O2 Sat 91 09/06/18 10:58 PT/INR, D-dimer PT 17.5 Sec. (12.2-14.9) H 09/03/18 15:01 INR 1.47 (0.87-1.13) H 09/03/18 15:01 Abnormal lab findings: Abnormal Labs 09/03/18 09/03/18 09/03/18 02:20 15:01 15:01 WBC 17.4 H RBC Hgb 10.6 L Hct MCV 111 H MCH MCHC 25 L RDW 16.5 H Plt Count 16 L* Lymph % (Auto) Lymph # Seg Neutrophils % Seg Neuts % (Manual) 84.0 H Lymphocytes % (Manual) 8.0 L Seg Neutrophils # Seg Neutrophils # Man 14.6 H Monocytes # (Manual) 1.0 H PT 17.5 H INR 1.47 H POC ABG pH POC ABG pCO2 POC ABG pO2 VBG pH Sodium Potassium Chloride Carbon Dioxide BUN Creatinine Glucose POC Glucose Hemoglobin A1c Lactic Acid 5.90 H* Calcium Phosphorus Magnesium AST Alkaline Phosphatase Total Creatine Kinase CK-MB (CK-2) CK-MB (CK-2) Rel Index Troponin T C-Reactive Protein Total Protein Albumin 09/03/18 09/03/18 09/03/18 15:01 15:01 15:03 WBC RBC Hgb Hct MCV MCH MCHC RDW Plt Count Lymph % (Auto) Lymph # Seg Neutrophils % Seg Neuts % (Manual) Lymphocytes % (Manual) Seg Neutrophils # Seg Neutrophils # Man Monocytes # (Manual) PT INR POC ABG pH POC ABG pCO2 POC ABG pO2 VBG pH 7.049 L* Sodium 110 L* Potassium 7.5 H* Chloride 61.0 L Carbon Dioxide 6 L* BUN 77 H Creatinine 4.3 H Glucose 1968 H* POC Glucose > 500 H Hemoglobin A1c Lactic Acid Calcium 7.3 L Phosphorus Magnesium AST Alkaline Phosphatase Total Creatine Kinase 203 H CK-MB (CK-2) 8.9 H CK-MB (CK-2) Rel Index 4.3 H Troponin T 0.058 H C-Reactive Protein Total Protein Albumin 09/03/18 09/03/18 09/03/18 15:16 18:10 18:10 WBC RBC Hgb Hct MCV MCH MCHC RDW Plt Count Lymph % (Auto) Lymph # Seg Neutrophils % Seg Neuts % (Manual) Lymphocytes % (Manual) Seg Neutrophils # Seg Neutrophils # Man Monocytes # (Manual) PT INR POC ABG pH 7.020 L POC ABG pCO2 < 30 L POC ABG pO2 139 H VBG pH Sodium Potassium Chloride Carbon Dioxide BUN Creatinine Glucose POC Glucose Hemoglobin A1c Lactic Acid Calcium Phosphorus Magnesium AST 64 H Alkaline Phosphatase 205 H Total Creatine Kinase 289 H CK-MB (CK-2) 13.4 H CK-MB (CK-2) Rel Index 4.6 H Troponin T 0.142 H* D C-Reactive Protein Total Protein 5.6 L Albumin 3.2 L 09/03/18 09/03/18 09/03/18 18:10 18:10 18:33 WBC RBC Hgb Hct MCV MCH MCHC RDW Plt Count Lymph % (Auto) Lymph # Seg Neutrophils % Seg Neuts % (Manual) Lymphocytes % (Manual) Seg Neutrophils # Seg Neutrophils # Man Monocytes # (Manual) PT INR POC ABG pH 7.047 L POC ABG pCO2 POC ABG pO2 VBG pH Sodium 113 L* Potassium Chloride 70.1 L Carbon Dioxide 8 L* BUN 76 H Creatinine 4.3 H Glucose 1844 H* POC Glucose Hemoglobin A1c Lactic Acid Calcium 6.8 L Phosphorus 8.80 H Magnesium 2.90 H AST Alkaline Phosphatase Total Creatine Kinase CK-MB (CK-2) CK-MB (CK-2) Rel Index Troponin T C-Reactive Protein Total Protein Albumin 09/03/18 09/03/18 09/03/18 20:15 20:15 20:15 WBC RBC Hgb Hct MCV MCH MCHC RDW Plt Count Lymph % (Auto) Lymph # Seg Neutrophils % Seg Neuts % (Manual) Lymphocytes % (Manual) Seg Neutrophils # Seg Neutrophils # Man Monocytes # (Manual) PT INR POC ABG pH POC ABG pCO2 POC ABG pO2 VBG pH Sodium Potassium Chloride Carbon Dioxide BUN Creatinine Glucose POC Glucose Hemoglobin A1c Lactic Acid 4.10 H* Calcium Phosphorus 9.00 H Magnesium 2.80 H AST Alkaline Phosphatase Total Creatine Kinase 293 H CK-MB (CK-2) 13.0 H CK-MB (CK-2) Rel Index 4.4 H Troponin T 0.126 H* C-Reactive Protein Total Protein Albumin 09/03/18 09/03/18 09/03/18 20:15 20:18 22:00 WBC RBC Hgb Hct MCV MCH MCHC RDW Plt Count Lymph % (Auto) Lymph # Seg Neutrophils % Seg Neuts % (Manual) Lymphocytes % (Manual) Seg Neutrophils # Seg Neutrophils # Man Monocytes # (Manual) PT INR POC ABG pH POC ABG pCO2 POC ABG pO2 VBG pH Sodium 116 L* 120 L Potassium Chloride 74.3 L 82.7 L Carbon Dioxide 11 L 11 L BUN 76 H 74 H Creatinine 4.4 H 4.3 H Glucose 1786 H* 1144 H* POC Glucose > 500 H Hemoglobin A1c Lactic Acid Calcium 6.4 L 6.0 L Phosphorus Magnesium AST Alkaline Phosphatase Total Creatine Kinase CK-MB (CK-2) CK-MB (CK-2) Rel Index Troponin T C-Reactive Protein Total Protein Albumin 09/03/18 09/03/18 09/03/18 22:54 23:18 23:47 WBC RBC Hgb Hct MCV MCH MCHC RDW Plt Count Lymph % (Auto) Lymph # Seg Neutrophils % Seg Neuts % (Manual) Lymphocytes % (Manual) Seg Neutrophils # Seg Neutrophils # Man Monocytes # (Manual) PT INR POC ABG pH 7.279 L POC ABG pCO2 POC ABG pO2 230 H VBG pH Sodium Potassium Chloride Carbon Dioxide BUN Creatinine Glucose POC Glucose > 500 H Hemoglobin A1c Lactic Acid 5.00 H* Calcium Phosphorus Magnesium AST Alkaline Phosphatase Total Creatine Kinase CK-MB (CK-2) CK-MB (CK-2) Rel Index Troponin T C-Reactive Protein Total Protein Albumin 09/04/18 09/04/18 09/04/18 00:20 01:06 02:20 WBC RBC Hgb Hct MCV MCH MCHC RDW Plt Count Lymph % (Auto) Lymph # Seg Neutrophils % Seg Neuts % (Manual) Lymphocytes % (Manual) Seg Neutrophils # Seg Neutrophils # Man Monocytes # (Manual) PT INR POC ABG pH POC ABG pCO2 POC ABG pO2 VBG pH Sodium 124 L 127 L Potassium Chloride 88.7 L 91.1 L Carbon Dioxide 13 L 15 L BUN 70 H 72 H Creatinine 4.3 H 4.4 H Glucose 1295 H* 1156 H* POC Glucose > 500 H Hemoglobin A1c Lactic Acid Calcium 5.8 L* 6.1 L Phosphorus Magnesium AST Alkaline Phosphatase Total Creatine Kinase CK-MB (CK-2) CK-MB (CK-2) Rel Index Troponin T C-Reactive Protein Total Protein Albumin 09/04/18 09/04/18 09/04/18 02:28 04:35 05:25 WBC RBC Hgb Hct MCV MCH MCHC RDW Plt Count Lymph % (Auto) Lymph # Seg Neutrophils % Seg Neuts % (Manual) Lymphocytes % (Manual) Seg Neutrophils # Seg Neutrophils # Man Monocytes # (Manual) PT INR POC ABG pH POC ABG pCO2 POC ABG pO2 160 H VBG pH Sodium Potassium Chloride Carbon Dioxide BUN Creatinine Glucose POC Glucose > 500 H > 500 H Hemoglobin A1c Lactic Acid Calcium Phosphorus Magnesium AST Alkaline Phosphatase Total Creatine Kinase CK-MB (CK-2) CK-MB (CK-2) Rel Index Troponin T C-Reactive Protein Total Protein Albumin 09/04/18 09/04/18 09/04/18 06:15 09:04 09:15 WBC RBC Hgb Hct MCV MCH MCHC RDW Plt Count Lymph % (Auto) Lymph # Seg Neutrophils % Seg Neuts % (Manual) Lymphocytes % (Manual) Seg Neutrophils # Seg Neutrophils # Man Monocytes # (Manual) PT INR POC ABG pH POC ABG pCO2 POC ABG pO2 VBG pH Sodium 134 L D Potassium Chloride Carbon Dioxide 17 L 17 L BUN 67 H 63 H Creatinine 4.4 H 4.1 H Glucose 871 H* 668 H* POC Glucose > 500 H Hemoglobin A1c Lactic Acid Calcium 6.6 L 6.4 L Phosphorus Magnesium AST Alkaline Phosphatase Total Creatine Kinase CK-MB (CK-2) CK-MB (CK-2) Rel Index Troponin T C-Reactive Protein Total Protein Albumin 09/04/18 09/04/18 09/04/18 09:15 11:26 11:53 WBC 13.1 H RBC Hgb 9.8 L Hct 30.0 L D MCV 82 L MCH 27 L MCHC RDW Plt Count Lymph % (Auto) Lymph # Seg Neutrophils % Seg Neuts % (Manual) Lymphocytes % (Manual) Seg Neutrophils # Seg Neutrophils # Man Monocytes # (Manual) PT INR POC ABG pH POC ABG pCO2 POC ABG pO2 VBG pH Sodium Potassium Chloride Carbon Dioxide 20 L BUN 61 H Creatinine 3.9 H Glucose 472 H POC Glucose > 500 H Hemoglobin A1c Lactic Acid Calcium 6.7 L Phosphorus Magnesium AST Alkaline Phosphatase Total Creatine Kinase CK-MB (CK-2) CK-MB (CK-2) Rel Index Troponin T C-Reactive Protein Total Protein Albumin 09/04/18 09/04/18 09/04/18 13:44 14:18 15:29 WBC RBC Hgb Hct MCV MCH MCHC RDW Plt Count Lymph % (Auto) Lymph # Seg Neutrophils % Seg Neuts % (Manual) Lymphocytes % (Manual) Seg Neutrophils # Seg Neutrophils # Man Monocytes # (Manual) PT INR POC ABG pH POC ABG pCO2 30.2 L POC ABG pO2 145 H VBG pH Sodium Potassium Chloride Carbon Dioxide BUN Creatinine Glucose POC Glucose 354 H 299 H Hemoglobin A1c Lactic Acid Calcium Phosphorus Magnesium AST Alkaline Phosphatase Total Creatine Kinase CK-MB (CK-2) CK-MB (CK-2) Rel Index Troponin T C-Reactive Protein Total Protein Albumin 0709/04/18 09/04/18 16:10 17:19 21:55 WBC RBC Hgb Hct MCV MCH MCHC RDW Plt Count Lymph % (Auto) Lymph # Seg Neutrophils % Seg Neuts % (Manual) Lymphocytes % (Manual) Seg Neutrophils # Seg Neutrophils # Man Monocytes # (Manual) PT INR POC ABG pH POC ABG pCO2 POC ABG pO2 VBG pH Sodium Potassium Chloride 113.1 H 114.0 H Carbon Dioxide 19 L 18 L BUN 57 H 52 H Creatinine 3.3 H 3.0 H Glucose 113 H 161 H POC Glucose 147 H Hemoglobin A1c Lactic Acid Calcium 6.8 L 6.7 L Phosphorus Magnesium AST Alkaline Phosphatase Total Creatine Kinase CK-MB (CK-2) CK-MB (CK-2) Rel Index Troponin T C-Reactive Protein Total Protein Albumin 09/04/18 09/05/18 09/05/18 21:58 00:08 01:44 WBC RBC Hgb Hct MCV MCH MCHC RDW Plt Count Lymph % (Auto) Lymph # Seg Neutrophils % Seg Neuts % (Manual) Lymphocytes % (Manual) Seg Neutrophils # Seg Neutrophils # Man Monocytes # (Manual) PT INR POC ABG pH POC ABG pCO2 POC ABG pO2 VBG pH Sodium Potassium Chloride Carbon Dioxide BUN Creatinine Glucose POC Glucose 159 H 235 H 224 H Hemoglobin A1c Lactic Acid Calcium Phosphorus Magnesium AST Alkaline Phosphatase Total Creatine Kinase CK-MB (CK-2) CK-MB (CK-2) Rel Index Troponin T C-Reactive Protein Total Protein Albumin 09/05/18 09/05/18 09/05/18 04:13 04:22 04:30 WBC 11.5 H RBC 3.59 L Hgb 9.9 L Hct 29.2 L MCV 81 L MCH MCHC RDW Plt Count Lymph % (Auto) Lymph # Seg Neutrophils % Seg Neuts % (Manual) Lymphocytes % (Manual) Seg Neutrophils # Seg Neutrophils # Man Monocytes # (Manual) PT INR POC ABG pH POC ABG pCO2 < 30 L POC ABG pO2 133 H VBG pH Sodium Potassium Chloride Carbon Dioxide BUN Creatinine Glucose POC Glucose 253 H Hemoglobin A1c Lactic Acid Calcium Phosphorus Magnesium AST Alkaline Phosphatase Total Creatine Kinase CK-MB (CK-2) CK-MB (CK-2) Rel Index Troponin T C-Reactive Protein Total Protein Albumin 09/05/18 09/05/18 09/05/18 04:30 05:59 08:09 WBC RBC Hgb Hct MCV MCH MCHC RDW Plt Count Lymph % (Auto) Lymph # Seg Neutrophils % Seg Neuts % (Manual) Lymphocytes % (Manual) Seg Neutrophils # Seg Neutrophils # Man Monocytes # (Manual) PT INR POC ABG pH POC ABG pCO2 POC ABG pO2 VBG pH Sodium Potassium Chloride 114.0 H Carbon Dioxide 18 L BUN 44 H Creatinine 2.7 H Glucose 235 H POC Glucose 243 H 187 H Hemoglobin A1c Lactic Acid Calcium 7.0 L Phosphorus 1.10 L D Magnesium AST 85 H Alkaline Phosphatase 139 H Total Creatine Kinase CK-MB (CK-2) CK-MB (CK-2) Rel Index Troponin T C-Reactive Protein Total Protein 4.6 L Albumin 2.6 L 09/05/18 09/05/18 09/05/18 10:02 12:22 12:24 WBC RBC Hgb Hct MCV MCH MCHC RDW Plt Count Lymph % (Auto) Lymph # Seg Neutrophils % Seg Neuts % (Manual) Lymphocytes % (Manual) Seg Neutrophils # Seg Neutrophils # Man Monocytes # (Manual) PT INR POC ABG pH POC ABG pCO2 POC ABG pO2 VBG pH Sodium Potassium Chloride Carbon Dioxide BUN Creatinine Glucose POC Glucose 139 H 52 L 63 L Hemoglobin A1c Lactic Acid Calcium Phosphorus Magnesium AST Alkaline Phosphatase Total Creatine Kinase CK-MB (CK-2) CK-MB (CK-2) Rel Index Troponin T C-Reactive Protein Total Protein Albumin 09/05/18 09/05/18 09/05/18 12:30 16:02 Unknown WBC RBC Hgb Hct MCV MCH MCHC RDW Plt Count Lymph % (Auto) Lymph # Seg Neutrophils % Seg Neuts % (Manual) Lymphocytes % (Manual) Seg Neutrophils # Seg Neutrophils # Man Monocytes # (Manual) PT INR POC ABG pH POC ABG pCO2 POC ABG pO2 VBG pH Sodium Potassium Chloride 112.3 H Carbon Dioxide 20 L BUN 30 H Creatinine 2.0 H Glucose 183 H POC Glucose 55 L Hemoglobin A1c Lactic Acid Calcium 7.6 L Phosphorus Magnesium AST Alkaline Phosphatase Total Creatine Kinase CK-MB (CK-2) CK-MB (CK-2) Rel Index Troponin T C-Reactive Protein 6.30 H Total Protein Albumin 09/06/18 09/06/18 09/06/18 00:06 04:27 04:30 WBC RBC Hgb Hct MCV MCH MCHC RDW Plt Count Lymph % (Auto) Lymph # Seg Neutrophils % Seg Neuts % (Manual) Lymphocytes % (Manual) Seg Neutrophils # Seg Neutrophils # Man Monocytes # (Manual) PT INR POC ABG pH 7.280 L POC ABG pCO2 POC ABG pO2 VBG pH Sodium Potassium Chloride Carbon Dioxide BUN Creatinine Glucose POC Glucose 218 H Hemoglobin A1c 14.6 H Lactic Acid Calcium Phosphorus Magnesium AST Alkaline Phosphatase Total Creatine Kinase CK-MB (CK-2) CK-MB (CK-2) Rel Index Troponin T C-Reactive Protein Total Protein Albumin 09/06/18 09/06/18 09/06/18 05:00 05:23 10:58 WBC RBC Hgb Hct MCV MCH MCHC RDW Plt Count Lymph % (Auto) Lymph # Seg Neutrophils % Seg Neuts % (Manual) Lymphocytes % (Manual) Seg Neutrophils # Seg Neutrophils # Man Monocytes # (Manual) PT INR POC ABG pH POC ABG pCO2 31.7 L POC ABG pO2 60 L VBG pH Sodium Potassium Chloride 111.4 H Carbon Dioxide 20 L BUN 27 H Creatinine 1.9 H Glucose 256 H POC Glucose 308 H Hemoglobin A1c Lactic Acid Calcium 7.7 L Phosphorus Magnesium AST Alkaline Phosphatase Total Creatine Kinase CK-MB (CK-2) CK-MB (CK-2) Rel Index Troponin T C-Reactive Protein Total Protein Albumin 09/06/18 09/06/18 09/06/18 12:17 18:25 21:58 WBC RBC Hgb Hct MCV MCH MCHC RDW Plt Count Lymph % (Auto) Lymph # Seg Neutrophils % Seg Neuts % (Manual) Lymphocytes % (Manual) Seg Neutrophils # Seg Neutrophils # Man Monocytes # (Manual) PT INR POC ABG pH POC ABG pCO2 POC ABG pO2 VBG pH Sodium Potassium Chloride Carbon Dioxide BUN Creatinine Glucose POC Glucose 214 H 183 H 136 H Hemoglobin A1c Lactic Acid Calcium Phosphorus Magnesium AST Alkaline Phosphatase Total Creatine Kinase CK-MB (CK-2) CK-MB (CK-2) Rel Index Troponin T C-Reactive Protein Total Protein Albumin 09/06/18 09/07/18 09/07/18 23:42 04:20 04:20 WBC RBC 3.36 L Hgb 9.2 L Hct 27.8 L MCV 83 L MCH 27 L MCHC RDW Plt Count Lymph % (Auto) 5.1 L Lymph # 0.5 L Seg Neutrophils % 87.0 H Seg Neuts % (Manual) Lymphocytes % (Manual) Seg Neutrophils # 8.5 H Seg Neutrophils # Man Monocytes # (Manual) PT INR POC ABG pH POC ABG pCO2 POC ABG pO2 VBG pH Sodium Potassium Chloride 112.3 H Carbon Dioxide BUN Creatinine Glucose 200 H POC Glucose 169 H Hemoglobin A1c Lactic Acid Calcium 8.0 L Phosphorus Magnesium AST Alkaline Phosphatase Total Creatine Kinase CK-MB (CK-2) CK-MB (CK-2) Rel Index Troponin T C-Reactive Protein Total Protein Albumin 09/07/18 09/07/18 09/07/18 05:19 11:49 17:23 WBC RBC Hgb Hct MCV MCH MCHC RDW Plt Count Lymph % (Auto) Lymph # Seg Neutrophils % Seg Neuts % (Manual) Lymphocytes % (Manual) Seg Neutrophils # Seg Neutrophils # Man Monocytes # (Manual) PT INR POC ABG pH POC ABG pCO2 POC ABG pO2 VBG pH Sodium Potassium Chloride Carbon Dioxide BUN Creatinine Glucose POC Glucose 177 H 120 H 224 H Hemoglobin A1c Lactic Acid Calcium Phosphorus Magnesium AST Alkaline Phosphatase Total Creatine Kinase CK-MB (CK-2) CK-MB (CK-2) Rel Index Troponin T C-Reactive Protein Total Protein Albumin 09/07/18 09/07/18 09/08/18 17:41 23:11 06:15 WBC RBC Hgb Hct MCV MCH MCHC RDW Plt Count Lymph % (Auto) Lymph # Seg Neutrophils % Seg Neuts % (Manual) Lymphocytes % (Manual) Seg Neutrophils # Seg Neutrophils # Man Monocytes # (Manual) PT INR POC ABG pH POC ABG pCO2 POC ABG pO2 VBG pH Sodium 146 H Potassium Chloride 112.9 H Carbon Dioxide BUN Creatinine Glucose 117 H POC Glucose 227 H 156 H Hemoglobin A1c Lactic Acid Calcium 8.0 L Phosphorus Magnesium AST Alkaline Phosphatase Total Creatine Kinase CK-MB (CK-2) CK-MB (CK-2) Rel Index Troponin T C-Reactive Protein Total Protein Albumin 09/08/18 09/08/18 09/08/18 07:13 11:42 23:03 WBC RBC Hgb Hct MCV MCH MCHC RDW Plt Count Lymph % (Auto) Lymph # Seg Neutrophils % Seg Neuts % (Manual) Lymphocytes % (Manual) Seg Neutrophils # Seg Neutrophils # Man Monocytes # (Manual) PT INR POC ABG pH POC ABG pCO2 POC ABG pO2 VBG pH Sodium Potassium Chloride Carbon Dioxide BUN Creatinine Glucose POC Glucose 128 H 128 H 172 H Hemoglobin A1c Lactic Acid Calcium Phosphorus Magnesium AST Alkaline Phosphatase Total Creatine Kinase CK-MB (CK-2) CK-MB (CK-2) Rel Index Troponin T C-Reactive Protein Total Protein Albumin 09/08/18 09/09/18 09/09/18 23:43 01:30 05:44 WBC RBC Hgb Hct MCV MCH MCHC RDW Plt Count Lymph % (Auto) Lymph # Seg Neutrophils % Seg Neuts % (Manual) Lymphocytes % (Manual) Seg Neutrophils # Seg Neutrophils # Man Monocytes # (Manual) PT INR POC ABG pH POC ABG pCO2 POC ABG pO2 VBG pH Sodium Potassium 3.5 L Chloride 107.2 H Carbon Dioxide BUN Creatinine Glucose 128 H POC Glucose 188 H 112 H Hemoglobin A1c Lactic Acid Calcium 7.6 L Phosphorus Magnesium AST Alkaline Phosphatase Total Creatine Kinase CK-MB (CK-2) CK-MB (CK-2) Rel Index Troponin T C-Reactive Protein Total Protein Albumin 09/09/18 09/09/18 09/09/18 05:52 11:24 21:58 WBC RBC Hgb Hct MCV MCH MCHC RDW Plt Count Lymph % (Auto) Lymph # Seg Neutrophils % Seg Neuts % (Manual) Lymphocytes % (Manual) Seg Neutrophils # Seg Neutrophils # Man Monocytes # (Manual) PT INR POC ABG pH POC ABG pCO2 POC ABG pO2 VBG pH Sodium Potassium 3.4 L Chloride 108.8 H Carbon Dioxide BUN Creatinine Glucose 116 H POC Glucose 257 H 141 H Hemoglobin A1c Lactic Acid Calcium 7.9 L Phosphorus 2.30 L Magnesium AST Alkaline Phosphatase Total Creatine Kinase CK-MB (CK-2) CK-MB (CK-2) Rel Index Troponin T C-Reactive Protein Total Protein Albumin 09/10/18 09/10/18 09/10/18 00:08 05:58 11:13 WBC RBC Hgb Hct MCV MCH MCHC RDW Plt Count Lymph % (Auto) Lymph # Seg Neutrophils % Seg Neuts % (Manual) Lymphocytes % (Manual) Seg Neutrophils # Seg Neutrophils # Man Monocytes # (Manual) PT INR POC ABG pH POC ABG pCO2 POC ABG pO2 VBG pH Sodium Potassium Chloride Carbon Dioxide BUN Creatinine Glucose POC Glucose 121 H 122 H 207 H Hemoglobin A1c Lactic Acid Calcium Phosphorus Magnesium AST Alkaline Phosphatase Total Creatine Kinase CK-MB (CK-2) CK-MB (CK-2) Rel Index Troponin T C-Reactive Protein Total Protein Albumin Allied health notes reviewed: nursing
--- NOTE | 2018-09-10 16:58 | Progress Note ---
Assessment and Plan Assessment and plan: Patient is a 53 yo man with a history of DM type 2 on Insulin who presented to [facility] ED with AMS/lethargy, Nausea, Vomiting, and shortness of breath. Upon arrival the patient was found to be in distress with an elevated blood glucose of 1968, and EKG changes. A code STEMI was called and the patient was tr ansported to [facility]. 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 Pt subsequently found to have HHNKS, Acute Respiratory Failure, Acute Renal Failure, Thrombocytopenia, as well as Sepsis with PNA. Pt admitted to ICU and initiated on sepsis protocol as well as Insulin drip. Pt decompensated and eventually intubated in the ICU and placed on vent support by the Anesthesia service. He self extubated during SBT on 09/06/18, off insulin drip now. getting treated for PNA. c/o cough with meal, repeat speech eval suggested barium swallow eval. did not get CT head when presented to hospital as CT scaner was broken for ~ 2 days, then the order dropped off. reorder CT head today. 2d echo showed Ef 20-25%, medical Mx. patient admits to missing his insulin / Acute hypoxic respiratory failure Intubated following admission Pulmonary is following self extubated during SBT on 09/06/18 cont nebs, aspiration precaution / HHNKS BG was 1968 on admission, a1c 14.6 s/p Insulin drip, off TF now on consistent carb diet cont SSI, adjust long acting insulin dose as needed / Sepsis likely from strep group B PNA, POA Admitted to ICU. Initiated sepsis protocol in ED: negative blood cx in 48h. WBC trending down cont rocephin for now for one week /Septic shock, POA - s/p pressor support and cont iv fluid as needed /Acute CHF with reduced EF 20-25% - monitor ins/os, cardiology following - s/p cardiac cath on admission showed no CAD - likely nonischemic cardiomyopathy - careful with IVFs /Acute metabolic Encephalopathy, resolved due to severe hyperglycemia CT head ordered -but not done yet, cont neuro checks, supportive care, continue to treat hyperglycemia / Acute renal failure likely vasomotor nephropathy renal US showed no hydronephrosis cont IVF, monitor uop q shift, monitor serum creatnine Cr trending down /NSTEMI type 2 suspected acute stemi on admission Cardiology consulted in ED, Pt taken urgently to 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 / Thrombocytopenia, transfused platelets, resolved / Hyponatremia due to hyperglycemia, cont IV fluid /h/o tobacco abuse, counselled for cessation /H/o alcohol abuse, s/p CIWa protocol, counselled for cessation /Possible aspiration risk- speech recommended barium swallow study / DVT prophylaxis SCD to ble while in bed, Disposition: continue inpatient care, I ordered Modified Barium study today try to wean off O2 today MBS pending Dyspepsia with hiccups, get ABX and consult GI History Interval history: Patient was seen and examined. Follow-up on current diagnosis N/V still presents. No overnight events reported to me. Patient denies any severe headaches. Imaging, nursing note, chart, labs and old chart reviewed. Discussed with patient. Hospitalist Physical - Physical exam Narrative exam: Gen: WDWN, NAD, Awake, Alert, Orientated HEENT: NCAT, EOMI, PERRL, OP Clear Neck: supple, no adenopathy, no thyromegaly, no JVD CVS/Heart: RRR, normal S1S2, pulses present bilaterally Chest/Lungs: CTA B, Symmetrical chest expansion, good air entry bilaterally GI/Abdomen: soft, mild epigastric tenderness, NTND, good bowel sounds, no guarding or rebound /Bladder: no suprapubic tenderness, no CVA or paraspinal tenderness Extermity/Skin: no c/c/e, no obvious rash MSK: FROM x 4 Neuro: CN 2-12 grossly intact, no new focal deficits Psych: calm - Constitutional Vitals: Temp Pulse Resp BP Pulse Ox 98.6 F 85 18 133/85 96 09/10/18 11:43 09/10/18 11:43 09/10/18 11:43 09/10/18 11:43 09/10/18 11:43 General appearance: Absent: severe distress Results - Labs CBC & Chem 7: 09/07/18 04:20 09/09/18 05:52 Labs: Laboratory Last Values WBC 9.7 K/mm3 (4.5-11.0) 09/07/18 04:20 RBC 3.36 M/mm3 (3.65-5.03) L 09/07/18 04:20 Hgb 9.2 gm/dl (11.8-15.2) L 09/07/18 04:20 Hct 27.8 % (35.5-45.6) L 09/07/18 04:20 MCV 83 fl (84-94) L 09/07/18 04:20 MCH 27 pg (28-32) L 09/07/18 04:20 MCHC 33 % (32-34) 09/07/18 04:20 RDW 15.0 % (13.2-15.2) 09/07/18 04:20 Plt Count 161 K/mm3 (140-440) 09/07/18 04:20 Lymph % (Auto) 5.1 % (13.4-35.0) L 09/07/18 04:20 Cross % (Auto) 6.7 % (0.0-7.3) 09/07/18 04:20 Eos % (Auto) 0.9 % (0.0-4.3) 09/07/18 04:20 Baso % (Auto) 0.3 % (0.0-1.8) 09/07/18 04:20 Lymph # 0.5 K/mm3 (1.2-5.4) L 09/07/18 04:20 Cross # 0.7 K/mm3 (0.0-0.8) 09/07/18 04:20 Eos # 0.1 K/mm3 (0.0-0.4) 09/07/18 04:20 Baso # 0.0 K/mm3 (0.0-0.1) 09/07/18 04:20 Add Manual Diff Complete 09/03/18 15:01 Total Counted 100 09/03/18 15:01 Seg Neutrophils % 87.0 % (40.0-70.0) H 09/07/18 04:20 Seg Neuts % (Manual) 84.0 % (40.0-70.0) H 09/03/18 15:01 0 % 09/03/18 15:01 8.0 % (13.4-35.0) L 09/03/18 15:01 Reactive Lymphs % (Man) 0 % 09/03/18 15:01 6.0 % (0.0-7.3) 09/03/18 15:01 0 % (0.0-4.3) 09/03/18 15:01 0 % (0.0-1.8) 09/03/18 15:01 0 % 09/03/18 15:01 2.0 % 09/03/18 15:01 0 % 09/03/18 15:01 0 % 09/03/18 15:01 Nucleated RBC % Not Reportable 09/03/18 15:01 Seg Neutrophils # 8.5 K/mm3 (1.8-7.7) H 09/07/18 04:20 Seg Neutrophils # Man 14.6 K/mm3 (1.8-7.7) H 09/03/18 15:01 Band Neutrophils # 0.0 K/mm3 09/03/18 15:01 1.4 K/mm3 (1.2-5.4) 09/03/18 15:01 Abs React Lymphs (Man) 0.0 K/mm3 09/03/18 15:01 1.0 K/mm3 (0.0-0.8) H 09/03/18 15:01 0.0 K/mm3 (0.0-0.4) 09/03/18 15:01 0.0 K/mm3 (0.0-0.1) 09/03/18 15:01 0.0 K/mm3 09/03/18 15:01 0.3 K/mm3 09/03/18 15:01 0.0 K/mm3 09/03/18 15:01 Blast Cells # 0.0 K/mm3 09/03/18 15:01 WBC Morphology Not Reportable 09/03/18 15:01 Hypersegmented Neuts Not Reportable 09/03/18 15:01 Hyposegmented Neuts Not Reportable 09/03/18 15:01 Hypogranular Neuts Not Reportable 09/03/18 15:01 Not Reportable 09/03/18 15:01 Not Reportable 09/03/18 15:01 Not Reportable 09/03/18 15:01 Not Reportable 09/03/18 15:01 Not Reportable 09/03/18 15:01 Not Reportable 09/03/18 15:01 Appears decreased 09/03/18 15:01 Not Reportable 09/03/18 15:01 Plt Clumps, EDTA Not Reportable 09/03/18 15:01 Not Reportable 09/03/18 15:01 Not Reportable 09/03/18 15:01 Not Reportable 09/03/18 15:01 Plt Morphology Comment Not Reportable 09/03/18 15:01 RBC Morphology Not Reportable 09/03/18 15:01 Dimorphic RBCs Not Reportable 09/03/18 15:01 Not Reportable 09/03/18 15:01 Not Reportable 09/03/18 15:01 Not Reportable 09/03/18 15:01 2+ 09/03/18 15:01 Not Reportable 09/03/18 15:01 Not Reportable 09/03/18 15:01 Not Reportable 09/03/18 15:01 Not Reportable 09/03/18 15:01 Not Reportable 09/03/18 15:01 Not Reportable 09/03/18 15:01 Not Reportable 09/03/18 15:01 Not Reportable 09/03/18 15:01 Not Reportable 09/03/18 15:01 Not Reportable 09/03/18 15:01 Not Reportable 09/03/18 15:01 Not Reportable 09/03/18 15:01 Not Reportable 09/03/18 15:01 Not Reportable 09/03/18 15:01 Not Reportable 09/03/18 15:01 Acanthocytes (Spur) Not Reportable 09/03/18 15:01 Rouleaux Not Reportable 09/03/18 15:01 Not Reportable 09/03/18 15:01 Not Reportable 09/03/18 15:01 Not Reportable 09/03/18 15:01 Not Reportable 09/03/18 15:01 Hem Pathologist Commnt No 09/03/18 15:01 PT 17.5 Sec. (12.2-14.9) H 09/03/18 15:01 INR 1.47 (0.87-1.13) H 09/03/18 15:01 APTT 29.0 Sec. (24.2-36.6) 09/03/18 15:01 POC ABG pH 7.388 (7.35-7.45) 09/06/18 10:58 POC ABG pCO2 31.7 (35-45) L 09/06/18 10:58 POC ABG pO2 60 (80-105) L 09/06/18 10:58 POC ABG HCO3 19.1 (22-26 mml/L) 09/06/18 10:58 POC ABG Total CO2 20 (23-27mmol/L) 09/06/18 10:58 POC ABG O2 Sat 91 09/06/18 10:58 POC ABG Base Excess -6 ((-2) - (+3)mmol/L) 09/06/18 10:58 VBG pH 7.049 (7.320-7.420) L* 09/03/18 15:01 21 % 09/06/18 10:58 Sodium 143 mmol/L (137-145) 09/09/18 05:52 Potassium 3.4 mmol/L (3.6-5.0) L 09/09/18 05:52 Chloride 108.8 mmol/L (98-107) H 09/09/18 05:52 Carbon Dioxide 27 mmol/L (22-30) 09/09/18 05:52 11 mmol/L 09/09/18 05:52 BUN 11 mg/dL (9-20) 09/09/18 05:52 1.2 mg/dL (0.8-1.5) 09/09/18 05:52 Estimated GFR > 60 ml/min 09/09/18 05:52 9 % 09/09/18 05:52 Glucose 116 mg/dL (75-100) H 09/09/18 05:52 POC Glucose 207 (70-105) H 09/10/18 11:13 14.6 % (4-6) H 09/06/18 04:30 Lactic Acid 1.90 mmol/L (0.7-2.0) 09/05/18 12:30 Calcium 7.9 mg/dL (8.4-10.2) L 09/09/18 05:52 Phosphorus 2.30 mg/dL (2.5-4.5) L 09/09/18 05:52 Magnesium 1.70 mg/dL (1.7-2.3) 09/09/18 05:52 0.20 mg/dL (0.1-1.2) 09/05/18 04:30 < 0.2 mg/dL (0-0.2) 09/05/18 04:30 0.0 mg/dL 09/05/18 04:30 AST 85 units/L (5-40) H 09/05/18 04:30 ALT 33 units/L (7-56) 09/05/18 04:30 139 units/L (35-129) H 09/05/18 04:30 293 units/L (55-170) H 09/03/18 20:15 CK-MB (CK-2) 13.0 ng/mL (0.0-4.0) H 09/03/18 20:15 CK-MB (CK-2) Rel Index 4.4 (0-4) H 09/03/18 20:15 0.126 ng/mL (0.00-0.029) H* 09/03/18 20:15 6.30 mg/dL (0.00-1.30) H 09/05/18 12:30 4.6 g/dL (6.3-8.2) L 09/05/18 04:30 2.6 g/dL (3.9-5) L 09/05/18 04:30 1.3 % 09/05/18 04:30 Triglycerides 128 mg/dL (2-149) 09/03/18 15:01 Cholesterol 117 mg/dL (50-199) 09/03/18 15:01 69 mg/dL (50-130) 09/03/18 15:01 50 mg/dL (40-59) 09/03/18 15:01 2.34 % 09/03/18 15:01 Yellow (Yellow) 09/03/18 22:00 Cloudy (Clear) 09/03/18 22:00 5.0 (5.0-7.0) 09/03/18 22:00 Ur Specific [place] 1.018 (1.003-1.030) 09/03/18 22:00 <15 mg/dl mg/dL (Negative) 09/03/18 22:00 >=500 mg/dL (Negative) 09/03/18 22:00 Tr mg/dL (Negative) 09/03/18 22:00 Neg (Negative) 09/03/18 22:00 Neg (Negative) 09/03/18 22:00 Neg (Negative) 09/03/18 22:00 < 2.0 mg/dL (<2.0) 09/03/18 22:00 Ur Leukocyte Esterase Neg (Negative) 09/03/18 22:00 3.0 /HPF (0.0-6.0) 09/03/18 22:00 < 1.0 /HPF (0.0-6.0) 09/03/18 22:00 U Epithel Cells (Auto) < 1.0 /HPF (0-13.0) 09/03/18 22:00 Few /HPF 09/03/18 22:00 Random Vancomycin < 4 ug/mL (0-40.0) 09/08/18 06:15 HIV 1&2 Antibody Rapid Non react (Non React) 09/03/18 20:15 Non react (Non React) 09/03/18 20:15 Blood Type B NEGATIVE 09/03/18 15:00 Antibody Screen Negative 09/03/18 15:00 Active Medications - Current Medications Current Medications: Generic Name Dose Route Start Last Admin Trade Name Freq PRN Reason Stop Dose Admin Albuterol 2.5 mg 09/03/18 15:58 Proventil IH Q3HRT PRN Shortness Of Breath Lipase/Protease/Amylase 1 each 09/05/18 10:[address] 10,500 Unit FEEDTUBE PRN PRN For Clogged Feeding Tube Carvedilol 3.125 mg 09/06/18 22:00 09/10/18 10:10 Coreg PO 3.125 mg BID NANY Administration Dextrose 0 ml 09/03/18 17:55 09/05/18 16:00 D50w (25gm) Syringe IV 20 ml PRN PRN Administration Hypoglycemia Enoxaparin Sodium 40 mg 09/08/18 22:00 09/09/18 21:48 Lovenox SUB-Q 40 mg QDAY@2200 NANY Administration Famotidine 20 mg 09/07/18 10:00 09/10/18 10:11 Pepcid IV 20 mg BID NANY Administration Folic Acid 1 mg 09/09/18 10:00 09/10/18 10:10 Folvite PO 1 mg DAILY NANY Administration Guaifenesin 600 mg 09/09/18 11:30 09/10/18 10:10 Mucinex Er PO 600 mg BID NANY Administration Hydrophilic Ointment 1 applic 09/05/18 14:55 Vaseline Lip Therapy TP Q2HR PRN Dry Lips Ceftriaxone Sodium 2 gm in 100 mls @ 200 mls/hr 09/03/18 18:00 09/09/18 17:56 Rocephin/Ns 2 Gm/100 Ml IV 200 mls/hr Q24H NANY Administration Protocol Vancomycin HCl 1 gm in 250 mls @ 166.667 mls/hr 09/08/18 10:00 09/10/18 11:35 Vancomycin/Ns 1 Gm/250 Ml IV 166.667 mls/hr Q12HR NANY Administration Insulin Glargine 10 units 09/06/18 22:00 09/09/18 21:52 Lantus SUB-Q 10 units QHS NANY Administration Insulin Human Regular 0 units 09/05/18 18:00 09/10/18 12:25 Humulin R SUB-Q 3 units Q6HR NANY Administration Protocol Lorazepam 2 mg 09/07/18 03:15 09/07/18 03:40 Ativan IV 2 mg Q1H PRN Administration MOO-Jason 8-15 Multi-Ingred Cream/Lotion/Oil/Oint 1 applic 09/05/18 14:55 Artificial Tears Ophth Oint OU Q4HR PRN Dry Eye(s) Multivitamins 1 each 09/09/18 10:00 09/10/18 10:10 Theragran Tab PO 1 each DAILY NANY Administration Prochlorperazine Maleate 10 mg 09/08/18 17:42 09/09/18 12:21 Compazine PO 10 mg Q6H PRN Administration Hiccups Simple Syrup 15 ml 09/05/18 10:50 Simple Syrup FEEDTUBE PRN PRN Hypoglycemia Simple Syrup 30 ml 09/05/18 10:50 Simple Syrup FEEDTUBE PRN PRN Hypoglycemia Sodium Bicarbonate 325 mg 09/05/18 10:50 Sodium Bicarbonate FEEDTUBE PRN PRN For Clogged Feeding Tube Sodium Chloride 10 ml 09/03/18 22:00 09/10/18 11:36 Sodium Chloride Flush Syringe 10 Ml IV 10 ml BID NANY Administration Sodium Chloride 10 ml 09/03/18 15:58 Sodium Chloride Flush Syringe 10 Ml IV PRN PRN LINE FLUSH Thiamine HCl 100 mg 09/09/18 10:00 09/10/18 10:10 Vitamin B-1 PO 100 mg QDAY NANY Administration Nutrition/Malnutrition Assess - Dietary Evaluation Nutrition/Malnutrition Findings: Nutrition Notes Start: 09/04/18 14:11 Freq: Status: Active Protocol: Document 09/09/18 16:23 RM (Rec: 09/09/18 16:36 RM [id number]) Nutrition Notes Initial or Follow up Reassessment Current Diagnosis Acute Kidney Injury,Heart Failure,Respiratory Failure Other Pertinent Diagnosis DKA, Acute respiratory failure Current Diet Pureed w/Glucerna TID Labs/Tests A1c 14.6 Pertinent Medications Reviewed Height 6 ft Weight 71.9 kg [place] Body Weight (kg) 80.90 BMI 21.4 Subjective/Other Information Pt moved to 3A. Diet advanced to pureed. Pt stated that his appetite is poor. Stated that he eats bites of his meals and drinks the Glucerna. Noted 1 unopened Glucerna at bedside. Pt stated that he had not gotten around to drinking it yet. Per ST progress note MBS recommended. Pt stated that he had been previously educated but could not recall what he learned. Reviewed DM diet education. Gave handout. Percent of energy/protein needs met: 23%/28% Burn Absent Trauma Absent #2 Nutrition Diagnosis Food and nutrition-related knowledge deficit Etiology inability to recall previous education As Evidenced by Signs and Symptoms pt desire for education #1 Nutrition Diagnosis Inadequate oral intake As Evidenced by Signs and Symptoms pt meeting 23% of calorie and 28% of protein needs Diagnosis Progress(for reassessment Improved documentation) Is patient on ventilator? No Is Patient Ambulatory and/or Out of Bed No REE-([facility]-confined to bed) [phone] Calculation Used for Recommendations [facility] Additional Notes Protein Needs: 72-93g (1-1.3g/ kg) Fluid Needs: 1 ml/kcal Nutrition Intervention Change Diet Order: Per ST Add Supplement/Snack (indicate name/kcal Continue Glucerna TID /protein ) Provides kCal: 660 Provides Protein (gm) 30 Teaching Recipient Patient Learning Readiness Good Teaching Methods Discussion,Handout Response to Teaching Verbalize understanding Education Handouts Provided Carbohydrate counting for people with diabetes Barriers to Learning No Barriers RD phone number provided Yes Patient aware of follow up options Yes Goal #1 MBS Goal #2 Meet at least 75% of kcal and protein needs Anticipated Discharge Needs: Unable to determine at this time Follow-Up By: 09/11/18 Additional Comments Follow for MBS results, PO and ONS intakes
--- NOTE | 2018-09-10 17:46 | XRay Report ---
ABDOMEN 2 VIEWS INDICATION / CLINICAL INFORMATION: abd pains, intractable hiccups. COMPARISON: 09/05/18 FINDINGS: TUBES / LINES: Esophagogastric tube is no longer present. BOWEL GAS PATTERN: No significant abnormality. FREE AIR / EXTRALUMINAL GAS: None seen. ADDITIONAL FINDINGS: No significant additional findings. LUNGS: Visualized lungs show no significant abnormality. IMPRESSION: 1. No acute findings. Signer Name: Aaron Bledsoe MD Signed: 09/10/2018 5:42 PM Workstation Name: [id number]
[2018-09-10] MEDS: ROCEPHIN/NS 2 GM/100 ML 2 GM/100 ML BAG IV SCH (18:02)
[2018-09-10] MEDS: LANTUS SUB-Q SCH (22:05)
[2018-09-10] MEDS: LOVENOX SUB-Q SCH (22:06)
[2018-09-11] MEDS: HumuLIN R SUB-Q SCH ×5 (00:34→23:01)
[2018-09-11 06:45] LABS: Hemoglobin 9.5 gm/dl (11.8-15.2); Mean Corpuscular HGB Conc 33 % (32-34); Mean Corpuscular Volume 82 fl (84-94); Platelet Count 299 K/mm3 (140-440); Red Blood Count 3.53 M/mm3 (3.65-5.03); Red Cell Distribution Width 14.6 % (13.2-15.2)
[2018-09-11 07:03] LABS: Alanine Aminotransferase 22 units/L (7-56); Albumin 1.8 g/dL (3.9-5); BUN/Creatinine Ratio 6; Blood Urea Nitrogen 7 mg/dL (9-20); Calcium 7.9 mg/dL (8.4-10.2); Hemolysis Index 1
--- NOTE | 2018-09-11 09:55 | XRay Report ---
CHEST 2 VIEWS INDICATION: Follow-up bilateral pulmonary infiltrates. COMPARISON: 09/06/2018 FINDINGS: Support devices: Left arm PICC remains in good position Heart: Bilateral pulmonary infiltrates or pulmonary edema have not significantly changed given differ ences in the level of inspiration. A small to medium pleural effusion is identified on the lateral vi ew, side indeterminant. No new consolidation or pneumothorax. Lungs/pleura: No acute air space or interstitial disease. No pneumothorax. Additional findings: None. IMPRESSION: No significant change in the bilateral infiltrates or pulmonary edema. Small to medium pleural effusi on. Signer Name: Ceferino Bronson Jr, MD Signed: 09/11/2018 9:51 AM Workstation Name: [id number]
--- NOTE | 2018-09-11 10:02 | Fluoroscopy Report ---
MODIFIED BARIUM SWALLOW INDICATION: for swallow evaluation TECHNIQUE: Swallowing was evaluated in the lateral position under direct fluoroscopy. FINDINGS: The patient was evaluated with thin, puree, semisolid and solid consistencies.. Premature spillage was noted with all consistencies. Minimal penetration was noted with thin liquids. Remaining consistencies were within normal limits. No aspiration was witnessed. Please correlate wit h the formal report from speech pathology. IMPRESSION: Premature spillage with all consistencies. Trace penetration with thin liquids. Fluoroscopic time: 2.2 minutes Number of fluoroscopic images: 1 Signer Name: Ceferino Bronson Jr, MD Signed: 09/11/2018 9:57 AM Workstation Name: [id number]
--- NOTE | 2018-09-11 10:56 | Gastroenterology Consultation ---
History of Present Illness - Reason for Consult Consult date: 09/11/18 dyspepsia Requesting physician: ARLETTE GARCIA - History of Present Illness Patient is a 53 y/o male with PMH of DM who was brought to ED due to AMS/lethargy, N/V, and SOB. Upon admission, patient was found to have an elevated blood glucose of 1968 and EKG changes. A code STEMI was called and jo ann ent was taken urgently to lab pack chemist by cardiology team and found to have normal coronaries. He was also subsequently found to have and admitted for acute hypoxic respiratory failure, acute metabolic encephalopathy, HHNKS, KYLE, sepsis 2/2 pneumonia, and CHF. HE is now extubated and off insulin drip with a MBS pending today due to coughing with meals. GI has been consulted for dyspepsia. This morning patient was resting in bed w/o acute distress and family at bedside. He reports continued N/V this am after eating eggs for breakfast. Previously had hiccups that have now resolved. Admits to associated recent wt loss with current symptoms and feeling full easily with eating but denies current abd pain, CP, SOB, dysphagia, odynophagia, signs of bleeding such as hematemesis, melena, hematochezia, or LGI symptoms such as diarrhea or constipation. Takes Ibuprofen occasionally at home but has no hx of PUD. No previous EGD. Past History Past Medical History: diabetes Past Surgical History: No surgical history Social history: single, smoking, other (alcohol) Family history: no significant family history Medications and Allergies Allergies Allergy/AdvReac Type Severity Reaction Status Date / Time No Known Allergies Allergy Unverified 05/23/18 12:18 Home Medications Medication Instructions Recorded Confirmed Last Taken Type No Known Home Medications [No 09/05/18 09/05/18 Unknown History Reported Home Medications] Active Meds: Active Medications Albuterol (Proventil) 2.5 mg IH Q3HRT PRN PRN Reason: Shortness Of Breath Lipase/Protease/Amylase (Evelyn Simmons 10,500 Unit) 1 each FEEDTUBE PRN PRN PRN Reason: For Clogged Feeding Tube Carvedilol (Coreg) 3.125 mg PO BID NANY Last Admin: 09/10/18 22:07 Dose: 3.125 mg Documented by: Dextrose (D50w (25gm) Syringe) 0 ml IV PRN PRN PRN Reason: Hypoglycemia Last Admin: 09/05/18 16:00 Dose: 20 ml Documented by: Enoxaparin Sodium (Lovenox) 40 mg SUB-Q QDAY@2200 [facility] Last Admin: 09/10/18 22:06 Dose: 40 mg Documented by: Folic Acid (Folvite) 1 mg PO DAILY [facility] Last Admin: 09/10/18 10:10 Dose: 1 mg Documented by: Guaifenesin (Mucinex Er) 600 mg PO BID [facility] Last Admin: 09/10/18 22:07 Dose: 600 mg Documented by: Hydrophilic Ointment (Vaseline Lip Therapy) 1 applic TP Q2HR PRN PRN Reason: Dry Lips Ceftriaxone Sodium (Rocephin/Ns 2 Gm/100 Ml) 2 gm in 100 mls @ 200 mls/hr IV Q 24H [facility]; Protocol Last Admin: 09/10/18 18:02 Dose: 200 mls/hr Documented by: Vancomycin HCl (Vancomycin/Ns 1 Gm/250 Ml) 1 gm in 250 mls @ 166.667 mls/hr IV Q12HR [facility] Last Admin: 09/10/18 22:07 Dose: 166.667 mls/hr Documented by: Insulin Glargine (Lantus) 10 units SUB-Q QHS [facility] Last Admin: 09/10/18 22:05 Dose: 10 units Documented by: Insulin Human Regular (Humulin R) 0 units SUB-Q Q6HR [facility]; Protocol Last Admin: 09/11/18 06:10 Dose: 3 units Documented by: Lorazepam (Ativan) 2 mg IV Q1H PRN PRN Reason: CIWA-Ar 8-15 Last Admin: 09/07/18 03:40 Dose: 2 mg Documented by: Multi-Ingred Cream/Lotion/Oil/Oint (Artificial Tears Ophth Oint) 1 applic OU Q4HR PRN PRN Reason: Dry Eye(s) Multivitamins (Theragran Tab) 1 each PO DAILY [facility] Last Admin: 09/10/18 10:10 Dose: 1 each Documented by: Pantoprazole Sodium (Protonix) 40 mg PO QDAY [facility] Prochlorperazine Maleate (Compazine) 10 mg PO Q6H PRN PRN Reason: Hiccups Last Admin: 09/09/18 12:21 Dose: 10 mg Documented by: Simple Syrup (Simple Syrup) 15 ml FEEDTUBE PRN PRN PRN Reason: Hypoglycemia Simple Syrup (Simple Syrup) 30 ml FEEDTUBE PRN PRN PRN Reason: Hypoglycemia Sodium Bicarbonate (Sodium Bicarbonate) 325 mg FEEDTUBE PRN PRN PRN Reason: For Clogged Feeding Tube Sodium Chloride (Sodium Chloride Flush Syringe 10 Ml) 10 ml IV BID [facility] Last Admin: 09/10/18 22:07 Dose: 10 ml Documented by: Sodium Chloride (Sodium Chloride Flush Syringe 10 Ml) 10 ml IV PRN PRN PRN Reason: LINE FLUSH Thiamine HCl (Vitamin B-1) 100 mg PO QDAY [facility] Last Admin: 09/10/18 10:10 Dose: 100 mg Documented by: medications reviewed/updated as required Review of Systems - Review of Systems All systems: negative Gastrointestinal: nausea, vomiting, early satiety Exam - Constitutional Vital Signs: Temp Pulse Resp BP Pulse Ox 99.7 F H 97 H 22 87/54 94 09/11/18 05:14 09/11/18 05:14 09/11/18 05:14 09/11/18 05:14 09/11/18 10:00 General appearance: no acute distress - Respiratory Respiratory effort: normal Respiratory: bilateral: diminished - Cardiovascular Rhythm: regular - Gastrointestinal General gastrointestinal: Present: soft, non-tender, non-distended, normal bowel sounds - Neurologic Neurological: alert and oriented x3 - Labs CBC & Chem 7: 09/11/18 06:00 09/11/18 06:00 Lab Results: Laboratory Results - last 24 hr 09/03/18 09/05/18 09/10/18 15:03 04:22 11:13 WBC RBC Hgb Hct MCV MCH MCHC RDW Plt Count POC ABG pCO2 < 30 L Sodium Potassium Chloride Carbon Dioxide Anion Gap BUN Creatinine Estimated GFR BUN/Creatinine Ratio Glucose POC Glucose > 500 H 207 H Calcium Total Bilirubin AST ALT Alkaline Phosphatase Total Protein Albumin Albumin/Globulin Ratio 09/10/18 09/11/18 09/11/18 17:40 00:31 03:05 WBC RBC Hgb Hct MCV MCH MCHC RDW Plt Count POC ABG pCO2 Sodium Potassium Chloride Carbon Dioxide Anion Gap BUN Creatinine Estimated GFR BUN/Creatinine Ratio Glucose POC Glucose 218 H 226 H 142 H Calcium Total Bilirubin AST ALT Alkaline Phosphatase Total Protein Albumin Albumin/Globulin Ratio 09/11/18 09/11/18 09/11/18 05:32 06:00 06:00 WBC 11.5 H RBC 3.53 L Hgb 9.5 L Hct 29.0 L MCV 82 L MCH 27 L MCHC 33 RDW 14.6 Plt Count 299 POC ABG pCO2 Sodium 140 Potassium 3.5 L Chloride 104.2 Carbon Dioxide 27 Anion Gap 12 BUN 7 L Creatinine 1.1 Estimated GFR > 60 BUN/Creatinine Ratio 6 Glucose 153 H POC Glucose 153 H Calcium 7.9 L Total Bilirubin 0.20 AST 25 ALT 22 Alkaline Phosphatase 110 Total Protein 4.9 L Albumin 1.8 L Albumin/Globulin Ratio 0.6 Assessment and Plan 1.N/V 2.dyspepsia 3.H/o DM (uncontrolled) -WBC 11.5 -9.5/29.0-no active signs of bleeding -LFTs WNL -abd x-ray unremarkable -MBS-premature spillage; no aspiration -etiology-likely 2/2 uncontrolled DM (gastroparesis?) vs other -will schedule for EGD tomorrow for further evaluation to r/o GI pathology (ulcer/GOO) -NPO after MN -abd U/S -continue PPI and antiemetics -optimize glycemic control -limit narcotics for this may exacerbate symptoms -continue supportive care -will follow 4.acute hypoxic respiratory failure -now extubated; stable on O2 via NC- pulmonary following 5.HHNKS 6.sepsis 2/2 PNA 7.CHF 8.acute metabolic encephalopathy-resolved 9.GERALDO 10.NSTEMI type 2 -s/p cath with normal coronaries -cardiac status stable per cardiology
[2018-09-11] MEDS: THERAGRAN Tab PO SCH (11:07)
[2018-09-11] MEDS: VANCOMYCIN/NS 1 GM/250 ML 1 GM/250 ML BAG IV SCH ×2 (11:07→22:02)
[2018-09-11] MEDS: MUCINEX ER PO SCH ×2 (11:07→22:03)
[2018-09-11] MEDS: VITAMIN B-1 PO SCH (11:07)
[2018-09-11] MEDS: FOLVITE PO SCH (11:07)
[2018-09-11] MEDS: SODIUM CHLORIDE FLUSH SYRINGE 10 ML IV SCH ×2 (11:08→22:03)
[2018-09-11] MEDS: COREG PO SCH ×2 (11:17→22:07)
[2018-09-11] MEDS: PROTONIX PO SCH (11:18)
[2018-09-11] MEDS: PEPCID IV SCH (12:48)
--- NOTE | 2018-09-11 13:21 | Progress Note ---
Assessment and Plan Assessment and plan: Patient is a 53 yo man with a history of DM type 2 on Insulin who presented to [facility] ED with AMS/lethargy, Nausea, Vomiting, and shortness of breath. Upon arrival the patient was found to be in distress with an elevated blood glucose of 1968, and EKG changes. A code STEMI was called and the patient was tr ansported to [facility]. Pt seen and evaluated in ED and was taken urgently to labeler as per cardiology team and found normal coronaries. Pt subsequently found to have HHNKS, Acute Respiratory Failure, Acute Renal Failure, Thrombocytopenia, as well as Sepsis with PNA. Pt admitted to ICU and initiated on sepsis protocol as well as Insulin drip. Pt decompensated and eventually intubated in the ICU and placed on vent support by the Anesthesia service. He self extubated during SBT on 09/06/18, off insulin drip now. getting treated for PNA. c/o cough with meal, repeat speech eval suggested barium swallow eval. He did not get CT head when presented to hospital as CT scaner was broken for ~ 2 days, then the order dropped off. reorder CT head today. 2d echo showed Ef 20-25%, medical Mx. patient admits to missing his insulin / Acute hypoxic respiratory failure Intubated following admission Pulmonary is following self extubated during SBT on 09/06/18 cont nebs, aspiration precaution / HHNKS BG was 1968 on admission, a1c 14.6 s/p Insulin drip, off TF now on consistent carb diet cont SSI, adjust long acting insulin dose as needed / Sepsis likely from strep group B PNA, POA Admitted to ICU. Initiated sepsis protocol in ED: negative blood cx in 48h. WBC trending down cont rocephin for now for one week /Septic shock, POA - resolved /Acute systolic heart failure, est EF 20-25% - monitor ins/os, cardiology following - s/p cardiac cath on admission showed no CAD - likely nonischemic cardiomyopathy - careful with IVFs /Acute metabolic Encephalopathy, resolved due to severe hyperglycemia CT head ordered -but not done yet, cont neuro checks, supportive care, continue to treat hyperglycemia /Acute renal failure due to ATN +vasomotor nephropathy, poa renal US showed no hydronephrosis cont IVF, monitor uop q shift, monitor serum creatnine Cr trending down /NSTEMI type 2 Cardiology consulted in ED, Pt taken urgently to labeler, and underwent cardiac cath showed normal coronaries. / Thrombocytopenia, transfused platelets, resolved / Hyponatremia due to hyperglycemia, cont IV fluid /h/o tobacco abuse, counselled for cessation /H/o alcohol abuse, s/p CIWa protocol, counselled for cessation /Possible aspiration risk- speech recommended barium swallow study / DVT prophylaxis SCD to ble while in bed, Disposition: continue inpatient care, EGD tomorrow, O2 setup difficult without insurance MBS==>premature spillage on all consistencies with one episode of laryngeal penetration with thins. No evidence of aspiration noted. Dyspepsia with hiccups, get KUB-->negative and consulted GI, input noted, EGD in AM patient FIo2 dropped to 84% on RA, ABG ordered==>still with hypoxemia, placed back on O2 History Interval history: Patient was seen and examined. Follow-up on current diagnosis N/V still presents. No overnight events reported to me. Patient denies any severe headaches. Imaging, nursing note, chart, labs and old chart reviewed. Discussed with patient. Hospitalist Physical - Physical exam Narrative exam: Gen: WDWN, NAD, Awake, Alert, Orientated HEENT: NCAT, EOMI, PERRL, OP Clear Neck: supple, no adenopathy, no thyromegaly, no JVD CVS/Heart: RRR, normal S1S2, pulses present bilaterally Chest/Lungs: CTA B, Symmetrical chest expansion, good air entry bilaterally GI/Abdomen: soft, mild epigastric tenderness, NTND, good bowel sounds, no guarding or rebound /Bladder: no suprapubic tenderness, no CVA or paraspinal tenderness Extermity/Skin: no c/c/e, no obvious rash MSK: FROM x 4 Neuro: CN 2-12 grossly intact, no new focal deficits Psych: calm - Constitutional Vitals: Temp Pulse Resp BP Pulse Ox 99.0 F 81 18 125/72 94 09/11/18 11:18 09/11/18 11:17 09/11/18 11:18 09/11/18 11:18 09/11/18 10:00 General appearance: Absent: severe distress Results - Labs CBC & Chem 7: 09/11/18 06:00 09/11/18 06:00 Labs: Laboratory Last Values WBC 11.5 K/mm3 (4.5-11.0) H 09/11/18 06:00 RBC 3.53 M/mm3 (3.65-5.03) L 09/11/18 06:00 Hgb 9.5 gm/dl (11.8-15.2) L 09/11/18 06:00 Hct 29.0 % (35.5-45.6) L 09/11/18 06:00 MCV 82 fl (84-94) L 09/11/18 06:00 MCH 27 pg (28-32) L 09/11/18 06:00 MCHC 33 % (32-34) 09/11/18 06:00 RDW 14.6 % (13.2-15.2) 09/11/18 06:00 Plt Count 299 K/mm3 (140-440) 09/11/18 06:00 Lymph % (Auto) 5.1 % (13.4-35.0) L 09/07/18 04:20 [place] % (Auto) 6.7 % (0.0-7.3) 09/07/18 04:20 Eos % (Auto) 0.9 % (0.0-4.3) 09/07/18 04:20 Baso % (Auto) 0.3 % (0.0-1.8) 09/07/18 04:20 Lymph # 0.5 K/mm3 (1.2-5.4) L 09/07/18 04:20 Eagle # 0.7 K/mm3 (0.0-0.8) 09/07/18 04:20 Eos # 0.1 K/mm3 (0.0-0.4) 09/07/18 04:20 Baso # 0.0 K/mm3 (0.0-0.1) 09/07/18 04:20 Add Manual Diff Complete 09/03/18 15:01 Total Counted 100 09/03/18 15:01 Seg Neutrophils % 87.0 % (40.0-70.0) H 09/07/18 04:20 Seg Neuts % (Manual) 84.0 % (40.0-70.0) H 09/03/18 15:01 0 % 09/03/18 15:01 8.0 % (13.4-35.0) L 09/03/18 15:01 Reactive Lymphs % (Man) 0 % 09/03/18 15:01 6.0 % (0.0-7.3) 09/03/18 15:01 0 % (0.0-4.3) 09/03/18 15:01 0 % (0.0-1.8) 09/03/18 15:01 0 % 09/03/18 15:01 2.0 % 09/03/18 15:01 0 % 09/03/18 15:01 0 % 09/03/18 15:01 Nucleated RBC % Not Reportable 09/03/18 15:01 Seg Neutrophils # 8.5 K/mm3 (1.8-7.7) H 09/07/18 04:20 Seg Neutrophils # Man 14.6 K/mm3 (1.8-7.7) H 09/03/18 15:01 Band Neutrophils # 0.0 K/mm3 09/03/18 15:01 1.4 K/mm3 (1.2-5.4) 09/03/18 15:01 Abs React Lymphs (Man) 0.0 K/mm3 09/03/18 15:01 1.0 K/mm3 (0.0-0.8) H 09/03/18 15:01 0.0 K/mm3 (0.0-0.4) 09/03/18 15:01 0.0 K/mm3 (0.0-0.1) 09/03/18 15:01 0.0 K/mm3 09/03/18 15:01 0.3 K/mm3 09/03/18 15:01 0.0 K/mm3 09/03/18 15:01 Blast Cells # 0.0 K/mm3 09/03/18 15:01 WBC Morphology Not Reportable 09/03/18 15:01 Hypersegmented Neuts Not Reportable 09/03/18 15:01 Hyposegmented Neuts Not Reportable 09/03/18 15:01 Hypogranular Neuts Not Reportable 09/03/18 15:01 Not Reportable 09/03/18 15:01 Not Reportable 09/03/18 15:01 Not Reportable 09/03/18 15:01 Not Reportable 09/03/18 15:01 Not Reportable 09/03/18 15:01 Not Reportable 09/03/18 15:01 Appears decreased 09/03/18 15:01 Not Reportable 09/03/18 15:01 Plt Clumps, EDTA Not Reportable 09/03/18 15:01 Not Reportable 09/03/18 15:01 Not Reportable 09/03/18 15:01 Not Reportable 09/03/18 15:01 Plt Morphology Comment Not Reportable 09/03/18 15:01 RBC Morphology Not Reportable 09/03/18 15:01 Dimorphic RBCs Not Reportable 09/03/18 15:01 Not Reportable 09/03/18 15:01 Not Reportable 09/03/18 15:01 Not Reportable 09/03/18 15:01 2+ 09/03/18 15:01 Not Reportable 09/03/18 15:01 Not Reportable 09/03/18 15:01 Not Reportable 09/03/18 15:01 Not Reportable 09/03/18 15:01 Not Reportable 09/03/18 15:01 Not Reportable 09/03/18 15:01 Not Reportable 09/03/18 15:01 Not Reportable 09/03/18 15:01 Not Reportable 09/03/18 15:01 Not Reportable 09/03/18 15:01 Not Reportable 09/03/18 15:01 Not Reportable 09/03/18 15:01 Not Reportable 09/03/18 15:01 Not Reportable 09/03/18 15:01 Not Reportable 09/03/18 15:01 Acanthocytes (Spur) Not Reportable 09/03/18 15:01 Rouleaux Not Reportable 09/03/18 15:01 Not Reportable 09/03/18 15:01 Not Reportable 09/03/18 15:01 Not Reportable 09/03/18 15:01 Not Reportable 09/03/18 15:01 Hem Pathologist Commnt No 09/03/18 15:01 PT 17.5 Sec. (12.2-14.9) H 09/03/18 15:01 INR 1.47 (0.87-1.13) H 09/03/18 15:01 APTT 29.0 Sec. (24.2-36.6) 09/03/18 15:01 POC ABG pH 7.428 (7.35-7.45) 09/11/18 11:39 POC ABG pCO2 39.2 (35-45) 09/11/18 11:39 POC ABG pO2 69 (80-105) L 09/11/18 11:39 POC ABG HCO3 25.9 (22-26 mml/L) 09/11/18 11:39 POC ABG Total CO2 27 (23-27mmol/L) 09/11/18 11:39 POC ABG O2 Sat 94 09/11/18 11:39 POC ABG Base Excess 2 ((-2) - (+3)mmol/L) 09/11/18 11:39 VBG pH 7.049 (7.320-7.420) L* 09/03/18 15:01 32 % 09/11/18 11:39 Sodium 140 mmol/L (137-145) 09/11/18 06:00 Potassium 3.5 mmol/L (3.6-5.0) L 09/11/18 06:00 Chloride 104.2 mmol/L (98-107) 09/11/18 06:00 Carbon Dioxide 27 mmol/L (22-30) 09/11/18 06:00 12 mmol/L 09/11/18 06:00 BUN 7 mg/dL (9-20) L 09/11/18 06:00 1.1 mg/dL (0.8-1.5) 09/11/18 06:00 Estimated GFR > 60 ml/min 09/11/18 06:00 6 % 09/11/18 06:00 Glucose 153 mg/dL (75-100) H 09/11/18 06:00 POC Glucose 219 (70-105) H 09/11/18 12:38 14.6 % (4-6) H 09/06/18 04:30 Lactic Acid 1.90 mmol/L (0.7-2.0) 09/05/18 12:30 Calcium 7.9 mg/dL (8.4-10.2) L 09/11/18 06:00 Phosphorus 2.30 mg/dL (2.5-4.5) L 09/09/18 05:52 Magnesium 1.70 mg/dL (1.7-2.3) 09/09/18 05:52 0.20 mg/dL (0.1-1.2) 09/11/18 06:00 < 0.2 mg/dL (0-0.2) 09/05/18 04:30 0.0 mg/dL 09/05/18 04:30 AST 25 units/L (5-40) 09/11/18 06:00 ALT 22 units/L (7-56) 09/11/18 06:00 110 units/L (35-129) 09/11/18 06:00 293 units/L (55-170) H 09/03/18 20:15 CK-MB (CK-2) 13.0 ng/mL (0.0-4.0) H 09/03/18 20:15 CK-MB (CK-2) Rel Index 4.4 (0-4) H 09/03/18 20:15 0.126 ng/mL (0.00-0.029) H* 09/03/18 20:15 6.30 mg/dL (0.00-1.30) H 09/05/18 12:30 4.9 g/dL (6.3-8.2) L 09/11/18 06:00 1.8 g/dL (3.9-5) L 09/11/18 06:00 0.6 % 09/11/18 06:00 Triglycerides 128 mg/dL (2-149) 09/03/18 15:01 Cholesterol 117 mg/dL (50-199) 09/03/18 15:01 69 mg/dL (50-130) 09/03/18 15:01 50 mg/dL (40-59) 09/03/18 15:01 2.34 % 09/03/18 15:01 Yellow (Yellow) 09/03/18 22:00 Cloudy (Clear) 09/03/18 22:00 5.0 (5.0-7.0) 09/03/18 22:00 Ur Specific [place] 1.018 (1.003-1.030) 09/03/18 22:00 <15 mg/dl mg/dL (Negative) 09/03/18 22:00 >=500 mg/dL (Negative) 09/03/18 22:00 Tr mg/dL (Negative) 09/03/18 22:00 Neg (Negative) 09/03/18 22:00 Neg (Negative) 09/03/18 22:00 Neg (Negative) 09/03/18 22:00 < 2.0 mg/dL (<2.0) 09/03/18 22:00 Ur Leukocyte Esterase Neg (Negative) 09/03/18 22:00 3.0 /HPF (0.0-6.0) 09/03/18 22:00 < 1.0 /HPF (0.0-6.0) 09/03/18 22:00 U Epithel Cells (Auto) < 1.0 /HPF (0-13.0) 09/03/18 22:00 Few /HPF 09/03/18 22:00 Random Vancomycin < 4 ug/mL (0-40.0) 09/08/18 06:15 HIV 1&2 Antibody Rapid Non react (Non React) 09/03/18 20:15 Non react (Non React) 09/03/18 20:15 Blood Type B NEGATIVE 09/03/18 15:00 Antibody Screen Negative 09/03/18 15:00 Active Medications - Current Medications Current Medications: Generic Name Dose Route Start Last Admin Trade Name Freq PRN Reason Stop Dose Admin Albuterol 2.5 mg 09/03/18 15:58 Proventil IH Q3HRT PRN Shortness Of Breath Lipase/Protease/Amylase 1 each 09/05/18 10:50 Pancreaze 10,500 Unit FEEDTUBE PRN PRN For Clogged Feeding Tube Carvedilol 3.125 mg 09/06/18 22:00 09/11/18 11:17 Coreg PO 3.125 mg BID NANY Administration Dextrose 0 ml 09/03/18 17:55 09/05/18 16:00 D50w (25gm) Syringe IV 20 ml PRN PRN Administration Hypoglycemia Enoxaparin Sodium 40 mg 09/08/18 22:00 09/10/18 22:06 Lovenox SUB-Q 40 mg QDAY@2200 NANY Administration Folic Acid 1 mg 09/09/18 10:00 09/11/18 11:07 Folvite PO 1 mg DAILY NANY Administration Guaifenesin 600 mg 09/09/18 11:30 09/11/18 11:07 Mucinex Er PO 600 mg BID NANY Administration Hydrophilic Ointment 1 applic 09/05/18 14:55 Vaseline Lip Therapy TP Q2HR PRN Dry Lips Ceftriaxone Sodium 2 gm in 100 mls @ 200 mls/hr 09/03/18 18:00 09/10/18 18:02 Rocephin/Ns 2 Gm/100 Ml IV 200 mls/hr Q24H NANY Administration Protocol Vancomycin HCl 1 gm in 250 mls @ 166.667 mls/hr 09/08/18 10:00 09/11/18 11:07 Vancomycin/Ns 1 Gm/250 Ml IV 166.667 mls/hr Q12HR NANY Administration Insulin Glargine 10 units 09/06/18 22:00 09/10/18 22:05 Lantus SUB-Q 10 units QHS NANY Administration Insulin Human Regular 0 units 09/05/18 18:00 09/11/18 12:44 Humulin R SUB-Q 4 units Q6HR NANY Administration Protocol Lorazepam 2 mg 09/07/18 03:15 09/07/18 03:40 Ativan IV 2 mg Q1H PRN Administration MOO-Jason 8-15 Multi-Ingred Cream/Lotion/Oil/Oint 1 applic 09/05/18 14:55 Artificial Tears Ophth Oint OU Q4HR PRN Dry Eye(s) Multivitamins 1 each 09/09/18 10:00 09/11/18 11:07 Theragran Tab PO 1 each DAILY NANY Administration Pantoprazole Sodium 40 mg 09/11/18 11:00 09/11/18 11:18 Protonix PO 40 mg QDAY NANY Administration Prochlorperazine Maleate 10 mg 09/08/18 17:42 09/09/18 12:21 Compazine PO 10 mg Q6H PRN Administration Hiccups Simple Syrup 15 ml 09/05/18 10:50 Simple Syrup FEEDTUBE PRN PRN Hypoglycemia Simple Syrup 30 ml 09/05/18 10:50 Simple Syrup FEEDTUBE PRN PRN Hypoglycemia Sodium Bicarbonate 325 mg 09/05/18 10:50 Sodium Bicarbonate FEEDTUBE PRN PRN For Clogged Feeding Tube Sodium Chloride 10 ml 09/03/18 22:00 09/11/18 11:08 Sodium Chloride Flush Syringe 10 Ml IV 10 ml BID NANY Administration Sodium Chloride 10 ml 09/03/18 15:58 Sodium Chloride Flush Syringe 10 Ml IV PRN PRN LINE FLUSH Thiamine HCl 100 mg 09/09/18 10:00 09/11/18 11:07 Vitamin B-1 PO 100 mg QDAY NANY Administration Nutrition/Malnutrition Assess - Dietary Evaluation Nutrition/Malnutrition Findings: Nutrition Notes Start: 09/04/18 14:11 Freq: Status: Active Protocol: Document 09/09/18 16:23 RM (Rec: 09/09/18 16:36 RM [id number]) Nutrition Notes Initial or Follow up Reassessment Current Diagnosis Acute Kidney Injury,Heart Failure,Respiratory Failure Other Pertinent Diagnosis DKA, Acute respiratory failure Current Diet Pureed w/Glucerna TID Labs/Tests A1c 14.6 Pertinent Medications Reviewed Height 6 ft Weight 71.9 kg [place] Body Weight (kg) 80.90 BMI 21.4 Subjective/Other Information Pt moved to . Diet advanced to pureed. Pt stated that his appetite is poor. Stated that he eats bites of his meals and drinks the Glucerna. Noted 1 unopened Glucerna at bedside. Pt stated that he had not gotten around to drinking it yet. Per ST progress note MBS recommended. Pt stated that he had been previously educated but could not recall what he learned. Reviewed DM diet education. Gave handout. Percent of energy/protein needs met: 23%/28% Burn Absent Trauma Absent #2 Nutrition Diagnosis Food and nutrition-related knowledge deficit Etiology inability to recall previous education As Evidenced by Signs and Symptoms pt desire for education #1 Nutrition Diagnosis Inadequate oral intake As Evidenced by Signs and Symptoms pt meeting 23% of calorie and 28% of protein needs Diagnosis Progress(for reassessment Improved documentation) Is patient on ventilator? No Is Patient Ambulatory and/or Out of Bed No REE-([facility]-confined to bed) [phone] Calculation Used for Recommendations [facility] Additional Notes Protein Needs: 72-93g (1-1.3g/ kg) Fluid Needs: 1 ml/kcal Nutrition Intervention Change Diet Order: Per ST Add Supplement/Snack (indicate name/kcal Continue Glucerna TID /protein ) Provides kCal: 660 Provides Protein (gm) 30 Teaching Recipient Patient Learning Readiness Good Teaching Methods Discussion,Handout Response to Teaching Verbalize understanding Education Handouts Provided Carbohydrate counting for people with diabetes Barriers to Learning No Barriers RD phone number provided Yes Patient aware of follow up options Yes Goal #1 MBS Goal #2 Meet at least 75% of kcal and protein needs Anticipated Discharge Needs: Unable to determine at this time Follow-Up By: 09/11/18 Additional Comments Follow for MBS results, PO and ONS intakes
--- NOTE | 2018-09-11 16:01 | Progress Note ---
Assessment and Plan Patient is alert and awake. He is on 3 L O2. O2 saturation of 94%. ABGs obtained on 3 L O2. Reported PO2 of 69. Patient complaining non productive cough. No acute respiratory distress. Patient has history of smoking. Still smoking before admitted to the hospital. Counselled to stop smoking. Patient has a low grade fever with mild leukocytosis. Chest xray bibasilar infiltrates, pneumonia vs Atelectasis. Patient is on ceftriaxone and vancomycin. - Patient Problems (1) DKA (diabetic ketoacidoses) Current Visit: Yes Status: Resolved Qualifiers: Diabetes mellitus type: type 1 Diabetes mellitus complication detail: with coma Qualified Code(s): E10.11 - Type 1 diabetes mellitus with ketoacidosis with coma Plan to address problem: Management as per primary care. (2) Acute renal failure Current Visit: Yes Status: Acute Qualifiers: Acute renal failure type: with acute tubular necrosis Qualified Code(s): N17.0 - Acute kidney failure with tubular necrosis Plan to address problem: Management as per nephrology. (3) Tobacco use disorder Current Visit: Yes Status: Acute Plan to address problem: Counselled to stop smoking. PFTs as out patient. Albuterol/atrovent aerosol treatments q 6 hours. (4) Encephalopathy Current Visit: Yes Status: Resolved Plan to address problem: Management as per primary care. (5) Bilateral pulmonary infiltrates on chest x-ray Current Visit: Yes Status: Acute Plan to address problem: Patient is on ceftriaxone and vancomycin Subjective Date of service: 09/11/18 Principal diagnosis: DKA, Acute resp failure, NSTEMI, NICMP, KYLE, Sepsis Interval history: Patient is alert and awake. He is on 3 L O2. O2 saturation of 94%. ABGs obtained on 3 L O2. Reported PO2 of 69. Patient complaining non productive cough. No acute respiratory distress. Patient has history of smoking. Still smoking before admitted to the hospital. Counselled to stop smoking. Patient has a low grade fever with mild leukocytosis. Chest xray bibasilar infiltrates, pneumonia vs Atelectasis. Patient is on ceftriaxone and vancomycin. Objective Vital Signs - 12hr 09/11/18 09/11/18 09/11/18 05:00 05:14 10:00 Temperature 99.7 F H Pulse Rate 97 H 97 H Respiratory 22 Rate Blood Pressure 87/54 O2 Sat by Pulse 92 94 Oximetry 09/11/18 09/11/18 11:17 11:18 Temperature 99.0 F Pulse Rate 81 Respiratory 18 Rate Blood Pressure 125/72 125/72 O2 Sat by Pulse Oximetry Constitutional: no acute distress, other (middle aged AAM, normocephalic and atraumatic with mildly increased respiratory effort at rest) Eyes: non-icteric ENT: oropharynx moist, other (extubated) Neck: supple, no JVD, other (no thyromegaly) Effort: mildly labored Ascultation: Bilateral: rales (scant RLL) Percussion: Bilateral: not dull Cardiovascular: regular rate and rhythm, other (No R/M) Gastrointestinal: normoactive bowel sounds, soft, non-tender, non-distended Integumentary: normal Extremities: no cyanosis, no edema, pulses normal, no ischemia or petechiae Neurologic: non-focal exam (grossly), pupils equal and round, other (agitated) Psychiatric: other (?? mild cognitive dysfunction clinically) CBC and BMP: 09/11/18 06:00 09/11/18 06:00 ABG, PT/INR, D-dimer: ABG POC ABG pH 7.428 (7.35-7.45) 09/11/18 11:39 POC ABG pCO2 39.2 (35-45) 09/11/18 11:39 POC ABG pO2 69 (80-105) L 09/11/18 11:39 POC ABG HCO3 25.9 (22-26 mml/L) 09/11/18 11:39 POC ABG Total CO2 27 (23-27mmol/L) 09/11/18 11:39 POC ABG O2 Sat 94 09/11/18 11:39 PT/INR, D-dimer PT 17.5 Sec. (12.2-14.9) H 09/03/18 15:01 INR 1.47 (0.87-1.13) H 09/03/18 15:01 Abnormal lab findings: Abnormal Labs 09/03/18 09/03/18 09/03/18 02:20 15:01 15:01 WBC 17.4 H RBC Hgb 10.6 L Hct MCV 111 H MCH MCHC 25 L RDW 16.5 H Plt Count 16 L* Lymph % (Auto) Lymph # Seg Neutrophils % Seg Neuts % (Manual) 84.0 H Lymphocytes % (Manual) 8.0 L Seg Neutrophils # Seg Neutrophils # Man 14.6 H Monocytes # (Manual) 1.0 H PT 17.5 H INR 1.47 H POC ABG pH POC ABG pCO2 POC ABG pO2 VBG pH Sodium Potassium Chloride Carbon Dioxide BUN Creatinine Glucose POC Glucose Hemoglobin A1c Lactic Acid 5.90 H* Calcium Phosphorus Magnesium AST Alkaline Phosphatase Total Creatine Kinase CK-MB (CK-2) CK-MB (CK-2) Rel Index Troponin T C-Reactive Protein Total Protein Albumin 09/03/18 09/03/18 09/03/18 15:01 15:01 15:03 WBC RBC Hgb Hct MCV MCH MCHC RDW Plt Count Lymph % (Auto) Lymph # Seg Neutrophils % Seg Neuts % (Manual) Lymphocytes % (Manual) Seg Neutrophils # Seg Neutrophils # Man Monocytes # (Manual) PT INR POC ABG pH POC ABG pCO2 POC ABG pO2 VBG pH 7.049 L* Sodium 110 L* Potassium 7.5 H* Chloride 61.0 L Carbon Dioxide 6 L* BUN 77 H Creatinine 4.3 H Glucose 1968 H* POC Glucose > 500 H Hemoglobin A1c Lactic Acid Calcium 7.3 L Phosphorus Magnesium AST Alkaline Phosphatase Total Creatine Kinase 203 H CK-MB (CK-2) 8.9 H CK-MB (CK-2) Rel Index 4.3 H Troponin T 0.058 H C-Reactive Protein Total Protein Albumin 09/03/18 09/03/18 09/03/18 15:16 18:10 18:10 WBC RBC Hgb Hct MCV MCH MCHC RDW Plt Count Lymph % (Auto) Lymph # Seg Neutrophils % Seg Neuts % (Manual) Lymphocytes % (Manual) Seg Neutrophils # Seg Neutrophils # Man Monocytes # (Manual) PT INR POC ABG pH 7.020 L POC ABG pCO2 < 30 L POC ABG pO2 139 H VBG pH Sodium Potassium Chloride Carbon Dioxide BUN Creatinine Glucose POC Glucose Hemoglobin A1c Lactic Acid Calcium Phosphorus Magnesium AST 64 H Alkaline Phosphatase 205 H Total Creatine Kinase 289 H CK-MB (CK-2) 13.4 H CK-MB (CK-2) Rel Index 4.6 H Troponin T 0.142 H* D C-Reactive Protein Total Protein 5.6 L Albumin 3.2 L 09/03/18 09/03/18 09/03/18 18:10 18:10 18:33 WBC RBC Hgb Hct MCV MCH MCHC RDW Plt Count Lymph % (Auto) Lymph # Seg Neutrophils % Seg Neuts % (Manual) Lymphocytes % (Manual) Seg Neutrophils # Seg Neutrophils # Man Monocytes # (Manual) PT INR POC ABG pH 7.047 L POC ABG pCO2 POC ABG pO2 VBG pH Sodium 113 L* Potassium Chloride 70.1 L Carbon Dioxide 8 L* BUN 76 H Creatinine 4.3 H Glucose 1844 H* POC Glucose Hemoglobin A1c Lactic Acid Calcium 6.8 L Phosphorus 8.80 H Magnesium 2.90 H AST Alkaline Phosphatase Total Creatine Kinase CK-MB (CK-2) CK-MB (CK-2) Rel Index Troponin T C-Reactive Protein Total Protein Albumin 09/03/18 09/03/18 09/03/18 20:15 20:15 20:15 WBC RBC Hgb Hct MCV MCH MCHC RDW Plt Count Lymph % (Auto) Lymph # Seg Neutrophils % Seg Neuts % (Manual) Lymphocytes % (Manual) Seg Neutrophils # Seg Neutrophils # Man Monocytes # (Manual) PT INR POC ABG pH POC ABG pCO2 POC ABG pO2 VBG pH Sodium Potassium Chloride Carbon Dioxide BUN Creatinine Glucose POC Glucose Hemoglobin A1c Lactic Acid 4.10 H* Calcium Phosphorus 9.00 H Magnesium 2.80 H AST Alkaline Phosphatase Total Creatine Kinase 293 H CK-MB (CK-2) 13.0 H CK-MB (CK-2) Rel Index 4.4 H Troponin T 0.126 H* C-Reactive Protein Total Protein Albumin 09/03/18 09/03/18 09/03/18 20:15 20:18 22:00 WBC RBC Hgb Hct MCV MCH MCHC RDW Plt Count Lymph % (Auto) Lymph # Seg Neutrophils % Seg Neuts % (Manual) Lymphocytes % (Manual) Seg Neutrophils # Seg Neutrophils # Man Monocytes # (Manual) PT INR POC ABG pH POC ABG pCO2 POC ABG pO2 VBG pH Sodium 116 L* 120 L Potassium Chloride 74.3 L 82.7 L Carbon Dioxide 11 L 11 L BUN 76 H 74 H Creatinine 4.4 H 4.3 H Glucose 1786 H* 1144 H* POC Glucose > 500 H Hemoglobin A1c Lactic Acid Calcium 6.4 L 6.0 L Phosphorus Magnesium AST Alkaline Phosphatase Total Creatine Kinase CK-MB (CK-2) CK-MB (CK-2) Rel Index Troponin T C-Reactive Protein Total Protein Albumin 09/03/18 09/03/18 09/03/18 22:54 23:18 23:47 WBC RBC Hgb Hct MCV MCH MCHC RDW Plt Count Lymph % (Auto) Lymph # Seg Neutrophils % Seg Neuts % (Manual) Lymphocytes % (Manual) Seg Neutrophils # Seg Neutrophils # Man Monocytes # (Manual) PT INR POC ABG pH 7.279 L POC ABG pCO2 POC ABG pO2 230 H VBG pH Sodium Potassium Chloride Carbon Dioxide BUN Creatinine Glucose POC Glucose > 500 H Hemoglobin A1c Lactic Acid 5.00 H* Calcium Phosphorus Magnesium AST Alkaline Phosphatase Total Creatine Kinase CK-MB (CK-2) CK-MB (CK-2) Rel Index Troponin T C-Reactive Protein Total Protein Albumin 09/04/18 09/04/18 09/04/18 00:20 01:06 02:20 WBC RBC Hgb Hct MCV MCH MCHC RDW Plt Count Lymph % (Auto) Lymph # Seg Neutrophils % Seg Neuts % (Manual) Lymphocytes % (Manual) Seg Neutrophils # Seg Neutrophils # Man Monocytes # (Manual) PT INR POC ABG pH POC ABG pCO2 POC ABG pO2 VBG pH Sodium 124 L 127 L Potassium Chloride 88.7 L 91.1 L Carbon Dioxide 13 L 15 L BUN 70 H 72 H Creatinine 4.3 H 4.4 H Glucose 1295 H* 1156 H* POC Glucose > 500 H Hemoglobin A1c Lactic Acid Calcium 5.8 L* 6.1 L Phosphorus Magnesium AST Alkaline Phosphatase Total Creatine Kinase CK-MB (CK-2) CK-MB (CK-2) Rel Index Troponin T C-Reactive Protein Total Protein Albumin 09/04/18 09/04/18 09/04/18 02:28 04:35 05:25 WBC RBC Hgb Hct MCV MCH MCHC RDW Plt Count Lymph % (Auto) Lymph # Seg Neutrophils % Seg Neuts % (Manual) Lymphocytes % (Manual) Seg Neutrophils # Seg Neutrophils # Man Monocytes # (Manual) PT INR POC ABG pH POC ABG pCO2 POC ABG pO2 160 H VBG pH Sodium Potassium Chloride Carbon Dioxide BUN Creatinine Glucose POC Glucose > 500 H > 500 H Hemoglobin A1c Lactic Acid Calcium Phosphorus Magnesium AST Alkaline Phosphatase Total Creatine Kinase CK-MB (CK-2) CK-MB (CK-2) Rel Index Troponin T C-Reactive Protein Total Protein Albumin 09/04/18 09/04/18 09/04/18 06:15 09:04 09:15 WBC RBC Hgb Hct MCV MCH MCHC RDW Plt Count Lymph % (Auto) Lymph # Seg Neutrophils % Seg Neuts % (Manual) Lymphocytes % (Manual) Seg Neutrophils # Seg Neutrophils # Man Monocytes # (Manual) PT INR POC ABG pH POC ABG pCO2 POC ABG pO2 VBG pH Sodium 134 L D Potassium Chloride Carbon Dioxide 17 L 17 L BUN 67 H 63 H Creatinine 4.4 H 4.1 H Glucose 871 H* 668 H* POC Glucose > 500 H Hemoglobin A1c Lactic Acid Calcium 6.6 L 6.4 L Phosphorus Magnesium AST Alkaline Phosphatase Total Creatine Kinase CK-MB (CK-2) CK-MB (CK-2) Rel Index Troponin T C-Reactive Protein Total Protein Albumin 09/04/18 09/04/18 09/04/18 09:15 11:26 11:53 WBC 13.1 H RBC Hgb 9.8 L Hct 30.0 L D MCV 82 L MCH 27 L MCHC RDW Plt Count Lymph % (Auto) Lymph # Seg Neutrophils % Seg Neuts % (Manual) Lymphocytes % (Manual) Seg Neutrophils # Seg Neutrophils # Man Monocytes # (Manual) PT INR POC ABG pH POC ABG pCO2 POC ABG pO2 VBG pH Sodium Potassium Chloride Carbon Dioxide 20 L BUN 61 H Creatinine 3.9 H Glucose 472 H POC Glucose > 500 H Hemoglobin A1c Lactic Acid Calcium 6.7 L Phosphorus Magnesium AST Alkaline Phosphatase Total Creatine Kinase CK-MB (CK-2) CK-MB (CK-2) Rel Index Troponin T C-Reactive Protein Total Protein Albumin 09/04/18 09/04/18 09/04/18 13:44 14:18 15:29 WBC RBC Hgb Hct MCV MCH MCHC RDW Plt Count Lymph % (Auto) Lymph # Seg Neutrophils % Seg Neuts % (Manual) Lymphocytes % (Manual) Seg Neutrophils # Seg Neutrophils # Man Monocytes # (Manual) PT INR POC ABG pH POC ABG pCO2 30.2 L POC ABG pO2 145 H VBG pH Sodium Potassium Chloride Carbon Dioxide BUN Creatinine Glucose POC Glucose 354 H 299 H Hemoglobin A1c Lactic Acid Calcium Phosphorus Magnesium AST Alkaline Phosphatase Total Creatine Kinase CK-MB (CK-2) CK-MB (CK-2) Rel Index Troponin T C-Reactive Protein Total Protein Albumin 09/04/18 09/04/1809/04/19 16:10 17:19 21:55 WBC RBC Hgb Hct MCV MCH MCHC RDW Plt Count Lymph % (Auto) Lymph # Seg Neutrophils % Seg Neuts % (Manual) Lymphocytes % (Manual) Seg Neutrophils # Seg Neutrophils # Man Monocytes # (Manual) PT INR POC ABG pH POC ABG pCO2 POC ABG pO2 VBG pH Sodium Potassium Chloride 113.1 H 114.0 H Carbon Dioxide 19 L 18 L BUN 57 H 52 H Creatinine 3.3 H 3.0 H Glucose 113 H 161 H POC Glucose 147 H Hemoglobin A1c Lactic Acid Calcium 6.8 L 6.7 L Phosphorus Magnesium AST Alkaline Phosphatase Total Creatine Kinase CK-MB (CK-2) CK-MB (CK-2) Rel Index Troponin T C-Reactive Protein Total Protein Albumin 09/04/18 09/05/18 09/05/18 21:58 00:08 01:44 WBC RBC Hgb Hct MCV MCH MCHC RDW Plt Count Lymph % (Auto) Lymph # Seg Neutrophils % Seg Neuts % (Manual) Lymphocytes % (Manual) Seg Neutrophils # Seg Neutrophils # Man Monocytes # (Manual) PT INR POC ABG pH POC ABG pCO2 POC ABG pO2 VBG pH Sodium Potassium Chloride Carbon Dioxide BUN Creatinine Glucose POC Glucose 159 H 235 H 224 H Hemoglobin A1c Lactic Acid Calcium Phosphorus Magnesium AST Alkaline Phosphatase Total Creatine Kinase CK-MB (CK-2) CK-MB (CK-2) Rel Index Troponin T C-Reactive Protein Total Protein Albumin 09/05/18 09/05/18 09/05/18 04:13 04:22 04:30 WBC 11.5 H RBC 3.59 L Hgb 9.9 L Hct 29.2 L MCV 81 L MCH MCHC RDW Plt Count Lymph % (Auto) Lymph # Seg Neutrophils % Seg Neuts % (Manual) Lymphocytes % (Manual) Seg Neutrophils # Seg Neutrophils # Man Monocytes # (Manual) PT INR POC ABG pH POC ABG pCO2 < 30 L POC ABG pO2 133 H VBG pH Sodium Potassium Chloride Carbon Dioxide BUN Creatinine Glucose POC Glucose 253 H Hemoglobin A1c Lactic Acid Calcium Phosphorus Magnesium AST Alkaline Phosphatase Total Creatine Kinase CK-MB (CK-2) CK-MB (CK-2) Rel Index Troponin T C-Reactive Protein Total Protein Albumin 09/05/18 09/05/18 09/05/18 04:30 05:59 08:09 WBC RBC Hgb Hct MCV MCH MCHC RDW Plt Count Lymph % (Auto) Lymph # Seg Neutrophils % Seg Neuts % (Manual) Lymphocytes % (Manual) Seg Neutrophils # Seg Neutrophils # Man Monocytes # (Manual) PT INR POC ABG pH POC ABG pCO2 POC ABG pO2 VBG pH Sodium Potassium Chloride 114.0 H Carbon Dioxide 18 L BUN 44 H Creatinine 2.7 H Glucose 235 H POC Glucose 243 H 187 H Hemoglobin A1c Lactic Acid Calcium 7.0 L Phosphorus 1.10 L D Magnesium AST 85 H Alkaline Phosphatase 139 H Total Creatine Kinase CK-MB (CK-2) CK-MB (CK-2) Rel Index Troponin T C-Reactive Protein Total Protein 4.6 L Albumin 2.6 L 09/05/18 09/05/18 09/05/18 10:02 12:22 12:24 WBC RBC Hgb Hct MCV MCH MCHC RDW Plt Count Lymph % (Auto) Lymph # Seg Neutrophils % Seg Neuts % (Manual) Lymphocytes % (Manual) Seg Neutrophils # Seg Neutrophils # Man Monocytes # (Manual) PT INR POC ABG pH POC ABG pCO2 POC ABG pO2 VBG pH Sodium Potassium Chloride Carbon Dioxide BUN Creatinine Glucose POC Glucose 139 H 52 L 63 L Hemoglobin A1c Lactic Acid Calcium Phosphorus Magnesium AST Alkaline Phosphatase Total Creatine Kinase CK-MB (CK-2) CK-MB (CK-2) Rel Index Troponin T C-Reactive Protein Total Protein Albumin 09/05/18 09/05/18 09/05/18 12:30 16:02 Unknown WBC RBC Hgb Hct MCV MCH MCHC RDW Plt Count Lymph % (Auto) Lymph # Seg Neutrophils % Seg Neuts % (Manual) Lymphocytes % (Manual) Seg Neutrophils # Seg Neutrophils # Man Monocytes # (Manual) PT INR POC ABG pH POC ABG pCO2 POC ABG pO2 VBG pH Sodium Potassium Chloride 112.3 H Carbon Dioxide 20 L BUN 30 H Creatinine 2.0 H Glucose 183 H POC Glucose 55 L Hemoglobin A1c Lactic Acid Calcium 7.6 L Phosphorus Magnesium AST Alkaline Phosphatase Total Creatine Kinase CK-MB (CK-2) CK-MB (CK-2) Rel Index Troponin T C-Reactive Protein 6.30 H Total Protein Albumin 09/06/18 09/06/18 09/06/18 00:06 04:27 04:30 WBC RBC Hgb Hct MCV MCH MCHC RDW Plt Count Lymph % (Auto) Lymph # Seg Neutrophils % Seg Neuts % (Manual) Lymphocytes % (Manual) Seg Neutrophils # Seg Neutrophils # Man Monocytes # (Manual) PT INR POC ABG pH 7.280 L POC ABG pCO2 POC ABG pO2 VBG pH Sodium Potassium Chloride Carbon Dioxide BUN Creatinine Glucose POC Glucose 218 H Hemoglobin A1c 14.6 H Lactic Acid Calcium Phosphorus Magnesium AST Alkaline Phosphatase Total Creatine Kinase CK-MB (CK-2) CK-MB (CK-2) Rel Index Troponin T C-Reactive Protein Total Protein Albumin 09/06/18 09/06/18 09/06/18 05:00 05:23 10:58 WBC RBC Hgb Hct MCV MCH MCHC RDW Plt Count Lymph % (Auto) Lymph # Seg Neutrophils % Seg Neuts % (Manual) Lymphocytes % (Manual) Seg Neutrophils # Seg Neutrophils # Man Monocytes # (Manual) PT INR POC ABG pH POC ABG pCO2 31.7 L POC ABG pO2 60 L VBG pH Sodium Potassium Chloride 111.4 H Carbon Dioxide 20 L BUN 27 H Creatinine 1.9 H Glucose 256 H POC Glucose 308 H Hemoglobin A1c Lactic Acid Calcium 7.7 L Phosphorus Magnesium AST Alkaline Phosphatase Total Creatine Kinase CK-MB (CK-2) CK-MB (CK-2) Rel Index Troponin T C-Reactive Protein Total Protein Albumin 09/06/18 09/06/18 09/06/18 12:17 18:25 21:58 WBC RBC Hgb Hct MCV MCH MCHC RDW Plt Count Lymph % (Auto) Lymph # Seg Neutrophils % Seg Neuts % (Manual) Lymphocytes % (Manual) Seg Neutrophils # Seg Neutrophils # Man Monocytes # (Manual) PT INR POC ABG pH POC ABG pCO2 POC ABG pO2 VBG pH Sodium Potassium Chloride Carbon Dioxide BUN Creatinine Glucose POC Glucose 214 H 183 H 136 H Hemoglobin A1c Lactic Acid Calcium Phosphorus Magnesium AST Alkaline Phosphatase Total Creatine Kinase CK-MB (CK-2) CK-MB (CK-2) Rel Index Troponin T C-Reactive Protein Total Protein Albumin 09/06/18 09/07/18 09/07/18 23:42 04:20 04:20 WBC RBC 3.36 L Hgb 9.2 L Hct 27.8 L MCV 83 L MCH 27 L MCHC RDW Plt Count Lymph % (Auto) 5.1 L Lymph # 0.5 L Seg Neutrophils % 87.0 H Seg Neuts % (Manual) Lymphocytes % (Manual) Seg Neutrophils # 8.5 H Seg Neutrophils # Man Monocytes # (Manual) PT INR POC ABG pH POC ABG pCO2 POC ABG pO2 VBG pH Sodium Potassium Chloride 112.3 H Carbon Dioxide BUN Creatinine Glucose 200 H POC Glucose 169 H Hemoglobin A1c Lactic Acid Calcium 8.0 L Phosphorus Magnesium AST Alkaline Phosphatase Total Creatine Kinase CK-MB (CK-2) CK-MB (CK-2) Rel Index Troponin T C-Reactive Protein Total Protein Albumin 09/07/18 09/07/18 09/07/18 05:19 11:49 17:23 WBC RBC Hgb Hct MCV MCH MCHC RDW Plt Count Lymph % (Auto) Lymph # Seg Neutrophils % Seg Neuts % (Manual) Lymphocytes % (Manual) Seg Neutrophils # Seg Neutrophils # Man Monocytes # (Manual) PT INR POC ABG pH POC ABG pCO2 POC ABG pO2 VBG pH Sodium Potassium Chloride Carbon Dioxide BUN Creatinine Glucose POC Glucose 177 H 120 H 224 H Hemoglobin A1c Lactic Acid Calcium Phosphorus Magnesium AST Alkaline Phosphatase Total Creatine Kinase CK-MB (CK-2) CK-MB (CK-2) Rel Index Troponin T C-Reactive Protein Total Protein Albumin 09/07/18 09/07/18 09/08/18 17:41 23:11 06:15 WBC RBC Hgb Hct MCV MCH MCHC RDW Plt Count Lymph % (Auto) Lymph # Seg Neutrophils % Seg Neuts % (Manual) Lymphocytes % (Manual) Seg Neutrophils # Seg Neutrophils # Man Monocytes # (Manual) PT INR POC ABG pH POC ABG pCO2 POC ABG pO2 VBG pH Sodium 146 H Potassium Chloride 112.9 H Carbon Dioxide BUN Creatinine Glucose 117 H POC Glucose 227 H 156 H Hemoglobin A1c Lactic Acid Calcium 8.0 L Phosphorus Magnesium AST Alkaline Phosphatase Total Creatine Kinase CK-MB (CK-2) CK-MB (CK-2) Rel Index Troponin T C-Reactive Protein Total Protein Albumin 09/08/18 09/08/18 09/08/18 07:13 11:42 23:03 WBC RBC Hgb Hct MCV MCH MCHC RDW Plt Count Lymph % (Auto) Lymph # Seg Neutrophils % Seg Neuts % (Manual) Lymphocytes % (Manual) Seg Neutrophils # Seg Neutrophils # Man Monocytes # (Manual) PT INR POC ABG pH POC ABG pCO2 POC ABG pO2 VBG pH Sodium Potassium Chloride Carbon Dioxide BUN Creatinine Glucose POC Glucose 128 H 128 H 172 H Hemoglobin A1c Lactic Acid Calcium Phosphorus Magnesium AST Alkaline Phosphatase Total Creatine Kinase CK-MB (CK-2) CK-MB (CK-2) Rel Index Troponin T C-Reactive Protein Total Protein Albumin 09/08/18 09/09/18 09/09/18 23:43 01:30 05:44 WBC RBC Hgb Hct MCV MCH MCHC RDW Plt Count Lymph % (Auto) Lymph # Seg Neutrophils % Seg Neuts % (Manual) Lymphocytes % (Manual) Seg Neutrophils # Seg Neutrophils # Man Monocytes # (Manual) PT INR POC ABG pH POC ABG pCO2 POC ABG pO2 VBG pH Sodium Potassium 3.5 L Chloride 107.2 H Carbon Dioxide BUN Creatinine Glucose 128 H POC Glucose 188 H 112 H Hemoglobin A1c Lactic Acid Calcium 7.6 L Phosphorus Magnesium AST Alkaline Phosphatase Total Creatine Kinase CK-MB (CK-2) CK-MB (CK-2) Rel Index Troponin T C-Reactive Protein Total Protein Albumin 09/09/18 09/09/18 09/09/18 05:52 11:24 21:58 WBC RBC Hgb Hct MCV MCH MCHC RDW Plt Count Lymph % (Auto) Lymph # Seg Neutrophils % Seg Neuts % (Manual) Lymphocytes % (Manual) Seg Neutrophils # Seg Neutrophils # Man Monocytes # (Manual) PT INR POC ABG pH POC ABG pCO2 POC ABG pO2 VBG pH Sodium Potassium 3.4 L Chloride 108.8 H Carbon Dioxide BUN Creatinine Glucose 116 H POC Glucose 257 H 141 H Hemoglobin A1c Lactic Acid Calcium 7.9 L Phosphorus 2.30 L Magnesium AST Alkaline Phosphatase Total Creatine Kinase CK-MB (CK-2) CK-MB (CK-2) Rel Index Troponin T C-Reactive Protein Total Protein Albumin 09/10/18 09/10/18 09/10/18 00:08 05:58 11:13 WBC RBC Hgb Hct MCV MCH MCHC RDW Plt Count Lymph % (Auto) Lymph # Seg Neutrophils % Seg Neuts % (Manual) Lymphocytes % (Manual) Seg Neutrophils # Seg Neutrophils # Man Monocytes # (Manual) PT INR POC ABG pH POC ABG pCO2 POC ABG pO2 VBG pH Sodium Potassium Chloride Carbon Dioxide BUN Creatinine Glucose POC Glucose 121 H 122 H 207 H Hemoglobin A1c Lactic Acid Calcium Phosphorus Magnesium AST Alkaline Phosphatase Total Creatine Kinase CK-MB (CK-2) CK-MB (CK-2) Rel Index Troponin T C-Reactive Protein Total Protein Albumin 09/10/18 09/11/18 09/11/18 17:40 00:31 03:05 WBC RBC Hgb Hct MCV MCH MCHC RDW Plt Count Lymph % (Auto) Lymph # Seg Neutrophils % Seg Neuts % (Manual) Lymphocytes % (Manual) Seg Neutrophils # Seg Neutrophils # Man Monocytes # (Manual) PT INR POC ABG pH POC ABG pCO2 POC ABG pO2 VBG pH Sodium Potassium Chloride Carbon Dioxide BUN Creatinine Glucose POC Glucose 218 H 226 H 142 H Hemoglobin A1c Lactic Acid Calcium Phosphorus Magnesium AST Alkaline Phosphatase Total Creatine Kinase CK-MB (CK-2) CK-MB (CK-2) Rel Index Troponin T C-Reactive Protein Total Protein Albumin 09/11/18 09/11/18 09/11/18 05:32 06:00 06:00 WBC 11.5 H RBC 3.53 L Hgb 9.5 L Hct 29.0 L MCV 82 L MCH 27 L MCHC RDW Plt Count Lymph % (Auto) Lymph # Seg Neutrophils % Seg Neuts % (Manual) Lymphocytes % (Manual) Seg Neutrophils # Seg Neutrophils # Man Monocytes # (Manual) PT INR POC ABG pH POC ABG pCO2 POC ABG pO2 VBG pH Sodium Potassium 3.5 L Chloride Carbon Dioxide BUN 7 L Creatinine Glucose 153 H POC Glucose 153 H Hemoglobin A1c Lactic Acid Calcium 7.9 L Phosphorus Magnesium AST Alkaline Phosphatase Total Creatine Kinase CK-MB (CK-2) CK-MB (CK-2) Rel Index Troponin T C-Reactive Protein Total Protein 4.9 L Albumin 1.8 L 09/11/18 09/11/18 11:39 12:38 WBC RBC Hgb Hct MCV MCH MCHC RDW Plt Count Lymph % (Auto) Lymph # Seg Neutrophils % Seg Neuts % (Manual) Lymphocytes % (Manual) Seg Neutrophils # Seg Neutrophils # Man Monocytes # (Manual) PT INR POC ABG pH POC ABG pCO2 POC ABG pO2 69 L VBG pH Sodium Potassium Chloride Carbon Dioxide BUN Creatinine Glucose POC Glucose 219 H Hemoglobin A1c Lactic Acid Calcium Phosphorus Magnesium AST Alkaline Phosphatase Total Creatine Kinase CK-MB (CK-2) CK-MB (CK-2) Rel Index Troponin T C-Reactive Protein Total Protein Albumin Chest x-ray: report reviewed, image reviewed (bilateral pulmonary infiltrates vs pulmonary edema. small bilateral pleural effusion.) Allied health notes reviewed: nursing
[2018-09-11] MEDS: ROCEPHIN/NS 2 GM/100 ML 2 GM/100 ML BAG IV SCH (19:45)
--- NOTE | 2018-09-11 20:23 | Ultrasound Report ---
ULTRASOUND ABDOMEN, COMPLETE INDICATION: N/V. Abdominal pain COMPARISON: None available. FINDINGS: Pancreas: Poorly visualized secondary to bowel gas Abdominal Aorta: Normal. IVC: Normal. Liver: Normal. Gallbladder: Normal. Minimal pericholecystic fluid Bile ducts: Normal Common Bile Duct measures 1 mm. Right Kidney: Normal. Left Kidney: Normal. Spleen: Normal. Measures 10.6 cm in length Free fluid: Small amount of perisplenic fluid and pericholecystic fluid characteristic for mild ascit es Additional Findings: None. IMPRESSION: 1. Small amount of ascites. 2. Pancreas poorly visualized. 3. Otherwise negative abdominal ultrasound Signer Name: Alex Pang MD Signed: 09/11/2018 8:18 PM Workstation Name: [id number]
[2018-09-11] MEDS: IBUPROFEN PO PRN (20:32)
[2018-09-11] MEDS: LANTUS SUB-Q SCH (22:00)
[2018-09-11] MEDS: LOVENOX SUB-Q SCH (22:01)
--- NOTE | 2018-09-12 07:35 | Anesthesia Consultation ---
Anesthesia Consult and Med Hx Date of service: 09/12/18 - Pre-Operative Health Status ASA Pre-Surgery Classification: ASA4 Proposed Anesthetic Plan: MAC - Pulmonary Hx Smoking: Yes Hx Respiratory Symptoms: Yes SOB: Yes - Cardiovascular System Hx Hypertension: Yes Hx Coronary Artery Disease: Yes Hx Heart Attack/AMI: Yes Hx Pacemaker: No Hx Internal Defibrillator: No - Endocrine Hx Renal Disease: Yes Hx Non-Insulin Dependent Diabetes: Yes - Other Systems Hx Alcohol Use: Yes Hx Substance Use: Yes
[2018-09-12] MEDS: D50W (25GM) Syringe IV PRN (08:32)
--- NOTE | 2018-09-12 08:55 | Progress Note ---
Assessment and Plan DKA Pneumonia Acute metabolic encephaloapthy Severe Sepsis (Unspecified) KYLE Acute hypoxemic respiratory failure NSTEMI type 2 Thrombocytopenia Hyponatremia (due to hyperglycemia) - replace phosphorus and magnesium (KPhos 45 mmols) - change SSI to q6h once off IV insulin (target BG 140 - 180 mg/dl) -complete antibiotics -aspiration precautions - continue supplemental oxygen as needed to keep O2 sat's > 90% - continue bronchodilators with pulmonary hygiene per RT - continue accuchecks with glycemic control per SSI for target blood glucose <180mg/dL - Prevention of delirium, maintenance of sleep-wake cycle - Avoid nephrotoxic agents, adjust all antibiotics and medications for CrCL and GFR - VTE and Stress ulcer prophylaxis Suspect there is an element of ICU pyschosis . PT/OT to evaluate and treat OK to transfer to telemetry floor Subjective Date of service: 09/12/18 Principal diagnosis: DKA, Acute resp failure, NSTEMI, NICMP, KYLE, Sepsis Interval history: Patient is seen today for: DKA; Acute metabolic encephaloapthy; severe sepsis; KYLE; acute hypoxemic respiratory failure Seen and examined at bedside; 24hour events reviewed; nursing and respiratory care staff consulted; no adverse overnight events reported to me; resting in bed; making good urine; NO N/V/F/C; denies sore throat, acute chest pains or palpitations, for EGD today Objective Vital Signs - 12hr 09/11/18 09/11/18 09/11/18 21:56 22:07 22:58 Temperature 98.6 F Pulse Rate 83 72 Respiratory 20 Rate Blood Pressure 103/63 109/62 O2 Sat by Pulse 96 91 Oximetry 09/12/18 05:21 Temperature 98.4 F Pulse Rate 82 Respiratory 20 Rate Blood Pressure 113/58 O2 Sat by Pulse 94 Oximetry Constitutional: no acute distress, other (middle aged AAM, normocephalic and atraumatic with mildly increased respiratory effort at rest) Eyes: non-icteric ENT: oropharynx moist, other (extubated) Neck: supple, no JVD, other (no thyromegaly) Effort: mildly labored Ascultation: Bilateral: rales (scant RLL) Percussion: Bilateral: not dull Cardiovascular: regular rate and rhythm, other (No R/M) Gastrointestinal: normoactive bowel sounds, soft, non-tender, non-distended Integumentary: normal Extremities: no cyanosis, no edema, pulses normal, no ischemia or petechiae Neurologic: non-focal exam (grossly), pupils equal and round, other (agitated) Psychiatric: other (?? mild cognitive dysfunction clinically) CBC and BMP: 09/11/18 06:00 09/11/18 06:00 ABG, PT/INR, D-dimer: ABG POC ABG pH 7.428 (7.35-7.45) 09/11/18 11:39 POC ABG pCO2 39.2 (35-45) 09/11/18 11:39 POC ABG pO2 69 (80-105) L 09/11/18 11:39 POC ABG HCO3 25.9 (22-26 mml/L) 09/11/18 11:39 POC ABG Total CO2 27 (23-27mmol/L) 09/11/18 11:39 POC ABG O2 Sat 94 09/11/18 11:39 PT/INR, D-dimer PT 17.5 Sec. (12.2-14.9) H 09/03/18 15:01 INR 1.47 (0.87-1.13) H 09/03/18 15:01 Abnormal lab findings: Abnormal Labs 09/03/18 09/03/18 09/03/18 02:20 15:01 15:01 WBC 17.4 H RBC Hgb 10.6 L Hct MCV 111 H MCH MCHC 25 L RDW 16.5 H Plt Count 16 L* Lymph % (Auto) Lymph # Seg Neutrophils % Seg Neuts % (Manual) 84.0 H Lymphocytes % (Manual) 8.0 L Seg Neutrophils # Seg Neutrophils # Man 14.6 H Monocytes # (Manual) 1.0 H PT 17.5 H INR 1.47 H POC ABG pH POC ABG pCO2 POC ABG pO2 VBG pH Sodium Potassium Chloride Carbon Dioxide BUN Creatinine Glucose POC Glucose Hemoglobin A1c Lactic Acid 5.90 H* Calcium Phosphorus Magnesium AST Alkaline Phosphatase Total Creatine Kinase CK-MB (CK-2) CK-MB (CK-2) Rel Index Troponin T C-Reactive Protein Total Protein Albumin 09/03/18 09/03/18 09/03/18 15:01 15:01 15:03 WBC RBC Hgb Hct MCV MCH MCHC RDW Plt Count Lymph % (Auto) Lymph # Seg Neutrophils % Seg Neuts % (Manual) Lymphocytes % (Manual) Seg Neutrophils # Seg Neutrophils # Man Monocytes # (Manual) PT INR POC ABG pH POC ABG pCO2 POC ABG pO2 VBG pH 7.049 L* Sodium 110 L* Potassium 7.5 H* Chloride 61.0 L Carbon Dioxide 6 L* BUN 77 H Creatinine 4.3 H Glucose 1968 H* POC Glucose > 500 H Hemoglobin A1c Lactic Acid Calcium 7.3 L Phosphorus Magnesium AST Alkaline Phosphatase Total Creatine Kinase 203 H CK-MB (CK-2) 8.9 H CK-MB (CK-2) Rel Index 4.3 H Troponin T 0.058 H C-Reactive Protein Total Protein Albumin 09/03/18 09/03/18 09/03/18 15:16 18:10 18:10 WBC RBC Hgb Hct MCV MCH MCHC RDW Plt Count Lymph % (Auto) Lymph # Seg Neutrophils % Seg Neuts % (Manual) Lymphocytes % (Manual) Seg Neutrophils # Seg Neutrophils # Man Monocytes # (Manual) PT INR POC ABG pH 7.020 L POC ABG pCO2 < 30 L POC ABG pO2 139 H VBG pH Sodium Potassium Chloride Carbon Dioxide BUN Creatinine Glucose POC Glucose Hemoglobin A1c Lactic Acid Calcium Phosphorus Magnesium AST 64 H Alkaline Phosphatase 205 H Total Creatine Kinase 289 H CK-MB (CK-2) 13.4 H CK-MB (CK-2) Rel Index 4.6 H Troponin T 0.142 H* D C-Reactive Protein Total Protein 5.6 L Albumin 3.2 L 09/03/18 09/03/18 09/03/18 18:10 18:10 18:33 WBC RBC Hgb Hct MCV MCH MCHC RDW Plt Count Lymph % (Auto) Lymph # Seg Neutrophils % Seg Neuts % (Manual) Lymphocytes % (Manual) Seg Neutrophils # Seg Neutrophils # Man Monocytes # (Manual) PT INR POC ABG pH 7.047 L POC ABG pCO2 POC ABG pO2 VBG pH Sodium 113 L* Potassium Chloride 70.1 L Carbon Dioxide 8 L* BUN 76 H Creatinine 4.3 H Glucose 1844 H* POC Glucose Hemoglobin A1c Lactic Acid Calcium 6.8 L Phosphorus 8.80 H Magnesium 2.90 H AST Alkaline Phosphatase Total Creatine Kinase CK-MB (CK-2) CK-MB (CK-2) Rel Index Troponin T C-Reactive Protein Total Protein Albumin 09/03/18 09/03/18 09/03/18 20:15 20:15 20:15 WBC RBC Hgb Hct MCV MCH MCHC RDW Plt Count Lymph % (Auto) Lymph # Seg Neutrophils % Seg Neuts % (Manual) Lymphocytes % (Manual) Seg Neutrophils # Seg Neutrophils # Man Monocytes # (Manual) PT INR POC ABG pH POC ABG pCO2 POC ABG pO2 VBG pH Sodium Potassium Chloride Carbon Dioxide BUN Creatinine Glucose POC Glucose Hemoglobin A1c Lactic Acid 4.10 H* Calcium Phosphorus 9.00 H Magnesium 2.80 H AST Alkaline Phosphatase Total Creatine Kinase 293 H CK-MB (CK-2) 13.0 H CK-MB (CK-2) Rel Index 4.4 H Troponin T 0.126 H* C-Reactive Protein Total Protein Albumin 09/03/18 09/03/18 09/03/18 20:15 20:18 22:00 WBC RBC Hgb Hct MCV MCH MCHC RDW Plt Count Lymph % (Auto) Lymph # Seg Neutrophils % Seg Neuts % (Manual) Lymphocytes % (Manual) Seg Neutrophils # Seg Neutrophils # Man Monocytes # (Manual) PT INR POC ABG pH POC ABG pCO2 POC ABG pO2 VBG pH Sodium 116 L* 120 L Potassium Chloride 74.3 L 82.7 L Carbon Dioxide 11 L 11 L BUN 76 H 74 H Creatinine 4.4 H 4.3 H Glucose 1786 H* 1144 H* POC Glucose > 500 H Hemoglobin A1c Lactic Acid Calcium 6.4 L 6.0 L Phosphorus Magnesium AST Alkaline Phosphatase Total Creatine Kinase CK-MB (CK-2) CK-MB (CK-2) Rel Index Troponin T C-Reactive Protein Total Protein Albumin 09/03/18 09/03/18 09/03/18 22:54 23:18 23:47 WBC RBC Hgb Hct MCV MCH MCHC RDW Plt Count Lymph % (Auto) Lymph # Seg Neutrophils % Seg Neuts % (Manual) Lymphocytes % (Manual) Seg Neutrophils # Seg Neutrophils # Man Monocytes # (Manual) PT INR POC ABG pH 7.279 L POC ABG pCO2 POC ABG pO2 230 H VBG pH Sodium Potassium Chloride Carbon Dioxide BUN Creatinine Glucose POC Glucose > 500 H Hemoglobin A1c Lactic Acid 5.00 H* Calcium Phosphorus Magnesium AST Alkaline Phosphatase Total Creatine Kinase CK-MB (CK-2) CK-MB (CK-2) Rel Index Troponin T C-Reactive Protein Total Protein Albumin 09/04/18 09/04/18 09/04/18 00:20 01:06 02:20 WBC RBC Hgb Hct MCV MCH MCHC RDW Plt Count Lymph % (Auto) Lymph # Seg Neutrophils % Seg Neuts % (Manual) Lymphocytes % (Manual) Seg Neutrophils # Seg Neutrophils # Man Monocytes # (Manual) PT INR POC ABG pH POC ABG pCO2 POC ABG pO2 VBG pH Sodium 124 L 127 L Potassium Chloride 88.7 L 91.1 L Carbon Dioxide 13 L 15 L BUN 70 H 72 H Creatinine 4.3 H 4.4 H Glucose 1295 H* 1156 H* POC Glucose > 500 H Hemoglobin A1c Lactic Acid Calcium 5.8 L* 6.1 L Phosphorus Magnesium AST Alkaline Phosphatase Total Creatine Kinase CK-MB (CK-2) CK-MB (CK-2) Rel Index Troponin T C-Reactive Protein Total Protein Albumin 09/04/18 09/04/18 09/04/18 02:28 04:35 05:25 WBC RBC Hgb Hct MCV MCH MCHC RDW Plt Count Lymph % (Auto) Lymph # Seg Neutrophils % Seg Neuts % (Manual) Lymphocytes % (Manual) Seg Neutrophils # Seg Neutrophils # Man Monocytes # (Manual) PT INR POC ABG pH POC ABG pCO2 POC ABG pO2 160 H VBG pH Sodium Potassium Chloride Carbon Dioxide BUN Creatinine Glucose POC Glucose > 500 H > 500 H Hemoglobin A1c Lactic Acid Calcium Phosphorus Magnesium AST Alkaline Phosphatase Total Creatine Kinase CK-MB (CK-2) CK-MB (CK-2) Rel Index Troponin T C-Reactive Protein Total Protein Albumin 09/04/18 09/04/18 09/04/18 06:15 09:04 09:15 WBC RBC Hgb Hct MCV MCH MCHC RDW Plt Count Lymph % (Auto) Lymph # Seg Neutrophils % Seg Neuts % (Manual) Lymphocytes % (Manual) Seg Neutrophils # Seg Neutrophils # Man Monocytes # (Manual) PT INR POC ABG pH POC ABG pCO2 POC ABG pO2 VBG pH Sodium 134 L D Potassium Chloride Carbon Dioxide 17 L 17 L BUN 67 H 63 H Creatinine 4.4 H 4.1 H Glucose 871 H* 668 H* POC Glucose > 500 H Hemoglobin A1c Lactic Acid Calcium 6.6 L 6.4 L Phosphorus Magnesium AST Alkaline Phosphatase Total Creatine Kinase CK-MB (CK-2) CK-MB (CK-2) Rel Index Troponin T C-Reactive Protein Total Protein Albumin 09/04/18 09/04/18 09/04/18 09:15 11:26 11:53 WBC 13.1 H RBC Hgb 9.8 L Hct 30.0 L D MCV 82 L MCH 27 L MCHC RDW Plt Count Lymph % (Auto) Lymph # Seg Neutrophils % Seg Neuts % (Manual) Lymphocytes % (Manual) Seg Neutrophils # Seg Neutrophils # Man Monocytes # (Manual) PT INR POC ABG pH POC ABG pCO2 POC ABG pO2 VBG pH Sodium Potassium Chloride Carbon Dioxide 20 L BUN 61 H Creatinine 3.9 H Glucose 472 H POC Glucose > 500 H Hemoglobin A1c Lactic Acid Calcium 6.7 L Phosphorus Magnesium AST Alkaline Phosphatase Total Creatine Kinase CK-MB (CK-2) CK-MB (CK-2) Rel Index Troponin T C-Reactive Protein Total Protein Albumin 09/04/18 09/04/18 09/04/18 13:44 14:18 15:29 WBC RBC Hgb Hct MCV MCH MCHC RDW Plt Count Lymph % (Auto) Lymph # Seg Neutrophils % Seg Neuts % (Manual) Lymphocytes % (Manual) Seg Neutrophils # Seg Neutrophils # Man Monocytes # (Manual) PT INR POC ABG pH POC ABG pCO2 30.2 L POC ABG pO2 145 H VBG pH Sodium Potassium Chloride Carbon Dioxide BUN Creatinine Glucose POC Glucose 354 H 299 H Hemoglobin A1c Lactic Acid Calcium Phosphorus Magnesium AST Alkaline Phosphatase Total Creatine Kinase CK-MB (CK-2) CK-MB (CK-2) Rel Index Troponin T C-Reactive Protein Total Protein Albumin 09/04/18 09/04/18 09/04/18 16:10 17:19 21:55 WBC RBC Hgb Hct MCV MCH MCHC RDW Plt Count Lymph % (Auto) Lymph # Seg Neutrophils % Seg Neuts % (Manual) Lymphocytes % (Manual) Seg Neutrophils # Seg Neutrophils # Man Monocytes # (Manual) PT INR POC ABG pH POC ABG pCO2 POC ABG pO2 VBG pH Sodium Potassium Chloride 113.1 H 114.0 H Carbon Dioxide 19 L 18 L BUN 57 H 52 H Creatinine 3.3 H 3.0 H Glucose 113 H 161 H POC Glucose 147 H Hemoglobin A1c Lactic Acid Calcium 6.8 L 6.7 L Phosphorus Magnesium AST Alkaline Phosphatase Total Creatine Kinase CK-MB (CK-2) CK-MB (CK-2) Rel Index Troponin T C-Reactive Protein Total Protein Albumin 09/04/18 09/05/18 09/05/18 21:58 00:08 01:44 WBC RBC Hgb Hct MCV MCH MCHC RDW Plt Count Lymph % (Auto) Lymph # Seg Neutrophils % Seg Neuts % (Manual) Lymphocytes % (Manual) Seg Neutrophils # Seg Neutrophils # Man Monocytes # (Manual) PT INR POC ABG pH POC ABG pCO2 POC ABG pO2 VBG pH Sodium Potassium Chloride Carbon Dioxide BUN Creatinine Glucose POC Glucose 159 H 235 H 224 H Hemoglobin A1c Lactic Acid Calcium Phosphorus Magnesium AST Alkaline Phosphatase Total Creatine Kinase CK-MB (CK-2) CK-MB (CK-2) Rel Index Troponin T C-Reactive Protein Total Protein Albumin 09/05/18 09/05/18 09/05/18 04:13 04:22 04:30 WBC 11.5 H RBC 3.59 L Hgb 9.9 L Hct 29.2 L MCV 81 L MCH MCHC RDW Plt Count Lymph % (Auto) Lymph # Seg Neutrophils % Seg Neuts % (Manual) Lymphocytes % (Manual) Seg Neutrophils # Seg Neutrophils # Man Monocytes # (Manual) PT INR POC ABG pH POC ABG pCO2 < 30 L POC ABG pO2 133 H VBG pH Sodium Potassium Chloride Carbon Dioxide BUN Creatinine Glucose POC Glucose 253 H Hemoglobin A1c Lactic Acid Calcium Phosphorus Magnesium AST Alkaline Phosphatase Total Creatine Kinase CK-MB (CK-2) CK-MB (CK-2) Rel Index Troponin T C-Reactive Protein Total Protein Albumin 09/05/18 09/05/18 09/05/18 04:30 05:59 08:09 WBC RBC Hgb Hct MCV MCH MCHC RDW Plt Count Lymph % (Auto) Lymph # Seg Neutrophils % Seg Neuts % (Manual) Lymphocytes % (Manual) Seg Neutrophils # Seg Neutrophils # Man Monocytes # (Manual) PT INR POC ABG pH POC ABG pCO2 POC ABG pO2 VBG pH Sodium Potassium Chloride 114.0 H Carbon Dioxide 18 L BUN 44 H Creatinine 2.7 H Glucose 235 H POC Glucose 243 H 187 H Hemoglobin A1c Lactic Acid Calcium 7.0 L Phosphorus 1.10 L D Magnesium AST 85 H Alkaline Phosphatase 139 H Total Creatine Kinase CK-MB (CK-2) CK-MB (CK-2) Rel Index Troponin T C-Reactive Protein Total Protein 4.6 L Albumin 2.6 L 0709/05/18 09/05/18 10:02 12:22 12:24 WBC RBC Hgb Hct MCV MCH MCHC RDW Plt Count Lymph % (Auto) Lymph # Seg Neutrophils % Seg Neuts % (Manual) Lymphocytes % (Manual) Seg Neutrophils # Seg Neutrophils # Man Monocytes # (Manual) PT INR POC ABG pH POC ABG pCO2 POC ABG pO2 VBG pH Sodium Potassium Chloride Carbon Dioxide BUN Creatinine Glucose POC Glucose 139 H 52 L 63 L Hemoglobin A1c Lactic Acid Calcium Phosphorus Magnesium AST Alkaline Phosphatase Total Creatine Kinase CK-MB (CK-2) CK-MB (CK-2) Rel Index Troponin T C-Reactive Protein Total Protein Albumin 09/05/18 09/05/18 09/05/18 12:30 16:02 Unknown WBC RBC Hgb Hct MCV MCH MCHC RDW Plt Count Lymph % (Auto) Lymph # Seg Neutrophils % Seg Neuts % (Manual) Lymphocytes % (Manual) Seg Neutrophils # Seg Neutrophils # Man Monocytes # (Manual) PT INR POC ABG pH POC ABG pCO2 POC ABG pO2 VBG pH Sodium Potassium Chloride 112.3 H Carbon Dioxide 20 L BUN 30 H Creatinine 2.0 H Glucose 183 H POC Glucose 55 L Hemoglobin A1c Lactic Acid Calcium 7.6 L Phosphorus Magnesium AST Alkaline Phosphatase Total Creatine Kinase CK-MB (CK-2) CK-MB (CK-2) Rel Index Troponin T C-Reactive Protein 6.30 H Total Protein Albumin 09/06/18 09/06/18 09/06/18 00:06 04:27 04:30 WBC RBC Hgb Hct MCV MCH MCHC RDW Plt Count Lymph % (Auto) Lymph # Seg Neutrophils % Seg Neuts % (Manual) Lymphocytes % (Manual) Seg Neutrophils # Seg Neutrophils # Man Monocytes # (Manual) PT INR POC ABG pH 7.280 L POC ABG pCO2 POC ABG pO2 VBG pH Sodium Potassium Chloride Carbon Dioxide BUN Creatinine Glucose POC Glucose 218 H Hemoglobin A1c 14.6 H Lactic Acid Calcium Phosphorus Magnesium AST Alkaline Phosphatase Total Creatine Kinase CK-MB (CK-2) CK-MB (CK-2) Rel Index Troponin T C-Reactive Protein Total Protein Albumin 09/06/18 09/06/18 09/06/18 05:00 05:23 10:58 WBC RBC Hgb Hct MCV MCH MCHC RDW Plt Count Lymph % (Auto) Lymph # Seg Neutrophils % Seg Neuts % (Manual) Lymphocytes % (Manual) Seg Neutrophils # Seg Neutrophils # Man Monocytes # (Manual) PT INR POC ABG pH POC ABG pCO2 31.7 L POC ABG pO2 60 L VBG pH Sodium Potassium Chloride 111.4 H Carbon Dioxide 20 L BUN 27 H Creatinine 1.9 H Glucose 256 H POC Glucose 308 H Hemoglobin A1c Lactic Acid Calcium 7.7 L Phosphorus Magnesium AST Alkaline Phosphatase Total Creatine Kinase CK-MB (CK-2) CK-MB (CK-2) Rel Index Troponin T C-Reactive Protein Total Protein Albumin 09/06/18 09/06/18 09/06/18 12:17 18:25 21:58 WBC RBC Hgb Hct MCV MCH MCHC RDW Plt Count Lymph % (Auto) Lymph # Seg Neutrophils % Seg Neuts % (Manual) Lymphocytes % (Manual) Seg Neutrophils # Seg Neutrophils # Man Monocytes # (Manual) PT INR POC ABG pH POC ABG pCO2 POC ABG pO2 VBG pH Sodium Potassium Chloride Carbon Dioxide BUN Creatinine Glucose POC Glucose 214 H 183 H 136 H Hemoglobin A1c Lactic Acid Calcium Phosphorus Magnesium AST Alkaline Phosphatase Total Creatine Kinase CK-MB (CK-2) CK-MB (CK-2) Rel Index Troponin T C-Reactive Protein Total Protein Albumin 09/06/18 09/07/18 09/07/18 23:42 04:20 04:20 WBC RBC 3.36 L Hgb 9.2 L Hct 27.8 L MCV 83 L MCH 27 L MCHC RDW Plt Count Lymph % (Auto) 5.1 L Lymph # 0.5 L Seg Neutrophils % 87.0 H Seg Neuts % (Manual) Lymphocytes % (Manual) Seg Neutrophils # 8.5 H Seg Neutrophils # Man Monocytes # (Manual) PT INR POC ABG pH POC ABG pCO2 POC ABG pO2 VBG pH Sodium Potassium Chloride 112.3 H Carbon Dioxide BUN Creatinine Glucose 200 H POC Glucose 169 H Hemoglobin A1c Lactic Acid Calcium 8.0 L Phosphorus Magnesium AST Alkaline Phosphatase Total Creatine Kinase CK-MB (CK-2) CK-MB (CK-2) Rel Index Troponin T C-Reactive Protein Total Protein Albumin 09/07/18 09/07/18 09/07/18 05:19 11:49 17:23 WBC RBC Hgb Hct MCV MCH MCHC RDW Plt Count Lymph % (Auto) Lymph # Seg Neutrophils % Seg Neuts % (Manual) Lymphocytes % (Manual) Seg Neutrophils # Seg Neutrophils # Man Monocytes # (Manual) PT INR POC ABG pH POC ABG pCO2 POC ABG pO2 VBG pH Sodium Potassium Chloride Carbon Dioxide BUN Creatinine Glucose POC Glucose 177 H 120 H 224 H Hemoglobin A1c Lactic Acid Calcium Phosphorus Magnesium AST Alkaline Phosphatase Total Creatine Kinase CK-MB (CK-2) CK-MB (CK-2) Rel Index Troponin T C-Reactive Protein Total Protein Albumin 09/07/18 09/07/18 09/08/18 17:41 23:11 06:15 WBC RBC Hgb Hct MCV MCH MCHC RDW Plt Count Lymph % (Auto) Lymph # Seg Neutrophils % Seg Neuts % (Manual) Lymphocytes % (Manual) Seg Neutrophils # Seg Neutrophils # Man Monocytes # (Manual) PT INR POC ABG pH POC ABG pCO2 POC ABG pO2 VBG pH Sodium 146 H Potassium Chloride 112.9 H Carbon Dioxide BUN Creatinine Glucose 117 H POC Glucose 227 H 156 H Hemoglobin A1c Lactic Acid Calcium 8.0 L Phosphorus Magnesium AST Alkaline Phosphatase Total Creatine Kinase CK-MB (CK-2) CK-MB (CK-2) Rel Index Troponin T C-Reactive Protein Total Protein Albumin 09/08/18 09/08/18 09/08/18 07:13 11:42 23:03 WBC RBC Hgb Hct MCV MCH MCHC RDW Plt Count Lymph % (Auto) Lymph # Seg Neutrophils % Seg Neuts % (Manual) Lymphocytes % (Manual) Seg Neutrophils # Seg Neutrophils # Man Monocytes # (Manual) PT INR POC ABG pH POC ABG pCO2 POC ABG pO2 VBG pH Sodium Potassium Chloride Carbon Dioxide BUN Creatinine Glucose POC Glucose 128 H 128 H 172 H Hemoglobin A1c Lactic Acid Calcium Phosphorus Magnesium AST Alkaline Phosphatase Total Creatine Kinase CK-MB (CK-2) CK-MB (CK-2) Rel Index Troponin T C-Reactive Protein Total Protein Albumin 09/08/18 09/09/18 09/09/18 23:43 01:30 05:44 WBC RBC Hgb Hct MCV MCH MCHC RDW Plt Count Lymph % (Auto) Lymph # Seg Neutrophils % Seg Neuts % (Manual) Lymphocytes % (Manual) Seg Neutrophils # Seg Neutrophils # Man Monocytes # (Manual) PT INR POC ABG pH POC ABG pCO2 POC ABG pO2 VBG pH Sodium Potassium 3.5 L Chloride 107.2 H Carbon Dioxide BUN Creatinine Glucose 128 H POC Glucose 188 H 112 H Hemoglobin A1c Lactic Acid Calcium 7.6 L Phosphorus Magnesium AST Alkaline Phosphatase Total Creatine Kinase CK-MB (CK-2) CK-MB (CK-2) Rel Index Troponin T C-Reactive Protein Total Protein Albumin 09/09/18 09/09/18 09/09/18 05:52 11:24 21:58 WBC RBC Hgb Hct MCV MCH MCHC RDW Plt Count Lymph % (Auto) Lymph # Seg Neutrophils % Seg Neuts % (Manual) Lymphocytes % (Manual) Seg Neutrophils # Seg Neutrophils # Man Monocytes # (Manual) PT INR POC ABG pH POC ABG pCO2 POC ABG pO2 VBG pH Sodium Potassium 3.4 L Chloride 108.8 H Carbon Dioxide BUN Creatinine Glucose 116 H POC Glucose 257 H 141 H Hemoglobin A1c Lactic Acid Calcium 7.9 L Phosphorus 2.30 L Magnesium AST Alkaline Phosphatase Total Creatine Kinase CK-MB (CK-2) CK-MB (CK-2) Rel Index Troponin T C-Reactive Protein Total Protein Albumin 09/10/18 09/10/18 09/10/18 00:08 05:58 11:13 WBC RBC Hgb Hct MCV MCH MCHC RDW Plt Count Lymph % (Auto) Lymph # Seg Neutrophils % Seg Neuts % (Manual) Lymphocytes % (Manual) Seg Neutrophils # Seg Neutrophils # Man Monocytes # (Manual) PT INR POC ABG pH POC ABG pCO2 POC ABG pO2 VBG pH Sodium Potassium Chloride Carbon Dioxide BUN Creatinine Glucose POC Glucose 121 H 122 H 207 H Hemoglobin A1c Lactic Acid Calcium Phosphorus Magnesium AST Alkaline Phosphatase Total Creatine Kinase CK-MB (CK-2) CK-MB (CK-2) Rel Index Troponin T C-Reactive Protein Total Protein Albumin 09/10/18 09/11/18 09/11/18 17:40 00:31 03:05 WBC RBC Hgb Hct MCV MCH MCHC RDW Plt Count Lymph % (Auto) Lymph # Seg Neutrophils % Seg Neuts % (Manual) Lymphocytes % (Manual) Seg Neutrophils # Seg Neutrophils # Man Monocytes # (Manual) PT INR POC ABG pH POC ABG pCO2 POC ABG pO2 VBG pH Sodium Potassium Chloride Carbon Dioxide BUN Creatinine Glucose POC Glucose 218 H 226 H 142 H Hemoglobin A1c Lactic Acid Calcium Phosphorus Magnesium AST Alkaline Phosphatase Total Creatine Kinase CK-MB (CK-2) CK-MB (CK-2) Rel Index Troponin T C-Reactive Protein Total Protein Albumin 09/11/18 09/11/18 09/11/18 05:32 06:00 06:00 WBC 11.5 H RBC 3.53 L Hgb 9.5 L Hct 29.0 L MCV 82 L MCH 27 L MCHC RDW Plt Count Lymph % (Auto) Lymph # Seg Neutrophils % Seg Neuts % (Manual) Lymphocytes % (Manual) Seg Neutrophils # Seg Neutrophils # Man Monocytes # (Manual) PT INR POC ABG pH POC ABG pCO2 POC ABG pO2 VBG pH Sodium Potassium 3.5 L Chloride Carbon Dioxide BUN 7 L Creatinine Glucose 153 H POC Glucose 153 H Hemoglobin A1c Lactic Acid Calcium 7.9 L Phosphorus Magnesium AST Alkaline Phosphatase Total Creatine Kinase CK-MB (CK-2) CK-MB (CK-2) Rel Index Troponin T C-Reactive Protein Total Protein 4.9 L Albumin 1.8 L 09/11/18 09/11/18 09/11/18 11:39 12:38 16:41 WBC RBC Hgb Hct MCV MCH MCHC RDW Plt Count Lymph % (Auto) Lymph # Seg Neutrophils % Seg Neuts % (Manual) Lymphocytes % (Manual) Seg Neutrophils # Seg Neutrophils # Man Monocytes # (Manual) PT INR POC ABG pH POC ABG pCO2 POC ABG pO2 69 L VBG pH Sodium Potassium Chloride Carbon Dioxide BUN Creatinine Glucose POC Glucose 219 H 173 H Hemoglobin A1c Lactic Acid Calcium Phosphorus Magnesium AST Alkaline Phosphatase Total Creatine Kinase CK-MB (CK-2) CK-MB (CK-2) Rel Index Troponin T C-Reactive Protein Total Protein Albumin 09/11/18 09/12/18 21:46 08:32 WBC RBC Hgb Hct MCV MCH MCHC RDW Plt Count Lymph % (Auto) Lymph # Seg Neutrophils % Seg Neuts % (Manual) Lymphocytes % (Manual) Seg Neutrophils # Seg Neutrophils # Man Monocytes # (Manual) PT INR POC ABG pH POC ABG pCO2 POC ABG pO2 VBG pH Sodium Potassium Chloride Carbon Dioxide BUN Creatinine Glucose POC Glucose 161 H 68 L Hemoglobin A1c Lactic Acid Calcium Phosphorus Magnesium AST Alkaline Phosphatase Total Creatine Kinase CK-MB (CK-2) CK-MB (CK-2) Rel Index Troponin T C-Reactive Protein Total Protein Albumin Allied health notes reviewed: nursing
[2018-09-12] MEDS: VANCOMYCIN/NS 1 GM/250 ML 1 GM/250 ML BAG IV SCH ×2 (10:24→22:30)
[2018-09-12] MEDS ORDERED: XYLOCAINE 2% INFILTRATI ONE (11:57)
[2018-09-12] MEDS ORDERED: KETALAR ONE (11:58)
[2018-09-12] MEDS ORDERED: DIPRIVAN 10 MG/ML IV ONE (11:58)
[2018-09-12] MEDS ORDERED: VERSED ONE (11:58)
[2018-09-12] MEDS ORDERED: NACL 0.9% 1000 ML 1,000 ML IV SCH (12:00)
[2018-09-12] MEDS ORDERED: SUBLIMAZE ONE (12:15)
[2018-09-12] MEDS ORDERED: HURRICAINE ONE 20% TOPICAL SPRAY MM ×2 (12:18→12:20)
[2018-09-12] MEDS ORDERED: D50W (25GM) Syringe IV ONE (13:00)
[2018-09-12] MEDS: HumuLIN R SUB-Q SCH ×3 (14:32→20:17)
[2018-09-12] MEDS: MUCINEX ER PO SCH ×2 (14:33→21:27)
[2018-09-12] MEDS: VITAMIN B-1 PO SCH (14:33)
[2018-09-12] MEDS: COREG PO SCH ×2 (14:33→21:27)
[2018-09-12] MEDS: THERAGRAN Tab PO SCH (14:33)
[2018-09-12] MEDS: FOLVITE PO SCH (14:34)
[2018-09-12] MEDS: PROTONIX PO SCH (14:34)
[2018-09-12] MEDS: SODIUM CHLORIDE FLUSH SYRINGE 10 ML IV SCH ×2 (14:34→21:32)
[2018-09-12] MEDS: IBUPROFEN PO PRN (14:42)
--- NOTE | 2018-09-12 16:20 | Progress Note ---
Assessment and Plan Assessment and plan: Patient is a 53 yo man with a history of DM type 2 on Insulin who presented to [facility] ED with AMS/lethargy, Nausea, Vomiting, and shortness of breath. Upon arrival the patient was found to be in distress with an elevated blood glucose of 1968, and EKG changes. A code STEMI was called and the patient was tr ansported to [facility]. Pt seen and evaluated in ED and was taken urgently to analytical laboratory technician as per cardiology team and found normal coronaries. Pt subsequently found to have HHNKS, Acute Respiratory Failure, Acute Renal Failure, Thrombocytopenia, as well as Sepsis with PNA. Pt admitted to ICU and initiated on sepsis protocol as well as Insulin drip. Pt decompensated and eventually intubated in the ICU and placed on vent support by the Anesthesia service. He self extubated during SBT on 09/06/18, off insulin drip now. getting treated for PNA. c/o cough with meal, repeat speech eval suggested barium swallow eval. He did not get CT head when presented to hospital as CT scaner was broken for ~ 2 days, then the order dropped off. reorder CT head today. 2d echo showed Ef 20-25%, medical Mx. patient admits to missing his insulin / Acute hypoxic respiratory failure Intubated following admission Pulmonary is following self extubated during SBT on 09/06/18 cont nebs, aspiration precaution / HHNKS BG was 1968 on admission, a1c 14.6 s/p Insulin drip, off TF now on consistent carb diet cont SSI, adjust long acting insulin dose as needed / Sepsis likely from strep group B PNA, POA Admitted to ICU. Initiated sepsis protocol in ED: negative blood cx in 48h. WBC trending down cont rocephin for now for one week /Septic shock, POA - resolved /Acute systolic heart failure, est EF 20-25% - monitor ins/os, cardiology following - s/p cardiac cath on admission showed no CAD - likely nonischemic cardiomyopathy - careful with IVFs /Acute metabolic Encephalopathy, resolved due to severe hyperglycemia CT head ordered -but not done yet, cont neuro checks, supportive care, continue to treat hyperglycemia /Acute renal failure due to ATN +vasomotor nephropathy, poa renal US showed no hydronephrosis cont IVF, monitor uop q shift, monitor serum creatnine Cr trending down /NSTEMI type 2 Cardiology consulted in ED, Pt taken urgently to analytical laboratory technician, and underwent cardiac cath showed normal coronaries. / Thrombocytopenia, transfused platelets, resolved / Hyponatremia due to hyperglycemia, cont IV fluid /h/o tobacco abuse, counselled for cessation /H/o alcohol abuse, s/p CIWa protocol, counselled for cessation /Possible aspiration risk- speech recommended barium swallow study / DVT prophylaxis SCD to ble while in bed, Disposition: continue inpatient care, EGD tomorrow, O2 setup difficult without insurance MBS==>premature spillage on all consistencies with one episode of laryngeal penetration with thins. No evidence of aspiration noted. Dyspepsia with hiccups, get KUB-->negative and consulted GI, input noted, EGD in AM patient FIo2 dropped to 84% on RA, ABG ordered==>still with hypoxemia, placed back on O2 History Interval history: Patient was seen and examined. Follow-up on current diagnosis N/V still presents. No overnight events reported to me. Patient denies any severe headaches. Imaging, nursing note, chart, labs and old chart reviewed. Discussed with patient. Hospitalist Physical - Physical exam Narrative exam: Gen: WDWN, NAD, Awake, Alert, Orientated HEENT: NCAT, EOMI, PERRL, OP Clear Neck: supple, no adenopathy, no thyromegaly, no JVD CVS/Heart: RRR, normal S1S2, pulses present bilaterally Chest/Lungs: CTA B, Symmetrical chest expansion, good air entry bilaterally GI/Abdomen: soft, mild epigastric tenderness, NTND, good bowel sounds, no guarding or rebound /Bladder: no suprapubic tenderness, no CVA or paraspinal tenderness Extermity/Skin: no c/c/e, no obvious rash MSK: FROM x 4 Neuro: CN 2-12 grossly intact, no new focal deficits Psych: calm - Constitutional Vitals: Temp Pulse Resp BP Pulse Ox 97.9 F 77 22 146/87 92 09/12/18 11:51 09/12/18 14:33 09/12/18 14:37 09/12/18 14:33 09/12/18 14:04 General appearance: Absent: severe distress Results - Labs CBC & Chem 7: 09/11/18 06:00 09/11/18 06:00 Labs: Laboratory Last Values WBC 11.5 K/mm3 (4.5-11.0) H 09/11/18 06:00 RBC 3.53 M/mm3 (3.65-5.03) L 09/11/18 06:00 Hgb 9.5 gm/dl (11.8-15.2) L 09/11/18 06:00 Hct 29.0 % (35.5-45.6) L 09/11/18 06:00 MCV 82 fl (84-94) L 09/11/18 06:00 MCH 27 pg (28-32) L 09/11/18 06:00 MCHC 33 % (32-34) 09/11/18 06:00 RDW 14.6 % (13.2-15.2) 09/11/18 06:00 Plt Count 299 K/mm3 (140-440) 09/11/18 06:00 Lymph % (Auto) 5.1 % (13.4-35.0) L 09/07/18 04:20 [place] % (Auto) 6.7 % (0.0-7.3) 09/07/18 04:20 Eos % (Auto) 0.9 % (0.0-4.3) 09/07/18 04:20 Baso % (Auto) 0.3 % (0.0-1.8) 09/07/18 04:20 Lymph # 0.5 K/mm3 (1.2-5.4) L 09/07/18 04:20 [place] # 0.7 K/mm3 (0.0-0.8) 09/07/18 04:20 Eos # 0.1 K/mm3 (0.0-0.4) 09/07/18 04:20 Baso # 0.0 K/mm3 (0.0-0.1) 09/07/18 04:20 Add Manual Diff Complete 09/03/18 15:01 Total Counted 100 09/03/18 15:01 Seg Neutrophils % 87.0 % (40.0-70.0) H 09/07/18 04:20 Seg Neuts % (Manual) 84.0 % (40.0-70.0) H 09/03/18 15:01 0 % 09/03/18 15:01 8.0 % (13.4-35.0) L 09/03/18 15:01 Reactive Lymphs % (Man) 0 % 09/03/18 15:01 6.0 % (0.0-7.3) 09/03/18 15:01 0 % (0.0-4.3) 09/03/18 15:01 0 % (0.0-1.8) 09/03/18 15:01 0 % 09/03/18 15:01 2.0 % 09/03/18 15:01 0 % 09/03/18 15:01 0 % 09/03/18 15:01 Nucleated RBC % Not Reportable 09/03/18 15:01 Seg Neutrophils # 8.5 K/mm3 (1.8-7.7) H 09/07/18 04:20 Seg Neutrophils # Man 14.6 K/mm3 (1.8-7.7) H 09/03/18 15:01 Band Neutrophils # 0.0 K/mm3 09/03/18 15:01 1.4 K/mm3 (1.2-5.4) 09/03/18 15:01 Abs React Lymphs (Man) 0.0 K/mm3 09/03/18 15:01 1.0 K/mm3 (0.0-0.8) H 09/03/18 15:01 0.0 K/mm3 (0.0-0.4) 09/03/18 15:01 0.0 K/mm3 (0.0-0.1) 09/03/18 15:01 0.0 K/mm3 09/03/18 15:01 0.3 K/mm3 09/03/18 15:01 0.0 K/mm3 09/03/18 15:01 Blast Cells # 0.0 K/mm3 09/03/18 15:01 WBC Morphology Not Reportable 09/03/18 15:01 Hypersegmented Neuts Not Reportable 09/03/18 15:01 Hyposegmented Neuts Not Reportable 09/03/18 15:01 Hypogranular Neuts Not Reportable 09/03/18 15:01 Not Reportable 09/03/18 15:01 Not Reportable 09/03/18 15:01 Not Reportable 09/03/18 15:01 Not Reportable 09/03/18 15:01 Not Reportable 09/03/18 15:01 Not Reportable 09/03/18 15:01 Appears decreased 09/03/18 15:01 Not Reportable 09/03/18 15:01 Plt Clumps, EDTA Not Reportable 09/03/18 15:01 Not Reportable 09/03/18 15:01 Not Reportable 09/03/18 15:01 Not Reportable 09/03/18 15:01 Plt Morphology Comment Not Reportable 09/03/18 15:01 RBC Morphology Not Reportable 09/03/18 15:01 Dimorphic RBCs Not Reportable 09/03/18 15:01 Not Reportable 09/03/18 15:01 Not Reportable 09/03/18 15:01 Not Reportable 09/03/18 15:01 2+ 09/03/18 15:01 Not Reportable 09/03/18 15:01 Not Reportable 09/03/18 15:01 Not Reportable 09/03/18 15:01 Not Reportable 09/03/18 15:01 Not Reportable 09/03/18 15:01 Not Reportable 09/03/18 15:01 Not Reportable 09/03/18 15:01 Not Reportable 09/03/18 15:01 Not Reportable 09/03/18 15:01 Not Reportable 09/03/18 15:01 Not Reportable 09/03/18 15:01 Not Reportable 09/03/18 15:01 Not Reportable 09/03/18 15:01 Not Reportable 09/03/18 15:01 Not Reportable 09/03/18 15:01 Acanthocytes (Spur) Not Reportable 09/03/18 15:01 Rouleaux Not Reportable 09/03/18 15:01 Not Reportable 09/03/18 15:01 Not Reportable 09/03/18 15:01 Not Reportable 09/03/18 15:01 Not Reportable 09/03/18 15:01 Hem Pathologist Commnt No 09/03/18 15:01 PT 17.5 Sec. (12.2-14.9) H 09/03/18 15:01 INR 1.47 (0.87-1.13) H 09/03/18 15:01 APTT 29.0 Sec. (24.2-36.6) 09/03/18 15:01 POC ABG pH 7.428 (7.35-7.45) 09/11/18 11:39 POC ABG pCO2 39.2 (35-45) 09/11/18 11:39 POC ABG pO2 69 (80-105) L 09/11/18 11:39 POC ABG HCO3 25.9 (22-26 mml/L) 09/11/18 11:39 POC ABG Total CO2 27 (23-27mmol/L) 09/11/18 11:39 POC ABG O2 Sat 94 09/11/18 11:39 POC ABG Base Excess 2 ((-2) - (+3)mmol/L) 09/11/18 11:39 VBG pH 7.049 (7.320-7.420) L* 09/03/18 15:01 32 % 09/11/18 11:39 Sodium 140 mmol/L (137-145) 09/11/18 06:00 Potassium 3.5 mmol/L (3.6-5.0) L 09/11/18 06:00 Chloride 104.2 mmol/L (98-107) 09/11/18 06:00 Carbon Dioxide 27 mmol/L (22-30) 09/11/18 06:00 12 mmol/L 09/11/18 06:00 BUN 7 mg/dL (9-20) L 09/11/18 06:00 1.1 mg/dL (0.8-1.5) 09/11/18 06:00 Estimated GFR > 60 ml/min 09/11/18 06:00 6 % 09/11/18 06:00 Glucose 153 mg/dL (75-100) H 09/11/18 06:00 POC Glucose 59 (70-105) L 09/12/18 13:06 14.6 % (4-6) H 09/06/18 04:30 Lactic Acid 1.90 mmol/L (0.7-2.0) 09/05/18 12:30 Calcium 7.9 mg/dL (8.4-10.2) L 09/11/18 06:00 Phosphorus 2.30 mg/dL (2.5-4.5) L 09/09/18 05:52 Magnesium 1.70 mg/dL (1.7-2.3) 09/09/18 05:52 0.20 mg/dL (0.1-1.2) 09/11/18 06:00 < 0.2 mg/dL (0-0.2) 09/05/18 04:30 0.0 mg/dL 09/05/18 04:30 AST 25 units/L (5-40) 09/11/18 06:00 ALT 22 units/L (7-56) 09/11/18 06:00 110 units/L (35-129) 09/11/18 06:00 293 units/L (55-170) H 09/03/18 20:15 CK-MB (CK-2) 13.0 ng/mL (0.0-4.0) H 09/03/18 20:15 CK-MB (CK-2) Rel Index 4.4 (0-4) H 09/03/18 20:15 0.126 ng/mL (0.00-0.029) H* 09/03/18 20:15 6.30 mg/dL (0.00-1.30) H 09/05/18 12:30 4.9 g/dL (6.3-8.2) L 09/11/18 06:00 1.8 g/dL (3.9-5) L 09/11/18 06:00 0.6 % 09/11/18 06:00 Triglycerides 128 mg/dL (2-149) 09/03/18 15:01 Cholesterol 117 mg/dL (50-199) 09/03/18 15:01 69 mg/dL (50-130) 09/03/18 15:01 50 mg/dL (40-59) 09/03/18 15:01 2.34 % 09/03/18 15:01 Yellow (Yellow) 09/03/18 22:00 Cloudy (Clear) 09/03/18 22:00 5.0 (5.0-7.0) 09/03/18 22:00 Ur Specific [place] 1.018 (1.003-1.030) 09/03/18 22:00 <15 mg/dl mg/dL (Negative) 09/03/18 22:00 >=500 mg/dL (Negative) 09/03/18 22:00 Tr mg/dL (Negative) 09/03/18 22:00 Neg (Negative) 09/03/18 22:00 Neg (Negative) 09/03/18 22:00 Neg (Negative) 09/03/18 22:00 < 2.0 mg/dL (<2.0) 09/03/18 22:00 Ur Leukocyte Esterase Neg (Negative) 09/03/18 22:00 3.0 /HPF (0.0-6.0) 09/03/18 22:00 < 1.0 /HPF (0.0-6.0) 09/03/18 22:00 U Epithel Cells (Auto) < 1.0 /HPF (0-13.0) 09/03/18 22:00 Few /HPF 09/03/18 22:00 Random Vancomycin < 4 ug/mL (0-40.0) 09/08/18 06:15 HIV 1&2 Antibody Rapid Non react (Non React) 09/03/18 20:15 Non react (Non React) 09/03/18 20:15 Blood Type B NEGATIVE 09/03/18 15:00 Antibody Screen Negative 09/03/18 15:00 Active Medications - Current Medications Current Medications: Generic Name Dose Route Start Last Admin Trade Name Freq PRN Reason Stop Dose Admin Albuterol 2.5 mg 09/03/18 15:58 09/12/18 12:06 Proventil IH 2.5 mg Q3HRT PRN Administration Shortness Of Breath Lipase/Protease/Amylase 1 each 09/05/18 10:50 Pancreaze 10,500 Unit FEEDTUBE PRN PRN For Clogged Feeding Tube Carvedilol 3.125 mg 09/06/18 22:00 09/12/18 14:33 Coreg PO 3.125 mg BID NANY Administration Dextrose 0 ml 09/03/18 17:55 09/12/18 08:32 D50w (25gm) Syringe IV 15 ml PRN PRN Administration Hypoglycemia Enoxaparin Sodium 40 mg 09/08/18 22:00 09/11/18 22:01 Lovenox SUB-Q 40 mg QDAY@2200 NANY Administration Folic Acid 1 mg 09/09/18 10:00 09/12/18 14:34 Folvite PO 1 mg DAILY NANY Administration Guaifenesin 600 mg 09/09/18 11:30 09/12/18 14:33 Mucinex Er PO 600 mg BID NANY Administration Hydrophilic Ointment 1 applic 09/05/18 14:55 Vaseline Lip Therapy TP Q2HR PRN Dry Lips Ceftriaxone Sodium 2 gm in 100 mls @ 200 mls/hr 09/03/18 18:00 09/11/18 19:45 Rocephin/Ns 2 Gm/100 Ml IV 09/12/18 23:00 200 mls/hr Q24H NANY Administration Protocol Vancomycin HCl 1 gm in 250 mls @ 166.667 mls/hr 09/08/18 10:00 09/12/18 10:24 Vancomycin/Ns 1 Gm/250 Ml IV 09/12/18 23:59 166.667 mls/hr Q12HR NANY Administration Sodium Chloride 1,000 mls @ 50 mls/hr 09/12/18 12:00 09/12/18 11:55 Nacl 0.9% 1000 Ml IV 50 mls/hr DIRECT NANY Administration Ibuprofen 800 mg 09/11/18 20:22 09/12/18 14:42 Ibuprofen PO 800 mg Q8H PRN Administration Pain, Mild (1-3) Insulin Glargine 10 units 09/06/18 22:00 09/11/18 22:00 Lantus SUB-Q 10 units QHS NANY Administration Insulin Human Regular 0 units 09/05/18 18:00 09/12/18 14:32 Humulin R SUB-Q Not Given Q6HR [facility] Protocol Lorazepam 2 mg 09/07/18 03:15 09/07/18 03:40 Ativan IV 2 mg Q1H PRN Administration STEVEWA-Jason 8-15 Multi-Ingred Cream/Lotion/Oil/Oint 1 applic 09/05/18 14:55 Artificial Tears Ophth Oint OU Q4HR PRN Dry Eye(s) Multivitamins 1 each 09/09/18 10:00 09/12/18 14:33 Theragran Tab PO 1 each DAILY NANY Administration Pantoprazole Sodium 40 mg 09/11/18 11:00 09/12/18 14:34 Protonix PO 40 mg QDAY NANY Administration Prochlorperazine Maleate 10 mg 09/08/18 17:42 09/09/18 12:21 Compazine PO 10 mg Q6H PRN Administration Hiccups Simple Syrup 15 ml 09/05/18 10:50 Simple Syrup FEEDTUBE PRN PRN Hypoglycemia Simple Syrup 30 ml 09/05/18 10:50 Simple Syrup FEEDTUBE PRN PRN Hypoglycemia Sodium Bicarbonate 325 mg 09/05/18 10:50 Sodium Bicarbonate FEEDTUBE PRN PRN For Clogged Feeding Tube Sodium Chloride 10 ml 09/03/18 22:00 09/12/18 14:34 Sodium Chloride Flush Syringe 10 Ml IV 10 ml BID NANY Administration Sodium Chloride 10 ml 09/03/18 15:58 Sodium Chloride Flush Syringe 10 Ml IV PRN PRN LINE FLUSH Thiamine HCl 100 mg 09/09/18 10:00 09/12/18 14:33 Vitamin B-1 PO 100 mg QDAY NANY Administration Nutrition/Malnutrition Assess - Dietary Evaluation Nutrition/Malnutrition Findings: Nutrition Notes Start: 09/04/18 14:11 Freq: Status: Active Protocol: Document 09/11/18 16:44 RM (Rec: 09/11/18 16:50 RM [id number]) Nutrition Notes Initial or Follow up Reassessment Current Diagnosis Acute Kidney Injury,Heart Failure,Respiratory Failure Other Pertinent Diagnosis DKA, Acute respiratory failure Current Diet NPO after midnight Labs/Tests Reviewed Pertinent Medications Reviewed Height 6 ft Weight 71.9 kg [place] Body Weight (kg) 80.90 BMI 21.4 Subjective/Other Information Pureed diet in place earlier today. NPO ordered later today for EGD tomorrow. Pt not in room at time of visit. Per nurse pt passed MBS and is planned to be advanced to Regular diet. Burn Absent Trauma Absent #2 Nutrition Diagnosis Food and nutrition-related knowledge deficit As Evidenced by Signs and Symptoms pt recevied diet education Diagnosis Progress(for reassessment Resolved documentation) #1 Nutrition Diagnosis Inadequate oral intake Diagnosis Progress(for reassessment Continues documentation) Is patient on ventilator? No Is Patient Ambulatory and/or Out of Bed No REE-([facility]-confined to bed) [phone] Calculation Used for Recommendations [facility] Additional Notes Protein Needs: 72-93g (1-1.3g/ kg) Fluid Needs: 1 ml/kcal Nutrition Intervention Change Diet Order: Advanced to regular when medically able Add Supplement/Snack (indicate name/kcal Glucerna BID once diet /protein ) advanced Provides kCal: 440 Provides Protein (gm) 20 Goal #1 Diet advancement Anticipated Discharge Needs: Regular diet Follow-Up By: 09/13/18 Additional Comments Follow for diet advancement, PO and ONS intakes
--- NOTE | 2018-09-12 17:27 | Anesthesia Consultation ---
Anesthesia Consult and Med Hx Date of service: 09/12/18 - Airway Anesthetic Teeth Evaluation: Good ROM Head & Neck: Adequate Mental/Hyoid Distance: Adequate Mallampati Class: Class I Intubation Access Assessment: Probably Good - Pulmonary Exam CTA: No (Wheezing, neb treatment given preop) - Cardiac Exam Cardiac Exam: RRR - Pre-Operative Health Status ASA Pre-Surgery Classification: ASA4 Proposed Anesthetic Plan: MAC - Pulmonary Hx Smoking: Yes Hx Respiratory Symptoms: Yes SOB: Yes - Cardiovascular System Hx Hypertension: Yes Hx Coronary Artery Disease: Yes Hx Heart Attack/AMI: Yes Hx Pacemaker: No Hx Internal Defibrillator: No - Endocrine Hx Renal Disease: Yes Hx Non-Insulin Dependent Diabetes: Yes - Other Systems Hx Alcohol Use: Yes Hx Substance Use: Yes
--- NOTE | 2018-09-12 17:27 | Anesthesia Day of Surgery ---
Anesthesia Day of Surgery - Day of Surgery Patient Examined: Yes Patient H&P Reviewed: Yes Patient is NPO: Yes
[2018-09-12] MEDS: ROCEPHIN/NS 2 GM/100 ML 2 GM/100 ML BAG IV SCH (20:16)
[2018-09-12] MEDS: LOVENOX SUB-Q SCH (21:27)
--- NOTE | 2018-09-12 21:59 | Post Operative Note ---
Pre-op diagnosis: nausea Post-op diagnosis: same Findings: EGD: long segment Pavon;s with esophagitis (bx's) - medium hital hernia - irregular z-line (bx's) - mild/moderate gastritis (bx's) - some bilious fluid stomach - negative other Procedure: EGD Anesthesia: MAC Surgeon: SARA REED Estimated blood loss: none Pathology: list Specimen disposition: to lab Condition: stable Disposition: floor
[2018-09-12] MEDS: LANTUS SUB-Q SCH (22:29)
--- NOTE | 2018-09-13 01:50 | Operative Report ---
PROCEDURE PERFORMED: EGD with cold biopsy. INDICATION FOR PROCEDURE: 1. Nausea, vomiting. 2. Dyspepsia. MEDICATIONS: Propofol per RET[employer] BUSINESS ANALYST. COMPLICATIONS: None. DESCRIPTION OF PROCEDURE: The patient brought to the procedure suite. The patient had the procedure discussed with him at length. All risks, complications, and benefits discussed after which the patient signed for the procedure to be performed. The patient was placed in left lateral decubitus position. Mouth block was placed in the patient's oral cavity. After adequate sedation medication as above, endoscope placed in the mouth and brought to level of the second portion of duodenum. Retroflexion view was performed. The patient's vital signs remained stable throughout the procedure. FINDINGS: There was a long segment Pavon's approximately 8 cm noted in the distal esophagus. There was almn-[id number] grade 1-2 esophagitis noted. This extended to the GE junction, which was 38 cm from the gums. Biopsies were taken of this area and sent for pathology. There was irregular Z-line, probable massive reflux noted at GE junction where biopsy was taken. Medium hiatal hernia at GE junction. The esophagus otherwise appeared to be normal. There is mild to moderate amount of bilious with small amount of food material noted in the stomach. This raised the possibility of gastroparesis. This was easily suctioned and removed from the stomach. There is mild to moderate antral gastritis noted. Biopsies were taken and sent to pathology. Remaining stomach otherwise appeared to be normal. The duodenum appeared to be normal. Retroflexion view performed in the stomach showed no other pathology other than noted above. The patient tolerated the procedure well. No complications during the procedure. IMPRESSION: 1. Hiatal hernia. 2. Irregular Z-line, biopsies performed. 3. Long segment Pavon's with esophagitis, biopsy performed. 4. Small amount of fluid with small food material noted in the stomach, easily suctioned. Gastritis, biopsy performed. 5. Otherwise, normal EGD. RECOMMENDATIONS: 1. Follow up biopsy results. 2. If H. pylori positive, we will treat. 3. PPI daily. 4. The patient will require repeat EGD for more significant Pavon's biopsies in the future. 5. If tolerating p.o., okay to discharge from GI standpoint. We will follow up as an outpatient. JOB# [id number] [facility]
[2018-09-13] MEDS: HumuLIN R SUB-Q SCH ×2 (05:47)
[2018-09-13 06:03] VITALS: BP 114/51
[2018-09-13 08:32] LABS: BUN/Creatinine Ratio 10; Blood Urea Nitrogen 10 mg/dL (9-20); Calcium 7.8 mg/dL (8.4-10.2); Hemolysis Index 7
--- NOTE | 2018-09-13 10:52 | Gastroenterology Progress Note ---
Assessment and Plan 1.N/V 2.dyspepsia 3.H/o DM (uncontrolled) -abd x-ray unremarkable -MBS-premature spillage; no aspiration -gallbladder normal on u/s -etiology-likely 2/2 uncontrolled DM (gastroparesis?) vs other -s/p EGD yesterday that showed long segment bass's with esophagitis, irregular Z-line, mild/moderate gastritis, and some bilious fluid stomach -bx results pending- f/u in clinic -clinically, patient reports feeling better with no N/V or abd pain. Tolerating diet. -continue PPI and antiemetics -optimize glycemic control -limit narcotics for this may exacerbate symptoms -continue supportive care -patient okay to be d/c per GI standpoint with f/u in clinic -will sign off, please call if needed 4.acute hypoxic respiratory failure 5.HHNKS 6.sepsis 2/2 PNA 7.CHF 8.acute metabolic encephalopathy-resolved 9.GERALDO 10.NSTEMI type 2 -s/p cath with normal coronaries Subjective Date of service: 09/13/18 Principal diagnosis: dyspepsia Interval history: Patient sitting on the side of the bed this am w/o acute distress eating breakfast. No abd pain or N/V. Requesting to go home. Objective - Constitutional Vitals: Temp Pulse Resp BP Pulse Ox 98.6 F 92 H 20 114/51 81 L 09/13/18 05:35 09/13/18 05:35 09/13/18 05:35 09/13/18 05:35 09/13/18 05:35 General appearance: no acute distress - Respiratory Respiratory effort: normal - Cardiovascular Rhythm: regular - Gastrointestinal General gastrointestinal: Present: soft, non-tender, non-distended, normal bowel sounds - Neurologic Neurological: alert and oriented x3 - Labs CBC & Chem 7: 09/11/18 06:00 09/13/18 07:28 Labs: Laboratory Results - last 24 hr 09/12/18 09/12/18 09/12/18 13:06 17:20 21:50 Sodium Potassium Chloride Carbon Dioxide Anion Gap BUN Creatinine Estimated GFR BUN/Creatinine Ratio Glucose POC Glucose 59 L 235 H 346 H Calcium 09/13/18 09/13/18 09/13/18 05:39 07:28 07:40 Sodium 140 Potassium 3.8 Chloride 102.9 Carbon Dioxide 27 Anion Gap 14 BUN 10 Creatinine 1.0 Estimated GFR > 60 BUN/Creatinine Ratio 10 Glucose 185 H POC Glucose 279 H 217 H Calcium 7.8 L
--- NOTE | 2018-09-13 13:05 | Progress Note ---
Assessment and Plan DKA Pneumonia Acute metabolic encephaloapthy Severe Sepsis (Unspecified) KYLE Acute hypoxemic respiratory failure NSTEMI type 2 Thrombocytopenia Hyponatremia (due to hyperglycemia) - replace phosphorus and magnesium (KPhos 45 mmols) - change SSI to q6h once off IV insulin (target BG 140 - 180 mg/dl) -complete antibiotics -aspiration precautions - continue supplemental oxygen as needed to keep O2 sat's > 90% - continue bronchodilators with pulmonary hygiene per RT - continue accuchecks with glycemic control per SSI for target blood glucose <180mg/dL - Prevention of delirium, maintenance of sleep-wake cycle - Avoid nephrotoxic agents, adjust all antibiotics and medications for CrCL and GFR - VTE and Stress ulcer prophylaxis Suspect there is an element of ICU pyschosis . PT/OT to evaluate and treat OK to transfer to telemetry floor Subjective Date of service: 09/13/18 Principal diagnosis: dyspepsia Interval history: Patient is seen today for: DKA; Acute metabolic encephaloapthy; severe sepsis; KYLE; acute hypoxemic respiratory failure Seen and examined at bedside; 24hour events reviewed; nursing and respiratory care staff consulted; no adverse overnight events reported to me; resting in bed; making good urine; NO N/V/F/C; denies sore throat, acute chest pains or palpitations, for EGD today Objective Vital Signs - 12hr 09/13/18 05:35 Temperature 98.6 F Pulse Rate 92 H Respiratory 20 Rate Blood Pressure 114/51 O2 Sat by Pulse 81 L Oximetry Constitutional: no acute distress, other (middle aged AAM, normocephalic and atraumatic with mildly increased respiratory effort at rest) Eyes: non-icteric ENT: oropharynx moist, other (extubated) Neck: supple, no JVD, other (no thyromegaly) Effort: mildly labored Ascultation: Bilateral: rales (scant RLL) Percussion: Bilateral: not dull Cardiovascular: regular rate and rhythm, other (No R/M) Gastrointestinal: normoactive bowel sounds, soft, non-tender, non-distended Integumentary: normal Extremities: no cyanosis, no edema, pulses normal, no ischemia or petechiae Neurologic: non-focal exam (grossly), pupils equal and round, other (agitated) Psychiatric: other (?? mild cognitive dysfunction clinically) CBC and BMP: 09/11/18 06:00 09/13/18 07:28 ABG, PT/INR, D-dimer: ABG POC ABG pH 7.428 (7.35-7.45) 09/11/18 11:39 POC ABG pCO2 39.2 (35-45) 09/11/18 11:39 POC ABG pO2 69 (80-105) L 09/11/18 11:39 POC ABG HCO3 25.9 (22-26 mml/L) 09/11/18 11:39 POC ABG Total CO2 27 (23-27mmol/L) 09/11/18 11:39 POC ABG O2 Sat 94 09/11/18 11:39 PT/INR, D-dimer PT 17.5 Sec. (12.2-14.9) H 09/03/18 15:01 INR 1.47 (0.87-1.13) H 09/03/18 15:01 Abnormal lab findings: Abnormal Labs 09/03/18 09/03/18 09/03/18 02:20 15:01 15:01 WBC 17.4 H RBC Hgb 10.6 L Hct MCV 111 H MCH MCHC 25 L RDW 16.5 H Plt Count 16 L* Lymph % (Auto) Lymph # Seg Neutrophils % Seg Neuts % (Manual) 84.0 H Lymphocytes % (Manual) 8.0 L Seg Neutrophils # Seg Neutrophils # Man 14.6 H Monocytes # (Manual) 1.0 H PT 17.5 H INR 1.47 H POC ABG pH POC ABG pCO2 POC ABG pO2 VBG pH Sodium Potassium Chloride Carbon Dioxide BUN Creatinine Glucose POC Glucose Hemoglobin A1c Lactic Acid 5.90 H* Calcium Phosphorus Magnesium AST Alkaline Phosphatase Total Creatine Kinase CK-MB (CK-2) CK-MB (CK-2) Rel Index Troponin T C-Reactive Protein Total Protein Albumin 09/03/18 09/03/18 09/03/18 15:01 15:01 15:03 WBC RBC Hgb Hct MCV MCH MCHC RDW Plt Count Lymph % (Auto) Lymph # Seg Neutrophils % Seg Neuts % (Manual) Lymphocytes % (Manual) Seg Neutrophils # Seg Neutrophils # Man Monocytes # (Manual) PT INR POC ABG pH POC ABG pCO2 POC ABG pO2 VBG pH 7.049 L* Sodium 110 L* Potassium 7.5 H* Chloride 61.0 L Carbon Dioxide 6 L* BUN 77 H Creatinine 4.3 H Glucose 1968 H* POC Glucose > 500 H Hemoglobin A1c Lactic Acid Calcium 7.3 L Phosphorus Magnesium AST Alkaline Phosphatase Total Creatine Kinase 203 H CK-MB (CK-2) 8.9 H CK-MB (CK-2) Rel Index 4.3 H Troponin T 0.058 H C-Reactive Protein Total Protein Albumin 09/03/18 09/03/18 09/03/18 15:16 18:10 18:10 WBC RBC Hgb Hct MCV MCH MCHC RDW Plt Count Lymph % (Auto) Lymph # Seg Neutrophils % Seg Neuts % (Manual) Lymphocytes % (Manual) Seg Neutrophils # Seg Neutrophils # Man Monocytes # (Manual) PT INR POC ABG pH 7.020 L POC ABG pCO2 < 30 L POC ABG pO2 139 H VBG pH Sodium Potassium Chloride Carbon Dioxide BUN Creatinine Glucose POC Glucose Hemoglobin A1c Lactic Acid Calcium Phosphorus Magnesium AST 64 H Alkaline Phosphatase 205 H Total Creatine Kinase 289 H CK-MB (CK-2) 13.4 H CK-MB (CK-2) Rel Index 4.6 H Troponin T 0.142 H* D C-Reactive Protein Total Protein 5.6 L Albumin 3.2 L 09/03/18 09/03/18 09/03/18 18:10 18:10 18:33 WBC RBC Hgb Hct MCV MCH MCHC RDW Plt Count Lymph % (Auto) Lymph # Seg Neutrophils % Seg Neuts % (Manual) Lymphocytes % (Manual) Seg Neutrophils # Seg Neutrophils # Man Monocytes # (Manual) PT INR POC ABG pH 7.047 L POC ABG pCO2 POC ABG pO2 VBG pH Sodium 113 L* Potassium Chloride 70.1 L Carbon Dioxide 8 L* BUN 76 H Creatinine 4.3 H Glucose 1844 H* POC Glucose Hemoglobin A1c Lactic Acid Calcium 6.8 L Phosphorus 8.80 H Magnesium 2.90 H AST Alkaline Phosphatase Total Creatine Kinase CK-MB (CK-2) CK-MB (CK-2) Rel Index Troponin T C-Reactive Protein Total Protein Albumin 09/03/18 09/03/18 09/03/18 20:15 20:15 20:15 WBC RBC Hgb Hct MCV MCH MCHC RDW Plt Count Lymph % (Auto) Lymph # Seg Neutrophils % Seg Neuts % (Manual) Lymphocytes % (Manual) Seg Neutrophils # Seg Neutrophils # Man Monocytes # (Manual) PT INR POC ABG pH POC ABG pCO2 POC ABG pO2 VBG pH Sodium Potassium Chloride Carbon Dioxide BUN Creatinine Glucose POC Glucose Hemoglobin A1c Lactic Acid 4.10 H* Calcium Phosphorus 9.00 H Magnesium 2.80 H AST Alkaline Phosphatase Total Creatine Kinase 293 H CK-MB (CK-2) 13.0 H CK-MB (CK-2) Rel Index 4.4 H Troponin T 0.126 H* C-Reactive Protein Total Protein Albumin 09/03/18 09/03/18 09/03/18 20:15 20:18 22:00 WBC RBC Hgb Hct MCV MCH MCHC RDW Plt Count Lymph % (Auto) Lymph # Seg Neutrophils % Seg Neuts % (Manual) Lymphocytes % (Manual) Seg Neutrophils # Seg Neutrophils # Man Monocytes # (Manual) PT INR POC ABG pH POC ABG pCO2 POC ABG pO2 VBG pH Sodium 116 L* 120 L Potassium Chloride 74.3 L 82.7 L Carbon Dioxide 11 L 11 L BUN 76 H 74 H Creatinine 4.4 H 4.3 H Glucose 1786 H* 1144 H* POC Glucose > 500 H Hemoglobin A1c Lactic Acid Calcium 6.4 L 6.0 L Phosphorus Magnesium AST Alkaline Phosphatase Total Creatine Kinase CK-MB (CK-2) CK-MB (CK-2) Rel Index Troponin T C-Reactive Protein Total Protein Albumin 09/03/18 09/03/18 09/03/18 22:54 23:18 23:47 WBC RBC Hgb Hct MCV MCH MCHC RDW Plt Count Lymph % (Auto) Lymph # Seg Neutrophils % Seg Neuts % (Manual) Lymphocytes % (Manual) Seg Neutrophils # Seg Neutrophils # Man Monocytes # (Manual) PT INR POC ABG pH 7.279 L POC ABG pCO2 POC ABG pO2 230 H VBG pH Sodium Potassium Chloride Carbon Dioxide BUN Creatinine Glucose POC Glucose > 500 H Hemoglobin A1c Lactic Acid 5.00 H* Calcium Phosphorus Magnesium AST Alkaline Phosphatase Total Creatine Kinase CK-MB (CK-2) CK-MB (CK-2) Rel Index Troponin T C-Reactive Protein Total Protein Albumin 09/04/18 09/04/18 09/04/18 00:20 01:06 02:20 WBC RBC Hgb Hct MCV MCH MCHC RDW Plt Count Lymph % (Auto) Lymph # Seg Neutrophils % Seg Neuts % (Manual) Lymphocytes % (Manual) Seg Neutrophils # Seg Neutrophils # Man Monocytes # (Manual) PT INR POC ABG pH POC ABG pCO2 POC ABG pO2 VBG pH Sodium 124 L 127 L Potassium Chloride 88.7 L 91.1 L Carbon Dioxide 13 L 15 L BUN 70 H 72 H Creatinine 4.3 H 4.4 H Glucose 1295 H* 1156 H* POC Glucose > 500 H Hemoglobin A1c Lactic Acid Calcium 5.8 L* 6.1 L Phosphorus Magnesium AST Alkaline Phosphatase Total Creatine Kinase CK-MB (CK-2) CK-MB (CK-2) Rel Index Troponin T C-Reactive Protein Total Protein Albumin 09/04/18 09/04/18 09/04/18 02:28 04:35 05:25 WBC RBC Hgb Hct MCV MCH MCHC RDW Plt Count Lymph % (Auto) Lymph # Seg Neutrophils % Seg Neuts % (Manual) Lymphocytes % (Manual) Seg Neutrophils # Seg Neutrophils # Man Monocytes # (Manual) PT INR POC ABG pH POC ABG pCO2 POC ABG pO2 160 H VBG pH Sodium Potassium Chloride Carbon Dioxide BUN Creatinine Glucose POC Glucose > 500 H > 500 H Hemoglobin A1c Lactic Acid Calcium Phosphorus Magnesium AST Alkaline Phosphatase Total Creatine Kinase CK-MB (CK-2) CK-MB (CK-2) Rel Index Troponin T C-Reactive Protein Total Protein Albumin 09/04/18 09/04/18 09/04/18 06:15 09:04 09:15 WBC RBC Hgb Hct MCV MCH MCHC RDW Plt Count Lymph % (Auto) Lymph # Seg Neutrophils % Seg Neuts % (Manual) Lymphocytes % (Manual) Seg Neutrophils # Seg Neutrophils # Man Monocytes # (Manual) PT INR POC ABG pH POC ABG pCO2 POC ABG pO2 VBG pH Sodium 134 L D Potassium Chloride Carbon Dioxide 17 L 17 L BUN 67 H 63 H Creatinine 4.4 H 4.1 H Glucose 871 H* 668 H* POC Glucose > 500 H Hemoglobin A1c Lactic Acid Calcium 6.6 L 6.4 L Phosphorus Magnesium AST Alkaline Phosphatase Total Creatine Kinase CK-MB (CK-2) CK-MB (CK-2) Rel Index Troponin T C-Reactive Protein Total Protein Albumin 09/04/18 09/04/18 09/04/18 09:15 11:26 11:53 WBC 13.1 H RBC Hgb 9.8 L Hct 30.0 L D MCV 82 L MCH 27 L MCHC RDW Plt Count Lymph % (Auto) Lymph # Seg Neutrophils % Seg Neuts % (Manual) Lymphocytes % (Manual) Seg Neutrophils # Seg Neutrophils # Man Monocytes # (Manual) PT INR POC ABG pH POC ABG pCO2 POC ABG pO2 VBG pH Sodium Potassium Chloride Carbon Dioxide 20 L BUN 61 H Creatinine 3.9 H Glucose 472 H POC Glucose > 500 H Hemoglobin A1c Lactic Acid Calcium 6.7 L Phosphorus Magnesium AST Alkaline Phosphatase Total Creatine Kinase CK-MB (CK-2) CK-MB (CK-2) Rel Index Troponin T C-Reactive Protein Total Protein Albumin 09/04/18 09/04/18 09/04/18 13:44 14:18 15:29 WBC RBC Hgb Hct MCV MCH MCHC RDW Plt Count Lymph % (Auto) Lymph # Seg Neutrophils % Seg Neuts % (Manual) Lymphocytes % (Manual) Seg Neutrophils # Seg Neutrophils # Man Monocytes # (Manual) PT INR POC ABG pH POC ABG pCO2 30.2 L POC ABG pO2 145 H VBG pH Sodium Potassium Chloride Carbon Dioxide BUN Creatinine Glucose POC Glucose 354 H 299 H Hemoglobin A1c Lactic Acid Calcium Phosphorus Magnesium AST Alkaline Phosphatase Total Creatine Kinase CK-MB (CK-2) CK-MB (CK-2) Rel Index Troponin T C-Reactive Protein Total Protein Albumin 09/04/18 09/04/18 09/04/18 16:10 17:19 21:55 WBC RBC Hgb Hct MCV MCH MCHC RDW Plt Count Lymph % (Auto) Lymph # Seg Neutrophils % Seg Neuts % (Manual) Lymphocytes % (Manual) Seg Neutrophils # Seg Neutrophils # Man Monocytes # (Manual) PT INR POC ABG pH POC ABG pCO2 POC ABG pO2 VBG pH Sodium Potassium Chloride 113.1 H 114.0 H Carbon Dioxide 19 L 18 L BUN 57 H 52 H Creatinine 3.3 H 3.0 H Glucose 113 H 161 H POC Glucose 147 H Hemoglobin A1c Lactic Acid Calcium 6.8 L 6.7 L Phosphorus Magnesium AST Alkaline Phosphatase Total Creatine Kinase CK-MB (CK-2) CK-MB (CK-2) Rel Index Troponin T C-Reactive Protein Total Protein Albumin 09/04/18 09/05/18 09/05/18 21:58 00:08 01:44 WBC RBC Hgb Hct MCV MCH MCHC RDW Plt Count Lymph % (Auto) Lymph # Seg Neutrophils % Seg Neuts % (Manual) Lymphocytes % (Manual) Seg Neutrophils # Seg Neutrophils # Man Monocytes # (Manual) PT INR POC ABG pH POC ABG pCO2 POC ABG pO2 VBG pH Sodium Potassium Chloride Carbon Dioxide BUN Creatinine Glucose POC Glucose 159 H 235 H 224 H Hemoglobin A1c Lactic Acid Calcium Phosphorus Magnesium AST Alkaline Phosphatase Total Creatine Kinase CK-MB (CK-2) CK-MB (CK-2) Rel Index Troponin T C-Reactive Protein Total Protein Albumin 09/05/18 09/05/18 09/05/18 04:13 04:22 04:30 WBC 11.5 H RBC 3.59 L Hgb 9.9 L Hct 29.2 L MCV 81 L MCH MCHC RDW Plt Count Lymph % (Auto) Lymph # Seg Neutrophils % Seg Neuts % (Manual) Lymphocytes % (Manual) Seg Neutrophils # Seg Neutrophils # Man Monocytes # (Manual) PT INR POC ABG pH POC ABG pCO2 < 30 L POC ABG pO2 133 H VBG pH Sodium Potassium Chloride Carbon Dioxide BUN Creatinine Glucose POC Glucose 253 H Hemoglobin A1c Lactic Acid Calcium Phosphorus Magnesium AST Alkaline Phosphatase Total Creatine Kinase CK-MB (CK-2) CK-MB (CK-2) Rel Index Troponin T C-Reactive Protein Total Protein Albumin 09/05/18 09/05/18 09/05/18 04:30 05:59 08:09 WBC RBC Hgb Hct MCV MCH MCHC RDW Plt Count Lymph % (Auto) Lymph # Seg Neutrophils % Seg Neuts % (Manual) Lymphocytes % (Manual) Seg Neutrophils # Seg Neutrophils # Man Monocytes # (Manual) PT INR POC ABG pH POC ABG pCO2 POC ABG pO2 VBG pH Sodium Potassium Chloride 114.0 H Carbon Dioxide 18 L BUN 44 H Creatinine 2.7 H Glucose 235 H POC Glucose 243 H 187 H Hemoglobin A1c Lactic Acid Calcium 7.0 L Phosphorus 1.10 L D Magnesium AST 85 H Alkaline Phosphatase 139 H Total Creatine Kinase CK-MB (CK-2) CK-MB (CK-2) Rel Index Troponin T C-Reactive Protein Total Protein 4.6 L Albumin 2.6 L 09/05/18 09/05/18 09/05/18 10:02 12:22 12:24 WBC RBC Hgb Hct MCV MCH MCHC RDW Plt Count Lymph % (Auto) Lymph # Seg Neutrophils % Seg Neuts % (Manual) Lymphocytes % (Manual) Seg Neutrophils # Seg Neutrophils # Man Monocytes # (Manual) PT INR POC ABG pH POC ABG pCO2 POC ABG pO2 VBG pH Sodium Potassium Chloride Carbon Dioxide BUN Creatinine Glucose POC Glucose 139 H 52 L 63 L Hemoglobin A1c Lactic Acid Calcium Phosphorus Magnesium AST Alkaline Phosphatase Total Creatine Kinase CK-MB (CK-2) CK-MB (CK-2) Rel Index Troponin T C-Reactive Protein Total Protein Albumin 09/05/18 09/05/18 09/05/18 12:30 16:02 Unknown WBC RBC Hgb Hct MCV MCH MCHC RDW Plt Count Lymph % (Auto) Lymph # Seg Neutrophils % Seg Neuts % (Manual) Lymphocytes % (Manual) Seg Neutrophils # Seg Neutrophils # Man Monocytes # (Manual) PT INR POC ABG pH POC ABG pCO2 POC ABG pO2 VBG pH Sodium Potassium Chloride 112.3 H Carbon Dioxide 20 L BUN 30 H Creatinine 2.0 H Glucose 183 H POC Glucose 55 L Hemoglobin A1c Lactic Acid Calcium 7.6 L Phosphorus Magnesium AST Alkaline Phosphatase Total Creatine Kinase CK-MB (CK-2) CK-MB (CK-2) Rel Index Troponin T C-Reactive Protein 6.30 H Total Protein Albumin 09/06/18 09/06/18 09/06/18 00:06 04:27 04:30 WBC RBC Hgb Hct MCV MCH MCHC RDW Plt Count Lymph % (Auto) Lymph # Seg Neutrophils % Seg Neuts % (Manual) Lymphocytes % (Manual) Seg Neutrophils # Seg Neutrophils # Man Monocytes # (Manual) PT INR POC ABG pH 7.280 L POC ABG pCO2 POC ABG pO2 VBG pH Sodium Potassium Chloride Carbon Dioxide BUN Creatinine Glucose POC Glucose 218 H Hemoglobin A1c 14.6 H Lactic Acid Calcium Phosphorus Magnesium AST Alkaline Phosphatase Total Creatine Kinase CK-MB (CK-2) CK-MB (CK-2) Rel Index Troponin T C-Reactive Protein Total Protein Albumin 09/06/18 09/06/18 09/06/18 05:00 05:23 10:58 WBC RBC Hgb Hct MCV MCH MCHC RDW Plt Count Lymph % (Auto) Lymph # Seg Neutrophils % Seg Neuts % (Manual) Lymphocytes % (Manual) Seg Neutrophils # Seg Neutrophils # Man Monocytes # (Manual) PT INR POC ABG pH POC ABG pCO2 31.7 L POC ABG pO2 60 L VBG pH Sodium Potassium Chloride 111.4 H Carbon Dioxide 20 L BUN 27 H Creatinine 1.9 H Glucose 256 H POC Glucose 308 H Hemoglobin A1c Lactic Acid Calcium 7.7 L Phosphorus Magnesium AST Alkaline Phosphatase Total Creatine Kinase CK-MB (CK-2) CK-MB (CK-2) Rel Index Troponin T C-Reactive Protein Total Protein Albumin 09/06/18 09/06/18 09/06/18 12:17 18:25 21:58 WBC RBC Hgb Hct MCV MCH MCHC RDW Plt Count Lymph % (Auto) Lymph # Seg Neutrophils % Seg Neuts % (Manual) Lymphocytes % (Manual) Seg Neutrophils # Seg Neutrophils # Man Monocytes # (Manual) PT INR POC ABG pH POC ABG pCO2 POC ABG pO2 VBG pH Sodium Potassium Chloride Carbon Dioxide BUN Creatinine Glucose POC Glucose 214 H 183 H 136 H Hemoglobin A1c Lactic Acid Calcium Phosphorus Magnesium AST Alkaline Phosphatase Total Creatine Kinase CK-MB (CK-2) CK-MB (CK-2) Rel Index Troponin T C-Reactive Protein Total Protein Albumin 09/06/18 09/07/18 09/07/18 23:42 04:20 04:20 WBC RBC 3.36 L Hgb 9.2 L Hct 27.8 L MCV 83 L MCH 27 L MCHC RDW Plt Count Lymph % (Auto) 5.1 L Lymph # 0.5 L Seg Neutrophils % 87.0 H Seg Neuts % (Manual) Lymphocytes % (Manual) Seg Neutrophils # 8.5 H Seg Neutrophils # Man Monocytes # (Manual) PT INR POC ABG pH POC ABG pCO2 POC ABG pO2 VBG pH Sodium Potassium Chloride 112.3 H Carbon Dioxide BUN Creatinine Glucose 200 H POC Glucose 169 H Hemoglobin A1c Lactic Acid Calcium 8.0 L Phosphorus Magnesium AST Alkaline Phosphatase Total Creatine Kinase CK-MB (CK-2) CK-MB (CK-2) Rel Index Troponin T C-Reactive Protein Total Protein Albumin 09/07/18 09/07/18 09/07/18 05:19 11:49 17:23 WBC RBC Hgb Hct MCV MCH MCHC RDW Plt Count Lymph % (Auto) Lymph # Seg Neutrophils % Seg Neuts % (Manual) Lymphocytes % (Manual) Seg Neutrophils # Seg Neutrophils # Man Monocytes # (Manual) PT INR POC ABG pH POC ABG pCO2 POC ABG pO2 VBG pH Sodium Potassium Chloride Carbon Dioxide BUN Creatinine Glucose POC Glucose 177 H 120 H 224 H Hemoglobin A1c Lactic Acid Calcium Phosphorus Magnesium AST Alkaline Phosphatase Total Creatine Kinase CK-MB (CK-2) CK-MB (CK-2) Rel Index Troponin T C-Reactive Protein Total Protein Albumin 09/07/18 09/07/18 09/08/18 17:41 23:11 06:15 WBC RBC Hgb Hct MCV MCH MCHC RDW Plt Count Lymph % (Auto) Lymph # Seg Neutrophils % Seg Neuts % (Manual) Lymphocytes % (Manual) Seg Neutrophils # Seg Neutrophils # Man Monocytes # (Manual) PT INR POC ABG pH POC ABG pCO2 POC ABG pO2 VBG pH Sodium 146 H Potassium Chloride 112.9 H Carbon Dioxide BUN Creatinine Glucose 117 H POC Glucose 227 H 156 H Hemoglobin A1c Lactic Acid Calcium 8.0 L Phosphorus Magnesium AST Alkaline Phosphatase Total Creatine Kinase CK-MB (CK-2) CK-MB (CK-2) Rel Index Troponin T C-Reactive Protein Total Protein Albumin 09/08/18 09/08/18 09/08/18 07:13 11:42 23:03 WBC RBC Hgb Hct MCV MCH MCHC RDW Plt Count Lymph % (Auto) Lymph # Seg Neutrophils % Seg Neuts % (Manual) Lymphocytes % (Manual) Seg Neutrophils # Seg Neutrophils # Man Monocytes # (Manual) PT INR POC ABG pH POC ABG pCO2 POC ABG pO2 VBG pH Sodium Potassium Chloride Carbon Dioxide BUN Creatinine Glucose POC Glucose 128 H 128 H 172 H Hemoglobin A1c Lactic Acid Calcium Phosphorus Magnesium AST Alkaline Phosphatase Total Creatine Kinase CK-MB (CK-2) CK-MB (CK-2) Rel Index Troponin T C-Reactive Protein Total Protein Albumin 09/08/18 09/09/18 09/09/18 23:43 01:30 05:44 WBC RBC Hgb Hct MCV MCH MCHC RDW Plt Count Lymph % (Auto) Lymph # Seg Neutrophils % Seg Neuts % (Manual) Lymphocytes % (Manual) Seg Neutrophils # Seg Neutrophils # Man Monocytes # (Manual) PT INR POC ABG pH POC ABG pCO2 POC ABG pO2 VBG pH Sodium Potassium 3.5 L Chloride 107.2 H Carbon Dioxide BUN Creatinine Glucose 128 H POC Glucose 188 H 112 H Hemoglobin A1c Lactic Acid Calcium 7.6 L Phosphorus Magnesium AST Alkaline Phosphatase Total Creatine Kinase CK-MB (CK-2) CK-MB (CK-2) Rel Index Troponin T C-Reactive Protein Total Protein Albumin 09/09/18 09/09/18 09/09/18 05:52 11:24 21:58 WBC RBC Hgb Hct MCV MCH MCHC RDW Plt Count Lymph % (Auto) Lymph # Seg Neutrophils % Seg Neuts % (Manual) Lymphocytes % (Manual) Seg Neutrophils # Seg Neutrophils # Man Monocytes # (Manual) PT INR POC ABG pH POC ABG pCO2 POC ABG pO2 VBG pH Sodium Potassium 3.4 L Chloride 108.8 H Carbon Dioxide BUN Creatinine Glucose 116 H POC Glucose 257 H 141 H Hemoglobin A1c Lactic Acid Calcium 7.9 L Phosphorus 2.30 L Magnesium AST Alkaline Phosphatase Total Creatine Kinase CK-MB (CK-2) CK-MB (CK-2) Rel Index Troponin T C-Reactive Protein Total Protein Albumin 09/10/18 09/10/18 09/10/18 00:08 05:58 11:13 WBC RBC Hgb Hct MCV MCH MCHC RDW Plt Count Lymph % (Auto) Lymph # Seg Neutrophils % Seg Neuts % (Manual) Lymphocytes % (Manual) Seg Neutrophils # Seg Neutrophils # Man Monocytes # (Manual) PT INR POC ABG pH POC ABG pCO2 POC ABG pO2 VBG pH Sodium Potassium Chloride Carbon Dioxide BUN Creatinine Glucose POC Glucose 121 H 122 H 207 H Hemoglobin A1c Lactic Acid Calcium Phosphorus Magnesium AST Alkaline Phosphatase Total Creatine Kinase CK-MB (CK-2) CK-MB (CK-2) Rel Index Troponin T C-Reactive Protein Total Protein Albumin 09/10/18 09/11/18 09/11/18 17:40 00:31 03:05 WBC RBC Hgb Hct MCV MCH MCHC RDW Plt Count Lymph % (Auto) Lymph # Seg Neutrophils % Seg Neuts % (Manual) Lymphocytes % (Manual) Seg Neutrophils # Seg Neutrophils # Man Monocytes # (Manual) PT INR POC ABG pH POC ABG pCO2 POC ABG pO2 VBG pH Sodium Potassium Chloride Carbon Dioxide BUN Creatinine Glucose POC Glucose 218 H 226 H 142 H Hemoglobin A1c Lactic Acid Calcium Phosphorus Magnesium AST Alkaline Phosphatase Total Creatine Kinase CK-MB (CK-2) CK-MB (CK-2) Rel Index Troponin T C-Reactive Protein Total Protein Albumin 09/11/18 09/11/18 09/11/18 05:32 06:00 06:00 WBC 11.5 H RBC 3.53 L Hgb 9.5 L Hct 29.0 L MCV 82 L MCH 27 L MCHC RDW Plt Count Lymph % (Auto) Lymph # Seg Neutrophils % Seg Neuts % (Manual) Lymphocytes % (Manual) Seg Neutrophils # Seg Neutrophils # Man Monocytes # (Manual) PT INR POC ABG pH POC ABG pCO2 POC ABG pO2 VBG pH Sodium Potassium 3.5 L Chloride Carbon Dioxide BUN 7 L Creatinine Glucose 153 H POC Glucose 153 H Hemoglobin A1c Lactic Acid Calcium 7.9 L Phosphorus Magnesium AST Alkaline Phosphatase Total Creatine Kinase CK-MB (CK-2) CK-MB (CK-2) Rel Index Troponin T C-Reactive Protein Total Protein 4.9 L Albumin 1.8 L 09/11/18 09/11/18 09/11/18 11:39 12:38 16:41 WBC RBC Hgb Hct MCV MCH MCHC RDW Plt Count Lymph % (Auto) Lymph # Seg Neutrophils % Seg Neuts % (Manual) Lymphocytes % (Manual) Seg Neutrophils # Seg Neutrophils # Man Monocytes # (Manual) PT INR POC ABG pH POC ABG pCO2 POC ABG pO2 69 L VBG pH Sodium Potassium Chloride Carbon Dioxide BUN Creatinine Glucose POC Glucose 219 H 173 H Hemoglobin A1c Lactic Acid Calcium Phosphorus Magnesium AST Alkaline Phosphatase Total Creatine Kinase CK-MB (CK-2) CK-MB (CK-2) Rel Index Troponin T C-Reactive Protein Total Protein Albumin 09/11/18 09/12/18 09/12/18 21:46 08:32 13:06 WBC RBC Hgb Hct MCV MCH MCHC RDW Plt Count Lymph % (Auto) Lymph # Seg Neutrophils % Seg Neuts % (Manual) Lymphocytes % (Manual) Seg Neutrophils # Seg Neutrophils # Man Monocytes # (Manual) PT INR POC ABG pH POC ABG pCO2 POC ABG pO2 VBG pH Sodium Potassium Chloride Carbon Dioxide BUN Creatinine Glucose POC Glucose 161 H 68 L 59 L Hemoglobin A1c Lactic Acid Calcium Phosphorus Magnesium AST Alkaline Phosphatase Total Creatine Kinase CK-MB (CK-2) CK-MB (CK-2) Rel Index Troponin T C-Reactive Protein Total Protein Albumin 09/12/18 09/12/18 09/13/18 17:20 21:50 05:39 WBC RBC Hgb Hct MCV MCH MCHC RDW Plt Count Lymph % (Auto) Lymph # Seg Neutrophils % Seg Neuts % (Manual) Lymphocytes % (Manual) Seg Neutrophils # Seg Neutrophils # Man Monocytes # (Manual) PT INR POC ABG pH POC ABG pCO2 POC ABG pO2 VBG pH Sodium Potassium Chloride Carbon Dioxide BUN Creatinine Glucose POC Glucose 235 H 346 H 279 H Hemoglobin A1c Lactic Acid Calcium Phosphorus Magnesium AST Alkaline Phosphatase Total Creatine Kinase CK-MB (CK-2) CK-MB (CK-2) Rel Index Troponin T C-Reactive Protein Total Protein Albumin 09/13/18 09/13/18 09/13/18 07:28 07:40 11:58 WBC RBC Hgb Hct MCV MCH MCHC RDW Plt Count Lymph % (Auto) Lymph # Seg Neutrophils % Seg Neuts % (Manual) Lymphocytes % (Manual) Seg Neutrophils # Seg Neutrophils # Man Monocytes # (Manual) PT INR POC ABG pH POC ABG pCO2 POC ABG pO2 VBG pH Sodium Potassium Chloride Carbon Dioxide BUN Creatinine Glucose 185 H POC Glucose 217 H 150 H Hemoglobin A1c Lactic Acid Calcium 7.8 L Phosphorus Magnesium AST Alkaline Phosphatase Total Creatine Kinase CK-MB (CK-2) CK-MB (CK-2) Rel Index Troponin T C-Reactive Protein Total Protein Albumin Allied health notes reviewed: nursing
--- NOTE | 2018-09-13 13:08 | Discharge Summary ---
Providers - Providers Date of Admission: 09/03/18 15:58 Date of discharge: 09/13/18 Attending physician: ARLETTE GARCIA 09/03/18 16:20 Consult to Physician [CONS] Routine Comment: Consulting Provider: LIDIA BOSS Physician Instructions: Reason For Exam: respiratory failure 09/03/18 16:24 Consult to Physician [CONS] Routine Comment: Consulting Provider: SILVANO CHACKO Physician Instructions: Reason For Exam: thrombocytopenia 09/03/18 17:55 Consult to Dietitian/Nutrition [CONS] Routine Physician Instructions: Reason For Exam: DKA Reason for Consult: Nutrition Recommendations Reason for Consult: critical care DKA 09/04/18 13:48 Consult to PICC Line RN [CONS] Urgent Reason For Exam: vasopressors Type Line:: PICC 09/05/18 10:10 Consult to Dietitian/Nutrition [CONS] Routine Physician Instructions: Reason For Exam: Reason for Consult: Write/Manage Tube Feeding 09/05/18 14:38 Consult to Physician [CONS] Routine Comment: Consulting Provider: GIO KWOK Physician Instructions: Reason For Exam: KYLE 09/06/18 15:00 Speech Therapy Evaluation and Treat [CONS] Routine Reason For Exam: aspiration risk 09/08/18 08:08 Physical Therapy Evaluation and Treat [CONS] Routine Comment: Reason For Exam: placement 09/10/18 16:58 Consult to Physician [CONS] Routine Comment: Consulting Provider: SARA REED Physician Instructions: Reason For Exam: dyspepsia, epigastric pains, hiccups, n/v [facility] Condition: Stable Hospital course: Patient is a 53 yo man with a history of DM type 2 on Insulin who presented to PS[facility]IATRIC ED with AMS/lethargy, Nausea, Vomiting, and shortness of breath. Upon arrival the patient was found to be in distress with an elevated blood glucose of 1968, and EKG changes. A code STEMI was called and the patient was transported to [facility]. Pt seen and evaluated in ED and was taken urgently to director of labor and delivery as per cardiology team and found normal coronaries. Pt subsequently found to have HHNKS, Acute Respiratory Failure, Acute Renal Failure, Thrombocytopenia, as well as Sepsis with PNA. Pt admitted to ICU and initiated on sepsis protocol as well as Insulin drip. Pt decompensated and eventually intubated in the ICU and placed on vent support by the Anesthesia service. He self extubated during SBT on 09/06/18, off insulin drip now. getting treated for PNA. c/o cough with meal, repeat speech eval suggested barium swallow eval. He did not get CT head when presented to hospital as CT scaner was broken for ~ 2 days, then the order dropped off. reorder CT head today. 2d echo showed Ef 20-25%, medical Mx. patient admits to missing his insulin Discharge Diagnoses: / Acute hypoxic respiratory failure / HHNKS / Sepsis likely from strep group B PNA, POA /Septic shock, POA /Acute systolic heart failure, est EF 20-25% /Acute metabolic Encephalopathy, resolved /Acute renal failure due to ATN +vasomotor nephropathy, poa /NSTEMI type 2; Cardiology consulted in ED, Pt taken urgently to director of labor and delivery, and underwent cardiac cath showed normal coronaries. / Thrombocytopenia, transfused platelets, resolved / Hyponatremia due to hyperglycemia, cont IV fluid /h/o tobacco abuse, counselled for cessation /H/o alcohol abuse Disposition: DC-01 TO HOME OR SELFCARE Time spent for discharge: 36 minutes Core Measure Documentation - Palliative Care Palliative Care/ Comfort Measures: Not Applicable - Core Measures Any of the following diagnoses?: heart failure - VTE Discharge Requirements Deep Vein Thrombosis/Pulmonary Embolism Present on Admission: No Has pt received <5 days of overlap therapy or INR<2.0: No Anticoagulant overlap therapy prescribed at discharge: No Contraindication No Overlap Therapy order at DC: Not Indicated - Heart Failure Discharge Requirements AVI/ARB for LVSD if EF <40%: No Reason for no AVI/ARB: Hypotension (although renal failure resolved, bp is borderline low, so Avi(i)/aRB not initated.) Beta lina at discharge: Yes Exam - Physical Exam Narrative exam: Gen: WDWN, NAD, Awake, Alert, Orientated HEENT: NCAT, EOMI, PERRL, OP Clear Neck: supple, no adenopathy, no thyromegaly, no JVD CVS/Heart: RRR, normal S1S2, pulses present bilaterally Chest/Lungs: CTA B, Symmetrical chest expansion, good air entry bilaterally GI/Abdomen: soft, mild epigastric tenderness, NTND, good bowel sounds, no guarding or rebound /Bladder: no suprapubic tenderness, no CVA or paraspinal tenderness Extermity/Skin: no c/c/e, no obvious rash MSK: FROM x 4 Neuro: CN 2-12 grossly intact, no new focal deficits Psych: calm - Constitutional Vitals: Temp Pulse Resp BP Pulse Ox 98.6 F 92 H 20 114/51 81 L 09/13/18 05:35 09/13/18 05:35 09/13/18 05:35 09/13/18 05:35 09/13/18 05:35 Plan Activity: other (no strenous activity unless cleared by PCP) Diet: low salt, diabetic Special Instructions: record blood sugar diary (3 times a day), smoking cessation [facility]HE[facility] [Primary Care Provider] - 3-5 Days SARA REED MD [Staff Physician] - 7 Days KALI LEVIN MD [Staff Physician] - 7 Days Prescriptions: Carvedilol [Coreg] 3.125 mg PO BID #60 tablet Folic Acid [Folvite] 1 mg PO DAILY #30 tablet Insulin Regular, Human [HumuLIN R] 1 dose SUB-Q ACHS PRN #100 units PRN Reason: Hyperglycemia guaiFENesin ER [Mucinex ER] 600 mg PO BID PRN #30 tablet PRN Reason: Cough Multivitamin Tab [Multiple Vitamin TAB (Theragran)] 1 each PO DAILY #30 tablet Insulin NPH/Regular [Novolin 70/30] 5 unit SQ BIDDIAB #1 vial Pantoprazole [Protonix TAB] 40 mg PO QDAY #30 tablet Thiamine [Vitamin B-1] 100 mg PO QDAY #30 tablet
[2018-09-13] MEDS: VITAMIN B-1 PO SCH (13:39)
[2018-09-13] MEDS: COREG PO SCH (13:39)
[2018-09-13] MEDS: MUCINEX ER PO SCH (13:39)
[2018-09-13] MEDS: THERAGRAN Tab PO SCH (13:39)
[2018-09-13] MEDS: PROTONIX PO SCH (13:40)
[2018-09-13] MEDS: FOLVITE PO SCH (13:40)
[2018-09-13] MEDS: SODIUM CHLORIDE FLUSH SYRINGE 10 ML IV SCH (13:40)
== END 2018-09-13 14:30 | disposition home or self-care (01) | DRG 871 ==
LOC: CATH 14:54 → ED 14:54 → EDSTATUS 15:25 → CC1 15:58 → 3A 09-07 12:20
PROVIDERS: ADMIT Internal Medicine; ATTEND Internal Medicine
PROC: 5A1945Z Respiratory Ventilation, 24-96 Consecutive Hours (ICD-10-PCS; principal; 2018-09-03)
PROC: 0BH17EZ Insertion of Endotracheal Airway into Trachea, Via Natural or Artificial Opening (ICD-10-PCS; 2018-09-03)
PROC: 4A023N7 Measurement of Cardiac Sampling and Pressure, Left Heart, Percutaneous Approach (ICD-10-PCS; 2018-09-03)
PROC: B2111ZZ Fluoroscopy of Multiple Coronary Arteries using Low Osmolar Contrast (ICD-10-PCS; 2018-09-03)
PROC: B2151ZZ Fluoroscopy of Left Heart using Low Osmolar Contrast (ICD-10-PCS; 2018-09-03)
PROC: 4A033R1 Measurement of Arterial Saturation, Peripheral, Percutaneous Approach (ICD-10-PCS; 2018-09-03)
PROC: 5A09357 Assistance with Respiratory Ventilation, Less than 24 Consecutive Hours, Continuous Positive Airway Pressure (ICD-10-PCS; 2018-09-03)
PROC: 30233R1 Transfusion of Nonautologous Platelets into Peripheral Vein, Percutaneous Approach (ICD-10-PCS; 2018-09-04)
PROC: 0DB48ZX Excision of Esophagogastric Junction, Via Natural or Artificial Opening Endoscopic, Diagnostic (ICD-10-PCS; 2018-09-12)
PROC: 0DB68ZX Excision of Stomach, Via Natural or Artificial Opening Endoscopic, Diagnostic (ICD-10-PCS; 2018-09-12)
PROC: 0DB58ZX Excision of Esophagus, Via Natural or Artificial Opening Endoscopic, Diagnostic (ICD-10-PCS; 2018-09-12)
DX: A40.3 Sepsis due to Streptococcus pneumoniae (principal); E11.10 Type 2 diabetes mellitus with ketoacidosis without coma; J96.01 Acute respiratory failure with hypoxia; R65.21 Severe sepsis with septic shock; J18.9 Pneumonia, unspecified organism; I21.A1 Myocardial infarction type 2; G93.41 Metabolic encephalopathy; N17.0 Acute kidney failure with tubular necrosis; I50.21 Acute systolic (congestive) heart failure; E87.1 Hypo-osmolality and hyponatremia; I42.9 Cardiomyopathy, unspecified; E87.5 Hyperkalemia; D69.6 Thrombocytopenia, unspecified; D64.9 Anemia, unspecified; I25.10 Atherosclerotic heart disease of native coronary artery without angina pectoris
CPT/HCPCS: 36415; 36600; 36620; 70450; 71045; 71046; 74018; 74019; 74230; 76700; 76770; 80048; 80053; 80061; 80076; 80202; 81001; 82140; 82550; 82553; 82803; 82805; 82962; 83036; 83735; 84100; 84484; 85007; 85025; 85027; 85610; 85730; 86140; 86850; 86900; 86901; 87040; 87070; 87205; 87806; 88305; 88312; 88341; 88342; 93005; 93010; 93306; 93458; 94002; 94003; 94640; 94760; 99406; G0378; C1894; J0171; J0282; J0456; J0461; J0610; J0696; J1265; J1644; J1650; J1815; J2001; J2060; J2250; J2370; J2704; J3010; J3370; J3411; J3475; J3480; J7030; J7040; J7042; J7050; J7060; P9035; Q0164; Q9967